=== PATIENT | female | born 1950 | race Caucasian/White ===

== ENCOUNTER 2018-07-07 11:36 | Emergency (ER) | payer MEDICARE ==
[~2018-07-07] VITALS: Ht 170.2 cm; Wt 58.5 kg
--- OUTSIDE RECORDS SUMMARY | ~2018-07-07 | XMS | Clinical Summary ---
Demographics + + + | Address | [address] | | | [place] [address] | + + + | Home Phone | | + + + | Preferred Language | Unknown | + + + | Marital Status | Single | + + + | Taoism Affiliation | Unknown | + + + | Race | Unknown | + + + | Ethnic Group | Other Race | + + + Author + + + | Organization | Unknown | + + + | Address | Unknown | + + + | Phone | Unavailable | + + + Care Team Providers + +------+ + | Care Control Systems Drafting Officer Name | Role | Phone | + +------+ + PP | Unavailable | + +------+ + Source Comments JOSE is fully live on both [facility] and [facility] Allergies Not on File Current Medications Not on file Active Problems + + + | Problem | Noted Date | + + + | Malignant neoplasm of upper-outer quadrant of female breast | | + + + + + | Overview: | | Primary | | diagnosis | + + Social History + +-------+ +--------+------+ [...] on file | | + + + Plan of Treatment + + + + + | Health Maintenance | Due Date | Last Done | Comments | + + + + + | Pneumococcal (Adult) | | | | | (1 of 2 - PCV13) | 7 | | | + + + + + | Influenza (Flu) | | | | | vaccination (#1) | 8 | | | + + + + + Results Not on filefrom Last 3 Months"
--- OUTSIDE RECORDS SUMMARY | ~2018-07-07 | XMS | Clinical Summary ---
Demographics + + + | Address | [address] | | | [place] [address] | + + + | Home Phone | | + + + | Preferred Language | Unknown | + + + | Marital Status | Single | + + + | Moravian Affiliation | Unknown | + + + | Race | Unknown | + + + | Ethnic Group | Other Race | + + + Author + + + | Organization | Unknown | + + + | Address | Unknown | + + + | Phone | Unavailable | + + + Care Team Providers + +------+ + | Care Plant Supervisor Name | Role | Phone | + +------+ + PP | Unavailable | + +------+ + Source Comments JOSE is fully live on both [facility] Ambulatory and [facility] InPatient.[facility] Allergies Not on File Current Medications Not [...]
--- NOTE | 2018-07-07 14:01 | EKG ---
[facility] [address] [place], [place] [address] Signed Atrial fibrillation with rapid ventricular response Abnormal ECG No previous ECGs available Confirmed by VALERIE SANFORD MD ([id number]) on 07/07/2018 2:01:24 PM Electronically Signed By: VALERIE SANFORD MD 07/07/18 1401 PATIENT NAME: LISA FRY Electrocardiogram DATE OF : 52 PHYSICIAN: VALERIE SANFORD MD REPORT #: [id number] REPORT IS CONFIDENTIAL AND NOT TO BE RELEASED WITHOUT AUTHORIZATION
== END 2018-07-07 16:40 | disposition short-term general hospital (02) ==
LOC: ED 11:36
DX: I48.91 Unspecified atrial fibrillation (principal); E05.90 Thyrotoxicosis, unspecified without thyrotoxic crisis or storm; Z85.3 Personal history of malignant neoplasm of breast; Z87.891 Personal history of nicotine dependence
CPT/HCPCS: 71046; 80053; 84439; 84443; 84484; 85025; 93005; 93010; 96374; 96376; 99285-25

== ENCOUNTER 2019-03-21 19:57 | Emergency (ER) | payer MEDICARE ==
[~2019-03-21] VITALS: Ht 170.2 cm; Wt 58.5 kg
--- OUTSIDE RECORDS SUMMARY | ~2019-03-21 | XMS | Encounter Summary ---
Demographics + + + | Address | [address] | | | [place] [address] | + + + | Home Phone | | + + + | Preferred Language | Unknown | + + + | Marital Status | Single | + + + | Sikhism Affiliation | Unknown | + + + [...] Team Providers + +------+ + | Care Reflow Operator Name | Role | Phone | + +------+ + PCP | Unavailable | + +------+ + Encounter Details +--------+ + + + + | Date | Type | Department | Care Team | Description | +--------+ + + + + | 02/14/ | Documentati | [facility] | Ned Valdes, | | | 1993 | on | [facility] | [address] | | | | | [address] | | | | | [address] [place], [place] | [place], [place] | | | | | [address] | [address] | | | | | [phone] | [phone] | | | | | | | [...] documented as of this encounter Progress Notes Ned Valdes MD - 11/26/2004 9:44 AM [facility] - sent Lucio Dee M.D. [address] [place] [address] RE: TAMAR FRY Dear Pat: I had the pleasure of seeing your patient, Tamar Fry, regarding a diagnosis of breast cancer recently. The patient is a 44-year-old premenopausal female who was found to have an abnormality on screening mammography. 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 The tumor was present at the margin of resection. The tumor measured 6 mm according to the pathology report. A re-excision was performed with axillary lymph node dissection on January 14, 1995, and this revealed a tumor measuring 8 mm with the re-excision margin negative for cancer. Zero of 13 lymph nodes contained metastasis. Dr. Dee estimates the size of the tumor as 1.5 cm. It measures 1.4 cm on the mammogram. Hormone receptors have not been done yet but have requested to be done on the paraffin blocks. Other prognostic findings include Her-2/thang low expression and the tumor is diploid without a high S-phase. The patient has also seen Dr. Rendon regarding adjuvant radiation therapy. The patient has had an uneventful postoperative course. She has no symptoms that would suggest metastasis of her breast cancer. Her family history is positive in that her mother and grandmother have had breast cancer. She is single. She smokes one pack of cigarettes per day. She drinks alcohol occasionally. She had a tonsillectomy in her childhood. On review of systems, the patient denies any significant complaints. She has had no headaches. She has had no cough or shortness of breath recently. She has had no angina-like chest pain. She has had no bowel difficulties. The patient has had no hematuria or dysuria. She has had no unusual aches or pains. Her menses are regular. Lucio Dee M.D. February 14, 1995 Page 2 RE: TAMAR FYR On exam, the patient is alert and oriented. She [id number]. She is afebrile. HEENT exam reveals no scleral icterus. Her neck is supple. No lymphadenopathy is detected. Breast exam reveals a healing incision. No persistent or contralateral lumps are appreciated. Her chest is clear. Heart is regular without S3. Abdomen is soft without organomegaly or masses. Neurologic exam is grossly intact. Examination of the extremities reveals no edema or petechiae. This patient has a stage I [id number] breast cancer. She is premenopausal. I recommended four cycles of Adriamycin and Cytoxan chemotherapy. We are still requesting the estrogen receptor to be performed on paraffin blocks. Thank you for this referral. With kind regards, Ned Valdes M.D. [email or web address] cc:Shimon Rendon M.D. RADHA Mcallister Tdocumented in this encounter Plan of Treatment +--------+ + + + + | Date | Type | Specialty | Care Team | Description | +--------+ + + + + | 04/29/ | Procedure | Ophthalmology | | | | 2019 | | | | | +--------+ + + + + | 04/29/ | Office | Ophthalmology | Gerson Mendieta MD | | | 2019 | Visit | | [address] | | | | | | [place], [place] | | | | | | [address] | | | | | | [phone] | | | | | | | | +--------+ + + + + documented as of this encounter Visit Diagnoses Not on filedocumented in this encounter"
--- OUTSIDE RECORDS SUMMARY | ~2019-03-21 | XMS | Encounter Summary ---
Demographics + + + | Address | [address] | | | [place] [address] | + + + | Home Phone | | + + + | Preferred Language | Unknown | + + + | Marital Status | Single | + + + | Faith Affiliation | Unknown | + + + | Race | White | + + + | Ethnic Group | Not or | + + + Author + + + | Author | [facility] | + + + | Organization | [facility] | + + + | Address | Unknown | + + + | Phone | Unavailable | + + + Support + + +---------+ + | Name | Relationship | Address | Phone | + + +---------+ + | Pernell Atkinson | ECON | Unknown | | + + +---------+ + Care Team Providers + +------+ + | Care Data Integrity Consultant Name | Role | Phone | + +------+ + | Alea Devine | PCP | | + +------+ + Encounter Details +--------+---------+ + + + | Date | Type | Department | Care Team | Description | +--------+---------+ + + + | 03/03/ | Office | [facility] | Gerson Mendieta MD | Thyroid eye disease | | 2019 | Visit | [place] | [address] | (Primary Dx) | | | | Oculoplastics at | [address] [place], [place] | | | | | Marc Atkinson [facility] | [address] | | | | | Michael Benoit | [phone] | | | | | Mailcode: JOON | | | | | | [place] [address] | | | | | | [phone] | | | +--------+---------+ + + + [...] documented as of this encounter Progress Notes Randa Hdz - 03/03/2019 10:30 AM PST Gerson Valdez MD - 06/2018 10:30 AM PST Tamar Pillai is a 68 y.o. female here for CHANDAN evaluation In June 2018 pt hospitalized for Atrial fib and dx with Hyperthyroidism noted swelling around OU with vision changes, diplopia and tearing from September on, getting pr ogressively worse. MRI done in January due to eyelid swelling. Closing OS for diplopia occas pain behind OD Put on Prednisone 02/24/19 (10mg tapered dose) due to increased inflammation- feels swellin g much improved since this. Here for evaluation to assess status, options Referred by: Alea Devine POHx: None Thyroid: Shipping Helper/PCP - Dr. Welsh from [place]/Dr. Devine Onset- 03/2018 Status- stable with meds Thyroid surgery - none Meds - Methimazole Prednisone- tapered dose 10mg started 02/24/[address]/HVF - MRI done, no CT,+VF by Dr. Merrill Labs - stable 01/06/19 TSH 1.43 FT3 2.99 Orbitopathy/Symptoms: Onset of ocular symptoms: 12/2018 Prior orbital, strabismus, eyelid surgery - none Overall appearance and progression- swelling, diplopia and tearing Vision - blurred Diplopia - yes, closes OS to see Tearing - yes OS Eye drop use: AT prn Diabetes - no Tobacco use - quit 07/2018 Prior anesthesia: Well tolerated.. ++PONV Pain Medication: No problems with any Pain: No pain (0 of 0-10) JESSICA: OD/OS 1) Spotaneous orbital pain- 0/0 2) Gaze evoked orbital pain- 0/0 3) Eyelid swelling that is considered to be due to active (inflammatory phase) GO- y/y 4) Eyelid erythema- y/y 5) Conjunctival redness that is considered to be due to active (inflammatory phase) GO (ign ore"equivocal" redness)- y/y 6) Chemosis - y/y 7) Inflammation of caruncle or plica- y/y Total = OD 5/7 OS 5/7 Visual Acuity: Vasc Vacc VAph RE LE 20/40+ 20/50 20/25-2 20/30 Pupil Exam: ERL & No APD Color plates: 03/11 OU Motility: RE LE -3 0 -1 0 0 -1 0 0 Lid Measurements: RE (mm) LE (mm) Sup SS Crease HT 10 10 VPF 12 11.5 LF 17 18 mMRDI 7 7 sMRDI 10 10 Inf SS 0 0 Lag 0 0 + brow ptosis Dermatochalasis: 3+ BUL and 2+ BLL BUL retraction RUL>L With temporal flare HOF: 2+ -nontender + proptosis Metz: good OU No adenopathy Slit Lamp Exam: RE LE Lid Margins: + MGD Conjunctiva: 1+ chemosis & congestion Cornea: Clear AC: Deep and quiet Iris: Normal Lens: 3+NS Lid Margins: +MGD Conjunctiva: 1+ chemosis & congestions Cornea: Clear AC: Deep and quiet Iris: Normal Lens: 3+ NS Fundus exam: undilated RE LE Vitreous: Clear Disc: Switzer and sharp C/D: 0.3 ? Macula: Flat Vasculature: Normal Vitreous: Clear Disc: Switzer and sharp C/D: 0.3 ? Macula: Flat Vasculature: Normal Intraocular Pressure: RE 23 mm hg LE 22 mm hg Method Tonopen Exophthalmometry: 21 // 20 @ base 92 Retropulsion: very poor OU Basal tear secretion: 9 OD, 12 OS External photos taken OU today. 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 Plan: High dose steroids - on 60mg x1 week, 40x 2 weeks, 30x 2 weeks, 20x 2 weeks (already on omeprazole) Consider XRT if no improvement with steroids Follow up VF, MRI from outside Supportive measures reviewed Bring old photos RTC end March - dilate as view poor HVF orders in place to be done prior to next appt documented in this encou nter Plan of Treatment +--------+ + + + [...] | | | | | | [place], [place] | | | | | | [address] | | | | | | [phone] | | | | | | | | +--------+ + + + + documented as of this encounter Procedures + +--------+ + + + | Procedure Name | Priori | Date/Time | Associated Diagnosis | Comments | | | ty | | | | + +--------+ + + + | FL EXTERNAL PHOTOS | Routin | 03/16/2019 | Thyroid eye | | | | e | 12:22 PM | disease | | | | | PST | | | + +--------+ + + + documented in this encounter Visit Diagnoses + + | Diagnosis | + + | 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
--- OUTSIDE RECORDS SUMMARY | ~2019-03-21 | XMS | Clinical Summary ---
Demographics + + + | Address | [address] | | | [place] [address] | + + + | Home Phone | | + + + | Preferred Language | Unknown | + + + | Marital Status | | + + + | Latter-Day Affiliation | Unknown | + + + | Race | Unknown | + + + | Ethnic Group | Unknown | + + + Author + + + | Author | [facility] | | | and [place] | + + + | Organization | [facility] | | | and [place] | + + + | Address | Unknown | + + + | Phone | Unavailable | + + + Support + + +---------+ + | Name | Relationship | Address | Phone | + + +---------+ + | Teresitachapo Pillai | ECON | Unknown | | + + +---------+ + Care Team Providers + +------+ + | Care Assistant Professor Of Criminal Justice Name | Role | Phone | + +------+ + | Alea Devine PA-C | PCP | | + +------+ + Allergies No Known Allergies Medications + + + +---------+------+------+-------+ | Medication | Sig | Dispensed | Refills | Star | End | Statu | | | | | | t | Date | s | | | | | | Date | | | + + + +---------+------+------+-------+ | Multiple Vitamin | Take 1 tablet by | | 0 | | | Activ | | TABS | mouth Daily. | | | | | e | + + + +---------+------+------+-------+ | FOLIC ACID PO | Take 2 tablets by | | 0 | | | Activ | | | mouth Daily. | | | | | e | + + + +---------+------+------+-------+ | CYANOCOBALAMIN PO | Take 3 capsules by | | 0 | | | Activ | | | mouth Daily. | | | | | e | + + + +---------+------+------+-------+ | Presidio-3 Fatty | Take 2 capsules by | | 0 | | | Activ | | Acids (FISH OIL PO) | mouth Daily. | | | | | e | + + + +---------+------+------+-------+ | dilTIAZem | Take 1 capsule by | 30 | 0 | 04/1 | | Activ | | (CARDIZEM CD) 240 MG | mouth Daily. | capsule | | 3/20 | | e | | 24 hr capsule | | | | 19 | | | + + + +---------+------+------+-------+ | methIMAzole | Take 1 tablet by | 60 | 0 | 04/1 | | Activ | | (TAPAZOLE) 10 MG | mouth 2 times daily. | tablet | | 2/20 | | e | | tablet | | | | 19 | | | + + + +---------+------+------+-------+ | rivaroxaban | Take 1 tablet by | 30 | 0 | 04/1 | | Activ | | (XARELTO) 20 mg | mouth Daily (with | tablet | | 2/20 | | e | | tablet | dinner). | | | 19 | | | + + + +---------+------+------+-------+ | selenium sulfide | Apply topically | | 0 | | | Activ | | (SELSUN) 2.5% lotion | Daily as needed for | | | | | e | | | Itching. | | | | | | + + + +---------+------+------+-------+ | fluorometholone | 1 drop 4 times | | 0 | | | Activ | | (FML) 0.1% | daily. | | | | | e | | ophthalmic | | | | | | | | suspension | | | | | | | + + + +---------+------+------+-------+ Active Problems + + + | Problem | Noted Date | + + + | Atrial fibrillation with RVR | 07/07/2018 | + + + | Hyperthyroidism | 07/07/2018 | + + + Encounters +--------+---------+ + + + | Date | Type | Specialty | Care Team | Description | +--------+---------+ + + + | 01/26/ | Office | Cardiology | Antonio Stephen, | Paroxysmal atrial | | 2019 | Visit | | MD | fibrillation (HCC) | | | | | | (Primary Dx); | | | | | | Hyperthyroidism | +--------+---------+ + + + from Last 3 Months Immunizations + + + + | Name | Administration Dates | Next Due | + + + + | INFLUENZA, [id number], | 03/29/2009 | | | INACTIVATED | | | + + + + | INFLUENZA, | 03/29/2009 | | | UNSPECIFIED | | | | FORMULATION | | | + + + + | TDAP, (ADOL/ADULT) | 10/06/2009 | | + + + + Family History + + +------+ + | Medical History | Relation | Name | Comments | + + +------+ + | Dementia | Father | | | + + +------+ + | Parkinsonism | Father | | | + + +------+ + | Breast cancer | Maternal | | | | | Grandmoth | | | | | er | | | + + +------+ + | Breast cancer | Mother | | | + + +------+ + | Osteoporosis | Mother | | | + + +------+ + | Other (see comment) | Mother | | Hypothyroidism | + + +------+ + | Thyroid [...] + + + + Plan of Treatment +--------+---------+ + + + | Date | Type | Specialty | Care Team | Description | +--------+---------+ + + + | 07/26/ | Office | Cardiology | Antonio Stephen, | | | 2019 | Visit | | MD [address] | | | | | | [place], | | | | | | [place] [address] | | | | | | [phone] | | | | | | | | +--------+---------+ + + + + + + + + | Health Maintenance | Due Date | Last Done | Comments | + + + + + | Hepatitis C | | | | | Screening | 2 | | | + + + + + | Colorectal Cancer | | | | | Screening | 2 | | | | (Colonoscopy) | | | | + + + + + | Vaccine: Zoster (1 | | | | | of 2) | 2 | | | + + + + + | Breast Cancer | | | | | Screening | 7 | | | + + + + + | Vaccine: | | | | | Pneumococcal 65+ (1 | 7 | | | | of 2 - PCV13) | | | | + + + + + | Adult Annual | | | | | Wellness Visit | 9 | | | + + + + + | Vaccine: Influenza | | 03/29/2009, 03/29/2009 | | | (#1) | 9 | | | + + + + + | Vaccine: | | 10/06/2009 | | | Dtap/Tdap/Td (2 - | 0 | | | | Td) | | | | + + + + + Procedures + +--------+ + + + | Procedure Name | Priori | Date/Time | Associated Diagnosis | Comments | | | ty | | | | + +--------+ + + + | LABS - EXTERNAL SCAN | | 01/06/2019 | | Results for this | | | | 12:00 AM | | procedure are in the | | | | PDT | | results section. | + +--------+ + + + from Last 3 Months Results LABS - EXTERNAL SCAN (01/06/2019 12:00 AM PDT) + + + | Narrative | Performed At | + + + | Ordered by an | | | unspecified provider. | | + + + from Last 3 Months Insurance + +--------+ +--------+ +---------+--------+ | Payer | Benefi | Subscriber | Effect | Phone | Address | Type | | | t Plan | ID | jean | | | | | | / | | Dates | | | | | | Group | | | | | | + +--------+ +--------+ +---------+--------+ | MEDICARE | MEDICA | [id number] | 10/30/19 | [phone] | | Medica | | | RE | | 17-Pre | 5 | | re | | | PART A | | sent | | | | | | AND B | | | | | | + +--------+ +--------+ +---------+--------+ | MEDICARE | MEDICA | [id number] | 10/30/19 | [phone] | | Medica | | | RE | | 17-Pre | 5 | | re | | | PART A | | sent | | | | | | AND B | | | | | | + +--------+ +--------+ +---------+--------+ | AARP | AARP | [id number] | 03/31/19 | [phone] | | Indemn | | | MDCR | | 19-Pre | 0 | | ity | | | SUPPL | | sent | | | | + +--------+ +--------+ +---------+--------+ | AARP | AARP | [id number] | 03/31/19 | [phone] | | Indemn | | | MDCR | | 19-Pre | 0 | | ity | | | SUPPL | | sent | | | | + +--------+ +--------+ +---------+--------+ + +--------+ +--------+ + + | Guarantor Name | Accoun | Relation to | Date | Phone | Billing Address | | | t Type | Patient | of | | | | | | | | | | + +--------+ +--------+ + + | Tamar Pillai | Person | Self [birth year] | [address] | | [place] | al/Fam | | 2 | [phone] | [address] [place] | | | vitaliy | | | 0 (Home) | [address] | + +--------+ +--------+ + + | Tamar Pillai | Person | Self [birth year] | [address] | | [place] | al/Fam | | 1951 | [phone] | [address] [place], [place] | | | vitaliy | | | 0 (Home) | [phone] | + +--------+ +--------+ + + Advance Directives + + + + + | Type | Date Recorded | Patient | Explanation | | | | Passenger Representative | | + + + + + | Power of | | | | | Domestic Freight Forwarder | | | | + + + + + | Power of | | | | | Domestic Freight Forwarder | | | | + + + + + | Advance | 07/07/2018 8:24 | | | | Directive | PM | | | + + + + + | Advance | | | | | Directive | | | | + + + + + + + + + + | Code Status | Date | Date | Comments | | | Activated | Inactivated | | + + + + + | Full Code | 07/07/2018 | 07/10/2018 | | | | 7:48 PM | 3:40 PM | | + + + + +
--- OUTSIDE RECORDS SUMMARY | ~2019-03-21 | XMS | Encounter Summary ---
Demographics + + + | Address | [address] | | | [place] [address] | + + + | Home Phone | | + + + | Preferred Language | Unknown | + + + | Marital Status | Single | + + + | Restoration Affiliation | Unknown | + + + | Race | White | + + + | Ethnic Group | Not or | + + + Author + + + | Author | [facility] | + + + | Organization | [facility] | + + + | Address | Unknown | + + + | Phone | Unavailable | + + + Support + + +---------+ + | Name | Relationship | Address | Phone | + + +---------+ + | Pernell Atkinson | ECON | Unknown | | + + +---------+ + Care Team Providers + +------+ + | Care Machinery Rigger Name | Role | Phone | + +------+ + PCP | Unavailable | + +------+ + Encounter Details +--------+ + + + + | Date | Type | Department | Care Team | Description | +--------+ + + + + | 02/14/ | Documentati | [facility] | Ned Valdes, | | | 1993 | on | [facility] | [address] | | | | | [address] | | | | | [address] [place], [place] | [place], [place] | | | | | [address] | [address] | | | | | [phone] | [phone] | | | | | | | [...] Ned Valdes MD - 11/26/2004 9:44 AM [facility]1994 - sent Lucio Dee M.D. [address] [place] [address] RE: TAMAR FRY Dear Pat: I had the pleasure of seeing your patient, Tamar Fry, regarding a diagnosis of breast cancer recently. The patient is a 44-year-old premenopausal female who was found to have an abnormality on screening mammography. A left breast biopsy was performed by you on January 10, 1995, at [facility], and this revealed infiltrative moderately well differentiated [...] the patient is alert and oriented. She [id number]. She is afebrile. HEENT exam reveals no [...] petechiae. This patient has a stage I [id number] breast cancer. She is premenopausal. I recommended [...] | | | | | | [place], [place] | | | | | | [address] | | | | | | [phone] | | | | | | | | +--------+ + + + + documented as of this encounter Visit Diagnoses Not on filedocumented in this encounter"
--- OUTSIDE RECORDS SUMMARY | ~2019-03-21 | XMS | Encounter Summary ---
Demographics + + + | Address | [address] | | | [place] [address] | + + + | Home Phone | | + + + | Preferred Language | Unknown | + + + | Marital Status | | + + + | Taoism Affiliation | Unknown | + + + | Race | Unknown | + + + | Ethnic Group | Unknown | + + + Author + + + | Author | [facility] | | | and [place] | + + + | Organization | [facility] | | | [...] Team Providers + +------+ + | Care Painting Manager Name | Role | Phone | [...] | MED [facility] EXTERNAL | MD [address] | | | | | IMAGING | [address] | | | | | [phone] | [place] [address] | | +--------+ + + + + [...] | | 2019 | Visit | | [address] | | | | | | [place], | | | | | | [place] [address] | | | | | | [phone] | | | | | | | [...]
--- OUTSIDE RECORDS SUMMARY | ~2019-03-21 | XMS | Encounter Summary ---
Demographics + + + | Address | [address] | | | [place] [address] | + + + | Home Phone | | + + + | Preferred Language | Unknown | + + + | Marital Status | Single | + + + | Roman Catholic Affiliation | Unknown | + + + [...] Team Providers + +------+ + | Care Automotive Brake Specialist Name | Role | Phone | [...] as of this encounter Plan of Treatment +--------+ + [...] | | | | | | [place], [place] | | | | | | [address] | | | | | | [phone] | | | | | | | | +--------+ + + + + documented as of this encounter Visit Diagnoses Not on filedocumented in this encounter"
--- OUTSIDE RECORDS SUMMARY | ~2019-03-21 | XMS | Encounter Summary ---
Demographics + + + | Address | [address] | | | [place] [address] | + + + | Home Phone | | + + + | Preferred Language | Unknown | + + + | Marital Status | Single | + + + | Bahai Affiliation | Unknown | + + + [...] Team Providers + +------+ + | Care Pediatric Psychologist Name | Role | Phone | + [...] (med refill) | | 2019 | | [place] | [address] | | | | | Oculoplastics at | [place], [place] | | | | | [place] [address] | [address] | | | | | [place] | [phone] | | | | | Mailcode: JOON | | | | | | [place] [address] | | | | | | [phone] | | | +--------+ + + + [...] | | | | | | [place], [place] | | | | | | [address] | | | | | | [phone] | | | | | | | | +--------+ + + + + documented as of this encounter Visit Diagnoses Not on filedocumented in this encounter"
--- OUTSIDE RECORDS SUMMARY | ~2019-03-21 | XMS | Encounter Summary ---
Demographics + + + | Address | [address] | | | [place] [address] | + + + | Home Phone | | + + + | Preferred Language | Unknown | + + + | Marital Status | Single | + + + | Anabaptist Affiliation | Unknown | + + + [...] Team Providers + +------+ + | Care Magento Developer Name | Role | Phone | [...] | | | | | | [place], [place] | | | | | | [address] | | | | | | [phone] | | | | | | | | +--------+ + + + + documented as of this encounter Visit Diagnoses Not on filedocumented in this encounter"
--- OUTSIDE RECORDS SUMMARY | ~2019-03-21 | XMS | Encounter Summary ---
Demographics + + + | Address | [address] | | | [place] [address] | + + + | Home Phone | | + + + | Preferred Language | Unknown | + + + | Marital Status | | + + + | Sikh Affiliation | Unknown | + + + | Race | Unknown | + + + | Ethnic Group | Unknown | + + + Author + + + | Author | [facility] | | | and [place] | + + + | Organization | [facility] | | | [...] Team Providers + +------+ + | Care Bottle Hop Name | Role | Phone | + +------+ + | Alea Devine PA-C | PCP | | + +------+ + Reason for Referral Evaluate & Treat (Urgent) + + + + + + + | Status | Reason | Specialty | Diagnoses / | Referred By | Referred To | | | | | Procedures | Contact | Contact | + + + + + + + | Authorized | Specialty | Endocrinology | Diagnoses | [place], | Blaise, | | | Services | | Atrial | MD Ana Lilia | Hank Horan, | | | Required | | fibrillation | [address] | PhD [address] | | | | | with RVR | [address] [place] | [address] | | | | | (HCC) | [place], [place] | [place], | | | | | Hyperthyroid | [address] | [place] [address] | | | | | ism | Phone: | Phone: | | | | | | [phone] | [phone] | | | | | | Fax: | Fax: | | | | | | [phone] | [phone] | + + + + + + + Reason for [...] + + | 07/07/ | Hospital | [facility] | [place] | Atrial fibrillation | | 2019 - | Encounter | MED CTR ICU [address] | DO Jeet [address] | with RVR ([facility]); | | | | [place], | [address] [place] | Hyperthyroidism | | 07/10/ | | [place] [address] | [place] [address] | | | 2019 | | [phone] | | | | | | | | | | | | Ana Lilia Abbasi MD | | | | | | [address] | | | | | | [place], [place] | | | | | | [phone] | | | | | | | [...] Abbasi MD - 07/10/2018 9:15 AM PDT [facility] [place] HOSPITALIST DISCHARGE SUMMARY Pt. Name/Age/: Tamar Pillai [...] from mild shortness of breath without hypoxia. [id number] score 2 (age, sex). We discussed anticoagulation [...] should resolve with treatment of her hyperthyroidis jay Will need close outpatient follow up as she may be able to stop both diltiazem and OAC ul timately. #Hyperthyroidism New diagnosis for patient. TSH low at [facility] (cannot see record in our EMR) and [...] a visit in 1 week. Specialty: Physician Marksmanship Instructor Why: Hospital follow up Contact information: [place] [address] Condition: stable Diet: gen Less than 30 minutes were spent on discharge and coordination of post-hospital care. Electronically signed by: Ana Lilia Abbasi MD, 07/10/2018 12:00 [facility] documented in this enco unter Discharge Instructions [...] . Tell your doctor about any prescription, fabw-ewt-jfvugnu, or herbal medicines you take. These may [...] trying to find them. Date Last Reviewed: 07/24/201519992142-0340 [employer]. [address] [place] [address], [place] [address]. All righ ts reserved. This information is [...] get worse New symptoms Date Last Reviewed: 07/30/201519999017-0058 [employer]. [address] [place] [address], [place] [address]. All righ ts reserved. This information is [...] more than normal Fast or irregular heartbeat Timber Incisor Operator or irregular periods (women only) More frequent [...] check with your pharmacist before using ove w-hoh-emgfwvh medicines with your prescribed medicines. Use a [...] trouble breathing Date Last Reviewed: 06/29/2017 [employer]. [address] [place], [place] [address]. All righ ts reserved. This information is not intended as a substitute for professional medical care. Always follow your healthcare professional's instructions. Your Heart s Electrical System The heartbeat is the rhythmic contraction of the heart muscle's 4 chambers. The heart [facility] has a special system that creates [...] ventricles squeeze. Date Last Reviewed: 07/26/2015 [employer]. [address] [place] [address]. All righ ts reserved. This information is not intended as a substitute for professional medical care. Always follow your healthcare professional's instructions. Tamar, You were hospitalized with atrial fibrillation likely due to hyperthyroidism. For your hyperthyroidism, continue taking methimazole twice daily. You will need to have fo llow up with an sighter; I placed an urgent referral to have [...] Daily. | capsule | | 19 | | | 24 hr capsule | | [...] + + + +---------+ + + | Hathorne-3 Fatty | Take 2 capsules by | | 0 | | | | Acids (FISH OIL PO) | mouth Daily. | | | | | + + + +---------+ + + | rivaroxaban | Take 1 tablet by | 30 | 0 | 07/11/19 | | | (XARELTO) 20 mg | mouth Daily (with | tablet | | 19 | | | tablet | dinner). | | | | | + + + +---------+ + + documented as of this encounter Progress Notes Ana Lilia Abbasi MD - 07/09/2018 9:56 AM PDT [place], [place] HOSPITALIST PROGRESS NOTE Patient: Tamar Pillai : 1950: Age: 67 y.o. MedRec: [id number] Admission date: 07/07/2018 Hospital day # : [...] mild left atrial dilatation, otherwise unremarkable study. [id number] score 2 (age, sex). Patient is hesitant about anticoagulation and will continue to think about this. Continue aspirin for now. Monitor electrolytes with K >4, MG >2 #Hyperthyroidism New diagnosis for patient. TSH low at [facility] (cannot see record in our EMR) and [...] Procedure Component Value Units Date/Time Culture, MRSA [[id number]] Collected: 07/07/18 1839 Order Status: Completed Lab Status: Final result Updated: 07/09/18 0711 Specimen: Tissue from Nares Culture Negative for [...] L/min Ana Lilia Abbasi MD 07/09/2018 9:56 [facility] Shital Lunsford, PharmD - 07/08/2018 2:30 [...] vitamin tabs 1 tab by mouth daily Hathorne-3 fatty acids 2 caps by mouth daily [...] Other: Patient PCP: Alea Devine PA-C at [facility] Best possible SEO TEAM LEAD medication list after pharmacy review: PT REPORTED TAKING NOT TAKING Medication Sig Last Dose Dispense Doc. Provider CYANOCOBALAMIN PO Take 3 capsules by mouth Daily. Taking Historical Provider, FOLIC ACID PO Take 2 tablets by mouth Daily. Taking Historical Provider, Multiple Vitamin TABS Take 1 tablet by mouth Daily. Taking Historical Provider, Hathorne-3 Fatty Acids (FISH OIL PO) Take 2 capsules by mouth Daily. Taking Historical Lex vora MD Medication review performed and electronically signed by Keren Malik, Stained Glass Window Designer 2018 13:54 Reviewed by Shital Britt, PharmNora 07/08/2018 14:28 Ana Lilia Rosado MD - 07/08/2018 9:24 AM PDT [facility] [place] HOSPITALIST PROGRESS NOTE Patient: Tamar Pillai : 1950: Age: 67 y.o. MedRec: [id number] Admission date: 07/07/2018 Hospital day # : [...] ut no chest pain. Echo is pending. [id number] score 2 (age, sex). Patient is hesitant about anticoagulation and will continue to think about this. Continue aspirin for now. Monitor electrolytes with K >4, MG >2 #Hyperthyroidism New diagnosis for patient. TSH low at [facility] (cannot see record in our EMR) and [...] mL infusion 5-15 mg/hr Intrav enous Titrated Ranchodarion Pereira, DO 5 mL/hr at 07/07/182149 5 mg/hr at 07/07/182149 heparin 5,000 units/mL injection 5,000 Units 5,000 Units Subcutaneous 2 times per day Ranchodarion Pereira, DO 5,000 Units at 07/08/18 0846 [...] Procedure Component Value Units Date/Time Culture, MRSA [[id number]] Collected: 07/07/181838 Order Status: Sent Lab Status: [...] L/min Ana Lilia Abbasi MD 07/08/2018 9:24 [facility] Sonali Oliver RN - 07/07/2018 7:11 PM PDTPatient arrived to ICU at 1800. Diltiazem drip currently at 10 mg/hr to maintain heart rate <120, other vital signs stable. Report given to Beverly CH.Yuea ines signed by Sonali Cabrera RN at 07/07/2018 [...] | | | | | | [place] [address] | | | | | | [phone] | | | | | | | [...] | | | | | | RVR (HCC) | | | | | | Hyperthyroidism | | + + +--------+ + + documented as of this encounter Procedures + +--------+ + + + | Procedure Name | Priori | Date/Time | Associated Diagnosis | Comments | | | ty | | | | + +--------+ + + + | EXTRA LAVENDER TOP | Routin | 07/10/2018 | | [...] Done | | [facility] | | | [place] | | | [facility] | | [...] [address] | [place] | [phone] | | [facility] | | [address] | | | - LABORATORY | | [...] + | [facility] | [address] | [place] | [phone] | | [facility] | | [address] | | | - LABORATORY | | [...] [facility] | | | | | | [facility] | | | | | | MEDICAL | | | | | | CENTER - | | | | | | LABORATORY | | + +-------+ + + + | Creatinine | 0.65 | 0.55 - 1.02 | [facility] | | | | | mg/dL | [facility] | | | | | | MEDICAL | | | | | | CENTER - | | | | | | LABORATORY | | + +-------+ + + + | eGFR if not | >60 | >=60 | [facility] | | | | | mL/min/1.73m2 | [facility] | | | [place] | | | MEDICAL | | | | | | CENTER - | | | | | | LABORATORY | | + +-------+ + + + | Calcium | 10.2 | 8.7 - 10.4 | [facility] | | | | | mg/dL | [facility] | | | | | | [...] [address] | [place] | [phone] | | [facility] | | [address] | | | - LABORATORY | | | | + + + + + Extra Lavender Top Tube (07/09/2018 7:50 AM PDT) + +-------+ + + + | Component | Value | Ref Range | Performed | Pathologist | | | | | At | Signature | + +-------+ + + + | Extra | Done | | [facility] | | | Lavender | | | [facility] | | | Top Tube | [...] + | [facility] | [address] | [place] | [phone] | | [facility] | | [address] | | | - LABORATORY | | | | + + + + + Magnesium (07/09/2018 7:45 AM PDT) + +-------+ + + + | Component | Value | Ref Range | Performed | Pathologist | | | | | At | Signature | + +-------+ + + + | Magnesium | 1.6 | 1.6 - 2.6 mg/dL | [facility] | | | | | | [facility] | | | | | | [...] [address] | [place] | [phone] | | [facility] | | [address] | | | - LABORATORY | | [...] | | | | | mmol/L | [facility] | | | | | | MEDICAL [...] mL/min/1.73m2 | [facility] | | | [place] | | | MEDICAL | | | [...] | ine Ratio | | | [facility] | | [...] ST. | [address] | [place] | [phone] | | [facility] | | [address] | | | - LABORATORY | | [...] + + | Performed at: 01 - [facility] [address], | REFERENCE LAB | | [place], [place] [id number] Boring Machine Operator Production: Alonso Vaughan MD, Phone: | JAQUELIN - ALEXA | | [phone] | | + + + + + + + + | Performing | Address | City/State/Zipcode | Phone Number | | Organization | | | | + + + + + | REFERENCE LAB | [address] | [place] [address] | [phone] | | [facility] | [address] | | | + + + + [...] | | | | JOHN PENN MD ([id number]) | | | | | | on [...] [address] | [place] | [phone] | | [facility] | | [address] | | | - LABORATORY | | [...] + | [facility] | [address] | [place] | [phone] | | [facility] | | [address] | | | - LABORATORY | | [...] | | | | | mmol/L | [facility] | | | | [...] 14 | 9 - 23 mg/dL | [facility] | | | | | | ST. [...] mL/min/1.73m2 | [facility] | | | [place] | | | MEDICAL | | | [...] + | [facility] | [address] | [place] | [phone] | | [facility] | | [address] | | | - LABORATORY | | [...] | | Top Tube | | | [facility] | | [...] + | [facility] | [address] | [place] | [phone] | | [facility] | | [address] | | | - LABORATORY | | [...] | | Lavender | | | [facility] | | | Top Tube | | [...] | + + + + + | [facility] | [address] | [place] | [phone] | | [facility] | | [address] | | | - LABORATORY | | | | + + + + + B Type Natriuretic Peptide (07/07/2018 8:03 PM PDT) + +---------+ + + + | Component | Value | Ref Range | Performed | Pathologist | | | | | At | Signature | + +---------+ + + + | BNP | 273 (H) | <100 pg/mL | [facility] | | | | | | ST. [...] + + | [facility] | [address] | [place] | [phone] | | [facility] | | [address] | | | - LABORATORY | | [...] + | [facility] | [address] | [place] | [phone] | | [facility] | | [address] | | | - LABORATORY | | [...] [address] | [place] | [phone] | | [facility] | | [address] | | | - LABORATORY | | [...] JOCE | | | | | | [facility] | | | | | | [...] [address] | [place] | [phone] | | [facility] | | [address] | | | - LABORATORY | | [...] | | chromogenic agar method | | [facility] | | | [...] ST. | [address] | [place], [place] | [phone] | | [facility] | | [address] | | | - LABORATORY | | [...] + + | Atrial fibrillation with RVR ([facility]) - Primary Atrial fibrillation | + + [...] AM PDT | | | | | [facility] 07/09/18 at 0745 | | | | [...] | | | | | dose on [facility] 07/07/18 at 2100 | | | | | [...] PDT | | | | | ONCE, [facility] 07/08/18 at 0330, For 1 | | [...] PDT | | | | | ONCE, [facility] 07/10/18 at 0800, For 1 | | | [...] | | TIMES DAILY, First dose on Wed | | AM PDT | | | [...] | potassium chloride (Klor-Con | Given | 07/11/19 | 40 mEq [...]
--- OUTSIDE RECORDS SUMMARY | ~2019-03-21 | XMS | Encounter Summary ---
Demographics + + + | Address | [address] | | | [place] [address] | + + + | Home Phone | | + + + | Preferred Language | Unknown | + + + | Marital Status | Single | + + + | Yarsanism Affiliation | Unknown | + + + [...] Team Providers + +------+ + | Care Spray Drier Operator Name | Role | Phone | [...] Procedure | Ophthalmology | | | | 2020 | | | | | +--------+ + + + + | 04/29/ | Office | Ophthalmology | Gerson Mendieta MD | | | 2020 | Visit | | [address] | | | | | | [place], [place] | | | | | | [address] | | | | | | [phone] | | | | | | | | +--------+ + + + + documented as of this encounter Visit Diagnoses Not on filedocumented in this encounter"
--- OUTSIDE RECORDS SUMMARY | ~2019-03-21 | XMS | Clinical Summary ---
Demographics + + + | Address | [address] | | | [place] [address] | + + + | Home Phone [...] + + | Author | [facility] | + + + | Organization | [facility] | + + + | Address | Unknown | + + + | Phone | Unavailable | + + + Support + + +---------+ + | Name | Relationship | Address | Phone | + + +---------+ + | Pernell Atkinson | ECON | Unknown | | + + +---------+ + Care Team Providers + +------+ + | Care Seat Joiner Name | Role | Phone | + +------+ + | Alea Devine | PCP | | + +------+ + Source Comments JOSE is fully live on both [facility] Ambulatory and [facility] InPatient.[facility] Allergies Not on File Medications + + + +---------+------+------+-------+ | Medication [...] | oral tablet | | | | /20 | | e | | | | | | 19 | | | + + + +---------+------+------+-------+ | XARELTO 20 mg oral | TK 1 T PO QD WITH | | 0 | 11/2 | | Activ | | tablet | DINNER | | | 08/17 | | e | | | | | | 19 | | | + + + +---------+------+------+-------+ | fluorometholone | INSTILL 1 DROP INTO | | 0 | 11/0 | | Activ | | 0.1 % ophthalmic | BOTH EYES BID | | | 08/17 | | e | | (eye) | [...] +---------+------+------+-------+ | predniSONE 10 mg | Take 10 mg by mouth | | 0 | | | Activ | | oral tablet | once daily. | | | | | e | + + + +---------+------+------+-------+ | omeprazole 20 mg | Take 20 mg by mouth | | 0 | | | Activ | | oral capsule,delayed | once daily. | | | | | e | | release(DR/EC) | Administer 30 to 60 | | | | | | | | minutes before meals | | | | | | + + + +---------+------+------+-------+ | omeprazole 20 mg | Take 1 capsule by | 30 | 1 | 12/1 | | Activ | | oral capsule,delayed | mouth once daily. | capsule | | 10/17 | | e | | | Administer 30 to 60 | | | 19 | | | | release(DR/EC)Indica | minutes before meals | | | | | | | tions: heartburn | Indications: | | | | | | | | heartburn | | | | | | + + + +---------+------+------+-------+ | predniSONE 10 mg | Take 3 tablets po | 40 | 0 | 12/ | | Activ | | oral | once daily and | tablet | | 10/17 | | e | | tabletIndications: | follow taper as | | | 19 | | | | thyroid eye disease | outlined by | | | | | | | | physician. 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) | +--------+ + + + + | 03/03/ | Travel | | | | | 2018 | | | | | +--------+ + [...] | + + Last Filed Vital Signs Not on file Plan of Treatment +--------+ + + + [...] | | 2020 | Visit | | [address] | | | | | | [place], [place] | | | | | | [address] | | | | | | [phone] | | | | | | | | +--------+ + + + + + + + + + | Health Maintenance | Due Date | Last Done | Comments | + + + + + | Pneumococcal | | | | | vaccination (1 of 2 | 7 | | | | - [...] | + +--------+ + + + | [place] EXTERNAL PHOTOS | Routin | 03/16/2019 | Thyroid eye | | | | e | 12:22 PM | disease | | | | | PST | | | + +--------+ + + + from Last 3 Months Results Not on filefrom Last 3 Months [...] | | | | | | | [address] | | + +--------+ +--------+ + +--------+ | [employer] | AARP | [phone] | 03/31/19 | [phone] | [address] | Indemn | | RETIRED PEOPLE | | | 19-Pre | 9 | [id number] | ity | | | | | sent | | [place] | | | | | | | | [address] | | + +--------+ +--------+ + +--------+ + +--------+ +--------+ + + | Guarantor Name | Accoun | Relation to | Date | Phone | Billing Address | | | t Type | Patient | of | | | | | | | | | | + +--------+ +--------+ + + | Tamar Pillai | Person | Self [birth year] | [address] | | [place] | al/Fam | | 1951 | [phone] | [place] [address] | | | vitaliy | | | 0 (Home) | | + +--------+ +--------+ + +"
--- OUTSIDE RECORDS SUMMARY | ~2019-03-21 | XMS | Encounter Summary ---
Demographics + + + | Address | [address] | | | [place] [address] | + + + | Home Phone | | + + + | Preferred Language | Unknown | + + + | Marital Status | | + + + | Congregational Affiliation | Unknown | + + + | Race | Unknown | + + + | Ethnic Group | Unknown | + + + Author + + + | Author | [facility] | | | and [place] | + + + | Organization | [facility] | | [...] Team Providers + +------+ + | Care Sports Trainer Name | Role | Phone | + [...] + + | 01/26/ | Office | [facility] | [place], | Paroxysmal atrial | | 2019 | Visit | CARDIOLOGY JESSICA | [address] | fibrillation (HCC) | | | | [address] | [place], | (Primary Dx); | | | | [address] | [place] [address] | Hyperthyroidism | | | | [place] | [phone] | | | | | [address] | | | | | | [phone] | | | +--------+---------+ + + + [...] in June, when she was admitted to [facility], although she did not feel well for [...] seeing Dr. Hank Welsh (endocrino logist in [place]), but has developed ocular problems from her [...] a RVR 07/17, attributed to her hyperthyroidism, [id number] VASc 2, on Xarelto. No recent palpitations. No history of a heart murmur, rheumatic fever. No history of hypertension, has mild hyperlipidemia. No edema, no claudication sympt oms. No h/o an AAA. -- Echo (07/08/18 - [facility]): EF 70%, mild bi-AE, otherwise normal GASTROINTESTINAL: No recent abdominal pain, nausea, vomiting or diarrhea. Denies PUD, melen a, hematochezia, hepatitis. RENAL/: No history of kidney disease. No dysuria, hematuria, urinary urgency, hesitancy. G2. P0, A2. No active Pipe Inspector disorders. HEMATOLOGY/ONCOLOGY: No h/o bleeding disorders, DVT, [...] (HCC) 07/08/2018 with RVR, secondary to Hyperthyroidism, [id number] VASc 2 Breast cancer (HCC) 1995 left [...] TABS Take 1 tablet by mouth Daily. George-3 Fatty Acids (FISH OIL PO) Take 2 [...] | | | | | | [place] [address] | | | | | | [phone] | | | | | | | [...]
--- OUTSIDE RECORDS SUMMARY | ~2019-03-21 | XMS | Encounter Summary ---
Demographics + + + | Address | [address] | | | [place] [address] | + + + | Home Phone | | + + + | Preferred Language | Unknown | + + + | Marital Status | | + + + | Orthodoxy Affiliation | Unknown | + + + | Race | Unknown | + + + | Ethnic Group | Unknown | + + + Author + + + | Author | [facility] | | | and [place] | + + + | Organization | [facility] | | | [...] Team Providers + +------+ + | Care Clerk To Justice Name | Role | Phone | [...] | | (HCC) | [place], [place] | [place], | | | | | Hyperthyroid | [address] | [place] [address] | | | | | ism | Phone: | Phone: | | | | | | [phone] | [phone] | | | | | | Fax: | Fax: | | | | | | [phone] | [phone] | + + + + + + [...] + + | 07/07/ | Hospital | [facility] | [place] | Atrial fibrillation | | 2019 - | Encounter | MED CTR ICU [address] | DO Je[address] | with RVR ([facility]); | | | | [address], | [address] [place] | Hyperthyroidism | | 07/10/ | | [place] [address] | [place] [address] | | | 2019 | | [phone] | | | | | | | | | | | | Ana Liila Abbasi MD | | | | | | [address] | | | | | | [place], [place] | | | | | | [phone] | | | | | | | [...] Abbasi MD - 07/10/2018 9:15 AM PDT [facility] DISCHARGE SUMMARY Pt. Name/Age/: Tamar Pillai [...] from mild shortness of breath without hypoxia. [id number] score 2 (age, sex). We discussed anticoagulation [...] New diagnosis for patient. TSH low at [facility] (cannot see record in our EMR) [...] a visit in 1 week. Specialty: Physician Career Center Advisor Why: Hospital follow up Contact information: [place] [address] Condition: stable Diet: gen Less than 30 minutes were spent on discharge and coordination of post-hospital care. Electronically signed by: Ana Lilia Abbasi MD, 07/10/2018 12:00 [facility] documented in this enco unter Discharge [...] . Tell your doctor about any prescription, chkg-fqg-pwympth, or herbal medicines you take. These may [...] trying to find them. Date Last Reviewed: 07/24/201519999388-9814 [employer]. [address] [place] [address], [place] [address]. All righ ts reserved. This information is [...] get worse New symptoms Date Last Reviewed: 07/30/201519995663-6524 [employer]. [address] [place] [address], [place] [address]. All righ ts reserved. This information is [...] more than normal Fast or irregular heartbeat [employer] Athlete or irregular periods (women only) More frequent [...] check with your pharmacist before using ove h-hhc-rrzybyl medicines with your prescribed medicines. Use a [...] trouble breathing Date Last Reviewed: 06/29/2017 [employer]. [address] [place], [place] [address]. All righ ts reserved. This information is not intended as a substitute for professional medical care. Always follow your healthcare professional's instructions. Your Heart s Electrical System The heartbeat is the rhythmic contraction of the heart muscle's 4 chambers. The heart [facility] has a special system [...] ventricles squeeze. Date Last Reviewed: 07/26/2015 [employer]. [address] [place] [address]. All righ ts reserved. This information is not intended as a substitute for professional medical care. Always follow your healthcare professional's instructions. Tamar, You were hospitalized with atrial fibrillation likely due to hyperthyroidism. For your hyperthyroidism, continue taking methimazole twice daily. You will need to have fo llow up with an immigration consultant; I placed an urgent referral to have [...] + + + +---------+ + + | Marcellus-3 Fatty | Take 2 capsules by | [...] Abbasi MD - 07/09/2018 9:56 AM PDT [place] HOSPITALIST PROGRESS NOTE Patient: Tamar Pillai : 1950: Age: 67 y.o. MedRec: [id number] Admission date: 07/07/2018 Hospital day # : [...] mild left atrial dilatation, otherwise unremarkable study. ERPSM2APIN score 2 (age, sex). Patient is hesitant [...] Procedure Component Value Units Date/Time Culture, MRSA [[id number]] Collected: 07/07/18 1839 Order Status: Completed Lab [...] L/min Ana Lilia Abbasi MD 07/09/2018 9:56 [facility] Shital Lunsford, PharmD - 07/08/2018 2:30 [...] vitamin tabs 1 tab by mouth daily Marcellus-3 fatty acids 2 caps by mouth daily [...] Other: Patient PCP: Alea Devine PA-C at [facility] Best possible SCALDER medication list after pharmacy review: PT REPORTED TAKING NOT TAKING Medication Sig Last Dose Dispense Doc. Provider CYANOCOBALAMIN PO Take 3 capsules by mouth Daily. Taking Historical Provider, FOLIC ACID PO Take 2 tablets by mouth Daily. Taking Historical Provider, Multiple Vitamin TABS Take 1 tablet by mouth Daily. Taking Historical Provider, Marcellus-3 Fatty Acids (FISH OIL PO) Take 2 capsules by mouth Daily. Taking Historical Lex vora MD Medication review performed and electronically signed by Keren Malik, Hydroelectric Plant Operator 2018 13:54 Reviewed by Shital Britt, PharmNora 07/08/2018 14:28 Ana Lilia Rosado MD - 07/08/2018 9:24 AM PDT [facility] [place] HOSPITALIST PROGRESS NOTE Patient: Tamar Pillai : 1950: Age: 67 y.o. MedRec: [id number] Admission date: 07/07/2018 Hospital day # : [...] ut no chest pain. Echo is pending. FPRUV4HUXB score 2 (age, sex). Patient is hesitant about anticoagulation and will continue to think about this. Continue aspirin for now. Monitor electrolytes with K >4, MG >2 #Hyperthyroidism New diagnosis for patient. TSH low at [facility] (cannot see record in our EMR) [...] Procedure Component Value Units Date/Time Culture, MRSA [[id number]] Collected: 07/07/181838 Order Status: Sent Lab Status: [...] L/min Ana Lilia Abbasi MD 07/08/2018 9:24 [facility] Sonali Oliver RN - 07/07/2018 7:11 [...] [place], | | | | | | [place] [address] | | | | | | [phone] | | | | | | | [...] [address] | [place] | [phone] | | [facility] | | [address] | | | - LABORATORY | | [...] + | [facility] | [address] | [place] | [phone] | | [facility] | | [address] | | | - LABORATORY | | [...] | mL/min/1.73m2 | [facility] | | | [place] | | | MEDICAL | | | [...] | + + + + + | [facility] | [address] | [place] | [phone] | | [facility] | | [address] | | | - LABORATORY | | [...] | | Lavender | | | [facility] | | | Top Tube | | [...] + | [facility] | [address] | [place] | [phone] | | [facility] | | [address] | | | - LABORATORY | | [...] [address] | [place] | [phone] | | [facility] | | [address] | | | - LABORATORY | | [...] | | | | mmol/L | [facility] | | | | | | MEDICAL [...] mL/min/1.73m2 | [facility] | | | [place] | | | MEDICAL | | | [...] [address] | [place] | [phone] | | [facility] | | [address] | | | - LABORATORY | | [...] + + | Performed at: 01 - [facility] [place] [address], | REFERENCE LAB | | [place], [place] [id number] Field Sales Engineer: Alonso Vaughan MD, Phone: | JAQUELIN - ALEXA | | [phone] | | + + + + + + + + | Performing | Address | City/State/Zipcode | Phone Number | | Organization | | | | + + + + + | REFERENCE LAB | [address] | [place] [address] | [phone] | | [facility] | Drive [...] | | | | JOHN PENN MD ([id number]) | | | | | | on [...] [address] | [place] | [phone] | | [facility] | | [address] | | | - LABORATORY | | [...] + | [facility] | [address] | [place] | [phone] | | [facility] | | [address] | | | - LABORATORY | | [...] mL/min/1.73m2 | [facility] | | | [place] | | | MEDICAL | | | [...] + | [facility] | [address] | [place] | [phone] | | [facility] | | [address] | | | - LABORATORY | | [...] + | [facility] | [address] | [place] | [phone] | | [facility] | | [address] | | | - LABORATORY | | [...] + | [facility] | [address] | [place] | [phone] | | [facility] | | [address] | | | - LABORATORY | | [...] [address] | [place] | [phone] | | [facility] | | [address] | | | - LABORATORY | | [...] + | [facility] | [address] | [place] | [phone] | | [facility] | | [address] | | | - LABORATORY | | [...] [address] | [place] | [phone] | | [facility] | | [address] | | | - LABORATORY | | [...] [address] | [place] | [phone] | | [facility] | | [address] | | | - LABORATORY | | [...] ST. | [address] | [place], [place] | [phone] | | [facility] | | [address] | | | - LABORATORY | | [...] + + | Atrial fibrillation with RVR ([facility]) - Primary Atrial fibrillation | + + [...] AM PDT | | | | | [facility] 07/09/18 at 0745 | | | [...] | | | | | dose on [facility] 07/07/18 at 2100 | | | | [...] PDT | | | | | ONCE, [facility] 07/08/18 at 0330, For 1 | [...] PDT | | | | | ONCE, [facility] 07/10/18 at 0800, For 1 | | [...]
--- OUTSIDE RECORDS SUMMARY | ~2019-03-21 | XMS | Encounter Summary ---
Demographics + + + | Address | [address] | | | [place] [address] | + + + | Home Phone | | + + + | Preferred Language | Unknown | + + + | Marital Status | | + + + | Anabaptism Affiliation | Unknown | + + + | Race | Unknown | + + + | Ethnic Group | Unknown | + + + Author + + + | Author | [facility] | | | and [place] | + + + | Organization | [facility] | | [...] Team Providers + +------+ + | Care Carver And Checkerer Specials Name | Role | Phone | + [...] | MED CTR EXTERNAL | MD [address] | | | | | IMAGING | [address] | | | | | [phone] | [place] [address] | | +--------+ + + + + [...] | | | | | | [place] [address] | | | | | | [phone] | | | | | | | [...]
--- OUTSIDE RECORDS SUMMARY | ~2019-03-21 | XMS | Encounter Summary ---
Demographics + + + | Address | [address] | | | [place] [address] | + + + | Home Phone | | + + + | Preferred Language | Unknown | + + + | Marital Status | Single | + + + | Jew Affiliation | Unknown | + + + [...] Team Providers + +------+ + | Care Planner Chief Name | Role | Phone | + +------+ + | Alea Devine | PCP | | + +------+ + Encounter Details +--------+---------+ + + + | Date | Type | Department | Care Team | Description | +--------+---------+ + + + | 03/03/ | Office | [facility] | Gerson Mendieta MD | Thyroid eye disease | | 2019 | Visit | [place] | [address] | (Primary Dx) | | | | Oculoplastics at | [address] [place], [place] | | | | | Marc Atkinson [facility] | [address] | | | | | Michael Benoit | [phone] | | | | | Mailcode: JOON | | | | | | [place] [address] | | | | | | [phone] | | | +--------+---------+ + + + [...] Referred by: Alea Devine POHx: None Thyroid: Junior Assistant Manager/PCP - Dr. Welsh from [facility]/Dr. Devine Onset- 03/2018 Status- stable with meds [...] temporal flare HOF: 2+ -nontender + proptosis [place]: good OU No adenopathy Slit Lamp Exam: RE LE Lid Margins: + MGD Conjunctiva: 1+ chemosis & congestion Cornea: Clear AC: Deep and quiet Iris: Normal Lens: 3+NS Lid Margins: +MGD Conjunctiva: 1+ chemosis & congestions Cornea: Clear AC: Deep and quiet Iris: Normal Lens: 3+ NS Fundus exam: undilated RE LE Vitreous: Clear Disc: Piru and sharp C/D: 0.3 ? Macula: Flat Vasculature: Normal Vitreous: Clear Disc: Piru and sharp C/D: 0.3 ? Macula: Flat [...] | | | | | | [place], [place] | | | | | | [address] | | | | | | [phone] | | | | | | | | +--------+ + + + + documented as of this encounter Procedures + +--------+ + + + | Procedure Name | Priori | Date/Time | Associated Diagnosis | Comments | | | ty | | | | + +--------+ + + + | NV EXTERNAL PHOTOS | Routin | 03/16/2019 | [...]
--- OUTSIDE RECORDS SUMMARY | ~2019-03-21 | XMS | Clinical Summary ---
Demographics + + + | Address | [address] | | | [place] [address] | + + + | Home Phone | | + + + | Preferred Language | Unknown | + + + | Marital Status | Single | + + + | Restorationist Affiliation | Unknown | + + + | Race | White | + + + | Ethnic Group | Not or | + + + Author + + + | Author | [facility] | + + + | Organization | [facility] | + + + | Address | Unknown | + + + | Phone | Unavailable | + + + Support + + +---------+ + | Name | Relationship | Address | Phone | + + +---------+ + | Pernell Atkinson | ECON | Unknown | | + + +---------+ + Care Team Providers + +------+ + | Care Fire Assistant Name | Role | Phone | + +------+ + | Alea Devine | PCP | | + +------+ + Source Comments JOSE is fully live on both [facility] Ambulatory and [facility] InPatient.[facility] Allergies Not on File Medications + + [...] | | 2020 | Visit | | [address] | | | | | | [place], [place] | | | | | | [address] | | | | | | [phone] | | | | | | | [...] | + +--------+ + + + | ME EXTERNAL PHOTOS | Routin | 03/16/2019 | [...] | | | | | | | [address] | | + +--------+ +--------+ + +--------+ | [employer] | AARP | [phone] | 03/31/19 | [phone] | [address] | Indemn | | RETIRED PEOPLE | | | 19-Pre | 9 | [id number] | ity | | | | | sent | | [place] | | | | | | | | [address] | | + +--------+ +--------+ + +--------+ + +--------+ +--------+ + + | Guarantor Name | Accoun | Relation to | Date | Phone | Billing Address | | | t Type | Patient | of | | | | | | | | | | + +--------+ +--------+ + + | Tamar Pillai | Person | Self | [birth year] | [address] | | [place] | al/Fam | | 1951 | [phone] | [place] [address] | | | vitaliy | | | 0 (Home) | | + +--------+ +--------+ + +"
--- OUTSIDE RECORDS SUMMARY | ~2019-03-21 | XMS | Encounter Summary ---
Demographics + + + | Address | [address] | | | [place] [address] | + + + | Home Phone [...] Team Providers + +------+ + | Care Screen Machine Operator Name | Role | Phone [...] (med refill) | | 2019 | | [place] | [address] | | | | | Oculoplastics at | [place], [place] | | | | | [address] | [address] | | | | | [place] | [phone] | | | | | Mailcode: [place] | | | | | | [place] [address] | | | | | | [phone] | | | +--------+ + + + [...] | | | | | | [place], [place] | | | | | | [address] | | | | | | [phone] | | | | | | | | +--------+ + + + + documented as of this encounter Visit Diagnoses Not on filedocumented in this encounter"
--- OUTSIDE RECORDS SUMMARY | ~2019-03-21 | XMS | Clinical Summary ---
Demographics + + + | Address | [address] | | | [place] [address] | + + + | Home Phone | | + + + | Preferred Language | Unknown | + + + | Marital Status | | + + + | Adventist Affiliation | Unknown | + + + | Race | Unknown | + + + | Ethnic Group | Unknown | + + + Author + + + | Author | [facility] | | | and [place] | + + + | Organization | [facility] | | [...] Team Providers + +------+ + | Care Financial Compliance Officer Name | Role | Phone | [...] e | + + + +---------+------+------+-------+ | [employer] [place] [employer]-3 Fatty | Take 2 capsules by | [...] | + + + + | INFLUENZA, [id number], | 03/29/2009 | | | INACTIVATED | [...] | | | | | | [place] [address] | | | | | | [phone] | | | | | | | [...] +--------+ +---------+--------+ | MEDICARE | MEDICA | [id number] | 10/30/19 | [phone] | | Medica | | | RE | | 17-Pre | 5 | | re | | | PART A | | sent | | | | | | AND B | | | | | | + +--------+ +--------+ +---------+--------+ | MEDICARE | MEDICA | [id number] | 10/30/19 | [phone] | | Medica | | | RE | | 17-Pre | 5 | | re | | | PART A | | sent | | | | | | AND B | | | | | | + +--------+ +--------+ +---------+--------+ | AARP | AARP | [id number] | 03/31/19 | [phone] | | Indemn | | | MDCR | | 19-Pre | 0 | | ity | | | SUPPL | | sent | | | | + +--------+ +--------+ +---------+--------+ | AARP | AARP | [id number] | 03/31/19 | [phone] | | Indemn [...] vitaliy | | | 0 (Home) | [address] | + +--------+ +--------+ + + | Tamar Pillai | Person | Self | [birth year] | [address] | | [place] | al/Fam | | 1951 | [phone] | [address] [place], [place] | | | vitaliy | | | 0 (Home) | [address] | + +--------+ +--------+ + + Advance Directives + + + + + | Type | Date Recorded | Patient | Explanation | | | | Stepdown Nurse | | + + + + + | Power of | | | | | Clinical Rehabilitation Liaison | | | | + + + + + | Power of | | | | | Clinical Rehabilitation Liaison | | | | + + + [...]
--- OUTSIDE RECORDS SUMMARY | ~2019-03-21 | XMS | Encounter Summary ---
Demographics + + + | Address | [address] | | | [place] [address] | + + + | Home Phone | | + + + | Preferred Language | Unknown | + + + | Marital Status | Single | + + + | Methodist Affiliation | Unknown | + + + [...] Team Providers + +------+ + | Care Tanning Consultant Name | Role | Phone | + +------+ + PCP | Unavailable | + +------+ + Encounter Details +--------+ + + + + | Date | Type | Department | Care Team | Description | +--------+ + + + + | 10/04/ | Documentati | [facility] | [place], | | | 2004 | on | [facility] | [address] | | | | | [address] | [address] | | | | | [address] [place], [place] | [place], [place] | | | | | [address] | [address] | | | | | [phone] | [phone] | | | | | | | [...] | | | | | | [place], [place] | | | | | | [address] | | | | | | [phone] | | | | | | | | +--------+ + + + + documented as of this encounter Visit Diagnoses Not on filedocumented in this encounter"
--- OUTSIDE RECORDS SUMMARY | ~2019-03-21 | XMS | Encounter Summary ---
Demographics + + + | Address | [address] | | | [place] [address] | + + + | Home Phone | | + + + | Preferred Language | Unknown | + + + | Marital Status | Single | + + + | Episcopal Affiliation | Unknown | + + + [...] Team Providers + +------+ + | Care Sintering Plant Supervisor Name | Role | Phone | [...] | | | | | | [place], [place] | | | | | | [address] | | | | | | [phone] | | | | | | | | +--------+ + + + + documented as of this encounter Visit Diagnoses Not on filedocumented in this encounter"
--- OUTSIDE RECORDS SUMMARY | ~2019-03-21 | XMS | Encounter Summary ---
Demographics + + + | Address | [address] | | | [place] [address] | + + + | Home Phone | | + + + | Preferred Language | Unknown | + + + | Marital Status | | + + + | Hinduism Affiliation | Unknown | + + + | Race | Unknown | + + + | Ethnic Group | Unknown | + + + Author + + + | Author | [facility] | | | and [place] | + + + | Organization | [facility] | | | and [...] Team Providers + +------+ + | Care Switch Crew Supervisor Name | Role | Phone | [...] + + | 01/26/ | Office | [facility] | Antnoio [place], | Paroxysmal atrial | | 2019 | Visit | [facility]ARDIOLOGY [place] | [address] | fibrillation (HCC) | | | | [address] | [place], | (Primary Dx); | | | | [address] | [place] [address] | Hyperthyroidism | | | | [place] | [phone] | | | | | [address] | | | | | | [phone] | | | +--------+---------+ + + + [...] in June, when she was admitted to [facility], although she did not feel well for [...] seeing Dr. Hank Welsh (endocrino logist in [place]), but has developed ocular problems from her [...] a RVR 07/17, attributed to her hyperthyroidism, [id number] VASc 2, on Xarelto. No recent palpitations. No history of a heart murmur, rheumatic fever. No history of hypertension, has mild hyperlipidemia. No edema, no claudication sympt oms. No h/o an AAA. -- Echo (07/08/[address] [facility]): EF 70%, mild bi-AE, otherwise normal GASTROINTESTINAL: No recent abdominal pain, nausea, vomiting or diarrhea. Denies PUD, melen a, hematochezia, hepatitis. RENAL/: No history of kidney disease. No dysuria, hematuria, urinary urgency, hesitancy. G2. P0, A2. No active P 3 Armament/Ordnance Ima Technician disorders. HEMATOLOGY/ONCOLOGY: No h/o bleeding disorders, DVT, [...] (HCC) 07/08/2018 with RVR, secondary to Hyperthyroidism, [id number] VASc 2 Breast cancer (HCC) 1995 left [...] TABS Take 1 tablet by mouth Daily. [place]-3 Fatty Acids (FISH OIL PO) Take 2 [...] | | | | | | [place] [address] | | | | | | [phone] | | | | | | | [...]
--- OUTSIDE RECORDS SUMMARY | ~2019-03-21 | XMS | Clinical Summary ---
Demographics + + + | Address | [address] | | | [place] [address] | + + + | Home Phone | | + + + | Preferred Language | Unknown | + + + | Marital Status | | + + + | Presybeterian Affiliation | Unknown | + + + | Race | Unknown | + + + | Ethnic Group | Unknown | + + + Author + + + | Author | [facility] [employer] (Historical as of | | | 11-14-18) | + + + | Organization | [facility] [employer] (Historical as of | | | 11-14-18) [...] Team Providers + +------+ + | Care Post Office Manager Name | Role | Phone | [...] | Overview: with RVR, secondary to Hyperthyroidism, [id number] | | VASc 2 | + + [...] Vaccine: Influenza | | | | | (#1) | 9 | [...] +------+-------+ + | MEDICARE | MEDICA | [id number] | | | [address] | | | RE | | | | [place] [address] | | | IP-OP | | | | | + +--------+ +------+-------+ + | UNITED HEALTHCARE | UNITED | [id number] | | | | | | | [...] Self | [birth year] | Home: | [address] | | | al/Fam | | 1951 | [phone] [address] [place] | | | vitaliy | | | [phone] | [address] | + +--------+ +--------+ + +
--- OUTSIDE RECORDS SUMMARY | ~2019-03-21 | XMS | Encounter Summary ---
Demographics + + + | Address | [address] | | | [place] [address] | + + + | Home Phone | | + + + | Preferred Language | Unknown | + + + | Marital Status | Single | + + + | Anglican Affiliation | Unknown | + + + [...] Team Providers + +------+ + | Care Hris Manager Name | Role | Phone | + +------+ + PCP | Unavailable | + +------+ + Encounter Details +--------+ + + + + | Date | Type | Department | Care Team | Description | +--------+ + + + + | 10/04/ | Documentati | [facility] | [place], | | | 2004 | on | [facility] | [address] | | | | | [address] | | | | | [address] [place], [place] | [place], [place] | | | | | [address] | [address] | | | | | [phone] | [phone] | | | | | | | [...] | | | | | | [place], [place] | | | | | | [address] | | | | | | [phone] | | | | | | | | +--------+ + + + + documented as of this encounter Visit Diagnoses Not on filedocumented in this encounter"
--- OUTSIDE RECORDS SUMMARY | ~2019-03-21 | XMS | Clinical Summary ---
Demographics + + + | Address | [address] | | | [place] [address] | + + + | Home Phone | | + + + | Preferred Language | Unknown | + + + | Marital Status | | + + + | Episcopal Affiliation | Unknown | + + + | Race | Unknown | + + + | Ethnic Group | Unknown | + + + Author + + + | Author | [facility] (Historical as of | | | 11-14-18) | + + + | Organization | [facility] (Historical as of | | | 11-14-18) [...] Team Providers + +------+ + | Care Archives Specialist Name | Role | Phone | [...] | Overview: with RVR, secondary to Hyperthyroidism, [id number] | | VASc 2 | + + [...] +------+-------+ + | MEDICARE | MEDICA | [id number] | | | [address] | | | RE | | | | [place] [address] | | | IP-OP | | | | | + +--------+ +------+-------+ + | UNITED HEALTHCARE | UNITED | [id number] | | | | | | | [...] Self | [birth year] Home: | [address] | | | al/Fam | | 1951 | [phone] | [address] [place] | | | vitaliy | | | [phone] | [phone] | + +--------+ +--------+ + +
[2019-03-21] MEDS ORDERED: OMEPRAZOLE20 MG PO (20:06)
[2019-03-21] MEDS ORDERED: DILTIAZEM 24HR240 M1 PO (20:08)
[2019-03-21] MEDS ORDERED: XARELTO20 MG PO (20:08)
[2019-03-21] MEDS ORDERED: METHIMAZOLE10 MG PO (20:08)
[2019-03-21] MEDS ORDERED: PREDNISONE10 MG PO (20:09)
[2019-03-21] MEDS ORDERED: NORCO 5-325 TA1 EACH PO (23:54)
[2019-03-21] MEDS ORDERED: CYCLOBENZAPRINE10 MG PO (23:54)
== END 2019-03-22 00:13 | disposition home or self-care (01) ==
LOC: ED 19:57
DX: M62.838 Other muscle spasm (principal); Z85.3 Personal history of malignant neoplasm of breast; Z87.891 Personal history of nicotine dependence; Z79.899 Other long term (current) drug therapy; Z79.52 Long term (current) use of systemic steroids
CPT/HCPCS: 73502; 80053; 85025; 96374; 96375; 99284-25; J1885; J2405

== ENCOUNTER 2019-07-24 16:51 | Observation (INO) | payer MEDICARE ==
[~2019-07-24] VITALS: Ht 170.2 cm; Wt 72.1 kg
--- OUTSIDE RECORDS SUMMARY | ~2019-07-24 | XMS | Clinical Summary ---
Demographics + + + | Address | [address] [facility] [address] [address] | | | [place] [address] | + + + | Home Phone | | + + + | Preferred Language | Unknown | + + + | Marital Status | | + + + | Hinduism Affiliation | Unknown | + + + | Race | Unknown | + + + | Ethnic Group | Unknown | + + + Author + + + | Author | [facility] (Historical as of | | | 11-14-18) | + + + | Organization | [facility] (Historical as of | | | 11-14-18) | + + + | Address | Unknown | + + + | Phone | Unavailable | + + + Support + + +---------+ + | Name | Relationship | Address | Phone | + + +---------+ + | Teresita Fry | ECON | Unknown | | + + +---------+ + Care Team Providers + +------+ + | Care Electrician Refinery Name | Role | Phone | + +------+ + | Alea Devine PA-C | PP | | + +------+ + Allergies No Known Allergies Current Medications + + +---------+---------+------+------+-------+ | Prescription | Sig. | Disp. | Refills | Star | End | Statu | | | | | | t | Date | s | | | | | | Date | | | + + +---------+---------+------+------+-------+ | methimazole | Take 10 mg by mouth | | | | | Activ | | (TAPAZOLE) 10 MG | 2 (two) times daily. | | | | | e | | tablet | | | | | | | + + +---------+---------+------+------+-------+ | folic acid | Take 1 mg by mouth | | | | | Activ | | (FOLVITE) 1 MG | daily. | | | | | e | | tablet | | | | | | | + + +---------+---------+------+------+-------+ | Cholecalciferol | Take by mouth. | | | | | Activ | | (VITAMIN D3) 3000 | | | | | | e | | units TABS | | | | | | | + + +---------+---------+------+------+-------+ | Cyanocobalamin | Take by mouth. | | | | | Activ | | (VITAMIN B 12 PO) | | | | | | e | + + +---------+---------+------+------+-------+ | Multiple | Take 1 tablet by | | | | | Activ | | Vitamins-Minerals | mouth daily. | | | | | e | | (MULTIVITAMIN WITH | | | | | | | | MINERALS) tablet | | | | | | | + + +---------+---------+------+------+-------+ | CALCIUM CITRATE PO | Take by mouth. | | | | | Activ | | | | | | | | e | + + +---------+---------+------+------+-------+ | fish oil omega-3 | Take 1 g by mouth | | | | | Activ | | fatty acids 1000 MG | daily. | | | | | e | | capsule | | | | | | | + + +---------+---------+------+------+-------+ | diltiazem | Take 1 capsule by | 90 | 3 | 07/0 | | Activ | | (CARDIZEM CD) 240 MG | mouth daily. | capsule | | 9/20 | | e | | 24 hr capsule | | | | 19 | | | + + +---------+---------+------+------+-------+ | rivaroxaban | Take 1 tablet by | 90 | 3 | 07/0 | | Activ | | (XARELTO) 20 mg | mouth daily with | tablet | | 12/18 | | e | | tablet | dinner. | | | 19 | | | + + +---------+---------+------+------+-------+ Active Problems + + + | Problem | Noted Date | + + + | Atrial fibrillation (HCC) | 07/08/2018 | + + + + + | Overview: with RVR, secondary to Hyperthyroidism, [id number] | | VASc 2 | + + + +---+ | Hyperthyroidism | | + +---+ Family History + + +------+ + | Medical History | Relation | Name | Comments | + + +------+ + | Dementia | Father | | | + + +------+ + | Parkinson's disease | Father | | | + + +------+ + | Breast cancer | Maternal | | | | | Grandmoth | | | | | er | | | + + +------+ + | Breast cancer | Mother | | | + + +------+ + | Hypothyroidism | Mother | | | + + +------+ + | Osteoporosis | Mother | | | + + +------+ + | Heart disease | Paternal | | | | | Grandmoth | | | | | er | | | + + +------+ + + +------+ + + | Relation | Name | Status | Comments | + +------+ + + | Brother | | Alive | | + +------+ + + | Father | | | | | | | (Age | | | | | 87) | | + +------+ + + | Maternal Grandfather | | | | + +------+ + + | Maternal Grandmother | | | | + +------+ + + | Mother | | Alive | | + +------+ + + | Paternal Grandfather | | | | + +------+ + + | Paternal Grandmother | | | | + +------+ + + Social History + +-------+ +--------+ + | Tobacco Use | Types | Packs/Day | Years | Date | | | | | Used | | + +-------+ +--------+ + | Former Smoker | | 0.5 | 45 | Quit: 02/06/2018 | + +-------+ +--------+ + + +---+---+---+ | Smokeless Tobacco: | | | | | Never Used | | | | + +---+---+---+ + + +---------+ + | Alcohol Use | Drinks/We | oz/Week | Comments | | | ek | | | + + +---------+ + | Yes | | | "extremely little" | + + +---------+ + + + + | Sex Assigned at | Date Recorded | | | | + + + | Not on file | | + + + Last Filed Vital Signs + + + + | Vital Sign | Reading | Time Taken | + + + + | Blood Pressure | 106/70 | 10/06/2018 2:53 PM PDT | + + + + | Pulse | 61 | 10/06/2018 2:51 PM PDT | + + + + | Temperature | - | - | + + + + | Respiratory Rate | - | - | + + + + | Oxygen Saturation | 94% | 10/06/2018 2:51 PM PDT | + + + + | Inhaled Oxygen | - | - | | Concentration | | | + + + + | Weight | 62.6 kg (137 lb 14.4 | 10/06/2018 2:51 PM PDT | | | oz) | | + + + + | Height | 170.2 cm (5' 7") | 10/06/2018 2:51 PM PDT | + + + + | Body Mass Index | 21.6 | 10/06/2018 2:51 PM PDT | + + + + Plan of Treatment + + + + + | Health Maintenance | Due Date | Last Done | Comments | + + + + + | Vaccine: | | | | | Dtap/Tdap/Td (1 - | 1 | | | | Tdap) | | | | + + + + + | Breast Cancer | | | | | Screening | 2 | | | | (Mammogram) | | | | + + + + + | Colon Cancer | | | | | Screening | 2 | | | | (Colonoscopy) | | | | + + + + + | Vaccine: Zoster (1 | | | | | of 2) | 2 | | | + + + + + | DEXA SCAN SCREENING | | | | | | 7 | | | + + + + + | Vaccine: | | | | | Pneumococcal 65+ | 7 | | | | Low/Medium Risk (1 | | | | | of 2 - PCV13) | | | | + + + + + | Vaccine: Influenza | | | | | (Season Ended) | 0 | | | + + + + + Results Not on filefrom Last 3 Months Insurance + +--------+ +------+-------+ + | Payer | Benefi | Subscriber | Type | Phone | Address | | | t Plan | ID | | | | | | / | | | | | | | Group | | | | | + +--------+ +------+-------+ + | MEDICARE | MEDICA | [id number] | | | [address] | | | RE | | | | [place] [address] | | | IP-OP | | | | | + +--------+ +------+-------+ + | UNITED HEALTHCARE | UNITED | [id number] | | | | | | | | | | | | | HEALTH | | | | | | | CARE - | | | | | | | AARP | | | | | + +--------+ +------+-------+ + + +--------+ +--------+ + + | Guarantor Name | Accoun | Relation to | Date | Phone | Billing Address | | | t Type | Patient | of | | | | | | | | | | + +--------+ +--------+ + + | TAMAR FRY | Person | Self | [birth year] | Home: | [address] | | | al/Fam | | 1951 | [phone] | [address] [place] | | | vitaliy | | | [phone] | [phone] | + +--------+ +--------+ + +
--- OUTSIDE RECORDS SUMMARY | ~2019-07-24 | XMS | Encounter Summary ---
Demographics + + + | Address | [address] | | | [place] [address] | + + + | Home Phone | | + + + | Preferred Language | Unknown | + + + | Marital Status | Single | + + + | Zoroastrianism Affiliation | NON | + + + | Race | White | + + + | Ethnic Group | Not or | + + + Author + + + | Organization | Unknown | + + + | Address | Unknown | + + + | Phone | Unavailable | + + + Support + + +---------+ + | Name | Relationship | Address | Phone | + + +---------+ + | Pernell Atkinson | HILDA | Unknown | | + + +---------+ + Care Team Providers + +------+ + | Care Cigar Wrapper Tender Automatic Name | Role | Phone | + +------+ + | Alea Devine | PCP | | + +------+ + Encounter Details +--------+--------+ + + + | Date | Type | Department | Care Team | Description | +--------+--------+ + + + | 03/03/ | Travel | | | | | 2019 | | | | | +--------+--------+ + + + Social History + +-------+ +--------+------+ | Tobacco Use | Types | Packs/Day | Years | Date | | | | | Used | | + +-------+ +--------+------+ | Former Smoker | | | | | + +-------+ +--------+------+ + +---+---+---+ | Smokeless Tobacco: | | | | | Never Used | | | | + +---+---+---+ + + +---------+ + | Alcohol Use | Drinks/Week | oz/Week | Comments | + + +---------+ + | Not Currently | | | | + + +---------+ + + + + | Sex Assigned at | Date Recorded | | | | + + + | Not on file | | + + + + + + + | Job Start Date | Occupation | Industry | + + + + | Not on file | Not on file | Not on file | + + + + + + + + | Travel History | Travel Start | Travel End | + + + + + + | No recent travel history available. | + + documented as of this encounter Plan of Treatment Not on filedocumented as of this encounter Visit Diagnoses Not on filedocumented in this encounter"
--- OUTSIDE RECORDS SUMMARY | ~2019-07-24 | XMS | Encounter Summary ---
Demographics + + + | Address | [address] | | | [place] [address] | + + + | Home Phone | | + + + | Preferred Language | Unknown | + + + | Marital Status | Single | + + + | Voodoo Affiliation | NON | + + + [...] Team Providers + +------+ + | Care Multi Mission Helicopter Aircrewman Name | Role | Phone | + +------+ + | Alea Devine | PCP | | + +------+ + Encounter Details +--------+--------+ + + + | Date | Type | Department | Care Team | Description | +--------+--------+ + + + | 04/29/ | Travel | | | | | 2020 | | | | | +--------+--------+ + [...]
--- OUTSIDE RECORDS SUMMARY | ~2019-07-24 | XMS | Encounter Summary ---
Demographics + + + | Address | [address] | | | [place] [address] | + + + | Home Phone | | + + + | Preferred Language | Unknown | + + + | Marital Status | Single | + + + | Sabianist Affiliation | NON | + + + [...] Team Providers + +------+ + | Care Veterans Adviser Name | Role | Phone | + [...]
--- OUTSIDE RECORDS SUMMARY | ~2019-07-24 | XMS | Encounter Summary ---
Demographics + + + | Address | [address] | | | [place] [address] | + + + | Home Phone | | + + + | Preferred Language | Unknown | + + + | Marital Status | Single | + + + | Lutheran Affiliation | NON | + + + [...] Team Providers + +------+ + | Care Pharmacy District Manager Name | Role | Phone | + [...]
--- OUTSIDE RECORDS SUMMARY | ~2019-07-24 | XMS | Encounter Summary ---
Demographics + + + | Address | [address] | | | [place] [address] | + + + | Home Phone | | + + + | Preferred Language | Unknown | + + + | Marital Status | Single | + + + | Advent Affiliation | NON | + + + | Race | White | + + + | Ethnic Group | Not or | + + + Author + + + | Author | [facility] | + + + | Organization | [facility] | + + + | Address | Unknown | + + + | Phone | Unavailable | + + + Support + + +---------+ + | Name | Relationship | Address | Phone | + + +---------+ + | Pernell Atkinson | ECON | Unknown | | + + +---------+ + Care Team Providers + +------+ + | Care Echocardiography Technologist Name | Role | Phone | + +------+ + | Alea Devine | PCP | | + +------+ + Encounter Details +--------+ + + + + | Date | Type | Department | Care Team | Description | +--------+ + + + + | 05/13/ | Pharmacy | [facility] | | | | 2020 | Visit | [address] [place] [address] | | | | | | [place] [address] | | | | | | [phone] | | | +--------+ + + + + Social History + +-------+ [...]
--- OUTSIDE RECORDS SUMMARY | ~2019-07-24 | XMS | Clinical Summary ---
Demographics + + + | Address | [address] | | | [place] [address] | + + + | Home Phone | | + + + | Preferred Language | Unknown | + + + | Marital Status | Single | + + + | Yazidism Affiliation | NON | + + + | Race | White | + + + | Ethnic Group | Not or | + + + Author + + + | Author | [facility] | + + + | Organization | [facility] | + + + | Address | Unknown | + + + | Phone | Unavailable | + + + Support + + +---------+ + | Name | Relationship | Address | Phone | + + +---------+ + | Pernell Atkinson | ECON | Unknown | | + + +---------+ + Care Team Providers + +------+ + | Care Golf Cart Assembler Name | Role | Phone | + +------+ + | Alea Devine | PCP | | + +------+ + Source Comments [facility] is fully live on both [facility] and [facility] Allergies No Known Allergies Medications + + + +---------+------+------+-------+ | Medication | Sig | Dispensed | Refills | Star | End | Statu | | | | | | t | Date | s | | | | | | Date | | | + + + +---------+------+------+-------+ | dilTIAZem CD 24 | Take 240 mg by | | 0 | 04/1 | | Activ | | hour release 240 mg | mouth. | | | 3/20 | | e | | oral | | | | 19 | | | | capsule,extended | | | | | | | | release 24hr | | | | | | | + + + +---------+------+------+-------+ | methIMAzole 10 mg | Take 5 mg by mouth. | | 0 | 04/1 | | Activ | | oral tablet | | | | 2/20 | | e | | | | | | 19 | | | + + + +---------+------+------+-------+ | fluorometholone | INSTILL 1 DROP INTO | | 0 | 11/0 | | Activ | | 0.1 % ophthalmic | BOTH EYES BID | | | 5/20 | | e | | (eye) | | | | 19 | | | | drops,suspension | | | | | | | + + + +---------+------+------+-------+ | multivitamin | Take by mouth. | | 0 | | | Activ | | (MULTIPLE VITAMIN | | | | | | e | | ORAL) | | | | | | | + + + +---------+------+------+-------+ | sulfur-sod sul-sod | Take by mouth. | | 0 | | | Activ | | thiosulf-FA (SOD | | | | | | e | | POLYSULTHIONATE-FOLI | | | | | | | | C ACID) 400-1 mg | | | | | | | | oral capsule | | | | | | | + + + +---------+------+------+-------+ | Calcium Citrate | Mix in liquid and | | 0 | | | Activ | | (Bulk) 100 % | drink. | | | | | e | | miscellaneous (misc) | | | | | | | | powder | | | | | | | + + + +---------+------+------+-------+ | omega-3 fatty | Take 2 capsules by | | 0 | | | Activ | | acids-fish oil | mouth. | | | | | e | | 300-400 mg oral | | | | | | | | capsule | | | | | | | + + + +---------+------+------+-------+ | vit B complex | Take by mouth. | | 0 | | | Activ | | no.12/niacin(B3) | | | | | | e | | (VITAMIN B COMPLEX | | | | | | | | NO.12-NIACIN ORAL) | | | | | | | + + + +---------+------+------+-------+ | selenium sulfide | Apply to affected | | 0 | | | Activ | | 2.5 % topical lotion | area once daily. 200 | | | | | e | | | mcg once a day | | | | | | + + + +---------+------+------+-------+ | omeprazole 20 mg | Take 1 capsule by | 30 | 1 | 12/1 | | Activ | | oral capsule,delayed | mouth once daily. | capsule | | 7/20 | | e | | | Administer 30 to 60 | | | 19 | | | | release(DR/EC)Indica | minutes before meals | | | | | | | tions: heartburn | Indications: | | | | | | | | heartburn | | | | | | + + + +---------+------+------+-------+ | white | Place 0.5 inch strip | 3.5 g | 1 | 02/0 | | Activ | | petrolatum-mineral | over the left | | | 3/20 | | e | | oil-lanolin 83-15 % | eyelid incision | | | 20 | | | | ophthalmic (eye) | sites and in the | | | | | | | ointmentIndications: | left eye twice a day | | | | | | | postop | Indications: postop | | | | | | + + + +---------+------+------+-------+ | methylPREDNISolone | Take 1 kit by mouth | 1 | 0 | 02/0 | | Activ | | (MEDROL (CHEN)) 4 mg | Use as directed. | Package | | 3/20 | | e | | oral tablets,dose | Take full day's dose | | | 20 | | | | packIndications: | in AM with food:day | | | | | | | post-op | 1=6 tabs,day 2=5 | | | | | | | | tabs,day 3=4 | | | | | | | | tabs,day 4=3 | | | | | | | | tabs,day 5=2 | | | | | | | | tabs,day 6=1 tab. | | | | | | | | Indications: post-op | | | | | | + + + +---------+------+------+-------+ | ondansetron ODT 4 | Dissolve 1 tablet on | 20 | 0 | 02/0 | | Activ | | mg oral | tongue and swallow | tablet | | 3/20 | | e | | tablet,disintegratin | every eight hours as | | | 20 | | | | gIndications: | needed for | | | | | | | prevention of | nausea/vomiting. | | | | | | | post-operative | Indications: prevent | | | | | | | nausea and vomiting | nausea and vomiting | | | | | | | | after surgery | | | | | | + + + +---------+------+------+-------+ | | Take 1 tablet by | 30 | 0 | 02/0 | | Activ | | oxyCODONE-acetaminop | mouth every six | tablet | | 3/20 | | e | | hen (PERCOCET) 5-325 | hours as needed for | | | 20 | | | | mg oral | moderate pain or | | | | | | | tabletIndications: | severe pain. Not to | | | | | | | postop pain | exceed 10 tablets | | | | | | | | per any 24 hour | | | | | | | | period. Indications: | | | | | | | | postop pain | | | | | | + + + +---------+------+------+-------+ | predniSONE 10 mg | Take 3 tablets by | 60 | 1 | 03/0 | | Activ | | oral | mouth once daily. | tablet | | 5/20 | | e | | tabletIndications: | Take 30mg x 1 week, | | | 20 | | | | thyroid eye disease- | Tale 20mg x 1 week, | | | | | | | active | Take 10mg x 2 weeks | | | | | | | | Indications: thyroid | | | | | | | | eye disease- active | | | | | | + + + +---------+------+------+-------+ | | Instill 1 drop into | 5 mL | 0 | 02/1 | 04/0 | Expir | | yottrttj-cfoudexcc-u | both eyes two times | | | 06/17 | 20 | ed | | examethasone | daily for 10 days. | | | 20 | 20 | | | 3.5mg/mL-10,000 | Indications: eye | | | | | | | unit/mL-0.1 % | infection | | | | | | | ophthalmic (eye) | | | | | | | | drops,suspensionIndi | | | | | | | | cations: | | | | | | | | conjunctivitis | | | | | | | + + + +---------+------+------+-------+ Active Problems + + + | Problem | Noted Date | + + + | Malignant neoplasm of upper-outer quadrant of female breast | | + + + + + | Overview: | | Primary | | diagnosis | + + Encounters +--------+ + + + + | Date | Type | Specialty | Care Team | Description | +--------+ + + + + | 06/02/ | Telephone | Ophthalmology | Carlos Britt MD | Post Op | | 2019 | | | | | +--------+ + + + + | 05/21/ | Office | Ophthalmology | Carlos Britt MD | 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); | | | | | | Proptosis | +--------+ + + + + | 05/21/ | Travel | | | | | 2020 | | | | | +--------+ + + + + | 05/13/ | Office | Ophthalmology | Gerson Mendieta MD | 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); | | | | | | Proptosis | +--------+ + + + + | 05/13/ | Pharmacy | | | | | 2019 | Visit | | | | +--------+ + + + + | 05/13/ | Travel | | | | | 2020 | | | | | +--------+ + + + + | 05/11/ | Telephone | Ophthalmology | Carlos Britt MD | Post Op | | 2020 | | | | | +--------+ + + + + | 05/06/ | Documentati | Ophthalmology | Gerson Mendieta MD | Other (po visit) | | 2019 | on | | | | +--------+ + + + + | 05/05/ | Anesthesia | Ophthalmology | Felipe Saldana MD | | | 2019 | Event | | | | +--------+ + + + + | 05/05/ | Surgery | Ophthalmology | Gerson Mendieta MD | RIGHT THREE WALL | | 2019 | | | | ORBITAL | | | | | | DECOMPRESSION RIGHT | | | | | | TEMPORARY SUTURE | | | | | | TARSORRHAPHY | +--------+ + + + + | 05/05/ | Hospital | | Gerson Mendieta MD | | | 2019 - | Encounter | | | | | | | | | | | 05/06/ | | | | | | 2019 | | | | | +--------+ + + + + | 05/05/ | Travel | | | | | 2019 | | | | | +--------+ + + + + | 05/05/ | Procedure | Ophthalmology | | | | 2019 | Pass | | | | +--------+ + + + + | 05/04/ | Documentati | Ophthalmology | Gerson Mendieta MD | Other (po call) | | 2019 | on | | | | +--------+ + + + + | 05/04/ | PreAdmit | Ophthalmology | Gerson Mendieta MD | Pre-Admission | | 2019 | Orders | | | | +--------+ + + + + | 05/04/ | Pharmacy | Pharmacy Services | | | | 2019 | Visit | | | | +--------+ + + + + | 05/03/ | Anesthesia | Ophthalmology | Donato Phillips MD | | | 2019 | Event | | | | +--------+ + + + + | 05/03/ | Surgery | Ophthalmology | Gerson Mendieta MD | LEFT THREE WALL | | 2019 | | | | ORBITAL | | | | | | DECOMPRESSION LEFT | | | | | | TEMPORARY SUTURE | | | | | | TARSORRHAPHY | +--------+ + + + + | 05/03/ | Hospital | | Gerson Mendieta MD | | | 2020 - | Encounter | | | | | | | | | | | 05/04/ | | | | | | 2020 | | | | | +--------+ + + + + | 05/03/ | Pharmacy | | | | | 2019 | Visit | | | | +--------+ + + + + | 05/03/ | Travel | | | | | 2019 | | | | | +--------+ + + + + | 05/03/ | Procedure | Ophthalmology | | | | 2019 | Pass | | | | +--------+ + + + + | 04/29/ | Hospital | Radiology | Gerson Mendieta MD | | | 2020 | Encounter | | | | +--------+ + + + + | 04/29/ | Office | Ophthalmology | Gerson Mendieta MD | 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); | | | | | | Proptosis | +--------+ + + + + | 04/29/ | Procedure | Ophthalmology | | | | 2019 | | | | | +--------+ + + + + | 04/29/ | PreAdmit | Ophthalmology | Gerson Mendieta MD | Pre-Admission | | 2019 | Orders | | | | +--------+ + + + + | 04/29/ | Travel | | | | | 2019 | | | | | +--------+ + + + + from Last 3 Months Family History + + +------+ + | Medical History | Relation | Name | Comments | + + +------+ + | Breast Cancer | Maternal | | | | | Grandmoth | | | | | er | | | + + +------+ + | Breast Cancer | Mother | | | + + +------+ + | Thyroid disease | Mother | | | + + +------+ + + +------+--------+ + | Relation | Name | Status | Comments | + +------+--------+ + | Maternal Grandmother | | | | + +------+--------+ + | Mother | | | | + +------+--------+ + Social History + +-------+ +--------+------+ | [...] recent travel history available. | + + Last Filed Vital Signs + + + + + | Vital Sign | Reading | Time Taken | Comments | + + + + + | Blood Pressure | 137/74 | 05/06/2019 7:24 AM | | | | | PST | | + + + + + | Pulse | 50 | 05/06/2019 7:24 AM | | | | | PST | | + + + + + | Temperature | 36.3 C (97.3 F) | 05/06/2019 7:24 AM | | | | | PST | | + + + + + | Respiratory Rate | 15 | 05/06/2019 7:24 AM | | | | | PST | | + + + + + | Oxygen Saturation | 94% | 05/06/2019 7:24 AM | | | | | PST | | + + + + + | Inhaled Oxygen | - | - | | | Concentration | | | | + + + + + | Weight | 68 kg (150 lb) | 05/05/2019 8:44 AM | | | | | PST | | + + + + + | Height | 170.2 cm (5' 7") | 05/05/2019 8:44 AM | | | | | PST | | + + + + + | Body Mass Index | 23.49 | 05/05/2019 8:44 AM | | | | | PST | | + + + + + Plan of Treatment + + + + + | Health Maintenance | Due Date | Last Done | Comments | + + + + + | Pneumococcal | | | | | vaccination ( | 7 | | | | - PCV13) | | | | + + + + + | Influenza (Flu) | Completed | 02/03/2019, 03/29/2009, | | | vaccination | | 03/29/2009, Additional history | | | | | exists | | + + + + + Procedures + +--------+ + + + | Procedure Name | Priori | Date/Time | Associated Diagnosis | Comments | | | ty | | | | + +--------+ + + + | ANE LMA | Routin | 05/05/2019 | | Results for this | | | e | 9:50 AM | | procedure are in the | | | | PST | | results section. | + +--------+ + + + | THREE WALL ORBITAL | Electi | 05/05/2019 | Thyroid eye | | | DECOMPRESSION | ve | 9:23 AM | disease | | | | Surgic | PST | | | | | al | | | | + +--------+ + + + +---+--------+ | | | | | Specia | | | l | | | Needs | | | 23 | | | HOUR | | | SHORT | | | STAYOB | | | SERVAT | | | ION | | | FOR | | | COMPRE | | | SSIVE | | | OPTIC | | | NEROPA | | | THY | +---+--------+ + +--------+ + + + | OUTSIDE CARDIOLOGY | | 05/05/2019 | | Results for this | | | | 8:10 AM | | procedure are in the | | | | PST | | results section. | + +--------+ + + + | CARDIOLOGY | | 05/05/2019 | | Results for this | | | | 12:00 AM | | procedure are in the | | | | PST | | results section. | + +--------+ + + + | 12 LEAD ECG | Routin | 05/03/2019 | | Results for this | | | e | 5:28 PM | | procedure are in the | | | | PST | | results section. | + +--------+ + + + | ANE LMA | Routin | 05/03/2019 | | Results for this | | | e | 10:35 AM | | procedure are in the | | | | PST | | results section. | + +--------+ + + + | THREE WALL ORBITAL | Electi | 05/03/2019 | Thyroid eye | | | DECOMPRESSION | ve | 10:28 AM | disease | | | | Surgic | PST | | | | | al | | | | + +--------+ + + + +---+--------+ | | | | | Specia | | | l | | | Needs | | | 23 | | | HOUR | | | SHORT | | | STAYOB | | | SERVAT | | | ION | | | FOR | | | COMPRE | | | SSIVE | | | OPTIC | | | NEROPA | | | THY | +---+--------+ + +--------+ + + + | CARDIOLOGY | | 05/03/2019 | | Results for this | | | | 12:00 AM | | procedure are in the | | | | PST | | results section. | + +--------+ + + + | CT ORBITS WO | Urgent | 04/29/2019 | Thyroid eye | Results for this | | CONTRAST | | 12:01 PM | disease Proptosis | procedure are in the | | | | PST | | results section. | + +--------+ + + + from Last 3 Months Results SGA (05/05/2019 9:50 AM PST) + + + | Narrative | Performed At | + + + | Sravanthi Byrd CRNA 05/05/2019 9:53 AM AIRWAY MANAGEMENT | | | - [facility] Time of Placement: 05/05/2019 9:29 AM Positioning: Supine | | | Location Performed:OR OXYGENATION Patient was preoxygenated | | | Grade: Grade 0 - Ventilation by mask not attempted LMA DETAILS | | | LMA Type: Air-Q LMA Size: 3.5 - 3.5 CONFIRMATION airway not | | | difficult Number of Attempts: 2 Atraumatic placement Positive for | | | EtCO2:Waveform capnography NARRATIVE Attending was physically | | | present for the critical portions of the procedure as described in | | | the procedure note Attending/Authorizing Provider: Felipe Saldana MD | | | Performing Provider: Sravanthi Byrd CRNA Procedure Comments: | | | Attempted to place 4.5 airQ as charted for prior anesthetic, however | | | difficult placement due to size. Switched to 3.5 airQ placed | | | without difficulty, 10ml air added, no leak at [id number]. Atraumatic | | | to soft tissues/dentition | | + + + OUTSIDE CARDIOLOGY (05/05/2019 8:10 AM PST) + + + | Narrative | Performed At | + + + | | | + + + CARDIOLOGY (05/05/2019 12:00 AM PST)Only the most recent of 2 results within the time perio d is included. + + + | Narrative | Performed At | + + + | | | + + + 12 LEAD ECG (05/03/2019 5:28 PM PST) + + + + + + | Component | Value | Ref Range | Performed | Pathologist | | | | | At | Signature | + + + + + + | VENTRICULAR | 57 | bpm | [facility] | | | RATE | | | OF | | | | | | CARDIOLOGY | | + + + + + + | ATRIAL RATE | 57 | ms | [facility] | | | | | | OF | | | | | | CARDIOLOGY | | + + + + + + | P-R | 132 | ms | [facility] | | | INTERVAL | | | OF | | | | | | CARDIOLOGY | | + + + + + + | P AXIS | 74 | deg | [facility] | | | | | | OF | | | | | | CARDIOLOGY | | + + + + + + | QRS | 89 | ms | [facility] | | | DURATION | | | OF | | | | | | CARDIOLOGY | | + + + + + + | QT | 464 | ms | [facility] | | | | | | OF | | | | | | CARDIOLOGY | | + + + + + + | QTC-BAZETT | 452 | ms | [facility] | | | | | | OF | | | | | | CARDIOLOGY | | + + + + + + | R AXIS | -19 | deg | [facility] | | | | | | OF | | | | | | CARDIOLOGY | | + + + + + + | T AXIS | 58 | deg | [facility] | | | | | | OF | | | | | | CARDIOLOGY | | + + + + + + | ECG | Sinus bradycardia | | [facility] | | | IMPRESSION | | | OF | | | | | | CARDIOLOGY | | + + + + + + | ECG | Nonspecific repol | | [facility] | | | IMPRESSION | abnormality, diffuse | | OF | | | | leads- ABNORMAL ECG - | | CARDIOLOGY | | + + + + + + | ECG | Electronically signed | | [facility] | | | IMPRESSION | by: TISH ARTEAGA | | OF | | | | 05-04-2019 16:11:19 | | CARDIOLOGY | | + + + + + + + + | Specimen | + + | | + + + + + | Narrative | Performed At | + + + | | | + + + + + + + + | Performing | Address | City/State/Zipcode | Phone Number | | Organization | | | | + + + + + | [facility] | [address] | [place], [place] | | | CARDIOLOGY | [address] | [address] | | + + + + + SGA (05/03/2019 10:35 AM PST) + + + | Narrative | Performed At | + + + | Donato Sampson CRNA 05/03/2019 10:50 AM AIRWAY MANAGEMENT - | | | SGA Time of Placement: 05/03/2019 10:35 AM Positioning: Supine | | | Location Performed:OR OXYGENATION Patient was preoxygenated | | | Grade: Grade 1 - Ventilated by mask LMA DETAILS LMA Type: Air-Q | | | LMA Size: 4.5 - 4.5 CONFIRMATION airway not difficult Number of | | | Attempts: 1 Atraumatic placement Positive for EtCO2:Waveform | | | capnography Breath Sounds: Bilateral and equal NARRATIVE | | | Attending was physically present for the critical portions of the | | | procedure as described in the procedure note Attending/Authorizing | | | Provider: Donato Phillips MD Performing Provider: Donato Sampson CRNA | | | | | + + + CT ORBITS WO CONTRAST (04/29/2019 12:01 PM PST) + + | Specimen | + + | | + + + + + | Narrative | Performed At | + + + | EXAM: CT ORBITS WITHOUT CONTRAST HISTORY: thyroid eye disease, | [facility] | | 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 TECHNIQUE: CT orbits without contrast. Sagittal | RECOGNITION 2 | | and coronal reformations were generated. FINDINGS: There is | | | enlargement of the inferior rectus muscles bilaterally as well as the | | | medial rectus muscle, somewhat greater on the right than the left. The | | | superior and lateral rectus muscles appear relatively spared | | | consistent with the patient's history of thyroid ophthalmopathy. There | | | is sparing of the myotendinous junctions. There is somewhat prominent | | | fat at the level of the orbital apex bilaterally with some protrusion | | | through the optic canal. There appears to be mild bilateral | | | proptosis, somewhat greater on the right than the left again. The | | | visualized intracranial compartment is unremarkable. The paranasal | | | sinuses and mastoid air cells are clear. There are degenerative | | | changes within the right temporomandibular joint. IMPRESSION: | | | Findings consistent with thyroid ophthalmopathy including enlargement | | | of the medial and inferior rectus muscles as well as prominent orbital | | | fat at the apex bilaterally protruding through the optic canal. I | | | have personally reviewed the images and, if necessary, edited the | | | report. I agree with the report as now presented. 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 TECHNIQUE: CT orbits without contrast. Sagittal and | | coronal reformations were generated. FINDINGS:There is enlargement of the inferior | | rectus muscles bilaterally as well as the medial rectus muscle, somewhat greater on the | | right than the left. The superior and lateral rectus muscles appear relatively spared | | consistent with the patient's history of thyroid ophthalmopathy. There is sparing of the | | myotendinous junctions. There is somewhat prominent fat at the level of the orbital | | apex bilaterally with some protrusion through the optic canal. There appears to be mild | | bilateral proptosis, somewhat greater on the right than the left again. The visualized | | intracranial compartment is unremarkable. The paranasal sinuses and mastoid air cells | | are clear. There are degenerative changes within the right temporomandibular joint. | | IMPRESSION: Findings consistent with thyroid ophthalmopathy including enlargement of the | | medial and inferior rectus muscles as well as prominent orbital fat at the apex | | bilaterally protruding through the optic canal. I have personally reviewed the images | | and, if necessary, edited the report. I agree with the report as now presented. Final | | signature: Larry Astudillo MD 04/29/2019 2:22 PM Preliminary: Larry Astudillo MD | | Dictation initiated: Larry Astudillo MD 04/29/2019 2:19 PM | | | |Final signature: Larry Astudillo MD 04/29/2019 2:22 PM | |Preliminary: Larry Astudillo MD | |Dictation initiated: Larry Astudillo MD 04/29/2019 2:19 PM | + + + +---------+ + + | Performing | Address | City/State/Zipcode | Phone Number | | Organization | | | | + +---------+ + + | [facility] | | | | | VOICE RECOGNITION 2 | | | | + +---------+ + + from Last 3 Months Insurance + +--------+ +--------+ + +--------+ | Payer | Benefi | Subscriber | Effect | Phone | Address | Type | | | t Plan | ID | jean | | | | | | / | | Dates | | | | | | Group | | | | | | + +--------+ +--------+ + +--------+ | MEDICARE | MEDICA | xxxxxxxxxxx | | [phone] | [address] | [address] | | | RE A & | | [phone] | | | [address] | | esent | | [place] | | | | | | | | [phone] | | + +--------+ +--------+ + +--------+ | [employer] | AARP | xxxxxxxxxxx | 03/31/19 | [phone] | [address] | Indemn | | RETIRED PEOPLE | | | 19-Pre | [phone] [id number] | ity | | | | | sent | | [place] | | | | | | | | [phone] | | + +--------+ +--------+ + +--------+ + +--------+ +--------+ + + | Guarantor Name | Accoun | Relation to | Date | Phone | Billing Address | | | t Type | Patient | of | | | | | | | | | | + +--------+ +--------+ + + | Tamar Pillai | Person | Self [birth year] | [address] | | [place] | al/Fam | | 1951 | [phone] | [place] [address] | | | vitaliy | | | 0 (Home) | | + +--------+ +--------+ + + Advance Directives + + + + + | Code Status | Date | Date | Comments | | | Activated | Inactivated | | + + + + + | Full Code | 05/05/2019 | 05/06/2019 | | | | 12:43 PM | 4:08 PM | | + + + + + + + + +---+ | | | | | + + + +---+ | Full Code | 05/03/2019 | 05/04/2019 | | | | 4:18 PM | 5:22 PM | | + + + +---+
--- OUTSIDE RECORDS SUMMARY | ~2019-07-24 | XMS | Encounter Summary ---
Demographics + + + | Address | [address] | | | [place] [address] | + + + | Home Phone | | + + + | Preferred Language | Unknown | + + + | Marital Status | | + + + | Hoahaoism Affiliation | Unknown | + + + | Race | Unknown | + + + | Ethnic Group | Unknown | + + + Author + + + | Author | [facility] | | | and [place] | + + + | Organization | [facility] | | | and [place] | + + + | Address | Unknown | + + + | Phone | Unavailable | + + + Support + + +---------+ + | Name | Relationship | Address | Phone | + + +---------+ + | Teresita Pillai | ECON | Unknown | | + + +---------+ + Care Team Providers + +------+ + | Care Security Door Installer Name | Role | Phone | + +------+ + | Alea Devine PA-C | PCP | | + +------+ + Reason for Visit + + + | Reason | Comments | + + + | Medication Refill | | + + + Encounter Details +--------+--------+ + + + | Date | Type | Department | Care Team | Description | +--------+--------+ + + + | 04/12/ | Refill | [facility] | Antonio Stephen, | Medication Refill | | 2020 | | CARDIOLOGY [facility] | [address] | | | | | [address] | [place], | | | | | [place], [place] | [place] [address] | | | | | [address] | [phone] | | | | | [phone] | | | +--------+--------+ + + + Social History + +-------+ +--------+ + | Tobacco Use | Types | Packs/Day | Years | Date | | | | | Used | | + +-------+ +--------+ + | Former Smoker | | 0.5 | | Quit: 07/07/1998 | + +-------+ +--------+ + + + +---------+ + | Alcohol Use | Drinks/Week | oz/Week | Comments | + + +---------+ + | Yes | | | 1 drink a month | + + +---------+ + + + + + | Alcohol Habits | Answer | Date Recorded | + + + + | How often do you have a drink containing | Monthly or less | 07/07/2018 | | alcohol? | | | + + + + | How many drinks containing alcohol do you | Not asked | 07/07/2018 | | have on a typical day when you are | | | | drinking? | | | + + + + | How often do you have six or more drinks on | Not asked | 07/07/2018 | | one occasion? | | | + + + + + + + | Sex Assigned [...] as of this encounter Plan of Treatment +--------+---------+ + + + | Date | Type | Specialty | Care Team | Description | +--------+---------+ + + + | 07/26/ | Office | Cardiology | Antonio Stephen, | | | 2019 | Visit | | MD [address] | | | | | | [place], | | | | | | [place] [address] | | | | | | [phone] | | | | | | | | +--------+---------+ + + + documented as of this encounter Visit Diagnoses Not on filedocumented in this encounter"
--- OUTSIDE RECORDS SUMMARY | ~2019-07-24 | XMS | Encounter Summary ---
Demographics + + + | Address | [address] | | | [place] [address] | + + + | Home Phone | | + + + | Preferred Language | Unknown | + + + | Marital Status | | + + + | Advent Affiliation | Unknown | + + + | Race | Unknown | + + + | Ethnic Group | Unknown | + + + Author + + + | Author | [facility] | | | and [place] | + + + | Organization | [facility] | | | and [...] Team Providers + +------+ + | Care Printer Slotter Helper Name | Role | Phone | + +------+ + | Alea Devine PA-C | PCP | | + +------+ + Reason for Visit + + + | Reason | Comments | + + + | Follow-up | 4 months | + + + Encounter Details +--------+---------+ + + + | Date | Type | Department | Care Team | Description | +--------+---------+ + + + | 01/26/ | Office | [facility] | Antonio Stephen, | Paroxysmal atrial | | 2019 | Visit | CARDIOLOGY [facility] | [address] | fibrillation (HCC) | | | | [address] | [place], | (Primary Dx); | | | | [address] | [place] [address] | Hyperthyroidism | | | | [place] | [phone] | | | | | [address] | | | | | | [phone] | | | +--------+---------+ + + + Social History + +-------+ [...] + + documented as of this encounter Last Filed Vital Signs + + + + + | Vital Sign | Reading | Time Taken | Comments | + + + + + | Blood Pressure | 110/64 | 01/26/2019 11:11 AM | | | | | PDT | | + + + + + | Pulse | 62 | 01/26/2019 11:11 AM | | | | | PDT | | + + + + + | Temperature | - | - | | + + + + + | Respiratory Rate | - | - | | + + + + + | Oxygen Saturation | 94% | 01/26/2019 11:11 AM | | | | | PDT | | + + + + + | Inhaled Oxygen | - | - | | | Concentration | | | | + + + + + | Weight | 62.2 kg (137 lb 1.6 | 01/26/2019 11:11 AM | | | | oz) | PDT | | + + + + + | Height | 170.2 cm (5' 7") | 01/26/2019 11:11 AM | | | | | PDT | | + + + + + | Body Mass Index | 21.47 | 01/26/2019 11:11 AM | | | | | PDT | | + + + + + documented in this encounter Progress Notes Antonio Stephen MD - 01/26/2019 11:15 AM PDTFormatting of this note might be different fro m the original. Subjective: Patient ID: Tamar Pillai is a 68 y.o. female. Patient's medications, allergies, past medical, surgical, social and family histories were obtained and reviewed as appropriate. HPI Mrs. Pillai returned to the office for a follow up visit for her h/o atrial fibrillation with a RVR, noted in June, when she was admitted to [facility], although she did not feel well for approximately 1 month before she was actually admitted, recalls she had se darin fatigue and DUARTE mowing her lawn. She was found to have hyperthyroidism, which was felt to be the underlying cause of the AFib. She was there 4 days, treated with Methimazole, and at some point converted back to sinus rhythm. She is now seeing Dr. Hank Welsh (endocrino logist in [place]), but has developed ocular problems from her hyperthyroidism, and for that reason, she has not yet started radioactive iodine treatments, and still on methimazole . Eventually, afterwards, she will likely be on thyroid supplements. Until her thyroid cond ition is fully treated, there is still a relatively high chance that her atrial fibrillation could recur. She will remain on diltiazem and Xarelto, but after her thyroid status is stab le, we will try taking her off medications and see how she does. Therefore, no changes were made in her medications today, and I will see her back in approximately 6 months. ROS CONSTITUTIONAL: Fairly sudden 15 lb weight increase over the last several months prior to h er diagnosis, has lost 7 lbs, denies recent fever, chills, night sweats, c/o significant Fat igue NEUROLOGIC: No history of CVA, TIA, had migraines in her younger years, not for a long time , denies seizures. She had a Syncopal event 05/19, did not seek medical attention, after a h ot bath, with no recurrence, also during many years ago and in 1995 during chemoth erapy. No dizziness, lightheadedness. No numbness, tingling, paresthesias. EYES: No amaurosis, diplopia, recent visual changes, cataracts or glaucoma ENT: No hearing loss, tinnitus, epistaxis, dysphagia ENDOCRINE: No history of diabetes. She has Hyperthyroidism, diagnosed 07/17, treated with M ethimazole, no other endocrine problems. No excessive hunger, thirst. PULMONARY/SLEEP: She has Dyspnea with exertion, denies orthopnea, paroxysmal nocturnal dysp yesi. No history of asthma, emphysema. No history of pneumonia. She is aware of snoring, awak ens herself with it at times, has mild daytime somnolence, takes naps. Sleep is not always r efreshing. CARDIOVASCULAR: Denies chest pain, pressure or discomfort. No history of CAD. No history of heart failure. She had Paroxysmal AFib with a RVR 07/17, attributed to her hyperthyroidism, [id number] VASc 2, on Xarelto. No recent palpitations. No history of a heart murmur, rheumatic fever. No history of hypertension, has mild hyperlipidemia. No edema, no claudication sympt oms. No h/o an AAA. -- Echo (07/08/18 - [facility]): EF 70%, mild bi-AE, otherwise normal GASTROINTESTINAL: No recent abdominal pain, nausea, vomiting or diarrhea. Denies PUD, melen a, hematochezia, hepatitis. RENAL/: No history of kidney disease. No dysuria, hematuria, urinary urgency, hesitancy. G2. P0, A2. 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 HEMATOLOGY/ONCOLOGY: No h/o bleeding disorders, DVT, PE. Denies easy bruisability or bleedi ng. No history of anemia, transfusions. She has a history of left Breast Cancer, treated wit h a lumpectomy and chemotherapy 1995. MUSCULOSKELETAL: No myalgias, arthralgias. She has Osteopenia. No history of rheumatologic or autoimmune diseases. CUTANEOUS: No rashes, had severe pruritus several months ago, resolved, no visible skin les ions, now resolved. PSYCHIATRIC: No history of depression, admits to mild anxiety, denies any other psychiatric problems. Past Medical History: Diagnosis Date Atrial fibrillation (HCC) 07/08/2018 with RVR, secondary to Hyperthyroidism, [id number] VASc 2 Breast cancer (HCC) 1995 left breast, Lumpectomy + chemo History of breast cancer 1995 L breast with lumpectomy and chemo/rad Hyperthyroidism Osteopenia Past Surgical History: Procedure Laterality Date BREAST SURGERY 1995 lumpectomy, recurrent benign breast lesion removed c. 2008 TONSILLECTOMY AND ADENOIDECTOMY Family History Problem Relation Age of Onset Osteoporosis Mother Breast cancer Mother Other (see comment) Mother Hypothyroidism Dementia Father Parkinsonism Father Breast cancer Maternal Grandmother Heart disease Paternal Grandmother Thyroid disease Mother Social History Socioeconomic History Marital status: Spouse name: Not on file Number of children: Not on file Years of education: Not on file Highest education level: Not on file Social Needs Financial resource strain: Not on file Food insecurity - worry: Not on file Food insecurity - inability: Not on file Transportation needs - medical: Not on file Transportation needs - non-medical: Not on file Occupational History Not on file Tobacco Use Smoking status: Former Smoker Packs/day: 0.50 Last attempt to quit: 07/07/1998 Years since quittin.5 Substance and Sexual Activity Alcohol use: Yes Frequency: Monthly or less Comment: 1 drink a month Drug use: Never Comment: Drug use: No Sexual activity: Not on file Other Topics Concern Not on file Social History Narrative Merged History Encounter Allergies No active allergies Intolerance No active intolerances/contraindications Current Outpatient Medications Medication Sig Dispense Refill CYANOCOBALAMIN PO Take 3 capsules by mouth Daily. dilTIAZem (CARDIZEM CD) 240 MG 24 hr capsule Take 1 capsule by mouth Daily. 30 capsule 0 fluorometholone (FML) 0.1% ophthalmic suspension 1 drop 4 times daily. FOLIC ACID PO Take 2 tablets by mouth Daily. methIMAzole (TAPAZOLE) 10 MG tablet Take 1 tablet by mouth 2 times daily. 60 tablet 0 Multiple Vitamin TABS Take 1 tablet by mouth Daily. [place]-3 Fatty Acids (FISH OIL PO) Take 2 capsules by mouth Daily. rivaroxaban (XARELTO) 20 mg tablet Take 1 tablet by mouth Daily (with dinner). 30 table t 0 selenium sulfide (SELSUN) 2.5% lotion Apply topically Daily as needed for Itching. No current facility-administered medications for this visit. Objective: BP 110/64 | Pulse 62 | Ht 1.702 m (5' 7") | Wt 62.2 kg (137 lb 1.6 oz) | SpO2 94% | BM I 21.47 kg/m PHYSICAL EXAM GENERAL: Well developed, well nourished, in no distress. Appears approximately stated age. HEENT: Normocephalic, atraumatic. EYES: PERRL, sclerae anicteric, no xanthelsasmas MOUTH: Oral mucosae moist, dentition adequate, no lesions noted NECK: No JVD, lymphadenopathy, thyromegaly, bruits. Carotid pulses are 2+ bilaterally LUNGS: Clear bilaterally, with no rales, rhonchi or wheezing noted, respirations unlabored HEART: Nondisplaced PMI, regular rate and rhythm, S1, S2 normal. No murmurs, rubs or gallop s noted. ABDOMEN: Soft, nontender, no organomegaly, masses or bruits. Bowel sounds are normal in all 4 quadrants. The abdominal aortic pulsation is not palpable. EXTREMITIES: No edema. Radial pulses 2+ bilaterally. Femoral pulses are 2+ bilaterally with out bruits. DP and PT pulses are 2+ bilaterally. SKIN: Warm and dry, capillary refill is normal, no lesions. NEUROLOGIC: Awake, alert and oriented x 3. No focal motor deficits. PSYCHIATRIC: Appropriate, affect appears normal Assessment: Tamar was seen today for follow-up. Diagnoses and all orders for this visit: Paroxysmal atrial fibrillation (HCC) Hyperthyroidism Plan: No changes in her medications. Follow-up in 6 months. documented in this en counter Plan of Treatment +--------+---------+ + + + | Date | Type | Specialty | Care Team | Description | +--------+---------+ + + + | 07/26/ | Office | Cardiology | Antonio Stephen, | | | 2019 | Visit | | MD [address] | | | | | | [place], | | | | | | [place] [address] | | | | | | [phone] | | | | | | | | +--------+---------+ + + + documented as of this encounter Visit Diagnoses + + | Diagnosis | + + | Paroxysmal atrial fibrillation (HCC) - Primary Atrial fibrillation | + + | Hyperthyroidism Thyrotoxicosis without mention of goiter or other cause, without | | mention of thyrotoxic crisis or storm | + + documented in this encounter
--- OUTSIDE RECORDS SUMMARY | ~2019-07-24 | XMS | Encounter Summary ---
Demographics + + + | Address | [address] | | | [place] [address] | + + + | Home Phone | | + + + | Preferred Language | Unknown | + + + | Marital Status | Single | + + + | Congregational Affiliation | NON | + + + | Race | White | + + + | Ethnic Group | Not or | + + + Author + + + | Author | [facility] | + + + | Organization | [facility] | + + + | Address | Unknown | + + + | Phone | Unavailable | + + + Support + + +---------+ + | Name | Relationship | Address | Phone | + + +---------+ + | Pernell Atkinson | ECON | Unknown | | + + +---------+ + Care Team Providers + +------+ + | Care Grocery Store Courtesy Clerk Name | Role | Phone | + +------+ + | Alea Devien | PCP | | + +------+ + Reason for Visit AUTH/CERT +--------+--------+ + + + + | Status | Reason | Specialty | Diagnoses / | Referred By | Referred To | | | | | Procedures | Contact | Contact | +--------+--------+ + + + + | | | | | | | +--------+--------+ + + + + Encounter Details +--------+ + + + + | Date | Type | Department | Care Team | Description | +--------+ + + + + | 05/05/ | Hospital | Outpatient Care | Gerson Mendieta MD | | | 2019 - | Encounter | Unit at [facility] [address] | [address] | | | | | [address] | [place], [place] | | | 05/06/ | | Mailcode: [place] | [address] | | | 2019 | | [facility] and | [phone] | | | | | [place] [address] | | | | | | [place], [place] | | | | | | [address] | | | | | | [phone] | | | +--------+ + + + [...] + + + documented in this encounter Discharge Instructions Shaun Miranda Chi, RN - 05/05/2019Home Care after Orbital Surgery Do not drive, drink alcoholic beverages, sign legal documents or make major decisions marc martínez the next 24 hours. Call your doctor if you notice any unusual symptoms. Remember: You are under the influence of medications. You may resume your normal diet and medications. Icing ? Use ice packs intermittently (10 min. on and 10 min. off) as much as possible for the nex t 72 hours when awake Dressing ? Eye Dressing is to be changed only by your doctor. Do not remove it. ? You may remove your eye dressing in day(s) Eye medication ? Insert eye ointment in __right___ eye as ordered by your doctor twice a day ? Apply ointment to suture line ____ twice a day as ordered by your Doctor To help prevent infection ? Always wash your hands before caring for your eyes or using eye medicine. ? Do not touch any part of your eye skin with the tip of the eye medicine bottle or tube. Avoid the following ? Rubbing your eye(s) ? Do not blow your nose. ? Lifting or straining. Do not lift anything over 20 pounds ? Swimming ? Eye makeup or lotions ? Sports or heavy exercise (until your Doctor says you are ready) ? Dust, dirt and sand into the operated area ? Bending below the waist (keep your head above your heart level) Other things to remember ? If patched, keep your dressing dry ? Sleep on 2-3 pillows for the next week to minimize swelling. Do not sleep flat. ? Do not use any aspirin, aspirin-containing medications or non-steroidal anti-inflammatory products (Ibuprofen, Aleve, Naprosyn, etc). Please check with your Eye Doctor before resumi ng any blood thinners Call your doctor if Temperature above 101 degrees (fever) Purulent drainage (which is drainage that is whitish-tabor or greenish in color) from the surgical site If there is increased redness at the edges of the surgical site Increased pain, even with pain medication Unusual redness of the eye and /or swelling of the lids How to reach your doctor ? Friday through Friday, 8am-5pm, call ? All other hours including after hours, weekends and holidays, call and ask the shell mold bonding machine operator to page the Eye Doctor diamond sizer and sorter. ? Return appointment date: ? Time: documented in this encounter Medications at Time of Discharge + + + +---------+ + + | Medication | Sig | Dispensed | Refills | Start | End Date | | | | | | Date | | + + + +---------+ + + | Calcium Citrate | Mix in liquid and | | 0 | | | | (Bulk) 100 % | drink. | | | | | | miscellaneous (misc) | | | | | | | powder | | | | | | + + + +---------+ + + | dilTIAZem CD 24 | Take 240 mg by | | 0 | 07/12/19 | | | hour release 240 mg | mouth. | | | 19 | | | oral | | | | | | | capsule,extended | | | | | | | release 24hr | | | | | | + + + +---------+ + + | fluorometholone | INSTILL 1 DROP INTO | | 0 | 02/03/20 | | | 0.1 % ophthalmic | BOTH EYES BID | | | 19 | | | (eye) | | | | | | | drops,suspension | | | | | | + + + +---------+ + + | methIMAzole 10 mg | Take 5 mg by mouth. | | 0 | 07/11/19 | | | oral tablet | | | | 19 | | + + + +---------+ + + | methylPREDNISolone | Take 1 kit by mouth | 1 | 0 | 05/03/19 | | | (MEDROL (CHEN)) 4 mg | Use as directed. | Package | | 20 | | | oral tablets,dose | Take full day's dose | | | | | | packIndications: | in AM with food:day | | | | | | post-op | 1=6 tabs,day 2=5 | | | | | | | tabs,day 3=4 | | | | | | | tabs,day 4=3 | | | | | | | tabs,day 5=2 | | | | | | | tabs,day 6=1 tab. | | | | | | | Indications: post-op | | | | | + + + +---------+ + + | multivitamin | Take by mouth. | | 0 | | | | (MULTIPLE VITAMIN | | | | | | | ORAL) | | | | | | + + + +---------+ + + | omega-3 fatty | Take 2 capsules by | | 0 | | | | acids-fish oil | mouth. | | | | | | 300-400 mg oral | | | | | | | capsule | | | | | | + + + +---------+ + + | omeprazole 20 mg | Take 1 capsule by | 30 | 1 | 03/16/20 | | | oral capsule,delayed | mouth once daily. | capsule | | 19 | | | | Administer 30 to 60 | | | | | | release(DR/EC)Indica | minutes before meals | | | | | | tions: heartburn | Indications: | | | | | | | heartburn | | | | | + + + +---------+ + + | ondansetron ODT 4 | Dissolve 1 tablet on | 20 | 0 | 05/03/19 | | | mg oral | tongue and swallow | tablet | | 20 | | | tablet,disintegratin | every eight hours as | | | | | | gIndications: | needed for | | | | | | prevention of | nausea/vomiting. | | | | | | post-operative | Indications: prevent | | | | | | nausea and vomiting | nausea and vomiting | | | | | | | after surgery | | | | | + + + +---------+ + + | | Take 1 tablet by | 30 | 0 | // | | | oxyCODONE-acetaminop | mouth every six | tablet | | 20 | | | hen (PERCOCET) 5-325 | hours as needed for | | | | | | mg oral | moderate pain or | | | | | | tabletIndications: | severe pain. Not to | | | | | | postop pain | exceed 10 tablets | | | | | | | per any 24 hour | | | | | | | period. Indications: | | | | | | | postop pain | | | | | + + + +---------+ + + | selenium sulfide | Apply to affected | | 0 | | | | 2.5 % topical lotion | area once daily. 200 | | | | | | | mcg once a day | | | | | + + + +---------+ + + | sulfur-sod sul-sod | Take by mouth. | | 0 | | | | thiosulf-FA (SOD | | | | | | | POLYSULTHIONATE-FOLI | | | | | | | C ACID) 400-1 mg | | | | | | | oral capsule | | | | | | + + + +---------+ + + | vit B complex | Take by mouth. | | 0 | | | | no.12/niacin(B3) | | | | | | | (VITAMIN B COMPLEX | | | | | | | NO.12-NIACIN ORAL) | | | | | | + + + +---------+ + + | white | Place 0.5 inch strip | 3.5 g | 1 | 05/03/19 | | | petrolatum-mineral | over the left | | | 20 | | | oil-lanolin 83-15 % | eyelid incision | | | | | | ophthalmic (eye) | sites and in the | | | | | | ointmentIndications: | left eye twice a day | | | | | | postop | Indications: postop | | | | | + + + +---------+ + + documented as of this encounter Progress Notes Carlos Britt MD - 05/06/2019 7:49 AM PSTFormatting of this note might be different from t he original. POD1 s/p R 3 wall decompression with suture tarsorrhaphy Pain is 0/10 and did not required any meds. No drainage from right nostril. No nausea. Able to tolerate diet. Excited to go home now. Last Vitals: BP 125/74 (BP Location: Right upper arm, Patient Position: Lying on back) | P ulse 55 | Temp 36.6 C (97.9 F) (Oral) | Resp 16 | Ht 1.702 m (5' 7") | Wt 68 kg (150 lb) | SpO2 96% | BMI 23.49 kg/m | BSA 1.79 m 24 Hour Vital Min/Max: Systolic (24hrs), Av , Min:119 , Max:165 Diastolic (24hrs), Av, Min:64, Max:91 Pulse Min: 49 Max: 67 Temp Min: 36.4 C (97.5 F) Max: 36.7 C (98.1 F) Resp Min: 15 Max: 16 SpO2 Min: 93 % Max: 99 % Intake/Output Summary (Last 24 hours) at 05/06/2019 0750 Last data filed at 05/05/2019 2233 Gross per 24 hour Intake 1315 ml Output 800 ml Net 515 ml Exam: Right eye patched removed No drainage from nose or soaked patched Va intact No RAPD EOM good Expected postop edema/echomosis OU Suture tarsorrhaphy in tact OU Mild chemosis R>L A/P POD1 s/p R 3 wall decompression with suture tarsorrhaphy -doing well, safe to discharge -postop instructions reviewed -continue medrol dose chen -follow up in clinic in 1 week (we will call to schedule) -Ice 20mins on/off for 72 hours -lubrication nova R + L eye and outside corner of eyelids Carlos Britt M.D. Instructor/ Fellow Oculofacial Plastic and Reconstructive Surgery Pager: Carlos Thomas MD - 05/05 6:49 PM PST POD0 s/p R 3 wall decompression with suture tarsorrhaphy Slight nasal bleeding OD but has long stopped. No pain. No nausea able to tolerate diet. Last Vitals: BP 123/64 | Pulse 59 | Temp 36.5 C (97.7 F) | Resp 16 | Ht 1.702 m (5' 7") | Wt 68 kg (150 lb) | SpO2 94% | BMI 23.49 kg/m | BSA 1.79 m 24 Hour Vital Min/Max: Systolic (24hrs), Av , Min:123 , Max:165 Diastolic (24hrs), Av, Min:64, Max:91 Pulse Min: 49 Max: 67 Temp Min: 36.4 C (97.5 F) Max: 36.7 C (98.1 F) Resp Min: 15 Max: 16 SpO2 Min: 93 % Max: 99 % Intake/Output Summary (Last 24 hours) at 05/05/2019 1850 Last data filed at 05/05/2019 1828 Gross per 24 hour Intake 805 ml Output 800 ml Net 5 ml Exam: Right eye patched No drainage from nose or soaked patched L eye tarsorrhaphy in place with chemosis and expected postop edema/ecchomosis A/P POD0 s/p R 3 wall decompression with suture tarsorrhaphy -doing well -pain control -keep patch on R eye until tomorrow AM when MD will remove -Ice 20mins on/20 mins off (or as patient will tolerate) Carlos Britt M.D. Instructor/ Fellow Oculofacial Plastic and Reconstructive Surgery Pager: documented in this encou nter Plan of Treatment Not on filedocumented as of this encounter Procedures + +--------+ + + + | [...] | | | THY | +---+--------+ + +---+ +---+ + | CARDIOLOGY | | 05/05/2019 | | Results for this | | | | 12:00 AM | | procedure are in the | | | | PST | | results section. 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 Administered Medications + +--------+ + +------+------+ | Medication Order | MAR | Action | Dose | Rate | Site | | | Action | Date | | | | + +--------+ + +------+------+ | acetaminophen (TYLENOL) tablet | Given | 05/05/19 | 1,000 mg | | | | 1,000 mg 1,000 mg, oral, ONCE, 1 | | 20 11:26 | | | | | dose, 05/05/19 at 1200 | | AM PST | | | | + +--------+ + +------+------+ + +---+ | | | + +---+ | bisacodyL (DULCOLAX) | | | suppository 10 mg 10 mg, rectal, | | | DAILY NEEDED, Starting Wed | | | 05/05/19 at 2232, Until [facility] 05/06/19 | | | at 1603, 2nd line for no BM in | | | past 2 days or if no response to | | | MIRALAX or if patient unable to | | | tolerate oral | | + +---+ | | | + +---+ + +-------+ +--------+---+---+ | dilTIAZem CD 24 hour release | Given | 05/05/19 | 240 mg | | | | (CARDIZEM CD) capsule 240 mg 240 | | 20 3:47 | | | | | mg, oral, DAILY, First dose on | | PM PST | | | | | 05/05/19 at 1430, Until | | | | | | | Discontinued | | | | | | + +-------+ +--------+---+---+ +---+---+ | | | +---+---+ + + + +---+---+---+ | lactated ringers (LR) infusion | given by | 05/05/19 | | | | | 10 mL/hr, intravenous, | | 20 10:13 | | | | | CONTINUOUS, Starting 05/05/19 | anesthes | AM PST | | | | | at 0900, Until [facility] 05/06/19 at 1603 | iology | | | | | + + + +---+---+---+ +---------+ + + +---+ | New Bag | 05/05/19 | 10 mL/hr | 10 mL/hr | | | | 20 8:47 | | | | | | AM PST | | | | +---------+ + + +---+ +---+---+ | | | +---+---+ + +-------+ +------+---+---+ | methIMAzole (TAPAZOLE) tablet | Given | 05/05/19 | 5 mg | | | | 10 mg 10 mg, oral, DAILY, First | | 20 3:47 | | | | | dose on Fri05/05/19 at 1430, Until | | PM PST | | | | | Discontinued | | | | | | + +-------+ +------+---+---+ + +---+ | | | + +---+ | methIMAzole (TAPAZOLE) tablet 5 | | | mg 5 mg, oral, DAILY, First | | | dose (after last reorder) on [facility] | | | 05/06/19 at 0900, Until | | | Discontinued | | + +---+ | | | + +---+ | oxyCODONE (immediate release) | | | (ROXICODONE) tablet 5-10 mg 5-10 | | | mg, oral, NEEDED, 1 dose, | | | Starting 05/05/19 at 1054, | | | Until [facility] 05/06/19 at 1603, post-op | | | severe pain | | + +---+ | | | + +---+ + +-------+ +---------+---+---+ | oxymetazoline (AFRIN) 0.05 % | Given | 05/05/19 | 1 spray | | | | nasal spray 1 spray 1 spray, | | 20 8:47 | | | | | nasal, EVERY 15 MINUTES | | AM PST | | | | | NEEDED, 2 doses, Starting Wed | | | | | | | 05/05/19 at 0817, Until 05/05/19 | | | | | | | at 0847, pre-op vasoconstriction | | | | | | + +-------+ +---------+---+---+ +-------+ +---------+---+---+ | Given | 05/05/19 | 1 spray | | | | | 20 8:30 | | | | | | AM PST | | | | +-------+ +---------+---+---+ + +---+ | | | + +---+ | polyethylene glycol (MIRALAX) | | | packet 34 g 34 g, oral, THREE | | | TIMES DAILY NEEDED, Starting | | | 05/05/19 at 2232, Until [facility] | | | 05/06/19 at 1603, 1st line - for no | | | BM for 2 days | | + +---+ | | | + +---+ + + + +---------+---+ + | scopolamine (TRANSDERM-SCOP) 1 | Applied | 05/05/19 | 1 patch | | Right | | mg over 3 days 1 patch 1 patch, | Patch | 20 8:49 | | | Post | | transdermal, ONCE, 1 dose, Wed | | AM PST | | | Auricula | | 05/05/19 at 0915 | | | | | r | + + + +---------+---+ + + +---+ | | | + +---+ | senna-docusate (SENOKOT S) | | | 8.6-50 mg 1 tablet 1 tablet, | | | oral, TWICE DAILY, First dose on | | | Aga 05/06/19 at 0900, Until | | | Discontinued | | + +---+ | | | + +---+ documented in this encounter
--- OUTSIDE RECORDS SUMMARY | ~2019-07-24 | XMS | Encounter Summary ---
Demographics + + + | Address | [address] | | | [place] [address] | + + + | Home Phone | | + + + | Preferred Language | Unknown | + + + | Marital Status | Single | + + + | Sikhism Affiliation | NON | + + + | Race | White | + + + | Ethnic Group | Not or | + + + Author + + + | Author | [facility] | + + + | Organization | [facility] | + + + | Address | Unknown | + + + | Phone | Unavailable | + + + Support + + +---------+ + | Name | Relationship | Address | Phone | + + +---------+ + | Pernell Atkinson | ECON | Unknown | | + + +---------+ + Care Team Providers + +------+ + | Care Gear Tester Name | Role | Phone | + +------+ + | Alea Devine | PCP | | + +------+ + Encounter Details +--------+ + + + + | Date | Type | Department | Care Team | Description | +--------+ + + + + | 05/13/ | Pharmacy | [facility] | | | | 2020 | Visit | [address] [place] [address] | | | | | | [place] [address] | | | | | | [phone] | | | +--------+ + + + [...]
--- OUTSIDE RECORDS SUMMARY | ~2019-07-24 | XMS | Encounter Summary ---
Demographics + + + | Address | [address] | | | [place] [address] | + + + | Home Phone | | + + + | Preferred Language | Unknown | + + + | Marital Status | | + + + | Evangelical Affiliation | Unknown | + + + | Race | Unknown | + + + | Ethnic Group | Unknown | + + + Author + + + | Author | [facility] | | | and [place] | + + + | Organization | [facility] | | | and [...] Team Providers + +------+ + | Care Student Development Coordinator Name | Role | Phone | + [...] + + | 04/12/ | Refill | [facility] | Antonio Stephen, | Medication Refill | | 2020 | | [facility] | [address] | | | | | [address] | [place], | | | | | [place], [place] | [place] [address] | | | | | [address] | [phone] | | | | | [phone] | | | +--------+--------+ + + + [...] | 2019 | Visit | | MD [address] | | | | | | [place], | | | | | | [place] [address] | | | | | | [phone] | | | | | | | | +--------+---------+ + + + documented as of this encounter Visit Diagnoses Not on filedocumented in this encounter"
--- OUTSIDE RECORDS SUMMARY | ~2019-07-24 | XMS | Encounter Summary ---
Demographics + + + | Address | [address] | | | [place] [address] | + + + | Home Phone | | + + + | Preferred Language | Unknown | + + + | Marital Status | Single | + + + | Amish Affiliation | NON | + + + | Race | White | + + + | Ethnic Group | Not or | + + + Author + + + | Author | [facility] | + + + | Organization | [facility] | + + + | Address | Unknown | + + + | Phone | Unavailable | + + + Support + + +---------+ + | Name | Relationship | Address | Phone | + + +---------+ + | Pernell Atkinson | ECON | Unknown | | + + +---------+ + Care Team Providers + +------+ + | Care Oracle Hrms Developer Name | Role | Phone | + +------+ + | Alea Devine | PCP | | + +------+ + Encounter Details +--------+ + + + + | Date | Type | Department | Care Team | Description | +--------+ + + + + | 05/13/ | Pharmacy | [facility] | | | | 2020 | Visit | [address] [place] [address] | | | | | | [place] [address] | | | | | | [phone] | | | +--------+ + + + [...]
--- OUTSIDE RECORDS SUMMARY | ~2019-07-24 | XMS | Encounter Summary ---
Demographics + + + | Address | [address] | | | [place] [address] | + + + | Home Phone | | + + + | Preferred Language | Unknown | + + + | Marital Status | | + + + | Amish Affiliation | Unknown | + + + | Race | Unknown | + + + | Ethnic Group | Unknown | + + + Author + + + | Author | [facility] | | | and [place] | + + + | Organization | [facility] | | [...] Team Providers + +------+ + | Care [place] Manager Name | Role | Phone | + +------+ + | Alea Devine PA-C | PCP | | + +------+ + Encounter Details +--------+ + + + + | Date | Type | Department | Care Team | Description | +--------+ + + + + | 07/15/ | Imaging | [facility] | Provider, | | | 2019 | Exam | [facility] | MD [address] | | | | | IMAGING [address] [place] | | | | | [address] | [place] [address] | | | | | [place] [address] | | | | | | [phone] | | | +--------+ + + + + Social History + +-------+ +--------+------+ | Tobacco Use | Types | Packs/Day | Years | Date | | | | | Used | | + +-------+ +--------+------+ | Never Assessed | | | | | + +-------+ +--------+------+ + + + | Sex Assigned at [...] [place], | | | | | | [place] [address] | | | | | | [phone] | | | | | | | | +--------+---------+ + + + documented as of this encounter Procedures + +--------+ + + + | Procedure Name | Priori | Date/Time | Associated Diagnosis | Comments | | | ty | | | | + +--------+ + + + | XR CHEST 2 VIEWS | Routin | 07/07/2018 | | Results for this | | | e | 12:30 PM | | procedure are in the | | | | PDT | | results section. | + +--------+ + + + documented in this encounter Results XR Chest 2 Vws (07/07/2018 12:30 PM PDT) + + | Specimen | + + | | + + + + + | Narrative | Performed At | + + + | External films for comparison only | [facility] | | | | | No results will be in the chart. | | + + + + +---------+ + + | Performing | Address | City/State/Zipcode | Phone Number | | Organization | | | | + +---------+ + + | [facility] | | | | + +---------+ + + documented in this encounter Visit Diagnoses Not on filedocumented in this encounter"
--- OUTSIDE RECORDS SUMMARY | ~2019-07-24 | XMS | Encounter Summary ---
Demographics + + + | Address | [address] | | | [place] [address] | + + + | Home Phone | | + + + | Preferred Language | Unknown | + + + | Marital Status | Single | + + + | Oriental Orthodox Affiliation | NON | + + + | Race | White | + + + | Ethnic Group | Not or | + + + Author + + + | Author | [facility] | + + + | Organization | [facility] | + + + | Address | Unknown | + + + | Phone | Unavailable | + + + Support + + +---------+ + | Name | Relationship | Address | Phone | + + +---------+ + | Pernell Atkinson | ECON | Unknown | | + + +---------+ + Care Team Providers + +------+ + | Care Java Xml Developer Name | Role | Phone | + +------+ + | Alea Devine | PCP | | + +------+ + Encounter Details +--------+---------+ + + + | Date | Type | Department | Care Team | Description | +--------+---------+ + + + | 05/13/ | Office | [facility] | Gerson Mendieta MD | Thyroid eye disease | | 2020 | Visit | [place] | [address] | (Primary Dx); | | | | Oculoplastics at | [address] [place], [place] | Proptosis | | | | [facility] [address] | [address] | | | | | [address] | [phone] | | | | | [facility] [place] | | | | | | [facility], [address] [place] [address] | | | | | | [place] [address] | | | | | | [phone] | | | +--------+---------+ + + + [...] documented as of this encounter Progress Notes Gerson Mendieta MD - 05/13/2019 11:00 AM PST Tamar Pillai is a 68 y.o. female S/p 05-03-2019 L 3 wall orbital decompression w/tars 05-05-2019 R 3 wall orbital decompression w/tars Today: Swelling and bruising going down, still numbness but not as much. OS has red bump in corner of eye. Pain: No Pain (0/10) Physical Exam: Bilat incisions healing well 2+ lid edema Visual Acuity: Vasc Vacc VAph RE LE 20/50 20/80 -1 20/30- Lid Measurements: RE (mm) LE (mm) Sup SS LF VPF MRDI Inf SS Lag 0 0 HPF ICD Sutures removed today External photos taken OU today. 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
--- OUTSIDE RECORDS SUMMARY | ~2019-07-24 | XMS | Encounter Summary ---
Demographics + + + | Address | [address] | | | [place] [address] | + + + | Home Phone | | + + + | Preferred Language | Unknown | + + + | Marital Status | Single | + + + | Buddhism Affiliation | NON | + + + | Race | White | + + + | Ethnic Group | Not or | + + + Author + + + | Author | [facility] | + + + | Organization | [facility] | + + + | Address | Unknown | + + + | Phone | Unavailable | + + + Support + + +---------+ + | Name | Relationship | Address | Phone | + + +---------+ + | Pernell Atkinson | ECON | Unknown | | + + +---------+ + Care Team Providers + +------+ + | Care Retail Sales Merchandiser Name | Role | Phone | + +------+ + PCP | Unavailable | + +------+ + Encounter Details +--------+ + + + + | Date | Type | Department | Care Team | Description | +--------+ + + + + | 10/04/ | Documentati | [facility] | [place], | | | 2004 | on | [facility] | [address] | | | | | [address], | , [address] | | | | | [place], [place] | [place], [place] | | | | | [address] | [address] | | | | | [phone] | [phone] | | | | | | | | +--------+ + [...]
--- OUTSIDE RECORDS SUMMARY | ~2019-07-24 | XMS | Encounter Summary ---
Demographics + + + | Address | [address] [facility] [address] | | | [place] [address] | + + + | Home Phone | | + + + | Preferred Language | Unknown | + + + | Marital Status | | + + + | Zoroastrian Affiliation | Unknown | + + + | Race | Unknown | + + + | Ethnic Group | Unknown | + + + Author + + + | Author | [facility] | | | and [place] | + + + | Organization | [facility] | | | and [...] Team Providers + +------+ + | Care Criminal Justice Lawyer Name | Role | Phone | + +------+ + | Alea Devine PA-C | PCP | | + +------+ + Reason for Referral Evaluate & Treat (Urgent) +--------+ + + + + + | Status | Reason | Specialty | Diagnoses / | Referred By | Referred To | | | | | Procedures | Contact | Contact | +--------+ + + + + + | Closed | Specialty | Endocrinology | Diagnoses | [place], | [place], | | | Services | | Atrial | MD Ana Lilia | Hank Horan, | | | Required | | fibrillation | [address] | PhD [address] | | | | | with RVR | [address] [place] | [address] | | | | | (HCC) | [place], [place] | [place], | | | | | Hyperthyroid | [address] | [place] [address] | | | | | ism | Phone: | Phone: | | | | | | [phone] | [phone] | | | | | | Fax: | Fax: | | | | | | [phone] | [phone] | +--------+ + + + + + Reason for Visit Auth/Cert +--------+--------+ + + + + | Status | Reason | Specialty | Diagnoses / | Referred By | Referred To | | | | | Procedures | Contact | Contact | +--------+--------+ + + + + | | | | Diagnoses | | | | | | | Afib RVR | | | +--------+--------+ + + + + Encounter Details +--------+ + + + + | Date | Type | Department | Care Team | Description | +--------+ + + + + | 07/07/ | Hospital | [facility] | Rancho Pereira | Atrial fibrillation | | 2019 - | Encounter | MED [facility] ICU [address] | DO Jeet [address] | with RVR ([facility]); | | | | [place], | [address] [place] | Hyperthyroidism | | 07/10/ | | [place] [address] | [place] [address] | | | 2019 | | [phone] | [phone] | | | | | | | | | | | | Ana Lilia Abbasi MD | | | | | | [address] | | | | | | [place], [place] | | | | | | [address] | | | | | | | | +--------+ + + + + Social History + +-------+ +--------+ + | Tobacco Use | Types | Packs/Day | Years | Date | | | | | Used | | + +-------+ +--------+ + | Former Smoker | | | | Quit: 07/07/1998 | + +-------+ +--------+ + + +---+---+---+ [...] alcohol do you | Not asked | | | have on a typical day when you are | | | | drinking? | | | + + + + | How often do you have six or more drinks on | Not asked | | | one occasion? | | | [...] + + + | Blood Pressure | 107/72 | 07/10/2018 12:00 PM | | | | | PDT | | + + + + + | Pulse | 101 | 07/10/2018 12:15 PM | | | | | PDT | | + + + + + | Temperature | 37.6 C (99.7 F) | 07/10/2018 11:15 AM | | | | | PDT | | + + + + + | Respiratory Rate | 27 | 07/10/2018 11:15 AM | | | | | PDT | | + + + + + | Oxygen Saturation | 93% | 07/10/2018 11:15 AM | | | | | PDT | | + + + + + | Inhaled Oxygen | - | - | | | Concentration | | | | + + + + + | Weight | 63 kg (138 lb 14.2 | 07/10/2018 4:00 AM | | | | oz) | PDT | | + + + + + | Height | 170.2 cm (5' 7") | 07/07/2018 6:02 PM | | | | | PDT | | + + + + + | Body Mass Index | 21.75 | 07/07/2018 6:02 PM | | | | | PDT | | + + + + + documented in this encounter Discharge Summaries Ana Lilia Abbasi MD - 07/10/2018 9:15 AM PDT [place], [place] HOSPITALIST DISCHARGE SUMMARY Pt. Name/Age/: Tamar Pillai 67 y.o. 1950 Date of Admission: 07/07/2018 Date of Discharge: 07/10/2018 Admitting Physician: Rancho Pereira DO Primary Care Provider: Alea Devine PA-C Discharging Physician: Ana Lilia Abbasi MD DISCHARGE DIAGNOSES: Active Hospital Problems Diagnosis Atrial fibrillation with RVR Hyperthyroidism Resolved Hospital Problems No resolved problems to display. HOSPITAL COURSE: Please refer to the H&P for full details and the most recent rounding rounding (progress) n ote. 67 yo F with limited PMH who presented with atrial fibrillation in the s/o hyperthyroidism. #A fib with RVR New diagnosis for patient. Suspect this is related to patient's hyperthyroidism. She was st arted on a diltiazem drip initially with improvement in her rates. Attempted beta wilfredo bu t this did not improve her heart rate and we ultimately had to resume the drip. Started on o ral diltiazem which allowed us to wean her off the dilt drip. Echo showed mild atrial dilata tion, normal EF. Patient is largely asymptomatic aside from mild shortness of breath without hypoxia. [id number] score 2 (age, sex). We discussed anticoagulation at length; she was initially he sitant and was started on daily baby aspirin here. She ultimately elected to start anticoagu lation. We discussed pros/cons of warfarin vs NOAC at length; she does consume a lot of vege tables of varying quantities and felt it would be difficult to significantly alter her diet. Xarelto was prescribed on discharge. I suspect patient's atrial fibrillation should resolve with treatment of her hyperthyroidis m. Will need close outpatient follow up as she may be able to stop both diltiazem and OAC ul timately. #Hyperthyroidism New diagnosis for patient. TSH low at [facility] (cannot see record in our EMR) and FT4 h igh here. She does not endorse specific symptoms of hyperthyroidism but does state she is ov erall "feeling better" since we started treatment here with methimazole. TRAb negative. Will need further evaluation by Endocrinology as outpatient, referral sent. DISCHARGE MEDICATIONS: Discharge Medications New Medications Details dilTIAZem 240 MG 24 hr capsule Take 1 capsule by mouth Daily. aka: CARDIZEM CD Start: 07/11/2018 methIMAzole 10 MG tablet Take 1 tablet by mouth 2 times daily. aka: TAPAZOLE rivaroxaban 20 mg tablet Take 1 tablet by mouth Daily (with dinner). aka: XARELTO Unchanged Medications Details CYANOCOBALAMIN PO Take 3 capsules by mouth Daily. FISH OIL PO Take 2 capsules by mouth Daily. FOLIC ACID PO Take 2 tablets by mouth Daily. Multiple Vitamin Tabs Take 1 tablet by mouth Daily. Most recent weight: Input and output for last 24hrs: Wt Readings from Last 1 Encounters: 07/10/18 63 kg (138 lb 14.2 oz) I/O last 24 Hours: In: 529.2 [P.O.:450; I.V.:79.2] Out: 250 [Urine:250] Vitals Ranges: Temp: [37.3 C (99.1 F)-37.9 C (100.2 F)] 37.6 C (99.7 F) Pulse: [78-130] 78 Resp: [12-34] 27 BP: (91-125)/(43-88) 109/54 Vitals: Temp: 37.6 C (99.7 F) BP: 109/54 Pulse: 78 Resp: 27 SpO2: 93 % SpO2 93 % on room air PHYSICAL EXAM: Patient seen and examined by me on 07/10/18 Gen: WDWN, well appearing, nad HEENT: no exophthalmos, no thyromegaly CV: IIRR, no m/r/g Pulm: LCAB PROCEDURES AND CONSULTS: Procedures: None Consults: None PENDING RESULTS: None DISPOSITION AND DISCHARGE INSTRUCTIONS: Follow-up Information Alea Devine PA-C. Schedule an appointment as soon as possible for a visit in 1 week. Specialty: Physician [employer] Why: Hospital follow up Contact information: [place] [id number] Condition: stable Diet: gen Less than 30 minutes were spent on discharge and coordination of post-hospital care. Electronically signed by: Ana Lilia Abbasi MD, 07/10/2018 12:00 [facility] documented in this enco unter Discharge Instructions Instructions Alaina Leonard RN - 07/10/2018 About Arrhythmias Electrical impulses cause the normal heart to beat 60 to 100 times a minute while at rest. These impulses come from a natural pacemaker deep inside the heart muscle. Each impulse caus es the heart muscle to contract. This causes the blood to flow through the heart and out to the tissues and organs of your body. An arrhythmia is a change from the normal speed or pattern of these electrical impulses. Th is can cause the heart to beat too fast (tachycardia); or too slow (bradycardia); or in an u nsteady pattern (irregular rhythm). Symptoms of arrhythmias Different people experience arrhythmias differently. Sometimes they may not have symptoms, but just notice a change in their pulse. Symptoms can include: Fluttering feeling in the chest Shortness of breath Chest pain or pressure Neck fullness Lightheadedness or dizziness Fainting or almost fainting Palpitations (the sense that your heart is fluttering or beating fast or hard or irregul milad) Tiredness, fatigue, or weakness Cardiac arrest Causes of arrhythmias Arrhythmias are most often due to heart disease such as: Coronary artery disease Heart valve disease Enlarged heart High blood pressure Heart failure Other causes ofarrhythmia include: Certain medicines (such as asthma inhalers and decongestants) Some herbal supplements Cardiac stimulant drugs (such as cocaine, amphetamine, diet pills, certain decongestant cold medicines, caffeine, and nicotine) Excessive alcohol use Anxiety and panic disorder Thyroid disease Anemia Diabetes Sleep apnea Obesity Congenital heart disease Cardiac genetic diseases Arrhythmias can often be prevented. The cause and type of arrhythmia determines the best tr eatment. Sometimes your doctor may want to monitor your heart rate over a 24-hour period or longer. This can help identify the cause of your arrhythmia and find the best treatment. Thi s can be done with a Holter monitor,a portable EKG recording device attached by wires to y our chest. Or you may get an event monitor, which you can place over the skin in front of yo ur heart to record heart rhythms. You can carry this with you as you go about your routine a ctivities during the monitoring period. Implantable loop recorders may also be used to monit or the heart rhythm for up to 2 years. This miniature device is placed underneath the skin o verlying the heart. Home care The following guidelines will help you care for yourself at home: Avoid cardiac stimulants (such as cocaine, amphetamine, diet pills, certain decongestant cold medicines, caffeine, and nicotine). If you smoke, stop smoking. Contact your doctor or a local stop-smoking program for help . Tell your doctor about any prescription, yqgb-[id number]-[id number], or herbal medicines you take. These may be affecting your heart rhythm. Follow-up care Follow up with your healthcare provider, or as advised. If a Holter monitor has been recomm ended, contact the cardiologistyou have been referred toas soon as you canpick up the device. Other outpatient tests may also be arranged for you at that time. Call 911 This is the fastest and safest way to get to the emergency department. The paramedics can a lso start treatment on the way to the hospital, if needed. Don'twait until your symptoms are severe to call 911. Other reasons to call 911 besides c hest pain include: Chest, shoulder, arm, neck, or back pain Shortness of breath Feeling lightheaded, faint, or dizzy Unexplained fainting Rapid heart beat Slower than usual heart rate compared to your normal Very irregular heartbeat Chest pain (angina) with weakness, dizziness, heavy sweating, nausea, or vomiting Extreme drowsiness, or confusion Weakness of an arm or leg or one side of the face Difficulty with speech or vision When to seek medical advice Remember, things are not always like they are on TV. Sometimes it is not so obvious. You ma y only feel weak or just "not right." If it is not clear or if you have any doubt, call for advice. Seek help for chest pain, or it feels different from usual, even if your symptoms are mi ld. Don't drive yourself. Have someone else drive. If no one can drive you, call 911. If your doctor has given you medicines to take when you have symptoms, take them, but do n't delay getting help while trying to find them. Date Last Reviewed: 07/24/201519994044-1053 [employer]. [address] [place] [address], [place] [address]. All righ ts reserved. This information is not intended as a substitute for professional medical care. Always follow your healthcare professional's instructions. Understanding Atrial Fibrillation An arrhythmia is any problem with the speed or pattern of the heartbeat. Atrial fibrillatio n (AFib) is a common type of arrhythmia. It causes fast, chaotic electrical signals in the a tria. This leads to poor functioning of the heart. It also affects how much blood your heart can pump out to the body. Afib may occur once in a while and go away on its own. Or it may continue for longer period s and need treatment. AFib can lead to serious problems, such as stroke. Your healthcare provider will need to mo nitor and manage it. What happens during atrial fibrillation? The heart has an electrical system that sends signals to control the heartbeat. As signals move through the heart, they tell the heart s upper chambers (atria) and lower chambers (v entricles) when to squeeze (contract) and relax. This lets blood move through the heart and out to the body and lungs. With AFib, the atria receive abnormal signals. This causes them to contract in a fast and i rregular way, and out of sync with the ventricles. When this happens, the atria also have a harder time moving blood into the ventricles. Blood may then pool in the atria, which increa ses the risk for blood clots and stroke. The ventricles also may contract too quickly and ir regularly. As a result, they may not pump blood to the body and lungs as well as they should . This can weaken the heart muscle over time and cause heart failure. What causes atrial fibrillation? AFib is more common in older adults. It has many possible causes including: Coronary artery disease Heart valve disease Heart attack Heart surgery High blood pressure Thyroid disease Diabetes Lung disease Sleep apnea Heavy alcohol use In some cases of AFib, doctors do not know the cause. What are the symptoms of atrial fibrillation? AFib may or may not cause symptoms. If symptoms do occur, they may include: A fast, pounding, irregular heartbeat Shortness of breath Tiredness Dizziness or fainting Chest pain How is atrial fibrillation treated? Treatments for AFib can include any of the options below. Medicines. You may be prescribed: ? Heart rate medicines to help slow down the heartbeat ? Heart rhythm medicines to help the heart beat more regularly ? Anti-clotting medicines to help reduce the risk for blood clots and stroke Electrical cardioversion. Your healthcare provider uses special pads or paddles to send one or more brief electrical shocks to the heart. This can help reset the heartbeat to rosales l. Ablation. Long, thin tubes called catheters are threaded through a blood vessel to the h eart. There, the catheters send out hot or cold energy to the areas causing the abnormal sig nals. This energy destroys the problem tissue or cells. This improves the chances that your heart will stay in normal rhythm without using medicines. If your heart rate and rhythm can t be controlled, you may need ablation and a pacemaker. These will help control the heart rate and regularity of the heartbeat. Surgery. During surgery, your healthcare provider may use different methods to create sc ar tissue in the areas of the heart causing the abnormal signals. The scar tissue disrupts t he abnormal signals and may stop AFib from occurring. What are the complications of atrial fibrillation? These can include: Blood clots Stroke Heart failure. This problem occurs when the heart muscle weakens so much that it can no longer pump blood well. When should I call my healthcare provider? Call your healthcare provider right away if you have any of these: Symptoms that don t get better with treatment, or get worse New symptoms Date Last Reviewed: 07/30/201519998404-9474 [employer]. [address] [place] [address], [place] [address]. All righ ts reserved. This information is not intended as a substitute for professional medical care. Always follow your healthcare professional's instructions. Hyperthyroidism You have hyperthyroidism. This means you have a thyroid gland that makes too much thyroid h ormone. This hormone is vital to body growth and metabolism. If you make too much thyroid ho rmone, many body processes speed up and may not work right. This can cause symptoms througho ut the body. There are a number of causes of hyperthyroidism. The most common cause is Grave s disease . This occurs when the body s immune system causes the thyroid to grow and make more thyro id hormone than needed. Another form of hypothyroidism, called thyroiditis, occur s shortly after childbirth. Symptoms of hyperthyroidism include: Nervousness, anxiety, irritability Shaking (tremors) that affects the hands and fingers Weight loss despite having a normal or increased appetite Low tolerance to heat Sweating more than normal Fast or irregular heartbeat Corrective Therapy Aide Teacher or irregular periods (women only) More frequent bowel movements Enlarged thyroid gland (goiter) Bulging eyes Problems sleeping Muscle weakness Fatigue Swelling of the hands, ankles, or feet (older adults only) Your healthcare provider will need to do some tests to see exactly which form of hypothyroi dism you have. This is because the treatments are different. Treatment for hyperthyroidism m ay include taking medicines. For instance, antithyroid medicines may be prescribed. These he lp lower the amount of thyroid hormone made by the thyroid gland. Beta-blockers may be presc ribed as well. Tips for taking medicines are given below. Radioiodine ablation or surgery may also be advised. Your healthcare provider will tell you more about these options if needed. Home care Tips for taking medicines Take any medicines you re prescribed as directed. Take your medicine at the same times each day. To decrease the chance of drug interactions, check with your pharmacist before using ove t-fzm-qiblopk medicines with your prescribed medicines. Use a pillbox labeled with the days of the week. This will help you remember to take you r medicine each day. Tell your provider if you have any side effects from your medicines that bother you. Never stop taking medicines on your own. If you do, your symptoms will return. General care Always talk with your provider before trying other medicines or treatments for your thyr oid problem. If you see other healthcare providers, be sure to let them know about your thyroid probl em. Follow-up care See your healthcare provider for checkups as advised. You may need regular tests to check t he level of thyroid hormone in your blood. When to seek medical advice Call your healthcare provider right away if any of these occur: New symptoms occur Symptoms return, continue, or worsen even after treatment Extreme fatigue Puffy hands, face, or feet Confusion Call 911 Call 911if any of these occur: Fainting Chest pain Shortness of breath or trouble breathing Date Last Reviewed: 06/29/2017 [employer]. [address] [place] [address]. All righ ts reserved. This information is not intended as a substitute for professional medical care. Always follow your healthcare professional's instructions. Your Heart s Electrical System The heartbeat is the rhythmic contraction of the heart muscle's 4 chambers. The heart muscl e has a special system that creates and sends electrical signals to activate these 4 chamber s. First, a signal generated in the right upper chamber of the heart tells the 2 upper chamb ers (atria) to squeeze. This moves blood to the 2 lower chambers (ventricles). Next, electri nazia signals tell the ventricles to squeeze. This moves blood to the lungs, brain, heart, and body. Electrical signals Groups of special cells in the right atrium, called nodes, send out the heart s electrica l signals. The signals travel along pathways. In the ventricles, these pathways are called b undle branches. The SA (sinoatrial) node This sets the pace of the heartbeat. It starts each beat by releasing a signal telling the atria to squeeze. The AV (atrioventricular) node This receives the signal from the atria. It is the gateway between the atria and the ventricles. The AV node channels the signal into the ventricles. The Bundle branches These carry the signal through the ventricle moreno. As the signal moves through the ventric les, the ventricles squeeze. Date Last Reviewed: 07/26/2015 [employer]. [address] [place] [address]. All righ ts reserved. This information is not intended as a substitute for professional medical care. Always follow your healthcare professional's instructions. Tamar, You were hospitalized with atrial fibrillation likely due to hyperthyroidism. For your hyperthyroidism, continue taking methimazole twice daily. You will need to have fo llow up with an sales representative facility services; I placed an urgent referral to have you seen soon. For your atrial fibrillation - I think this is due to the hyperthyroidism and likely will n ot be a permanent problem. For now, continue taking diltiazem once daily. We discussed blood thinners at length - I recommend taking Xarelto once daily for stroke prevention. Please follow up with your primary care doctor within a week for a hospital follow up. Ana Lilia Abbasi MD documented in this encounter Medications at Time of Discharge + + + +---------+ + + | Medication | Sig | Dispensed | Refills | Start | End Date | | | | | | Date | | + + + +---------+ + + | CYANOCOBALAMIN PO | Take 3 capsules by | | 0 | | | | | mouth Daily. | | | | | + + + +---------+ + + | FOLIC ACID PO | Take 2 tablets by | | 0 | | | | | mouth Daily. | | | | | + + + +---------+ + + | methIMAzole | Take 1 tablet by | 60 | 0 | 07/11/19 | | | (TAPAZOLE) 10 MG | mouth 2 times daily. | tablet | | 19 | | | tablet | | | | | | + + + +---------+ + + | Multiple Vitamin | Take 1 tablet by | | 0 | | | | TABS | mouth Daily. | | | | | + + + +---------+ + + | Benge-3 Fatty | Take 2 capsules by | | 0 | | | | Acids (FISH OIL PO) | mouth Daily. | | | | | + + + +---------+ + + | dilTIAZem | Take 1 capsule by | 30 | 0 | 07/12/19 | | | (CARDIZEM CD) 240 MG | mouth Daily. | capsule | | 19 | 0 | | 24 hr capsule | | | | | | + + + +---------+ + + | rivaroxaban | Take 1 tablet by | 30 | 0 | 07/11/19 | | | (XARELTO) 20 mg | mouth Daily (with | tablet | | 19 | 0 | | tablet | dinner). | | | | | + + + +---------+ + + documented as of this encounter Progress Notes Ana Lilia Abbasi MD - 07/09/2018 9:56 AM PDT [facility] PROGRESS NOTE Patient: Tamar Pillai : 1950: Age: 67 y.o. MedRec: [id number] Admission date: 07/07/2018 Hospital day # : 2 Physician author: Ana Lilia Abbasi MD Today: 07/09/2018 Assessment and Hospital Course Active Hospital Problems Diagnosis Atrial fibrillation with RVR Hyperthyroidism Resolved Hospital Problems No resolved problems to display. 67 yo F with limited PMH who presented with shortness of breath found to have a fib with RV R. Plan #A fib with RVR New diagnosis for patient. Suspect this is related to patient's hyperthyroidism. On dilt dr ip initially. Started metop 12.5 mg then 25 mg yesterday with no improvement and drip had to be restarted. Will try oral diltiazem today. If no improvement may need to consider amiodar one. Cardioversion also a possibility. Patient overall feels better. Echo showed mild left atrial dilatation, otherwise unremarkable study. [id number] score 2 (age, sex). Patient is hesitant about anticoagulation and will continue to think about this. Continue aspirin for now. Monitor electrolytes with K >4, MG >2 #Hyperthyroidism New diagnosis for patient. TSH low at [facility] (cannot see record in our EMR) and FT4 h igh here. She does not endorse specific symptoms of hyperthyroidism. - continue methimazole - TRAb pending - consider radioactive iodine uptake scan (I need to see if this study is available here) FEN: gen Ppx: lovenox Disposition: anticipate DC in 1-2d once better control of heart rate achieved Subjective CC: no complaints Patient has no complaints today, feels well. Denies shortness of breath. Denies chest pain. ROS was performed and was negative except as noted above. Exam Exam unchanged from yesterday Gen: WDWN, pleasant HEENT: MMM, neck supple, no thyromegaly CV: IIRR, no m/r/g Pulm: LCAB Abdominal: soft, nontender, nondistended, normal bowel tones Extremities: well perfused, no edema Skin: warm, dry, no rashes Neuro: alert, CN intact, no focal deficits Psych: normal mood and affect Allergies: No Known Allergies Current Medications: Current Facility-Administered Medications Medication Dose Route Frequency Provider Last Rate Last Dose aspirin chewable tablet 81 mg 81 mg Oral Daily Rancho Pereira DO 81 mg at 0839 dilTIAZem (CARDIZEM) 1 mg/mL in sodium chloride 0.9% 125 mL infusion 5-15 mg/hr Intrav enous Titrated Rancho Pereira DO 5 mL/hr at 07/08/185 5 mg/hr at 07/08/182314 dilTIAZem (CARDIZEM) tablet 60 mg 60 mg Oral 4 times per day Ana Lilia Abbasi MD enoxaparin (LOVENOX) 40 mg/0.4 mL injection 40 mg 40 mg Subcutaneous Daily Ana Lilia serna MD 40 mg at 07/09/18 0839 methIMAzole (TAPAZOLE) tablet 10 mg 10 mg Oral BID Ana Lilia Abbasi MD 10 mg at 9 0839 metoprolol tartrate (LOPRESSOR) injection 5 mg 5 mg Intravenous Q6H PRN Ana Lilia Abbasi MD Current Infusions: dilTIAZem 5 mg/hr (07/08/182314) Objective Data Point of care glucose No results for input(s): POCGLU in the last 168 hours. Labs last 24 hours Recent Results (from the past 24 hour(s)) Basic Metabolic Panel Collection Time: 07/09/18 7:45 Result Value Ref Range Na 138 136 - 145 mmol/L K 3.7 3.4 - 5.1 mmol/L Cl 106 98 - 107 mmol/L CO2 27 20 - 31 mmol/L Anion Gap 5 3 - 16 mmol/L Glucose 103 60 - 106 mg/dL BUN 13 9 - 23 mg/dL Creatinine 0.60 0.55 - 1.02 mg/dL eGFR if not >60 >=60 mL/min/1.73m2 Ca 9.9 8.7 - 10.4 mg/dL BUN/Creatinine Ratio 21.7 Magnesium Collection Time: 07/09/18 7:45 Result Value Ref Range Magnesium 1.6 1.6 - 2.6 mg/dL Extra Lavender Top Tube Collection Time: 07/09/18 7:50 Result Value Ref Range Extra Lavender Top Tube Done Micro results (more choices using dot micro) Microbiology Results (72 hrs) Procedure Component Value Units Date/Time Culture, MRSA [[id number]] Collected: 07/07/181838 Order Status: Completed Lab Status: Final result Updated: 07/09/18710 Specimen: Tissue from Nares Culture Negative for MRSA by chromogenic agar method 1+ Coagulase positive Staphylococcus Radiology results (more choices using dot risresults) No results found. Vitals Ranges: Temp: [35.7 C (96.3 F)-37.6 C (99.7 F)] 37 C (98.6 F) Pulse: [77-138] 127 Resp: [13-30] 25 BP: (82-127)/(35-90) 109/52 Vitals: Temp: 37 C (98.6 F) BP: 109/52 Pulse: 127 Resp: 25 SpO2: 93 % SpO2 93 % on room air at flow rate L/min Ana Lilia Abbasi MD 07/09/2018 9:56 [facility] Shital Lunsford, PharmD - 07/08/2018 2:30 PM PDT PHARMACY SERVICES: ADMISSION MEDICATION REVIEW Tamar Pillai is a 67 y.o. female admitted on 07/07/2018. Patient is somewhat a reliable historian. Location of Patient when reviewed: ED X Medical Floor Patient s prior to admit medication and over the counter (OTC) medications/herbal supplem ents list obtained from: X Verbal interview X Patient ABLE to recall name and directions (patient does not know any strengths) X Pharmacy list names: [facility] insurance reported information X Outside Information Vaccines up to date? Yes No Unsure Influenza X Pneumococcal X Tdap X Shingles X Noted medications discrepancies or medication-related issues: Medication added: Medication: Prior to Admission Sig: Cyanocobalamin po caps 3 caps by mouth once daily Folic acid po 2 tabs by mouth once daily Multiple vitamin tabs 1 tab by mouth daily Benge-3 fatty acids 2 caps by mouth daily Recreational Substances, Tobacco & Alcohol use : Drug: Route Frequency: Last Used: Alcohol 3 drinks/ month "few months ago" Marijuana Smoking 1 time/week Patient wouldn't say - Patient states she stopped using this "because it was time to" she was unclear on what sh e meant by this and would not clarify Other: Patient PCP: Alea Devine PA-C at [facility] Best possible [facility] medication list after pharmacy review: PT REPORTED TAKING NOT TAKING Medication Sig Last Dose Dispense Doc. Provider CYANOCOBALAMIN PO Take 3 capsules by mouth Daily. Taking Historical Provider, FOLIC ACID PO Take 2 tablets by mouth Daily. Taking Historical ProviderMD Multiple Vitamin TABS Take 1 tablet by mouth Daily. Taking Historical Provider, Benge-3 Fatty Acids (FISH OIL PO) Take 2 capsules by mouth Daily. Taking Historical Lex vora MD Medication review performed and electronically signed by Keren Malik, Civil Estimator 2018 13:54 Reviewed by Shital Britt PharmD 07/08/2018 14:28 Ana Lilia Rosado MD - 07/08/2018 9:24 AM PDT [facility] [place] H[facility]PITALIST PROGRESS NOTE Patient: Tamar Pillai : 1950: Age: 67 y.o. MedRec: [id number] Admission date: 07/07/2018 Hospital day # : 1 Physician author: Ana Lilia Abbasi MD Today: 07/08/2018 Assessment and Hospital Course Active Hospital Problems Diagnosis Atrial fibrillation with RVR Hyperthyroidism Resolved Hospital Problems No resolved problems to display. 67 yo F with limited PMH who presented with shortness of breath found to have a fib with RV R. Plan #A fib with RVR New diagnosis for patient. Suspect this is related to patient's hyperthyroidism. On dilt dr ip overnight. Will start low dose beta wilfredo in hopes we can titrate her off the dilt toda y. beta wilfredo also optimal given hyperthyroid state. Patient has had shortness of breath b ut no chest pain. Echo is pending. [id number] score 2 (age, sex). Patient is hesitant about anticoagulation and will continue to think about this. Continue aspirin for now. Monitor electrolytes with K >4, MG >2 #Hyperthyroidism New diagnosis for patient. TSH low at [facility] (cannot see record in our EMR) and FT4 h igh here. She does not endorse specific symptoms of hyperthyroidism. - TRAb pending - consider radioactive iodine uptake scan (I need to see if this study is available here) FEN: gen Ppx: lovenox Disposition: anticipate DC home in 1-2d Patient should be admitted to inpatient status given a fib with RVR with need for stepdown level care with diltiazem drip; initially placed as observation. Subjective CC: shortness of breath Patient endorses shortness of breath that has been present for a few weeks. Denies anxiety. Denies chest pain. ROS was performed and was negative except as noted above. Exam Gen: WDWN, pleasant HEENT: MMM, neck supple, no thyromegaly CV: IIRR, no m/r/g Pulm: LCAB Abdominal: soft, nontender, nondistended, normal bowel tones Extremities: well perfused, no edema Skin: warm, dry, no rashes Neuro: alert, CN intact, no focal deficits Psych: normal mood and affect Allergies: No Known Allergies Current Medications: Current Facility-Administered Medications Medication Dose Route Frequency Provider Last Rate Last Dose aspirin chewable tablet 81 mg 81 mg Oral Daily Rancho Pereira, DO 81 mg at 0846 dilTIAZem (CARDIZEM) 1 mg/mL in sodium chloride 0.9% 125 mL infusion 5-15 mg/hr Intrav enous Titrated Rancho Pereira, DO 5 mL/hr at 07/07/182149 5 mg/hr at 07/07/182149 heparin 5,000 units/mL injection 5,000 Units 5,000 Units Subcutaneous 2 times per day Rancho Pereira, DO 5,000 Units at 07/08/18 0846 methIMAzole (TAPAZOLE) tablet 10 mg 10 mg Oral BID Ana Lilia Abbasi MD metoprolol tartrate (LOPRESSOR) tablet 12.5 mg 12.5 mg Oral BID Ana Lilia Abbasi MD Current Infusions: dilTIAZem 5 mg/hr (07/07/182149) Objective Data Point of care glucose No results for input(s): POCGLU in the last 168 hours. Labs last 24 hours Recent Results (from the past 24 hour(s)) Magnesium Collection Time: 07/07/18 20:03 Result Value Ref Range Magnesium 1.6 1.6 - 2.6 mg/dL Phosphorus Collection Time: 07/07/18 20:03 Result Value Ref Range Phosphorus 3.6 2.4 - 5.1 mg/dL T4, Free Collection Time: 07/07/18 20:03 Result Value Ref Range FT4 5.8 (H) 0.9 - 1.8 ng/dL B Type Natriuretic Peptide Collection Time: 07/07/18 20:03 Result Value Ref Range BNP 273 (H) <100 pg/mL Extra Lavender Top Tube Collection Time: 07/07/18 20:03 Result Value Ref Range Extra Lavender Top Tube Done Extra Blue Top Tube Collection Time: 07/07/18 20:03 Result Value Ref Range Extra Blue Top Tube Done Basic Metabolic Panel Collection Time: 07/08/18 4:52 Result Value Ref Range Na 138 136 - 145 mmol/L K 4.2 3.4 - 5.1 mmol/L Cl 107 98 - 107 mmol/L CO2 23 20 - 31 mmol/L Anion Gap 8 3 - 16 mmol/L Glucose 121 (H) 60 - 106 mg/dL BUN 14 9 - 23 mg/dL Creatinine 0.60 0.55 - 1.02 mg/dL eGFR if not >60 >=60 mL/min/1.73m2 Ca 10.1 8.7 - 10.4 mg/dL BUN/Creatinine Ratio 23.3 Extra Lavender Top Tube Collection Time: 07/08/18 4:52 Result Value Ref Range Extra Lavender Top Tube Done Magnesium Collection Time: 07/08/18 4:52 Result Value Ref Range Magnesium 2.5 1.6 - 2.6 mg/dL ECHO Complete Collection Time: 07/08/18 8:17 Result Value Ref Range BASELINE BLOOD PRESSURE 113/71 mmHg Patient Weight (lbs) 137 Patient Height 5'7" LVIDd 4.01 cm FS 45 % LA volume 68.42 mL Ascending aorta 2.62 cm Aortic arch 3.15 cm AV mean gradient 5.13 mmHg IVRT 93.43 msec LVOT peak gail 104 cm/s LVOT peak VTI 17.82 cm AV peak gail 148.17 cm/s AV VTI 23.91 cm AV peak gradient 8.78 mmHg LA Volume Index 40 mL/m2 AV LVOT Peak Gradient 4.33 mmHg AV LVOT Mean Gradient 2.28 mmHg TR Peak Gradient 29 mmHg TR Velocity 268.14 cm LV Diastolic Length 4C 6.37 cm LV Maloney's Biplane EF 75 % LV ED Volume (Maloney's) 44.61 ml LV ED Volume Index 26 ml/m2 LV ES Volume 10.77 ml LVOT Mean Velocity 71.52 cm/s MV E' Septal Velocity 13 cm/s MV Deceleration Time 171.31 msec MV Peak E-Wave 106.74 cm/s AV Mean Velocity 107.99 cm/s LA/Aorta Ratio 1.22 MV E/E SEPTAL 8.21 LA Major 0.2391 cm LV ES Volume Index 6 ml/m2 Aortic Root Diameter 3.12 cm IVS Diastolic Thickness MM 0.84 cm LVPW Diastolic Thickness MM 0.73 cm IVS Systolic Thickness MM 1.2 cm LV Systolic Diameter MM 2.19 cm LVPW Systolic Thickness MM 1.3 cm AV Cusp Seperation MM 1.85 cm LA Systolic Diameter MM 3.81 cm TAPSE 2.2 cm ECG 12 lead Collection Time: 07/08/18 8:54 Result Value Ref Range INTERPRETATION TEXT Not Confirmed Micro results (more choices using dot micro) Microbiology Results (72 hrs) Procedure Component Value Units Date/Time Culture, MRSA [[id number]] Collected: 07/07/181838 Order Status: Sent Lab Status: In process Updated: 07/07/181843 Specimen: Tissue from Nares Radiology results (more choices using dot risresults) No results found. Vitals Ranges: Temp: [35.7 C (96.3 F)-36.8 C (98.3 F)] 35.7 C (96.3 F) Pulse: [75-122] 101 Resp: [15-29] 16 BP: (88-133)/(48-91) 116/70 Vitals: Temp: 35.7 C (96.3 F) BP: 116/70 Pulse: 101 Resp: 16 SpO2: 98 % SpO2 98 % on room air at flow rate L/min Ana Lilia Abbasi MD 07/08/2018 9:24 [facility] SHAMartineSonali aaron RN - 07/07/2018 7:11 PM PDTPatient arrived to ICU at 1800. Diltiazem drip currently at 10 mg/hr to maintain heart rate <120, other vital signs stable. Report given to Beverly CH.Yuea lly signed by Sonali Cabrera RN at 07/07/2018 7:12 PM PDTdocumented in this encounter Plan of Treatment +--------+---------+ + + + | Date | Type | Specialty | Care Team | Description | +--------+---------+ + + + | 07/26/ | Office | Cardiology | Antonio Stephen, | | | 2019 | Visit | | MD [address] | | | | | | [place], | | | | | | [place] [address] | | | | | | [phone] | | | | | | | | +--------+---------+ + + + + + +--------+ + + | Name | Type | Priori | Associated Diagnoses | Order Schedule | | | | ty | | | + + +--------+ + + | Ambulatory referral | Outpatient | Routin | Atrial | Ordered: 07/10/2018 | | to Endocrinology | Referral | e | fibrillation with | | | | | | RVR ([facility]) | | | | | | Hyperthyroidism | | + + +--------+ + + documented as of this encounter Procedures + +--------+ + + + | Procedure Name | Priori | Date/Time | Associated Diagnosis | Comments | | | ty | | | | + +--------+ + + + | EXTRA TORIE TOP | Routin | 07/10/2018 | | Results for this | | TUBE | e | 6:14 AM | | procedure are in the | | | | PDT | | results section. | + +--------+ + + + | MAGNESIUM | Routin | 07/10/2018 | | Results for this | | | e | 4:16 AM | | procedure are in the | | | | PDT | | results section. | + +--------+ + + + | BASIC METABOLIC | Routin | 07/10/2018 | | Results for this | | PANEL | e | 4:16 AM | | procedure are in the | | | | PDT | | results section. | + +--------+ + + + | EXTRA LAVENDER TOP | Routin | 07/09/2018 | | Results for this | | TUBE | e | 7:50 AM | | procedure are in the | | | | PDT | | results section. | + +--------+ + + + | MAGNESIUM | Routin | 07/09/2018 | | Results for this | | | e | 7:45 AM | | procedure are in the | | | | PDT | | results section. | + +--------+ + + + | BASIC METABOLIC | Routin | 07/09/2018 | | Results for this | | PANEL | e | 7:45 AM | | procedure are in the | | | | PDT | | results section. | + +--------+ + + + | THYROTROPIN RECEPTOR | Routin | 07/08/2018 | | Results for this | | AB | e | 10:00 AM | | procedure are in the | | | | PDT | | results section. | + +--------+ + + + | ECG 12 LEAD | Routin | 07/08/2018 | | Results for this | | | e | 8:53 AM | | procedure are in the | | | | PDT | | results section. | + +--------+ + + + | ECHO COMPLETE | Routin | 07/08/2018 | | Results for this | | | e | 8:17 AM | | procedure are in the | | | | PDT | | results section. | + +--------+ + + + | EXTRA LAVENDER TOP | Routin | 07/08/2018 | | Results for this | | TUBE | e | 4:52 AM | | procedure are in the | | | | PDT | | results section. | + +--------+ + + + | MAGNESIUM | Add-On | 07/08/2018 | | Results for this | | | | 4:52 AM | | procedure are in the | | | | PDT | | results section. | + +--------+ + + + | BASIC METABOLIC | Routin | 07/08/2018 | | Results for this | | PANEL | e | 4:52 AM | | procedure are in the | | | | PDT | | results section. | + +--------+ + + + | EXTRA LAVENDER TOP | Routin | 07/07/2018 | | Results for this | | TUBE | e | 8:03 PM | | procedure are in the | | | | PDT | | results section. | + +--------+ + + + | EXTRA BLUE TOP TUBE | Routin | 07/07/2018 | | Results for this | | | e | 8:03 PM | | procedure are in the | | | | PDT | | results section. | + +--------+ + + + | T4, FREE | Routin | 07/07/2018 | | Results for this | | | e | 8:03 PM | | procedure are in the | | | | PDT | | results section. | + +--------+ + + + | PHOSPHORUS | Routin | 07/07/2018 | | Results for this | | | e | 8:03 PM | | procedure are in the | | | | PDT | | results section. | + +--------+ + + + | B TYPE NATRIURETIC | Routin | 07/07/2018 | | Results for this | | PEPTIDE | e | 8:03 PM | | procedure are in the | | | | PDT | | results section. | + +--------+ + + + | MAGNESIUM | Routin | 07/07/2018 | | Results for this | | | e | 8:03 PM | | procedure are in the | | | | PDT | | results section. | + +--------+ + + + | CULTURE, MRSA | Routin | 07/07/2018 | | Results for this | | | e | 6:39 PM | | procedure are in the | | | | PDT | | results section. | + +--------+ + + + | ECG - EXTERNAL SCAN | | 07/07/2018 | | Results for this | | | | 12:00 AM | | procedure are in the | | | | PDT | | results section. | + +--------+ + + + documented in this encounter Results Extra Lavender Top Tube (07/10/2018 6:14 AM PDT) + +-------+ + + + | Component | Value | Ref Range | Performed | Pathologist | | | | | At | Signature | + +-------+ + + + | Extra | Done | | [facility] | | | Lavender | | | [facility] | | | Top Tube | | | MEDICAL | | | | | | CENTER - | | | | | | LABORATORY | | + +-------+ + + + + + | Specimen | + + | Blood | + + + + + + + | Performing | Address | City/State/Zipcode | Phone Number | | Organization | | | | + + + + + | [facility] | [address] | [place] | [phone] | | [facility] | | [address] | | | - LABORATORY | | | | + + + + + Magnesium (07/10/2018 4:16 AM PDT) + +-------+ + + + | Component | Value | Ref Range | Performed | Pathologist | | | | | At | Signature | + +-------+ + + + | Magnesium | 1.7 | 1.6 - 2.6 mg/dL | [facility] | | | | | | [facility] | | | | | | [facility]ICAL | | | | | | CENTER - | | | | | | LABORATORY | | + +-------+ + + + + + | Specimen | + + | Blood | + + + + + + + | Performing | Address | City/State/Zipcode | Phone Number | | Organization | | | | + + + + + | [facility] | [address] | [place] | [phone] | | [facility] | | [address] | | | - LABORATORY | | | | + + + + + Basic Metabolic Panel (07/10/2018 4:16 AM PDT) + +-------+ + + + | Component | Value | Ref Range | Performed | Pathologist | | | | | At | Signature | + +-------+ + + + | Na | 138 | 136 - 145 | [facility] | | | | | mmol/L | [facility] | | | | | | MEDICAL | | | | | | CENTER - | | | | | | LABORATORY | | + +-------+ + + + | K | 3.6 | 3.4 - 5.1 | [facility] | | | | | mmol/L | [facility] | | | | | | MEDICAL | | | | | | CENTER - | | | | | | LABORATORY | | + +-------+ + + + | Cl | 105 | 98 - 107 mmol/L | [facility] | | | | | | [facility] | | | | | | MEDICAL | | | | | | CENTER - | | | | | | LABORATORY | | + +-------+ + + + | CO2 | 24 | 20 - 31 mmol/L | [facility] | | | | | | [facility] | | | | | | MEDICAL | | | | | | CENTER - | | | | | | LABORATORY | | + +-------+ + + + | Anion Gap | 9 | 3 - 16 mmol/L | [facility] | | | | | | [facility] | | | | | | MEDICAL | | | | | | CENTER - | | | | | | LABORATORY | | + +-------+ + + + | Glucose | 97 | 60 - 106 mg/dL | [facility] | | | | | | [facility] | | | | | | MEDICAL | | | | | | CENTER - | | | | | | LABORATORY | | + +-------+ + + + | BUN | 14 | 9 - 23 mg/dL | [facility] | | | | | | [facility] | | | | | | MEDICAL | | | | | | CENTER - | | | | | | LABORATORY | | + +-------+ + + + | Creatinine | 0.65 | 0.55 - 1.02 | [facility] | | | | | mg/dL | [facility] | | | | | | MEDICAL | | | | | | CENTER - | | | | | | LABORATORY | | + +-------+ + + + | eGFR if not | >60 | >=60 | [facility] | | | | | mL/min/1.73m2 | [facility] | | | [facility] | | | MEDICAL | | | | | | CENTER - | | | | | | LABORATORY | | + +-------+ + + + | Calcium | 10.2 | 8.7 - 10.4 | [facility] | | | | | mg/dL | [facility] | | | | | | MEDICAL | | | | | | CENTER - | | | | | | LABORATORY | | + +-------+ + + + | BUN/Creatin | 21.5 | | [facility] | | | ine Ratio | | | [facility] | | | | | | MEDICAL | | | | | | CENTER - | | | | | | LABORATORY | | + +-------+ + + + + + | Specimen | + + | Blood | + + + + + + + | Performing | Address | City/State/Zipcode | Phone Number | | Organization | | | | + + + + + | [facility] | [address] | [place] | [phone] | | [facility] | | [address] | | | - LABORATORY | | | | + + + + + Extra Torie Top Tube (07/09/2018 7:50 AM PDT) + +-------+ + + + | Component | Value | Ref Range | Performed | Pathologist | | | | | At | Signature | + +-------+ + + + | Extra | Done | | [facility] | | | Lavender | | | [facility] | | | Top Tube | | | MEDICAL | | | | | | CENTER - | | | | | | LABORATORY | | + +-------+ + + + + + | Specimen | + + | Blood | + + + + + + + | Performing | Address | City/State/Zipcode | Phone Number | | Organization | | | | + + + + + | [facility] | [address] | [place] | [phone] | | [facility] | | [address] | | | - LABORATORY | | | | + + + + + Magnesium (07/09/2018 7:45 AM PDT) + +-------+ + + + | Component | Value | Ref Range | Performed | Pathologist | | | | | At | Signature | + +-------+ + + + | Magnesium | 1.6 | 1.6 - 2.6 mg/dL | [facility] | | | | | | [facility] | | | | | | MEDICAL | | | | | | CENTER - | | | | | | LABORATORY | | + +-------+ + + + + + | Specimen | + + | Blood | + + + + + + + | Performing | Address | City/State/Zipcode | Phone Number | | Organization | | | | + + + + + | [facility] | [address] | [place] | [phone] | | [facility] | | [address] | | | - LABORATORY | | | | + + + + + Basic Metabolic Panel (07/09/2018 7:45 AM PDT) + +-------+ + + + | Component | Value | Ref Range | Performed | Pathologist | | | | | At | Signature | + +-------+ + + + | Na | 138 | 136 - 145 | [facility] | | | | | mmol/L | [facility] | | | | | | MEDICAL | | | | | | CENTER - | | | | | | LABORATORY | | + +-------+ + + + | K | 3.7 | 3.4 - 5.1 | [facility] | | | | | mmol/L | [facility] | | | | | | MEDICAL | | | | | | CENTER - | | | | | | LABORATORY | | + +-------+ + + + | Cl | 106 | 98 - 107 mmol/L | [facility] | | | | | | [facility] | | | | | | MEDICAL | | | | | | CENTER - | | | | | | LABORATORY | | + +-------+ + + + | CO2 | 27 | 20 - 31 mmol/L | [facility] | | | | | | [facility] | | | | | | MEDICAL | | | | | | CENTER - | | | | | | LABORATORY | | + +-------+ + + + | Anion Gap | 5 | 3 - 16 mmol/L | [facility] | | | | | | [facility] | | | | | | MEDICAL | | | | | | CENTER - | | | | | | LABORATORY | | + +-------+ + + + | Glucose | 103 | 60 - 106 mg/dL | [facility] | | | | | | [facility] | | | | | | MEDICAL | | | | | | CENTER - | | | | | | LABORATORY | | + +-------+ + + + | BUN | 13 | 9 - 23 mg/dL | [facility] | | | | | | [facility] | | | | | | MEDICAL | | | | | | CENTER - | | | | | | LABORATORY | | + +-------+ + + + | Creatinine | 0.60 | 0.55 - 1.02 | [facility] | | | | | mg/dL | [facility] | | | | | | MEDICAL | | | | | | CENTER - | | | | | | LABORATORY | | + +-------+ + + + | eGFR if not | >60 | >=60 | [facility] | | | | | mL/min/1.73m2 | [facility] | | | [facility] | | | MEDICAL | | | | | | CENTER - | | | | | | LABORATORY | | + +-------+ + + + | Calcium | 9.9 | 8.7 - 10.4 | [facility] | | | | | mg/dL | [facility] | | | | | | MEDICAL | | | | | | CENTER - | | | | | | LABORATORY | | + +-------+ + + + | BUN/Creatin | 21.7 | | [facility] | | | ine Ratio | | | [facility] | | | | | | MEDICAL | | | | | | CENTER - | | | | | | LABORATORY | | + +-------+ + + + + + | Specimen | + + | Blood | + + + + + + + | Performing | Address | City/State/Zipcode | Phone Number | | Organization | | | | + + + + + | [facility] | [address] | [place] | [phone] | | [facility] | | [address] | | | - LABORATORY | | | | + + + + + Thyrotropin Receptor Ab (07/08/2018 10:00 AM PDT) + +-------+ + + + | Component | Value | Ref Range | Performed | Pathologist | | | | | At | Signature | + +-------+ + + + | Thyrotropin | 1.69 | 0.00 - 1.75 | [facility] | | | Receptor | | IU/L | LAB [facility] | | | Ab | | | - BKR | | + +-------+ + + + + + | Specimen | + + | Blood | + + + + + | Narrative | Performed At | + + + | Performed at: [facility] [address] [facility] [address], | REFERENCE LAB | | [place] [id number] [employer] Operator: Alonso Vaughan MD, Phone: | [facility] | | [phone] | | + + + + + + + + | Performing | Address | City/State/Zipcode | Phone Number | | Organization | | | | + + + + + | [facility] | [id number] [place] [address] | [place] | [phone] | | [facility] | [place] | [id number] | | + + + + + ECG 12 lead (07/08/2018 8:53 AM PDT) + + + + + + | Component | Value | Ref Range | Performed | Pathologist | | | | | At | Signature | + + + + + + | VENTRICULAR | 109 | BPM | [facility] | | | RATE EKG | | | | | + + + + + + | QRS | 78 | ms | [facility] | | | DURATION | | | | | + + + + + + | Q-T | 328 | ms | [facility] | | | INTERVAL | | | | | + + + + + + | Q-T | 441 | ms | [facility] | | | INTERVAL | | | | | | (CORRECTED) | | | | | + + + + + + | QRS AXIS | 66 | degrees | [facility] | | + + + + + + | T AXIS | 18 | degrees | [facility] | | + + + + + + | INTERPRETAT | Atrial fibrillation with | | [facility] | | | ION TEXT | rapid ventricular | | | | | | responseAbnormal ECGNo | | | | | | previous ECGs | | | | | | availableConfirmed by | | | | | | JOHN PENN MD ([id number]) | | | | | | on 07/09/2018 6:44:36 AM | | | | + + + + + + + + | Specimen | + + | | + + + + + | Narrative | Performed At | + + + | | | + + + + +---------+ + + | Performing | Address | City/State/Zipcode | Phone Number | | Organization | | | | + +---------+ + + | [facility] | | | | + +---------+ + + ECHO Complete (07/08/2018 8:17 AM PDT) + +--------+ + + + | Component | Value | Ref Range | Performed | Pathologist | | | | | At | Signature | + +--------+ + + + | BASELINE | 113/71 | mmHg | [facility] | | | BLOOD | | | | | | PRESSURE | | | | | + +--------+ + + + | Patient | 137 | | [facility] | | | Weight | | | | | | (lbs) | | | | | + +--------+ + + + | Patient | 5'7" | | [facility] | | | Height | | | | | + +--------+ + + + | LVIDd | 4.01 | cm | [facility] | | + +--------+ + + + | FS | 45 | % | [facility] | | + +--------+ + + + | LA volume | 68.42 | mL | [facility] | | + +--------+ + + + | Ascending | 2.62 | cm | [facility] | | | aorta | | | | | + +--------+ + + + | Aortic arch | 3.15 | cm | [facility] | | + +--------+ + + + | AV mean | 5.13 | mmHg | [facility] | | | gradient | | | | | + +--------+ + + + | IVRT | 93.43 | msec | [facility] | | + +--------+ + + + | LVOT peak | 104 | cm/s | [facility] | | | gail | | | | | + +--------+ + + + | LVOT peak | 17.82 | cm | [facility] | | | VTI | | | | | + +--------+ + + + | AV peak gail | 148.17 | cm/s | [facility] | | + +--------+ + + + | AV VTI | 23.91 | cm | [facility] | | + +--------+ + + + | AV peak | 8.78 | mmHg | [facility] | | | gradient | | | | | + +--------+ + + + | LA Volume | 40 | mL/m2 | [facility] | | | Index | | | | | + +--------+ + + + | AV LVOT | 4.33 | mmHg | [facility] | | | Peak | | | | | | Gradient | | | | | + +--------+ + + + | AV LVOT | 2.28 | mmHg | [facility] | | | Mean | | | | | | Gradient | | | | | + +--------+ + + + | TR Peak | 29 | mmHg | [facility] | | | Gradient | | | | | + +--------+ + + + | TR Velocity | 268.14 | cm | [facility] | | + +--------+ + + + | LV | 6.37 | cm | [facility] | | | Diastolic | | | | | | Length 4C | | | | | + +--------+ + + + | LV | 75 | % | [facility] | | | Maloney's | | | | | | Biplane EF | | | | | + +--------+ + + + | LV ED | 44.61 | ml | [facility] | | | Volume | | | | | | (Maloney's) | | | | | + +--------+ + + + | LV ED | 26 | ml/m2 | [facility] | | | Volume | | | | | | Index | | | | | + +--------+ + + + | LV ES | 10.77 | ml | [facility] | | | Volume | | | | | + +--------+ + + + | LVOT Mean | 71.52 | cm/s | [facility] | | | Velocity | | | | | + +--------+ + + + | MV E' | 13 | cm/s | [facility] | | | Septal | | | | | | Velocity | | | | | + +--------+ + + + | MV | 171.31 | msec | [facility] | | | Deceleratio | | | | | | n Time | | | | | + +--------+ + + + | MV Peak | 106.74 | cm/s | [facility] | | | E-Wave | | | | | + +--------+ + + + | AV Mean | 107.99 | cm/s | [facility] | | | Velocity | | | | | + +--------+ + + + | LA/Aorta | 1.22 | | [facility] | | | Ratio | | | | | + +--------+ + + + | MV E/E | 8.21 | | [facility] | | | SEPTAL | | | | | + +--------+ + + + | LA Major | 0.2391 | cm | [facility] | | + +--------+ + + + | LV ES | 6 | ml/m2 | [facility] | | | Volume | | | | | | Index | | | | | + +--------+ + + + | Aortic Root | 3.12 | cm | [facility] | | | Diameter | | | | | + +--------+ + + + | IVS | 0.84 | cm | [facility] | | | Diastolic | | | | | | Thickness | | | | | | MM | | | | | + +--------+ + + + | LVPW | 0.73 | cm | [facility] | | | Diastolic | | | | | | Thickness | | | | | | MM | | | | | + +--------+ + + + | IVS | 1.2 | cm | [facility] | | | Systolic | | | | | | Thickness | | | | | | MM | | | | | + +--------+ + + + | LV Systolic | 2.19 | cm | [facility] | | | Diameter | | | | | | MM | | | | | + +--------+ + + + | LVPW | 1.3 | cm | [facility] | | | Systolic | | | | | | Thickness | | | | | | MM | | | | | + +--------+ + + + | AV Cusp | 1.85 | cm | [facility] | | | Seperation | | | | | | MM | | | | | + +--------+ + + + | LA Systolic | 3.81 | cm | [facility] | | | Diameter | | | | | | MM | | | | | + +--------+ + + + | TAPSE | 2.2 | cm | [facility] | | + +--------+ + + + | LVEF-TTE | 70 | % | [facility] | | | TRANSTHORAC | | | | | | IC ECHO | | | | | + +--------+ + + + | RA PRESSURE | 3 | mmHg | [facility] | | + +--------+ + + + | RVSP | 32 | mmHg | [facility] | | | Estimated | | | | | + +--------+ + + + + + | Specimen | + + | | + + + + + | Narrative | Performed At | + + + | 1. Mild left | [facility] | | atrial dilatation.2. Normal left ventricular size, wall thickness | | | and motion. Preserved left ventricular systolic function. LVEF is | | | 70%.3. Normal valvular structure with the physiology mild tricuspid | | | valve regurgitation.4. Normal right-sided pressure.5. Normal IVC | | | with normal respiratory collapse. | | |5. Normal IVC with normal respiratory collapse. | | + + + + +---------+ + + | Performing | Address | City/State/Zipcode | Phone Number | | Organization | | | | + +---------+ + + | [facility] | | | | + +---------+ + + Magnesium (07/08/2018 4:52 AM PDT) + +-------+ + + + | Component | Value | Ref Range | Performed | Pathologist | | | | | At | Signature | + +-------+ + + + | Magnesium | 2.5 | 1.6 - 2.6 mg/dL | [facility] | | | | | [facility] | | | | | | [facility] | | | | | [facility] - | | | | | | LABORATORY | | + +-------+ + + + + + | Specimen | + + | Blood | + + + + + + + | Performing | Address | City/State/Zipcode | Phone Number | | Organization | | | | + + + + + | [facility] | [address] | [place] | [phone] | | [facility] | | [address] | | | - LABORATORY | | | | + + + + + Extra Lavender Top Tube (07/08/2018 4:52 AM PDT) + +-------+ + + + | Component | Value | Ref Range | Performed | Pathologist | | | | | At | Signature | + +-------+ + + + | Extra | Done | | [facility] | | | Lavender | | | [facility] | | | Top Tube | | | MEDICAL | | | | | | CENTER - | | | | | | LABORATORY | | + +-------+ + + + + + | Specimen | + + | Blood | + + + + + + + | Performing | Address | City/State/Zipcode | Phone Number | | Organization | | | | + + + + + | [facility] | [address] | [place] | [phone] | | [facility] | | [address] | | | - LABORATORY | | | | + + + + + Basic Metabolic Panel (07/08/2018 4:52 AM PDT) + +---------+ + + + | Component | Value | Ref Range | Performed | Pathologist | | | | | At | Signature | + +---------+ + + + | Na | 138 | 136 - 145 | [facility] | | | | | mmol/L | [facility] | | | | | | [facility] | | | | | | CENTER - | | | | | | LABORATORY | | + +---------+ + + + | K | 4.2 | 3.4 - 5.1 | [facility] | | | | | mmol/L | [facility] | | | | | | [facility] | | | | | | C[facility] - | | | | | | LABORATORY | | + +---------+ + + + | Cl | 107 | 98 - 107 mmol/L | [facility] | | | [facility] | [facility] | | | | | | [facility] | | | | | | CENTER - | | | | | | LABORATORY | | + +---------+ + + + | CO2 | 23 | 20 - 31 mmol/L | [facility] | | | | | [facility] | | | | | | [facility] | | | | | | CENTER - | | | | | | LABORATORY | | + +---------+ + + + | Anion Gap | 8 | 3 - 16 mmol/L | [facility] | | | | | [facility] | | | | | | [facility] | | | | | | C[facility] - | | | | | | LABORATORY | | + +---------+ + + + | Glucose | 121 (H) | 60 - 106 mg/dL | [facility] | | [facility] | | [facility] - | | | | | | LABORATORY | | + +---------+ + + + | BUN | 14 | 9 - 23 mg/dL | [facility] | [facility] | [facility] | | | | | | [facility] - | | | | | | LABORATORY | | + +---------+ + + + | Creatinine | 0.60 | 0.55 - 1.02 | [facility] | | | | | mg/dL | [facility] | | | | | | MED[facility] | | | | | | CENTER - | | | | | | LABORATORY | | + +---------+ + + + | eGFR if not | >60 | >=60 | [facility] | | | | | mL/min/1.73m2 | [facility] | | | [facility] | | | [facility] | | | | | | CENTER - | | | | | | LABORATORY | | + +---------+ + + + | Calcium | 10.1 | 8.7 - 10.4 | [facility] | | | | | mg/dL | [facility] | | | | | | [facility] | | | | | | CENTER - | | | | | | LABORATORY | | + +---------+ + + + | BUN/Creatin | 23.3 | | [facility] | | | ine Ratio | | | [facility] | | | | | | [facility] | | | | | | CENTER - | | | | | | LABORATORY | | + +---------+ + + + + + | Specimen | + + | Blood | + + + + + + + | Performing | Address | City/State/Zipcode | Phone Number | | Organization | | | | + + + + + | [facility] | [address] | [place] | [phone] | | [facility] | | [address] | | | - LABORATORY | | | | + + + + + Extra Blue Top Tube (07/07/2018 8:03 PM PDT) + +-------+ + + + | Component | Value | Ref Range | Performed | Pathologist | | | | | At | Signature | + +-------+ + + + | Extra Blue | Done | | [facility] | | | Top Tube | | | [facility] | | | | | | [facility] | | | | | | CENTER - | | | | | | LABORATORY | | + +-------+ + + + + + | Specimen | + + | Blood | + + + + + + + | Performing | Address | City/State/Zipcode | Phone Number | | Organization | | | | + + + + + | [facility] | [address] | [place], [place] | [phone] | | [facility] | | [address] | | | - LABORATORY | | | | + + + + + Extra Lavender Top Tube (07/07/2018 8:03 PM PDT) + +-------+ + + + | Component | Value | Ref Range | Performed | Pathologist | | | | | At | Signature | + +-------+ + + + | Extra | Done | | [facility] | | | Lavender | | | [facility] | | | Top Tube | | | MEDICAL | | | | | | CENTER - | | | | | | LABORATORY | | + +-------+ + + + + + | Specimen | + + | Blood | + + + + + + + | Performing | Address | City/State/Zipcode | Phone Number | | Organization | | | | + + + + + | [facility] | [address] | [place] | [phone] | | [facility] | | [address] | | | - LABORATORY | | | | + + + + + B Type Natriuretic Peptide (07/07/2018 8:03 PM PDT) + +---------+ + + + | Component | Value | Ref Range | Performed | Pathologist | | | | | At | Signature | + +---------+ + + + | BNP | 273 (H) | <100 pg/mL | [facility] | | | | | | [facility] | | | | | | [facility]ICAL | | | | | | CENTER - | | | | | | LABORATORY | | + +---------+ + + + + + | Specimen | + + | Blood | + + + + + + + | Performing | Address | City/State/Zipcode | Phone Number | | Organization | | | | + + + + + | [facility] | [address] | [place] | [phone] | | [facility] | | [address] | | | - LABORATORY | | | | + + + + + T4, Free (07/07/2018 8:03 PM PDT) + +---------+ + + + | Component | Value | Ref Range | Performed | Pathologist | | | | | At | Signature | + +---------+ + + + | FT4 | 5.8 (H) | 0.9 - 1.8 ng/dL | [facility] | | | | | [facility] | | | | | | MEDICAL | | | | | | CENTER - | | | | | | LABORATORY | | + +---------+ + + + + + | Specimen | + + | Blood | + + + + + + + | Performing | Address | City/State/Zipcode | Phone Number | | Organization | | | | + + + + + | [facility] | [address] | [place] | [phone] | | [facility] | | [address] | | | - LABORATORY | | | | + + + + + Phosphorus (07/07/2018 8:03 PM PDT) + +-------+ + + + | Component | Value | Ref Range | Performed | Pathologist | | | | | At | Signature | + +-------+ + + + | Phosphorus | 3.6 | 2.4 - 5.1 mg/dL | [facility] | | | | | | [facility] | | | | | | MED[facility] | | | | | | CENTER - | | | | | | LABORATORY | | + +-------+ + + + + + | Specimen | + + | Blood | + + + + + + + | Performing | Address | City/State/Zipcode | Phone Number | | Organization | | | | + + + + + | [facility] | [address] | [place] | [phone] | | [facility] | | [address] | | | - LABORATORY | | | | + + + + + Magnesium (07/07/2018 8:03 PM PDT) + +-------+ + + + | Component | Value | Ref Range | Performed | Pathologist | | | | | At | Signature | + +-------+ + + + | Magnesium | 1.6 | 1.6 - 2.6 mg/dL | [facility] | | | | | | [facility] | | | | | | [facility]ICAL | | | | | | CENTER - | | | | | | LABORATORY | | + +-------+ + + + + + | Specimen | + + | Blood | + + + + + + + | Performing | Address | City/State/Zipcode | Phone Number | | Organization | | | | + + + + + | [facility] | [address] | [place] | [phone] | | [facility] | | [address] | | | - LABORATORY | | | | + + + + + Culture, MRSA (07/07/2018 6:39 PM PDT) + + + + + + | Component | Value | Ref Range | Performed | Pathologist | | | | | At | Signature | + + + + + + | Culture | Negative for MRSA by | | [facility] | | | | chromogenic agar method | | [facility] | | | | | | MEDICAL | | | | | | CENTER - | | | | | | LABORATORY | | + + + + + + | Culture | 1+ Coagulase positive | | [facility] | | | | Staphylococcus | | [facility] | | | | | | MEDICAL | | | | | | CENTER - | | | | | | LABORATORY | | + + + + + + + + | Specimen | + + | Tissue - Both | | anterior nares (body | | structure) | + + + + + + + | Performing | Address | City/State/Zipcode | Phone Number | | Organization | | | | + + + + + | [facility] | [address] | [place], [place] | [phone] | | [facility] | | [address] | | | - LABORATORY | | | | + + + + + ECG - EXTERNAL SCAN (07/07/2018 12:00 AM PDT) + + + | Narrative | Performed At | + + + | Ordered by an | | | unspecified provider. | | + + + documented in this encounter Visit Diagnoses + + | Diagnosis | + + | Atrial fibrillation with RVR ([facility]) - Primary Atrial fibrillation | + + | Hyperthyroidism Thyrotoxicosis without mention of goiter or other cause, without | | mention of thyrotoxic crisis or storm | + + documented in this encounter Administered Medications + +--------+ +-------+------+------+ | Medication Order | MAR | Action | Dose | Rate | Site | | | Action | Date | | | | + +--------+ +-------+------+------+ | aspirin chewable tablet 81 mg | Given | 07/11/19 | 81 mg | | | | 81 mg, Oral, DAILY, First dose on | | 19 8:01 | | | | | 07/08/18 at 0900 | | AM PDT | | | | + +--------+ +-------+------+------+ +-------+ +-------+---+---+ | Given | 07/10/19 | 81 mg | | | | | 19 8:39 | | | | | | AM PDT | | | | +-------+ +-------+---+---+ | Given | 07/09/19 | 81 mg | | | | | 19 8:46 | | | | | | AM PDT | | | | +-------+ +-------+---+---+ +---+---+ | | | +---+---+ + +-------+ +--------+---+---+ | dilTIAZem (CARDIZEM CD) 24 hr | Given | 07/11/19 | 240 mg | | | | capsule 240 mg 240 mg, Oral, | | 19 8:01 | | | | | DAILY, First dose on Fri07/10/18 | | AM PDT | | | | | at 0900 | | | | | | + +-------+ +--------+---+---+ +---+---+ | | | +---+---+ + +---------+ +---------+---------+---+ | dilTIAZem (CARDIZEM) 1 mg/mL in | New Bag | 07/09/19 | 5 mg/hr | 5 mL/hr | | | sodium chloride 0.9% 125 mL | | 19 11:15 | | | | | infusion 5-15 mg/hr (5-15 | | PM PDT | | | | | mL/hr), at 5-15 mL/hr, | | | | | | | Intravenous, TITRATED, Starting | | | | | | | 07/07/18 at 1815, Titration | | | | | | | Instruction: See below, Goal: HR | | | | | | | less than 120, Initial dose: 5 | | | | | | | mg/hr, Increase rate by: 5 mg/hr | | | | | | | every 15 minutes., Decrease rate | | | | | | | by: 5 mg/hr every 15 minutes., *: | | | | | | | Titrate drug per order as | | | | | | | tolerated. Titration may vary | | | | | | | based on the patient | | | | | | | | | | | | | | s critical condition. | | | | | | + +---------+ +---------+---------+---+ + + +---------+---------+---+ | New Bag | 07/09/19 | 5 mg/hr | 5 mL/hr | | | | 19 4:11 | | | | | | PM PDT | | | | + + +---------+---------+---+ | Rate/Dose Change | 07/08/19 | 5 mg/hr | 5 mL/hr | | | | 19 9:50 | | | | | | PM PDT | | | | + + +---------+---------+---+ +---+---+ | | | +---+---+ + +-------+ +-------+---+---+ | dilTIAZem (CARDIZEM) tablet 30 | Given | 07/10/19 | 30 mg | | | | mg 30 mg, Oral, EVERY 6 HOURS ( | 8:39 | | | | | times per day), First dose on | | AM PDT | | | | | Aga 07/09/18 at 0745 | | | | | | + +-------+ +-------+---+---+ +---+---+ | | | +---+---+ + +-------+ +-------+---+---+ | dilTIAZem (CARDIZEM) tablet 60 | Given | 07/11/19 | 60 mg | | | | mg 60 mg, Oral, EVERY 6 HOURS ( | 6:55 | | | | | times per day), First dose | | AM PDT | | | | | (after last modification) on Aga | | | | | | | 07/09/18 at 1200, Hold for SBP | | | | | | | <90, | | | | | | + +-------+ +-------+---+---+ +-------+ +-------+---+---+ | Given | 07/11/19 | 60 mg | | | | | 19 12:29 | | | | | | AM PDT | | | | +-------+ +-------+---+---+ | Given | 07/10/19 | 60 mg | | | | | 19 5:11 | | | | | | PM PDT | | | | +-------+ +-------+---+---+ +---+---+ | | | +---+---+ + +-------+ +-------+---+ + | enoxaparin (LOVENOX) 40 mg/0.4 | Given | 07/11/19 | 40 mg | | Abdomen- | | mL injection 40 mg 40 mg, | | 19 8:01 | | | LUQ | | Subcutaneous, EVERY 24 HOURS | | AM PDT | | | | | (Daily), First dose on Aga | | | | | | | 07/09/18 at 0900 | | | | | | + +-------+ +-------+---+ + +-------+ +-------+---+ + | Given | 07/10/19 | 40 mg | | Abdomen- | | | 19 8:39 | | | RLQ | | | AM PDT | | | | +-------+ +-------+---+ + +---+---+ | | | +---+---+ + +-------+ +--------+---+ + | heparin 5,000 units/mL | Given | 07/09/19 | 5,000 | | Abdomen- | | injection 5,000 Units 5,000 | | 19 8:46 | Units | | LLQ | | Units, Subcutaneous, EVERY 12 | | AM PDT | | | | | HOURS (2 times per day), First | | | | | | | dose on Fri07/07/18 at 2100 | | | | | | + +-------+ +--------+---+ + +-------+ +--------+---+ + | Given | 07/08/19 | 5,000 | | Abdomen- | | | 19 8:10 | Units | | RLQ | | | PM PDT | | | | +-------+ +--------+---+ + +---+---+ | | | +---+---+ + +---------+ +-----+ +---+ | magnesium sulfate 2 g/50 mL | New Bag | 07/09/19 | 2 g | 25 mL/hr | | | IVPB 2 g 2 g, Intravenous, | | 19 3:28 | | | | | Administer over 120 Minutes, | | AM PDT | | | | | ONCE, [facility] 07/08/18 at 0330, For 1 | | | | | | | dose, Maximum recommended | | | | | | | infusion rate = 1 gram/hour., | | | | | | + +---------+ +-----+ +---+ +---+---+ | | | +---+---+ + +---------+ +-----+ +---+ | magnesium sulfate 2 g/50 mL | New Bag | 07/11/19 | 2 g | 25 mL/hr | | | IVPB 2 g 2 g, Intravenous, | | 19 8:01 | | | | | Administer over 120 Minutes, | | AM PDT | | | | | ONCE, Fri07/10/18 at 0800, For 1 | | | | | | | dose, Maximum recommended | | | | | | | infusion rate = 1 gram/hour., | | | | | | + +---------+ +-----+ +---+ +---+---+ | | | +---+---+ + +-------+ +-------+---+---+ | methIMAzole (TAPAZOLE) tablet | Given | 07/09/19 | 10 mg | | | | 10 mg 10 mg, Oral, DAILY, First | | 19 8:46 | | | | | dose on Fri07/08/18 at 0900, | | AM PDT | | | | | Hazardous: Use appropriate | | | | | | | handling precautions., | | | | | | + +-------+ +-------+---+---+ +---+---+ | | | +---+---+ + +-------+ +-------+---+---+ | methIMAzole (TAPAZOLE) tablet | Given | 07/11/19 | 10 mg | | | | 10 mg 10 mg, Oral, 2 TIMES | | 19 8:01 | | | | | DAILY, First dose (after last | | AM PDT | | | | | modification) on Fri07/08/18 at | | | | | | | 2100, Hazardous: Use appropriate | | | | | | | handling precautions., | | | | | | + +-------+ +-------+---+---+ +-------+ +-------+---+---+ | Given | 07/10/19 | 10 mg | | | | | 19 8:01 | | | | | | PM PDT | | | | +-------+ +-------+---+---+ | Given | 07/10/19 | 10 mg | | | | | 19 8:39 | | | | | | AM PDT | | | | +-------+ +-------+---+---+ + +---+ | | | + +---+ | metoprolol tartrate (LOPRESSOR) | | | injection 5 mg 5 mg, | | | Intravenous, EVERY 6 HOURS PRN, | | | HR >100, Starting 07/08/18 at | | | 1647 | | + +---+ | | | + +---+ + +-------+ +---------+---+---+ | metoprolol tartrate (LOPRESSOR) | Given | 07/09/19 | 12.5 mg | | | | tablet 12.5 mg 12.5 mg, Oral, 2 | | 19 9:35 | | | | | TIMES DAILY, First dose on Fri | | AM PDT | | | | | 07/08/18 at 0945 | | | | | | + +-------+ +---------+---+---+ +---+---+ | | | +---+---+ + +-------+ +-------+---+---+ | metoprolol tartrate (LOPRESSOR) | Given | 07/09/19 | 25 mg | | | | tablet 25 mg 25 mg, Oral, ONCE, | | 19 6:13 | | | | | 07/08/18 at 1830, For 1 dose | | PM PDT | | | | + +-------+ +-------+---+---+ +---+---+ | | | +---+---+ + +-------+ +--------+---+---+ | potassium chloride (Klor-Con | Given | 07/08/19 | 40 mEq | | | | M20) ER tablet 40 mEq 40 mEq, | | 19 8:09 | | | | | Oral, ONCE, 07/07/18 at 2014, | | PM PDT | | | | | For 1 dose | | | | | | + +-------+ +--------+---+---+ +---+---+ | | | +---+---+ + +-------+ +--------+---+---+ | potassium chloride (Macor-Con | Given | 07/11/19 | 40 mEq | | | | M20) ER tablet 40 mEq 40 mEq, | | 19 8:01 | | | | | Oral, ONCE, [place] 07/10/18 at 0800, | | AM PDT | | | | | For 1 dose | | | | | | + +-------+ +--------+---+---+ +---+---+ | | | +---+---+ documented in this encounter
--- OUTSIDE RECORDS SUMMARY | ~2019-07-24 | XMS | Encounter Summary ---
Demographics + + + | Address | [address] | | | [place] [address] | + + + | Home Phone | | + + + | Preferred Language | Unknown | + + + | Marital Status | Single | + + + | Hinduism Affiliation | NON | + + + [...] Team Providers + +------+ + | Care Auger Machine Offbearer Name | Role | Phone | + [...] + + | 05/03/ | Hospital | Outpatient Care | Gerson Mendieta MD | | | 2019 - | Encounter | Unit at [facility] [address] | [address] | | | | | [address] | [address] [place], [place] | | | 05/04/ | | Mailcode: [place] | [id number] | | | 2019 | | [facility] and | [phone] | | | | | [address] [address] | | | | | | [place], [place] | | | | | | [address] | | | | | | [phone] | | | +--------+ + + + [...] + + + | Blood Pressure | 116/76 | 05/04/2019 8:55 AM | | | | | PST | | + + + + + | Pulse | 63 | 05/04/2019 8:55 AM | | | | | PST | | + + + + + | Temperature | 36.7 C (98 F) | 05/04/2019 8:04 AM | | | | | PST | | + + + + + | Respiratory Rate | 14 | 05/04/2019 8:04 AM | | | | | PST | | + + + + + | Oxygen Saturation | 92% | 05/04/2019 8:04 AM | | | | | PST | | + + + + + | Inhaled Oxygen | - | - | | | Concentration | | | | + + + + + | Weight | 69.4 kg (153 lb) | 05/03/2019 8:51 AM | | | | | PST | | + + + + + | Height | 170.2 cm (5' 7") | 05/03/2019 8:51 AM | | | | | PST | | + + + + + | Body Mass Index | 23.96 | 05/03/2019 8:51 AM | | | | | PST | | + + + + + documented in this encounter Discharge Instructions Instructions Camila Villegas RN - [facility] Do not drive, drink alcoholic beverages, sign legal documents or make major decisions marc the next 24 hours. Call your doctor [...] by your doctor. Do not remove it. Eye medication ? Insert eye ointment in left eye as ordered by your doctor twice a day after patch is chiquita shivam. To help prevent infection ? Always wash [...] weekends and holidays, call and ask the side seam envelope machine operator to page the Eye Doctor maintenance person. Return appointment date: May 05 documented in this encounter Medications at Time [...] tablet by | 30 | 0 | 05/03/ | | | oxyCODONE-acetaminop | mouth every [...] encounter Progress Notes Carlos Britt MD - 05/04/2019 7:55 AM PSTPOD1 s/p Left 3 wall decompression Left suture tarsorrhaphy No overnight events CC: L jaw pain and heart racing resolved today No nausea. No eye pain. No drainage. Exam Vision OS intact Pressure normal on palpitation Patched removed- min drainage on eye pad Incisions c/d/i Sture tarsorhaphy in tact Expected postop edema and ecchymosis A/P Doing well -can discharge today -start AT nova BID today (already put on some this AM) -start medrol dose chen w/ food (can take full days worth at one sitting) -patient needs to apple picking supervisor percocet from [facility] pharmacy (order is in) Carlos Britt M.D. Instructor/ Fellow Oculofacial Plastic and Reconstructive Surgery Pager: er Carlos turpin MD - 05/03/2019 6:29 PM PSTPOD0 s/p Left 3 wall decompression Left suture tarsorrhaphy Per Rn: Heart rate jumping around EKG: no a-fib CC: L jaw pain. Slight discomfort when chewing but able to eat without nausea. No eye pain. No drainage. Exam Left eye patched- gauze not soaked Mild tenderness of TMJ A/P Doing well -start home meds diltiazem and methimozle -nausea/pain control -keep patch on till tomorrow -will likely be discharged tomorrow after AM visit (0800AM) -start nova tomorrow after patch off as well as medrol dose chen Britt M.D. Instructor/ Fellow Oculofacial Plastic and [...] +---+ +---+ + | CARDIOLOGY | | 05/03/2019 | | Results for this | | | | 12:00 AM | | procedure are in the | | | | PST | | results section. 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 | | storm | + + documented in this encounter Administered Medications + +--------+ +--------+------+------+ | Medication Order | MAR | Action | Dose | Rate | Site | | | Action | Date | | | | + +--------+ +--------+------+------+ | dilTIAZem CD 24 hour release | Given | 05/04/19 | 240 mg | | | | (CARDIZEM CD) capsule 240 mg 240 | | 20 8:55 | | | | | mg, oral, DAILY, First dose on | | AM PST | | | | | 05/03/19 at 1730, Until | | | | | | | Discontinued | | | | | | + +--------+ +--------+------+------+ +-------+ +--------+---+---+ | Given | 05/03/19 | 240 mg | | | | | 20 6:44 | | | | | | PM PST | | | | +-------+ +--------+---+---+ + +---+ | | | + +---+ | HYDROcodone-acetaminophen | | | (NORCO) 5-325 mg tablet 1-2 | | | tablet 1-2 tablet, oral, | | | NEEDED, 1 dose, Starting Mon | | | 05/03/19 at 1153, Until Fri05/04/19 | | | at 1717, post-op moderate pain | | + +---+ | | | + +---+ + +---------+ +-------+-------+---+ | lactated ringers (LR) infusion | New Bag | 05/03/19 | 500 | 500 | | | 10 mL/hr, intravenous, | | 20 12:08 | mL/hr | mL/hr | | | CONTINUOUS, Starting 05/03/19 | | PM PST | | | | | at 0915, Until 05/04/19 at 1717 | | | | | | + +---------+ +-------+-------+---+ +---------+ + + +---+ | New Bag | 05/03/19 | 10 mL/hr | 10 mL/hr | | | | 20 9:02 | | | | | | AM PST | | | | +---------+ + + +---+ +---+---+ | | | +---+---+ + +-------+ +------+---+---+ | methIMAzole (TAPAZOLE) tablet 5 | Given | 05/04/19 | 5 mg | | | | mg 5 mg, oral, DAILY, First | | 20 8:55 | | | | | dose on Fri05/03/19 at 2015, Until | | AM PST | | | | | Discontinued | | | | | | + +-------+ +------+---+---+ +-------+ +------+---+---+ | Given | 05/03/19 | 5 mg | | | | | 20 6:45 | | | | | | PM PST | | | | +-------+ +------+---+---+ + +---+ | | | + +---+ | ondansetron (ZOFRAN) injection | | | 4 mg 4 mg, intravenous, EVERY 12 | | | HOURS NEEDED, 2 doses, | | | Starting 05/03/19 at 1022, | | | Until Fri05/04/19 at 1717, | | | nausea/vomiting, first line | | + +---+ | | | + +---+ | oxyCODONE (immediate release) | | | (ROXICODONE) tablet 5-10 mg 5-10 | | | mg, oral, EVERY 4 HOURS | | | NEEDED, Starting 05/03/19 at | | | 1022, Until 05/04/19 at 1717, | | | severe pain | | + +---+ | | | + +---+ | oxyCODONE (immediate release) | | | (ROXICODONE) tablet 5-10 mg 5-10 | | | mg, oral, NEEDED, 1 dose, | | | Starting 05/03/19 at 1153, | | | Until 05/04/19 at 1717, post-op | | | severe pain | | + +---+ | | | + +---+ + +-------+ +---------+---+---+ | oxymetazoline (AFRIN) 0.05 % | Given | 05/03/19 | 1 spray | | | | nasal spray 1 spray 1 spray, | | 20 9:41 | | | | | nasal, EVERY 15 MINUTES | | AM PST | | | | | NEEDED, 2 doses, Starting Mon | | | | | | | 05/03/19 at 0830, Until 05/03/19 | | | | | | | at 0941, pre-op vasoconstriction | | | | | | + +-------+ +---------+---+---+ +-------+ +---------+---+---+ | Given | 05/03/19 | 1 spray | | | | | 20 9:21 | | | | | | AM PST | | | | +-------+ +---------+---+---+ +---+---+ | | | +---+---+ + + + +---------+---+ + | scopolamine (TRANSDERM-SCOP) 1 | Applied | 05/03/19 | 1 patch | | Right | | mg over 3 days 1 patch 1 patch, | Patch | 20 9:21 | | | Post | | transdermal, ONCE, 1 dose, Mon | | AM PST | | | Auricula | | 05/03/19 at 1000 | | | | | r | + + + +---------+---+ + +---+---+ | | | +---+---+ documented in this encounter
--- OUTSIDE RECORDS SUMMARY | ~2019-07-24 | XMS | Encounter Summary ---
Demographics + + + | Address | [address] | | | [place] [address] | + + + | Home Phone | | + + + | Preferred Language | Unknown | + + + | Marital Status | Single | + + + | Roman Catholic Affiliation | NON | + + + | Race | White | + + + | Ethnic Group | Not or | + + + Author + + + | Author | [facility] | + + + | Organization | [facility] | + + + | Address | Unknown | + + + | Phone | Unavailable | + + + Support + + +---------+ + | Name | Relationship | Address | Phone | + + +---------+ + | Pernell Atkinson | ECON | Unknown | | + + +---------+ + Care Team Providers + +------+ + | Care Asbestos Handler Name | Role | Phone | + [...] +--------+--------+ + + + + Encounter Details +--------+---------+ + + + | Date | Type | Department | Care Team | Description | +--------+---------+ + + + | 05/05/ | Surgery | [facility] | Gerson Mendieta MD | RIGHT THREE WALL | | 2020 | | [address] | [address] | ORBITAL | | | | [facility] | Blvd [place], [place] | DECOMPRESSION RIGHT | | | | [place] [address] | [address] | TEMPORARY SUTURE | | | | | [phone] | TARSORRHAPHY | | | | | | | [...] weekends and holidays, call and ask the laminating machine operator helper to page the Eye Doctor educational institution president. ? Return appointment date: ? Time: documented [...] tablet by | 30 | 0 | 02//20 | | | oxyCODONE-acetaminop | mouth every [...] of this note might be different from laura thomas original. POD1 s/p R 3 wall decompression [...] Fellow Oculofacial Plastic and Reconstructive Surgery Pager: Cralos Thomas MD - 05/05 6:49 PM PST [...] 11:26 | | | | | dose, Fri05/05/19 at 1200 | | AM PST | | | | + +--------+ + +------+------+ + +---+ | | | + +---+ | bisacodyL (DULCOLAX) | | | suppository 10 mg 10 mg, rectal, | | | DAILY NEEDED, Starting Wed | | | 05/05/19 at 2232, Until [facility] 05/06/19 | | | at 1603, 2nd line for no BM in | | | past 2 days or if no response to | | | MIRALAX or if patient unable to | | | tolerate oral | | + +---+ | | | + +---+ + +-------+ +------+---+------+ | cocaine 4 % solution | Given | 05/05/19 | 4 mL | | Nose | | INTRAPROCEDURE PRN, Starting Wed | | 20 9:51 | | | | | 05/05/19 at 0951, Until 05/05/19 | | AM PST | | | | | at 1044 | | | | | | + +-------+ +------+---+------+ +---+---+ | | | +---+---+ + +-------+ +--------+---+---+ | dilTIAZem CD 24 [...] +---+---+ | | | +---+---+ + +-------+ +---------+---+-------+ | hypromellose (GENTEAL SEVERE) | Given | 05/05/19 | 1 strip | | Both | | 0.3 % ophthalmic gel | | 20 9:51 | | | Eyes | | INTRAPROCEDURE PRN, Starting Wed | | AM PST | | | | | 05/05/19 at 0951, Until 05/05/19 | | | | | | | at 1044 | | | | | | + +-------+ +---------+---+-------+ +---+---+ | | | +---+---+ + + [...] | +---+---+ + +-------+ +--------+---+ + | lactated Ringers irrigation | Given | 05/05/19 | 100 mL | | Surgical | | INTRAPROCEDURE PRN, Starting Fri | | 20 9:52 | | | Site | | 05/05/19 at 0952, Until Fri05/05/19 | | AM PST | | | | | at 1044 | | | | | | + +-------+ +--------+---+ + +---+---+ | | | [...] | | dose (after last reorder) on Fri | | | 05/06/19 at 0900, Until | | | Discontinued | | + +---+ | | | + +---+ + +-------+ +------+---+ + | Oculoplastics Local with | Given | 05/05/19 | 3 mL | | Surgical | | hyaluronidase: lidocaine w/ EPI | | 20 10:31 | | | Site | | 1%-1:109722 - bupivacaine 0.5% | | AM PST | | | | | (1:1) - hyaluronidase 150 | | | | | | | units/mL 1 mL INTRAPROCEDURE | | | | | | | PRN, Starting 05/05/19 at 0952, | | | | | | | Until 05/05/19 at 1044 | | | | | | + +-------+ +------+---+ + +-------+ +------+---+ + | Given | 05/05/19 | 9 mL | | Surgical | | | 20 9:52 | | | Site | | | AM PST | | | | +-------+ +------+---+ + + +---+ | | | + +---+ | oxyCODONE (immediate release) | | | (ROXICODONE) tablet 5-10 mg 5-10 | | | mg, oral, NEEDED, 1 dose, | | | Starting 05/05/19 at 1054, | | | Until Aga 05/06/19 at 1603, post-op | | | [...] | | | 05/05/19 at 2232, Until Aag | | | 05/06/19 at 1603, 1st line - for no | | | BM for 2 days | | + +---+ | | | + +---+ + +-------+ +---------+---+-------+ | proparacaine (OPHTHAINE) 0.5 % | Given | 05/05/19 | 2 drops | | Both | | ophthalmic drops INTRAPROCEDURE | | 20 9:52 | | | Eyes | | PRN, Starting 05/05/19 at 0952, | | AM PST | | | | | Until Fri05/05/19 at 1044 | | | | | | + +-------+ +---------+---+-------+ +---+---+ | | | +---+---+ + + [...] | | | + +---+ + +-------+ +---------+---+--------+ | white petrolatum-mineral | Given | 05/05/19 | 1 strip | | Right | | oil-lanolin (LACRILUBE) 83-15 % | | 20 9:52 | | | Eye | | ophthalmic ointment | | AM PST | | | | | INTRAPROCEDURE PRN, Starting Wed | | | | | | | 05/05/19 at 0952, Until 05/05/19 | | | | | | | at 1044 | | | | | | + +-------+ +---------+---+--------+ +---+---+ | | | +---+---+ documented in this encounter
--- OUTSIDE RECORDS SUMMARY | ~2019-07-24 | XMS | Encounter Summary ---
Demographics + + + | Address | [address] | | | [place] [address] | + + + | Home Phone | | + + + | Preferred Language | Unknown | + + + | Marital Status | Single | + + + | Faith Affiliation | NON | + + + | Race | White | + + + | Ethnic Group | Not or | + + + Author + + + | Author | [facility] | + + + | Organization | [facility] | + + + | Address | Unknown | + + + | Phone | Unavailable | + + + Support + + +---------+ + | Name | Relationship | Address | Phone | + + +---------+ + | Pernell Atkinson | ECON | Unknown | | + + +---------+ + Care Team Providers + +------+ + | Care Global Professional Name | Role | Phone | + +------+ + | Alea Devine | PCP | | + +------+ + Reason for Visit +--------+ + | Reason | Comments | +--------+ + | Other | med refill | +--------+ + Encounter Details +--------+ + + + + | Date | Type | Department | Care Team | Description | +--------+ + + + + | 03/16/ | Telephone | [facility] | Gerson Mendieta MD | Other (med refill) | | 2019 | | [place] | [address] | | | | | Oculoplastics at | [place], [place] | | | | | [place] [address] | [address] | | | | | [address] | [phone] | | | | | [facility] [place] | | | | | | [facility], [address] [place] [address] | | | | | | [place] [address] | | | | | | [phone] | | | +--------+ + + + [...]
--- OUTSIDE RECORDS SUMMARY | ~2019-07-24 | XMS | Encounter Summary ---
Demographics + + + | Address | [address] | | | [place] [address] | + + + | Home Phone | | + + + | Preferred Language | Unknown | + + + | Marital Status | Single | + + + | Shinto Affiliation | NON | + + + | Race | White | + + + | Ethnic Group | Not or | + + + Author + + + | Author | [facility] | + + + | Organization | [facility] | + + + | Address | Unknown | + + + | Phone | Unavailable | + + + Support + + +---------+ + | Name | Relationship | Address | Phone | + + +---------+ + | Pernell Atkinson | ECON | Unknown | | + + +---------+ + Care Team Providers + +------+ + | Care Front Office Supervisor Name | Role | Phone | + +------+ + | Alea Devine | PCP | | + +------+ + Reason for Visit +---------+ + | Reason | Comments | +---------+ + | Post Op | | +---------+ + Encounter Details +--------+ + + + + | Date | Type | Department | Care Team | Description | +--------+ + + + + | 06/02/ | Telephone | [facility] | Carlos Britt MD | Post Op | | 2019 | | [place] | [address] | | | | | Oculoplastics at | Blvd [place], [place] | | | | | [address] | [address] | | | | | [address] | [phone] | | | | | [facility] [place] | | | | | | [facility], [address] [place] [address] | | | | | | [place] [address] | | | | | | [phone] | | | +--------+ + + + [...]
--- OUTSIDE RECORDS SUMMARY | ~2019-07-24 | XMS | Encounter Summary ---
Demographics + + + | Address | [address] | | | [place] [address] | + + + | Home Phone | | + + + | Preferred Language | Unknown | + + + | Marital Status | Single | + + + | Jainism Affiliation | NON | + + + | Race | White | + + + | Ethnic Group | Not or | + + + Author + + + | Author | [facility] | + + + | Organization | [facility] | + + + | Address | Unknown | + + + | Phone | Unavailable | + + + Support + + +---------+ + | Name | Relationship | Address | Phone | + + +---------+ + | Pernell Atkinson | ECON | Unknown | | + + +---------+ + Care Team Providers + +------+ + | Care Cook Cold Meat Name | Role | Phone | + +------+ + | Alea Devine | PCP | | + +------+ + Reason for Visit + + + | Reason | Comments | + + + | Pre-Admission | | + + + Encounter Details +--------+ + + + + | Date | Type | Department | Care Team | Description | +--------+ + + + + | 04/29/ | PreAdmit | [facility] | Gerson Mendieta MD | Pre-Admission | | 2020 | Orders | [place] | [address] | | | | | O[place]oplastics at | [place], [place] | | | | | [address] | [address] | | | | | [address] | [phone] | | | | | [facility] [place] | | | | | | [address] | | | | | | [place] [address] | | | | | | [phone] | | | +--------+ + + + [...] storm | + + documented in this encounter"
--- OUTSIDE RECORDS SUMMARY | ~2019-07-24 | XMS | Encounter Summary ---
Demographics + + + | Address | [address] | | | [place] [address] | + + + | Home Phone | | + + + | Preferred Language | Unknown | + + + | Marital Status | Single | + + + | Judaism Affiliation | NON | + + + | Race | White | + + + | Ethnic Group | Not or | + + + Author + + + | Author | [facility] | + + + | Organization | [facility] | + + + | Address | Unknown | + + + | Phone | Unavailable | + + + Support + + +---------+ + | Name | Relationship | Address | Phone | + + +---------+ + | Pernell Atkinson | ECON | Unknown | | + + +---------+ + Care Team Providers + +------+ + | Care Cost Engineer Name | Role | Phone | + +------+ + | Alea Devine | PCP | | + +------+ + Encounter Details +--------+ + + + + | Date | Type | Department | Care Team | Description | +--------+ + + + + | 04/29/ | Procedure | [facility] | | | | 2019 | | [place] [facility] | | | | | | [facility] at [facility] [address] | | | | | | [facility] | | | | | | for Health and | | | | | | Healing Building [address], | | | | | | [address]th Floor | | | | | | [place], [place] | | | | | | [address] | | | | | | [phone] | | | +--------+ + + + [...] as of this encounter Plan of Treatment + + +--------+ + + | Name | Type | Priori | Associated Diagnoses | Date/Time | | | | ty | | | + + +--------+ + + | AUTOMATED VISUAL | Ophthalmolo | Routin | Thyroid eye | 04/29/2019 8:43 AM | | FIELD, [place] | gy | e | disease | PST | + + +--------+ + + documented as of this encounter Visit Diagnoses + + | Diagnosis | + + | 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
--- OUTSIDE RECORDS SUMMARY | ~2019-07-24 | XMS | Encounter Summary ---
Demographics + + + | Address | [address] | | | [place] [address] | + + + | Home Phone | | + + + | Preferred Language | Unknown | + + + | Marital Status | Single | + + + | Samaritan Affiliation | NON | + + + | Race | White | + + + | Ethnic Group | Not or | + + + Author + + + | Author | [facility] | + + + | Organization | [facility] | + + + | Address | Unknown | + + + | Phone | Unavailable | + + + Support + + +---------+ + | Name | Relationship | Address | Phone | + + +---------+ + | Pernell Atkinson | ECON | Unknown | | + + +---------+ + Care Team Providers + +------+ + | Care Microfilm Duplicating Unit Supervisor Name | Role | Phone | + +------+ + | Alea Devine | PCP | | + +------+ + Encounter Details +--------+ + + + + | Date | Type | Department | Care Team | Description | +--------+ + + + + | 05/04/ | Pharmacy | Pharmacy @ [facility] | | | | 2019 | Visit | [address] | | | | | | [address] Mail[address]: | | | | | | [facility] | | | | | | and [place], | | | | | | [address] | | | | | | [place], [place] | | | | | | [address] | | | +--------+ + + + [...]
--- OUTSIDE RECORDS SUMMARY | ~2019-07-24 | XMS | Encounter Summary ---
Demographics + + + | Address | [address] | | | [place] [address] | + + + | Home Phone | | + + + | Preferred Language | Unknown | + + + | Marital Status | Single | + + + | Congregation Affiliation | NON | + + + | Race | White | + + + | Ethnic Group | Not or | + + + Author + + + | Author | [facility] | + + + | Organization | [facility] | + + + | Address | Unknown | + + + | Phone | Unavailable | + + + Support + + +---------+ + | Name | Relationship | Address | Phone | + + +---------+ + | Pernell Atkinson | ECON | Unknown | | + + +---------+ + Care Team Providers + +------+ + | Care Nurse Practitioner Name | Role | Phone | + +------+ + | Alea Devine | PCP | | + +------+ + Encounter Details +--------+ + + + + | Date | Type | Department | Care Team | Description | +--------+ + + + + | 05/13/ | Pharmacy | [facility] | | | | 2020 | Visit | [address] [place] [address] | | | | | | [place] [address] | | | | | | [phone] | | | +--------+ + + + [...]
--- OUTSIDE RECORDS SUMMARY | ~2019-07-24 | XMS | Encounter Summary ---
Demographics + + + | Address | [address] | | | [place] [address] | + + + | Home Phone | | + + + | Preferred Language | Unknown | + + + | Marital Status | Single | + + + | Alevism Affiliation | NON | + + + [...] Team Providers + +------+ + | Care Morning Show Host Name | Role | Phone | + +------+ + | Alea Devine | PCP | | + +------+ + Encounter Details +--------+--------+ + + + | Date | Type | Department | Care Team | Description | +--------+--------+ + + + | 02/03/ | Travel | | | | | [...]
--- OUTSIDE RECORDS SUMMARY | ~2019-07-24 | XMS | Encounter Summary ---
Demographics + + + | Address | [address] | | | [place] [address] | + + + | Home Phone | | + + + | Preferred Language | Unknown | + + + | Marital Status | | + + + | Religion Affiliation | Unknown | + + + | Race | Unknown | + + + | Ethnic Group | Unknown | + + + Author + + + | Author | [facility] | | | and [place] | + + + | Organization | [facility] | | | [...] Team Providers + +------+ + | Care Marketing Reporting Analyst Name | Role | Phone | + [...] | | | [address] | [place] [address] | | | | | [place] [address] | | | | | | [phone] | | | +--------+ + + + [...] [place], | | | | | | [place] [address] | | | | | | [phone] | | | | | | | [...]
--- OUTSIDE RECORDS SUMMARY | ~2019-07-24 | XMS | Encounter Summary ---
Demographics + + + | Address | [address] | | | [place] [address] | + + + | Home Phone | | + + + | Preferred Language | Unknown | + + + | Marital Status | Single | + + + | Restorationist Affiliation | NON | + + + | Race | White | + + + | Ethnic Group | Not or | + + + Author + + + | Author | [facility] | + + + | Organization | [facility] | + + + | Address | Unknown | + + + | Phone | Unavailable | + + + Support + + +---------+ + | Name | Relationship | Address | Phone | + + +---------+ + | Pernell Atkinson | ECON | Unknown | | + + +---------+ + Care Team Providers + +------+ + | Care Rf Microwave Engineer Name | Role | Phone | [...] Description | +--------+---------+ + + + | 05/03/ | Surgery | [facility] | Gerson Mendieta MD | LEFT THREE WALL | | 2019 | | [address] | [address] | ORBITAL | | | | [facility] | Blvd [place], [place] | DECOMPRESSION LEFT | | | | [place] [address] | [address] | TEMPORARY SUTURE | | | | | [phone] | TARSORRHAPHY | | | | | [...] Discharge Instructions Instructions Camila Villegas RN [facility] Do not drive, [...] weekends and holidays, call and ask the gasoline tractor operator to page the Eye Doctor section laborer. Return appointment date: May 05 documented in [...] worth at one sitting) -patient needs to last picker percocet from [facility] pharmacy (order is in) Carlos Britt M.D. [...] off as well as medrol dose chen Carlos Britt M.D. Instructor/ Fellow Oculofacial Plastic [...] + + + + + + | [facility] | [address] | [address] | [facility] [...] | + + + + + | [facility] | [address] | [place], [place] | | | CARDIOLOGY | [address] | [address] | | + + + + + [...] in this encounter Administered Medications + +--------+ +------+------+------+ | Medication Order | MAR | Action | Dose | Rate | Site | | | Action | Date | | | | + +--------+ +------+------+------+ | cocaine 4 % solution | Given | 05/03/19 | 4 mL | | | | INTRAPROCEDURE PRN, Starting Mon | | 20 11:04 | | | | | 05/03/19 at 1104, Until 05/03/19 | | AM PST | | | | | at 1211 | | | | | | + +--------+ +------+------+------+ +---+---+ | | | +---+---+ + +-------+ [...] | | | | + +-------+ +--------+---+---+ +-------+ +--------+---+---+ | Given | 05/03/19 | [...] | mL/hr | | | CONTINUOUS, Starting Fri05/03/19 | | PM PST | | | | | at 0915, Until Fri05/04/19 at 1717 | | | | | | + +---------+ +-------+-------+---+ +---------+ + + +---+ | New Bag | 05/03/19 | 10 mL/hr | 10 mL/hr | | | | 20 9:02 | | | | | | AM PST | | | | +---------+ + + +---+ +---+---+ | | | +---+---+ + +-------+ +--------+---+---+ | lactated Ringers irrigation | Given | 05/03/19 | 300 mL | | | | INTRAPROCEDURE PRN, Starting Fri | | 20 11:04 | | | | | 05/03/19 at 1104, Until Fri05/03/19 | | AM PST | | | | | at 1211 | | | | | | + [...] PST | | | | +-------+ +------+---+---+ +---+---+ | | | +---+---+ + +-------+ +------+---+ + | Oculoplastics Local with | Given | 05/03/19 | 3 mL | | Surgical | | hyaluronidase: lidocaine w/ EPI | | 20 11:03 | | | Site | | 1%-[id number] - bupivacaine 0.5% | | AM PST | | | | | (1:1) - hyaluronidase 150 | | | | | | | units/mL 1 mL INTRAPROCEDURE | | | | | | | PRN, Starting Fri05/03/19 at 1041, | | | | | | | Until Fri05/03/19 at 1211 | | | | | | + +-------+ +------+---+ + +-------+ +-------+---+ + | Given | 05/03/19 | 10 mL | | Surgical | | | 20 10:45 | | | Site | | | AM PST | | | | +-------+ +-------+---+ + + +---+ | | | + +---+ | ondansetron (ZOFRAN) injection | | | 4 mg 4 mg, intravenous, EVERY 12 | | | HOURS NEEDED, 2 doses, | | | Starting Fri05/03/19 at 1022, | | | Until Fri05/04/19 at 171, | | | nausea/vomiting, first line | | + +---+ | | | + +---+ | oxyCODONE (immediate release) | | | (ROXICODONE) tablet 5-10 mg 5-10 | | | mg, oral, EVERY 4 HOURS | | | NEEDED, Starting Fri05/03/19 at | | | 1022, Until Fri05/04/19 at 1717, | | | severe pain | | + +---+ | | | + +---+ | oxyCODONE (immediate release) | | | (ROXICODONE) tablet 5-10 mg 5-10 | | | mg, oral, NEEDED, 1 dose, | | | Starting Fri05/03/19 at 1153, | | | Until 05/04/19 [...] +---+---+ | | | +---+---+ + +-------+ +--------+---+-------+ | proparacaine (OPHTHAINE) 0.5 % | Given | 05/03/19 | 1 drop | | Both | | ophthalmic drops INTRAPROCEDURE | | 20 11:03 | | | Eyes | | PRN, Starting 05/03/19 at 1103, | | AM PST | | | | | Until 05/03/19 at 1211 | | | | | | + +-------+ +--------+---+-------+ +---+---+ | | | +---+---+ + + [...] +---------+---+ + +---+---+ | | | +---+---+ + +-------+ +---------+---+-------+ | white petrolatum-mineral | Given | 05/03/19 | 1 strip | | Both | | oil-lanolin (LACRILUBE) 83-15 % | | 20 11:03 | | | Eyes | | ophthalmic ointment | | AM PST | | | | | INTRAPROCEDURE PRN, Starting Mon | | | | | | | 05/03/19 at 1103, Until 05/03/19 | | | | | | | at 1211 | | | | | | + +-------+ +---------+---+-------+ +---+---+ | | | +---+---+ documented in this encounter
--- OUTSIDE RECORDS SUMMARY | ~2019-07-24 | XMS | Encounter Summary ---
Demographics + + + | Address | [address] | | | [place] [address] | + + + | Home Phone [...] Author + + + | Author | [facility] | + + + | Organization | [facility] | + + + | Address | Unknown | + + + | Phone | Unavailable | + + + Support + + +---------+ + | Name | Relationship | Address | Phone | + + +---------+ + | Pernell Atkinson | ECON | Unknown | | + + +---------+ + Care Team Providers + +------+ + | Care Assembler Seat Name | Role | Phone | + [...] + + | 05/04/ | PreAdmit | [facility] | Gerson Mendieta MD | Pre-Admission | | 2020 | Orders | [place] | [address] | | | | | Oculoplastics at | [place], [place] | | | | | [address] | [address] | | | | | [address] | [phone] | | | | | [facility] [place] | | | | | | [address] | | | | | | [place] [address] | | | | | | [phone] | | | +--------+ + + + [...]
--- OUTSIDE RECORDS SUMMARY | ~2019-07-24 | XMS | Encounter Summary ---
Demographics + + + | Address | [address] | | | [place] [address] | + + + | Home Phone | | + + + | Preferred Language | Unknown | + + + | Marital Status | Single | + + + | Mosque Affiliation | NON | + + + [...] Team Providers + +------+ + | Care Medical Planner Name | Role | Phone | + [...] Post Op | | 2019 | | [place] | [address] | | | | | Oculoplastics at | Blvd [place], [place] | | | | | [address] | [address] | | | | | [address] | [phone] | | | | | [facility] [place] | | | | | | [facility], [address] [place] [address] | | | | | | [place] [address] | | | | | | [phone] | | | +--------+ + + + [...]
--- OUTSIDE RECORDS SUMMARY | ~2019-07-24 | XMS | Encounter Summary ---
Demographics + + + | Address | [address] | | | [place] [address] | + + + | Home Phone | | + + + | Preferred Language | Unknown | + + + | Marital Status | Single | + + + | Moravian Affiliation | NON | + + + | Race | White | + + + | Ethnic Group | Not or | + + + Author + + + | Author | [facility] | + + + | Organization | [facility] | + + + | Address | Unknown | + + + | Phone | Unavailable | + + + Support + + +---------+ + | Name | Relationship | Address | Phone | + + +---------+ + | Pernell Atkinson | ECON | Unknown | | + + +---------+ + Care Team Providers + +------+ + | Care Quality Assurance Test Program Manager Name | Role | Phone | [...] Post Op | | 2019 | | [place] | [address] | | | | | Oculoplastics at | Blvd [place], [place] | | | | | [address] | [address] | | | | | [address] | [phone] | | | | | [facility] [place] | | | | | | [facility], [address] [place] [address] | | | | | | [place] [address] | | | | | | [phone] | | | +--------+ + + + [...]
--- OUTSIDE RECORDS SUMMARY | ~2019-07-24 | XMS | Encounter Summary ---
Demographics + + + | Address | [address] | | | [place] [address] | + + + | Home Phone | | + + + | Preferred Language | Unknown | + + + | Marital Status | Single | + + + | Religion Affiliation | NON | + + + | Race | White | + + + | Ethnic Group | Not or | + + + Author + + + | Author | [facility] | + + + | Organization | [facility] | + + + | Address | Unknown | + + + | Phone | Unavailable | + + + Support + + +---------+ + | Name | Relationship | Address | Phone | + + +---------+ + | Pernell Atkinson | ECON | Unknown | | + + +---------+ + Care Team Providers + +------+ + | Care Insurance Legal Assistant Name | Role | Phone | + +------+ + PCP | Unavailable | + +------+ + Encounter Details +--------+ + + + + | Date | Type | Department | Care Team | Description | +--------+ + + + + | 10/04/ | Documentati | [facility] | Ned [place]des, | | | 2004 | on | [facility] | [address] | | | | | [address], | , [address] | | | | | [place], [place] | [place], [place] | | | | | [address] | [address] | | | | | [phone] | [phone] | | | | | | | [...]
--- OUTSIDE RECORDS SUMMARY | ~2019-07-24 | XMS | Encounter Summary ---
Demographics + + + | Address | [address] | | | [place] [address] | + + + | Home Phone | | + + + | Preferred Language | Unknown | + + + | Marital Status | Single | + + + | Adventism Affiliation | NON | + + + | Race | White | + + + | Ethnic Group | Not or | + + + Author + + + | Author | [facility] | + + + | Organization | [facility] | + + + | Address | Unknown | + + + | Phone | Unavailable | + + + Support + + +---------+ + | Name | Relationship | Address | Phone | + + +---------+ + | Pernell Atkinson | ECON | Unknown | | + + +---------+ + Care Team Providers + +------+ + | Care Teacher Associate Name | Role | Phone | + +------+ + | Alea Devine | PCP | | + +------+ + Reason for Visit +--------+ + | Reason | Comments | +--------+ + | Other | po visit | +--------+ + Encounter Details +--------+ + + + + | Date | Type | Department | Care Team | Description | +--------+ + + + + | 05/06/ | Documentati | [facility] | Gerson Mendieta MD | Other (po visit) | | 2020 | on | [place] | [address] | | | | | Oculoplastics at | [facility] [place] | | | | | [facility] [address] | [address] | | | | | [address] | [phone] | | | | | [facility] [place] | | | | | | [facility], [address] [place] [address] | | | | | | [place] [address] | | | | | | [phone] | | | +--------+ + + + [...]
--- OUTSIDE RECORDS SUMMARY | ~2019-07-24 | XMS | Encounter Summary ---
Demographics + + + | Address | [address] | | | [place] [address] | + + + | Home Phone | | + + + | Preferred Language | Unknown | + + + | Marital Status | Single | + + + | Pentecostal Affiliation | NON | + + + [...] Team Providers + +------+ + | Care Dialysis Biomed Technician Name | Role | Phone | + [...] + + | 05/11/ | Telephone | [facility] | Carlos Britt MD | Post Op | | 2020 | | [place] | [address] | | | | | Oculoplastics at | Blvd [place], [place] | | | | | [address] | [address] | | | | | [address] | [phone] | | | | | [facility] [place] | | | | | | [facility], [address] [place] [address] | | | | | | [place] [address] | | | | | | [phone] | | | +--------+ + + + [...]
--- OUTSIDE RECORDS SUMMARY | ~2019-07-24 | XMS | Encounter Summary ---
Demographics + + + | Address | [address] | | | [place] [address] | + + + | Home Phone [...] Team Providers + +------+ + | Care Director Of Occupational Health Name | Role | Phone | + +------+ + | Alea Devine | PCP | | + +------+ + Encounter Details +--------+--------+ + + + | Date | Type | Department | Care Team | Description | +--------+--------+ + + + | 05/21/ | Travel [...]
--- OUTSIDE RECORDS SUMMARY | ~2019-07-24 | XMS | Encounter Summary ---
Demographics + + + | Address | [address] | | | [place] [address] | + + + | Home Phone [...] Author + + + | Author | [facility] | + + + | Organization | [facility] | + + + | Address | Unknown | + + + | Phone | Unavailable | + + + Support + + +---------+ + | Name | Relationship | Address | Phone | + + +---------+ + | Pernell Atkinson | ECON | Unknown | | + + +---------+ + Care Team Providers + +------+ + | Care Fabrication Specialist Name | Role | Phone | + [...] Pre-Admission | | 2020 | Orders | [place] | [address] | | | | | Oculoplastics at | [place] | | | | | [address] | [address] | | | | | [address] | [phone] | | | | | Eye [place] | | | | | | [address] | | | | | | [place] [address] | | | | | | [phone] | | | +--------+ + + + [...]
--- OUTSIDE RECORDS SUMMARY | ~2019-07-24 | XMS | Clinical Summary ---
Demographics + + + | Address | [address] | | | [place] [address] | + + + | Home Phone | | + + + | Preferred Language | Unknown | + + + | Marital Status | | + + + | Sikhism Affiliation | Unknown | + + + | Race | Unknown | + + + | Ethnic Group | Unknown | + + + Author + + + | Author | [facility] (Historical as of | | | 11-14-18) | + + + | Organization | [facility] (Historical as of | | | 11-14-18) [...] Team Providers + +------+ + | Care Notcher Name | Role | Phone | + [...] | Overview: with RVR, secondary to Hyperthyroidism, [id number] | | VASc 2 | + + [...] +------+-------+ + | MEDICARE | MEDICA | [id number] | | | [address] | | | RE | | | | [place] [address] | | | IP-OP | | | | | + +--------+ +------+-------+ + | UNITED HEALTHCARE | UNITED | [id number] | | | | | | | [...] Self | [birth year] Home: | [address] | | | al/Fam | | 1951 | [phone] [address] [place] | | | vitaliy | | | [address] | [address] | + +--------+ +--------+ + +
--- OUTSIDE RECORDS SUMMARY | ~2019-07-24 | XMS | Encounter Summary ---
Demographics + + + | Address | [address] | | | [place] [address] | + + + | Home Phone [...] Author + + + | Author | [facility] | + + + | Organization | [facility] | + + + | Address | Unknown | + + + | Phone | Unavailable | + + + Support + + +---------+ + | Name | Relationship | Address | Phone | + + +---------+ + | Pernell Atkinson | ECON | Unknown | | + + +---------+ + Care Team Providers + +------+ + | Care Tape Maker Name | Role | Phone | + [...] + + | 05/05/ | Anesthesia | [facility] LOC | Felipe Saldana MD | | | 2019 | Event | [address] | [address] [facility] | | | | | [facility] | [facility] | | | | | [place] [address] | [place], [place] | | | | | | [address] | | | | | | [phone] | | | | | | | | +--------+ + + + + Anesthesia Record + + + + + | Procedure Name | Responsible | Anesthesia Start | Anesthesia Stop Time | | | Anesthesiologist | Time | | + + + + + | RIGHT THREE WALL | Felipe Saldana MD | 05/05/19 0921 | 05/05/19 1048 | | ORBITAL | | | | | DECOMPRESSION RIGHT | | | | | TEMPORARY SUTURE | | | | | TARSORRHAPHY (Right | | | | | Eye) | | | | + + + + + +----+---+ + + | Da | T | Event | Comment | | te | i | | | | | m | | | | | e | | | +----+---+ + + | 02 | 0 | | | | /0 | 8 | | | | 5/ | 4 | | | | 20 | 3 | | | | 20 | | | | +----+---+ + + | | 0 | Pt. Check | Prior to anesthesia start, pt. Identified, examined, chart | | | 8 | | reviewed, ALEX held, anesthetic plan made or approved by | | | 4 | | attending anesthesiologist. NPO status confirmed as appropriate | | | 3 | | for procedure Preoperative evaluation: unchanged | +----+---+ + + | | 0 | Eq Check | Anesthesia machine checked Equipment verified | | | 9 | | | | | 1 | | | | | 5 | | | +----+---+ + + | | 0 | An Start | | | | 9 | | | | | 2 | | | | | 1 | | | +----+---+ + + | | 0 | An Start | | | | 9 | Data | | | | 2 | | | | | 4 | | | +----+---+ + + | | 0 | Vitals | Monitors applied Vital signs checked Patient ready for anesthesia | | | 9 | Checked | | | | 2 | | | | | 7 | | | +----+---+ + + | | 0 | SGA | | | | 9 | | | | | 2 | | | | | 9 | | | +----+---+ + + | | 0 | Ready | | | | 9 | | | | | 3 | | | | | 5 | | | +----+---+ + + | | 0 | Timeout | | | | 9 | | | | | 3 | | | | | 5 | | | +----+---+ + + | | 0 | Abx | | | | 9 | Administere | | | | 3 | d | | | | 6 | | | +----+---+ + + | | 0 | Incision | | | | 9 | | | | | 4 | | | | | 3 | | | +----+---+ + + | | 1 | Surgery end | | | | 0 | | | | | 3 | | | | | 8 | | | +----+---+ + + | | 1 | SGA Removed | | | | 0 | | | | | 4 | | | | | 2 | | | +----+---+ + + | | 1 | an stop | | | | 0 | data | | | | 4 | | | | | 4 | | | +----+---+ + + | | 1 | PACU Rpt | | | | 0 | Given | | | | 4 | | | | | 8 | | | +----+---+ + + | | 1 | Anesthesia | | | | 0 | End | | | | 4 | | | | | 8 | | | +----+---+ + + | | 1 | Post-Op | | | | 1 | Page | | | | 0 | | | | | 0 | | | +----+---+ + + +------+ | Meds | +------+ + + + | Name | Total | + + + | fentaNYL | 150 mcg | + + + | lidocaine 2% | 60 mg | + + + | propofol | 190 mg | + + + | ondansetron | 4 mg | + + + | dexamethasone | 10 mg | + + + | ceFAZolin | 2,000 mg | + + + | propofol (DIPRIVAN) 200 mg | 442,000 mcg | + + + | ePHEDrine | 5 mg | + + + | lactated ringers (LR) infusion | 700 mL | + + + + + | Name | + + | Insp Sevo | + + | Et Sevo | + + | O2 Flow Rate (Total Liters) | + + | Air Flow rate (L/min) | + + + + | No blood administrations on file. | + + +--------+ + + + | Type | Details | Placement | Removal | +--------+ + + + | Incisi | 05/03/19; 0942; Right; (eye); | 05/03/19 0942 by | | | on | eye | Sunita Brooks RN | | +--------+ + + + | Periph | 05/05/19; 0847; Right; | 05/05/19 0847 by | 05/06/19 0930 by | | eral | Antecubital; 20 g; None; | Al Rdz RN | Sirisha Pereira RN | | IV | Positive; 05/06/19; 0930; | | | | | Discharge | | | +--------+ + + + documented in this encounter Social History + +-------+ +--------+------+ | Tobacco [...] + + documented in this encounter Results SGA (05/05/2019 9:50 AM PST) + + + | Narrative | Performed At | + + + | Sravanthi Byrd CRNA 05/05/2019 9:53 AM AIRWAY MANAGEMENT | | | - SGA Time of Placement: 05/05/2019 9:29 AM Positioning: [...] difficulty, 10ml air added, no leak at [id number]. Atraumatic | | | to soft tissues/dentition | | + + + documented in this encounter Visit Diagnoses Not on filedocumented in this encounter Administered Medications + +--------+ + +------+------+ | Medication Order | MAR | Action | Dose | Rate | Site | | | Action | Date | | | | + +--------+ + +------+------+ | ceFAZolin (ANCEF) injection | Given | 05/05/19 | 2,000 mg | | | | INTRAPROCEDURE PRN, Starting Fri | | 20 9:36 | | | | | 05/05/19 at 0936, Until 05/05/19 | | AM PST | | | | | at 1048 | | | | | | + +--------+ + +------+------+ +---+---+ | | | +---+---+ + +-------+ +-------+---+---+ | dexamethasone (DECADRON) | Given | 05/05/19 | 10 mg | | | | injection INTRAPROCEDURE PRN, | | 20 9:35 | | | | | Starting 05/05/19 at 0935, | | AM PST | | | | | Until Fri05/05/19 at 1048 | | | | | | + +-------+ +-------+---+---+ +---+---+ | | | +---+---+ + +-------+ +------+---+---+ | ePHEDrine injection | Given | 05/05/19 | 5 mg | | | | INTRAPROCEDURE PRN, Starting Wed | | 20 9:47 | | | | | 05/05/19 at 0947, Until Fri05/05/19 | | AM PST | | | | | at 1048 | | | | | | + +-------+ +------+---+---+ +---+---+ | | | +---+---+ + +-------+ +--------+---+---+ | fentaNYL (SUBLIMAZE) injection | Given | 05/05/19 | 50 mcg | | | | INTRAPROCEDURE PRN, Starting Wed | | 20 9:58 | | | | | 05/05/19 at 0930, Until 05/05/19 | | AM PST | | | | | at 1048 | | | | | | + +-------+ +--------+---+---+ +-------+ +--------+---+---+ | Given | 05/05/19 | 25 mcg | | | | | 20 9:53 | | | | | | AM PST | | | | +-------+ +--------+---+---+ | Given | 05/05/19 | 25 mcg | | | | | 20 9:49 | | | | | | AM PST | | | | +-------+ +--------+---+---+ +---+---+ | | | +---+---+ [...] | | +---+---+ + +-------+ +-------+---+---+ | lidocaine (XYLOCAINE MPF) 2 % | Given | 05/05/19 | 60 mg | | | | (20 mg/mL) injection | | 20 9:27 | | | | | INTRAPROCEDURE PRN, Starting Wed | | AM PST | | | | | 05/05/19 at 0927, Until 05/05/19 | | | | | | | at 1048 | | | | | | + +-------+ +-------+---+---+ +---+---+ | | | +---+---+ + +-------+ +------+---+---+ | ondansetron (ZOFRAN) injection | Given | 05/05/19 | 4 mg | | | | INTRAPROCEDURE PRN, Starting Wed | | 20 9:35 | | | | | 05/05/19 at 0935, Until 05/05/19 | | AM PST | | | | | at 1048 | | | | | | + +-------+ +------+---+---+ +---+---+ | | | +---+---+ + + + + +---+---+ | propofol (DIPRIVAN) 200 mg | Rate/Dos | 05/05/19 | 100 | | | | INTRAPROCEDURE CONTINUOUS PRN, | e Change | 20 10:13 | mcg/kg/m | | | | Starting 05/05/19 at 0936, | | AM PST | in | | | | Until 05/05/19 at 1048 | | | | | | + + + + +---+---+ + + + +---+---+ | Rate/Dose Change | 05/05/19 | 125 | | | | | 20 10:01 | mcg/kg/m | | | | | AM PST | in | | | + + + +---+---+ | New Bag | 05/05/19 | 100 | | | | | 20 9:36 | mcg/kg/m | | | | | AM PST | in | | | + + + +---+---+ +---+---+ | | | +---+---+ + +-------+ +-------+---+---+ | propofol (DIPRIVAN) injection | Given | 05/05/19 | 30 mg | | | | INTRAPROCEDURE PRN, Starting Wed | | 20 9:30 | | | | | 05/05/19 at 0927, Until 05/05/19 | | AM PST | | | | | at 1048 | | | | | | + +-------+ +-------+---+---+ +-------+ +--------+---+---+ | Given | 05/05/19 | 30 mg | | | | | 20 9:28 | | | | | | AM PST | | | | +-------+ +--------+---+---+ | Given | 05/05/19 | 130 mg | | | | | 20 9:27 | | | | | | AM PST | | | | +-------+ +--------+---+---+ +---+---+ | | | +---+---+ documented in this encounter"
--- OUTSIDE RECORDS SUMMARY | ~2019-07-24 | XMS | Encounter Summary ---
Demographics + + + | Address | [address] | | | [place] [address] | + + + | Home Phone [...] Team Providers + +------+ + | Care Test Designer Name | Role | Phone | + +------+ + | Alea Devine | PCP | | + +------+ + Encounter Details +--------+--------+ + + + | Date | Type | Department | Care Team | Description | +--------+--------+ + + + | 02/05/ | Travel | | | | | [...]
--- OUTSIDE RECORDS SUMMARY | ~2019-07-24 | XMS | Encounter Summary ---
Demographics + + + | Address | [address] | | | [place] [address] | + + + | Home Phone | | + + + | Preferred Language | Unknown | + + + | Marital Status | Single | + + + | Orthodox Affiliation | NON | + + + | Race | White | + + + | Ethnic Group | Not or | + + + Author + + + | Author | [facility] | + + + | Organization | [facility] | + + + | Address | Unknown | + + + | Phone | Unavailable | + + + Support + + +---------+ + | Name | Relationship | Address | Phone | + + +---------+ + | Pernell Atkinson | ECON | Unknown | | + + +---------+ + Care Team Providers + +------+ + | Care Cake Icer And Packer Name | Role | Phone | + [...] (med refill) | | 2019 | | [place] | [address] | | | | | Oculoplastics at | [place], [place] | | | | | [address] | [address] | | | | | [address] | [phone] | | | | | [facility] [place] | | | | | | [facility], [address] [place] [address] | | | | | | [place] [address] | | | | | | [phone] | | | +--------+ + + + [...]
--- OUTSIDE RECORDS SUMMARY | ~2019-07-24 | XMS | Encounter Summary ---
Demographics + + + | Address | [address] | | | [place] [address] | + + + | Home Phone [...] + + + | Author | [facility] | + + + | Organization | [facility] | + + + | Address | Unknown | + + + | Phone | Unavailable | + + + Support + + +---------+ + | Name | Relationship | Address | Phone | + + +---------+ + | Pernell Atkinson | ECON | Unknown | | + + +---------+ + Care Team Providers + +------+ + | Care Tree Puller Name | Role | Phone | + +------+ + | Alea Devine | PCP | | + +------+ + Encounter Details +--------+ + + + + | Date | Type | Department | Care Team | Description | +--------+ + + + + | 04/29/ | Procedure | [facility] | | | | 2019 | | [facility] | | | | | | [facility] at [facility] [address] | | | | | | [facility] | | | | | | for Health and | | | | | | Healing Building 1, | | | | | | 11th Floor | | | | | | [place], [place] | | | | | | [address] | | | | | | [phone] | | | +--------+ + + + [...]
--- OUTSIDE RECORDS SUMMARY | ~2019-07-24 | XMS | Encounter Summary ---
Demographics + + + | Address | [address] | | | [place] [address] | + + + | Home Phone [...] Author + + + | Author | [facility] | + + + | Organization | [facility] | + + + | Address | Unknown | + + + | Phone | Unavailable | + + + Support + + +---------+ + | Name | Relationship | Address | Phone | + + +---------+ + | Pernell Atkinson | ECON | Unknown | | + + +---------+ + Care Team Providers + +------+ + | Care Grinder And Honer Operator Automatic Name | Role | Phone | + +------+ + PCP | Unavailable | + +------+ + Encounter Details +--------+ + + + + | Date | Type | Department | Care Team | Description | +--------+ + + + + | 02/14/ | Documentati | [facility] | Ned Valdes, | | | 1993 | on | [facility] | [address] | | | | | [address], | , [address] | | | | | [place], [place] | [place], [place] | | | | | [address] | [address] | | | | | [phone] | [phone] | | | | | | | [...] Ned Valdes MD - 11/26/2004 9:44 AM [facility]1994 - sent Lucio Dee M.D. [id number] [place] [address] RE: TAMARZenon FOYS Dear Pat: I had the pleasure of seeing your patient, Tamar Fry, regarding a diagnosis of breast cancer recently. The patient is a 44-year-old premenopausal female who was found to have an abnormality on screening mammography. A left breast biopsy was performed by you on January 10, 1995, at [facility], and this revealed infiltrative moderately well [...] February 14, 1995 Page 2 RE: TAMAR FRY On exam, the patient is alert and oriented. She [id number]. She is afebrile. HEENT exam reveals no [...] petechiae. This patient has a stage I [id number] breast cancer. She is premenopausal. I recommended four cycles of Adriamycin and Cytoxan chemotherapy. We are still requesting the estrogen receptor to be performed on paraffin blocks. Thank you for this referral. With kind regards, Ned Valdes M.D. [email or web address] cc:Shimon Rendon M.D. RADHA Mcallister Tdocumented in this encounter Plan of Treatment Not on filedocumented as of this encounter Visit Diagnoses Not on filedocumented in this encounter"
--- OUTSIDE RECORDS SUMMARY | ~2019-07-24 | XMS | Encounter Summary ---
Demographics + + + | Address | [address] | | | [place] [address] | + + + | Home Phone | | + + + | Preferred Language | Unknown | + + + | Marital Status | Single | + + + | Rastafari Affiliation | NON | + + + | Race | White | + + + | Ethnic Group | Not or | + + + Author + + + | Author | [facility] | + + + | Organization | [facility] | + + + | Address | Unknown | + + + | Phone | Unavailable | + + + Support + + +---------+ + | Name | Relationship | Address | Phone | + + +---------+ + | Pernell Atkinson | ECON | Unknown | | + + +---------+ + Care Team Providers + +------+ + | Care Advanced Analytics Associate Name | Role | Phone | + +------+ + | Alea Devine | PCP | | + +------+ + Encounter Details +--------+---------+ + + + | Date | Type | Department | Care Team | Description | +--------+---------+ + + + | 05/13/ | Office | [facility] | Gerson Mendieta MD | Thyroid eye disease | | 2020 | Visit | [place] | [address] | (Primary Dx); | | | | Oculoplastics at | [address] [place], [place] | Proptosis | | | | [facility] [address] | [address] | | | | | [address] | [phone] | | | | | [facility] [place] | | | | | | [facility], [address] [place] [address] | | | | | | [place] [address] | | | | | | [phone] | | | +--------+---------+ + + + [...]
--- OUTSIDE RECORDS SUMMARY | ~2019-07-24 | XMS | Encounter Summary ---
Demographics + + + | Address | [address] | | | [place] [address] | + + + | Home Phone [...] + + + | Author | [facility] | + + + | Organization | [facility] | + + + | Address | Unknown | + + + | Phone | Unavailable | + + + Support + + +---------+ + | Name | Relationship | Address | Phone | + + +---------+ + | Pernell Atkinson | ECON | Unknown | | + + +---------+ + Care Team Providers + +------+ + | Care Stove Installer Name | Role | Phone | + +------+ + | Alea Devine | PCP | | + +------+ + Reason for Referral Diagnostic Testing (Urgent) + +--------+ + + + + | Status | Reason | Specialty | Diagnoses / | Referred By | Referred To | | | | | Procedures | Contact | Contact | + +--------+ + + + + | New Request | | Radiology | Diagnoses | Anam | [facility] | | | | | Thyroid eye | MD Gerson | Health & | | | | | disease | [address] | [employer] | | | | | Proptosis | [address] | [address] | | | | | Procedures | [address] | [facility] | | | | | [address] | [place], [place] | ROAD | | | | | CONTRAST | [address] | [place], [place] | | | | | | Phone: | [phone] | | | | | | [phone] | Phone: | | | | | | Fax: | [phone] | | | | | | [phone] | | + +--------+ + + + + Reason for Visit + + + | Reason | Comments | + + + | Follow-up visit | | + + + Encounter Details +--------+---------+ + + + | Date | Type | Department | Care Team | Description | +--------+---------+ + + + | 04/29/ | Office | [facility] | Gerson Mendieta MD | Thyroid eye disease | | 2020 | Visit | [place] | [address] | (Primary Dx); | | | | Oculoplastics at | [facility], [place] | Proptosis | | | | [address] | [address] | | | | | [address] | [phone] | | | | | Eye [place] | | | | | | [facility], 5th floor | | | | | | [place] [address] | | | | | | [phone] | | | +--------+---------+ + + + [...] encounter Progress Notes Gerson Mendieta MD - 04/29/2019 10:30 AM PST Tamar Pillai is a 68 y.o. female here for CHANDAN kumar. 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 HVF done today HVF 04/29/19- OD- rel, inferior arcuate OS- rel, inferior arcuate MRI (outside) 01-06-19 EOM enlarged OD>OS Increased fat OU Today: Double vision when looking up, stable No eye pain Prednisone finished course yesterday- does not seems like it helped with double vision, but it help with lower eyelid swelling which is now slowly returning. Was on xarelto (a fib) up until 2 wks ago (low back pain ? Bleed - seeing neurosurgeon/back surgeon) Atrial fib is gone TFTS stable POHx: None Thyroid: Business Director/PCP - Dr. Welsh from [place]/Dr. Devine Onset- 03/2018 Status- stable with meds Thyroid surgery - none Meds - Methimazole Prednisone- tapered dose 10mg started 02/24/[address]/HVF - MRI done, previous VF by Dr. Merrill [facility] - stable 01/06/19 [...] any Pain: No pain (0 of 0-10) Visual Acuity: Vasc Vacc VAph RE LE 20/40+2 20/60 20/30+2 20/30 Color 11/12 OU Pupil Exam: ERL & No APD LHT XT (chin up position) Motility: RE LE -3 0 -1 0 0 -1/2 0 0 Lid Measurements: RE (mm) LE (mm) Sup SS Crease HT VPF 13 14.5 LF mMRDI 6 6.5 sMRDI Inf SS 1 2 Lag 0 0 + brow ptosis Dermatochalasis: 3+ BUL and 2+ BLL BUL/BLL retraction with temporal flare HOF: 2+ -nontender + proptosis No adenopathy Fundus exam: undilated RE LE Vitreous: Clear Disc: [place] and sharp -full C/D: 0.1 Macula: Flat Vasculature: Normal Vitreous: Clear Disc: [place] and sharp C/D: 0.2 Macula: Flat Vasculature: Normal Intraocular Pressure: RE 16 mm hg LE 14 mm hg Method Tonopen Exophthalmometry: @ base 92 12--19 Exophthalmometry: @ base 92 1-30-20 Very tight to retropulsion OU JESSICA: OD/OS 1) Spotaneous orbital pain- 0/0 2) Gaze evoked orbital pain- 0/0 3) Eyelid swelling that is considered to be due to active (inflammatory phase) GO- 03/31 4) Eyelid erythema- 03/31 5) Conjunctival redness that is considered to be due to active (inflammatory phase) GO (ign ore"equivocal" redness)- 03/31 6) Chemosis - 03/31 7) Inflammation of caruncle or plica- 03/31 Total = OD 7 OS 08/04 External photos taken OU today. 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 perioperatively. Check with PCP regarding prescription anticoagulant use prior to surgery. Afib- off xarelto 04/22/19 Prior anesthesia: ++PONV (consider scopolamine patch) Pain Medication: No problems with any Urgent surgery necessary. Surgery scheduled as follows: 05-03-2019 [facility] L 3 WALL ORBITAL DECOMPRESSION GLMA L SUTURE TARS 05-05-2019 [facility] R 3 WALL ORBITAL DECOMPRESSION GLMA R SUTURE TARS Needs consent LTP given on exam H&P Update on admit- will contact Alea Devine Friday CT done 04-29-2019 24 observation due to CON for both procedures Off Xarelto 1 wk ago doc umented in this encounter Plan of Treatment Not on filedocumented as of this encounter Results CT ORBITS WO CONTRAST (04/29/2019 12:01 PM [...] Note | + + | Service Account, Radiant Res In Interface - 04/29/2019 2:23 PM [...] unspecified | + + documented in this encounter
--- OUTSIDE RECORDS SUMMARY | ~2019-07-24 | XMS | Encounter Summary ---
Demographics + + + | Address | [address] | | | [place] [address] | + + + | Home Phone | | + + + | Preferred Language | Unknown | + + + | Marital Status | Single | + + + | Hindu Affiliation | NON | + + + | Race | White | + + + | Ethnic Group | Not or | + + + Author + + + | Author | [facility] | + + + | Organization | [facility] | + + + | Address | Unknown | + + + | Phone | Unavailable | + + + Support + + +---------+ + | Name | Relationship | Address | Phone | + + +---------+ + | Pernell Atkinson | ECON | Unknown | | + + +---------+ + Care Team Providers + +------+ + | Care Product Manager Financial Services Name | Role | Phone | + +------+ + | Alae Devine | PCP | | + +------+ + Encounter Details +--------+ + + + + | Date | Type | Department | Care Team | Description | +--------+ + + + + | 05/04/ | Pharmacy | Pharmacy @ [facility] | | | | 2019 | Visit | [address] | | | | | | [address] Mailcode: | | | | | | [facility] | | | | | | and [place], | | | | | | [address] | | | | | | [place], [place] | | | | | | [address] | | | +--------+ + + + [...]
--- OUTSIDE RECORDS SUMMARY | ~2019-07-24 | XMS | Encounter Summary ---
Demographics + + + | Address | [address] | | | [place] [address] | + + + | Home Phone | | + + + | Preferred Language | Unknown | + + + | Marital Status | Single | + + + | Mormon Affiliation | NON | + + + | Race | White | + + + | Ethnic Group | Not or | + + + Author + + + | Author | [facility] | + + + | Organization | [facility] | + + + | Address | Unknown | + + + | Phone | Unavailable | + + + Support + + +---------+ + | Name | Relationship | Address | Phone | + + +---------+ + | Pernell Atkinson | ECON | Unknown | | + + +---------+ + Care Team Providers + +------+ + | Care Jacquard Loom Fixer Name | Role | Phone | + +------+ + | Alea Devine | PCP | | + +------+ + Encounter Details +--------+ + + + + | Date | Type | Department | Care Team | Description | +--------+ + + + + | 04/29/ | Procedure | [facility] | | | | 2019 | | [place] [facility] | | | | | | [facility] at [facility] [address] | | | | | | [facility] | | | | | | for Health and | | | | | | Healing Building 1, | | | | | | 11th Floor | | | | | | [place], [place] | | | | | | [address] | | | | | | [phone] | | | +--------+ + + + [...]
--- OUTSIDE RECORDS SUMMARY | ~2019-07-24 | XMS | Encounter Summary ---
Demographics + + + | Address | [address] | | | [place] [address] | + + + | Home Phone [...] Author + + + | Author | [facility] | + + + | Organization | [facility] | + + + | Address | Unknown | + + + | Phone | Unavailable | + + + Support + + +---------+ + | Name | Relationship | Address | Phone | + + +---------+ + | Pernell Atkinson | ECON | Unknown | | + + +---------+ + Care Team Providers + +------+ + | Care Chiropractic Care Name | Role | Phone | + [...] + + | 05/03/ | Anesthesia | [facility] INTRA OP LOC | Donato Phillips MD | | | 2020 | Event | [address] [facility] | [address] | | | | | [facility] | [facility], | | | | | [place] [address] | [place] [address] | | | | | | [phone] | | | | | | | | +--------+ + + + + Anesthesia Record + + + + + | Procedure Name | Responsible | Anesthesia Start | Anesthesia Stop Time | | | Anesthesiologist | Time | | + + + + + | LEFT THREE WALL | Donato Phillips MD | 05/03/19 1026 | 05/03/19 1215 | | ORBITAL | | | | | DECOMPRESSION LEFT | | | | | TEMPORARY SUTURE | | | | | TARSORRHAPHY (Left | | | | | Eye) | | | | + + + + + +----+---+ + + | Da | T | Event | Comment | | te | i | | | | | m | | | | | e | | | +----+---+ + + | 02 | 0 | | | | /0 | 9 | | | | 3/ | 1 | | | | 20 | 7 | | | | 20 | | | | +----+---+ + + | | 1 | Pt. Check | Prior to anesthesia start, pt. Identified, examined, chart | | | 0 | | reviewed, PARQ held, anesthetic plan made or approved by | | | 1 | | attending anesthesiologist. NPO status confirmed as appropriate | | | 3 | | for procedure Preoperative evaluation: unchanged | +----+---+ + + | | 1 | Eq Check | Anesthesia machine checked Equipment verified | | | 0 | | | | | 1 | | | | | 3 | | | +----+---+ + + | | 1 | An Start | | | | 0 | | | | | 2 | | | | | 6 | | | +----+---+ + + | | 1 | Preprocedur | Pt ID confirmed, informed consent obtained, insertion site | | | 0 | e Checklist | marked, equipment available | | | 2 | | | | | 6 | | | +----+---+ + + | | 1 | An Start | | | | 0 | Data | | | | 2 | | | | | 9 | | | +----+---+ + + | | 1 | Vitals | Monitors applied Vital signs checked Patient ready for anesthesia | | | 0 | Checked | | | | 3 | | | | | 2 | | | +----+---+ + + | | 1 | Abx held | | | | 0 | Not Ordered | | | | 3 | | | | | 6 | | | +----+---+ + + | | 1 | SGA | | | | 0 | | | | | 3 | | | | | 7 | | | +----+---+ + + | | 1 | Ready | | | | 0 | | | | | 3 | | | | | 9 | | | +----+---+ + + | | 1 | Abx | | | | 0 | Administere | | | | 3 | d | | | | 9 | | | +----+---+ + + | | 1 | Local | | | | 0 | Anesthetic | | | | 4 | by Surgeon | | | | 7 | | | +----+---+ + + | | 1 | Incision | | | | 0 | | | | | 4 | | | | | 9 | | | +----+---+ + + | | 1 | Surgery end | | | | 2 | | | | | 0 | | | | | 1 | | | +----+---+ + + | | 1 | SGA Removed | Op suctioned. Awake, following commands, VSS, comfortable | | | 2 | | | | | 0 | | | | | 6 | | | +----+---+ + + | | 1 | PACU Rpt | | | | 2 | Given | | | | 1 | | | | | 5 | | | +----+---+ + + | | 1 | Anesthesia | | | | 2 | End | | | | 1 | | | | | 5 | | | +----+---+ + + | | 1 | Post-Op | | | | 3 | Page | | | | 0 | | | | | 0 | | | +----+---+ + + +------+ | Meds | +------+ + + + | Name | Total | + + + | propofol (DIPRIVAN) 200 mg | 190 mg | + + + | propofol (DIPRIVAN) 200 mg | 763,400 mcg | + + + | midazolam | 2 mg | + + + | HYDROmorphone | 1 mg | + + + | lidocaine 2% | 50 mg | + + + | ceFAZolin | 2,000 mg | + + + | fentaNYL | 25 mcg | + + + | ondansetron | 4 mg | + + + | dexamethasone | 10 mg | + + + | lactated ringers (LR) infusion | 1,000 mL | + + + + + [...] +--------+ + + + | Periph | 05/03/19; 0858; Right; | 05/03/19 0858 by Ayesha | 05/04/19 1035 by | | ana rosa | Antecubital; 20 g; Positive; | DIMA Draper | Jade Holt RN | | IV | 05/04/19; 1035 | | | +--------+ + + + [...] + documented in this encounter Results SGA (05/03/2019 10:35 AM PST) + + [...] | | | | + + + documented in this encounter Visit Diagnoses Not on filedocumented in this encounter Administered Medications + +--------+ + +------+------+ | Medication Order | MAR | Action | Dose | Rate | Site | | | Action | Date | | | | + +--------+ + +------+------+ | ceFAZolin (ANCEF) injection | Given | 05/03/19 | 2,000 mg | | | | intravenous, INTRAPROCEDURE PRN, | | 20 10:36 | | | | | Starting Fri05/03/19 at 1036, | | AM PST | | | | | Until Fri05/03/19 at 1215 | | | | | | + +--------+ + +------+------+ +---+---+ | | | +---+---+ + +-------+ +------+---+---+ | dexamethasone (DECADRON) | Given | 05/03/19 | 4 mg | | | | injection INTRAPROCEDURE PRN, | | 20 11:48 | | | | | Starting Fri05/03/19 at 1148, | | AM PST | | | | | Until Fri05/03/19 at 1215 | | | | | | + +-------+ +------+---+---+ +-------+ +------+---+---+ | Given | 05/03/19 | 6 mg | | | | | 20 10:39 | | | | | | AM PST | | | | +-------+ +------+---+---+ +---+---+ | | | +---+---+ + +-------+ +--------+---+---+ | fentaNYL (SUBLIMAZE) injection | Given | 05/03/19 | 25 mcg | | | | INTRAPROCEDURE PRN, Starting Mon | | 20 11:19 | | | | | 05/03/19 at 1119, Until Fri05/03/19 | | AM PST | | | | | at 1215 | | | | | | + +-------+ +--------+---+---+ +---+---+ | | | +---+---+ + +-------+ +--------+---+---+ | HYDROmorphone (DILAUDID) | Given | 05/03/19 | 0.4 mg | | | | injection INTRAPROCEDURE PRN, | | 20 11:04 | | | | | Starting 05/03/19 at 1029, | | AM PST | | | | | Until Fri05/03/19 at 1215 | | | | | | + +-------+ +--------+---+---+ +-------+ +--------+---+---+ | Given | 05/03/19 | 0.6 mg | | | | | 20 10:29 | | | | | | AM PST | | | | +-------+ +--------+---+---+ +---+---+ | | | +---+---+ + +-------+ +-------+---+---+ | lidocaine (XYLOCAINE MPF) 2 % | Given | 05/03/19 | 50 mg | | | | (20 mg/mL) injection | | 20 10:34 | | | | | INTRAPROCEDURE PRN, Starting Mon | | AM PST | | | | | 05/03/19 at 1034, Until 05/03/19 | | | | | | | at 1215 | | | | | | + +-------+ +-------+---+---+ +---+---+ | | | +---+---+ + +-------+ +------+---+---+ | midazolam (PF) (VERSED) | Given | 05/03/19 | 2 mg | | | | injection INTRAPROCEDURE PRN, | | 20 10:28 | | | | | Starting 05/03/19 at 1028, | | AM PST | | | | | Until 05/03/19 at 1215 | | | | | | + +-------+ +------+---+---+ +---+---+ | | | +---+---+ + +-------+ +------+---+---+ | ondansetron (ZOFRAN) injection | Given | 05/03/19 | 4 mg | | | | INTRAPROCEDURE PRN, Starting Mon | | 20 11:43 | | | | | 05/03/19 at 1143, Until Fri05/03/19 | | AM PST | | | | | at 1215 | | | | | | + +-------+ +------+---+---+ +---+---+ | | | +---+---+ + + + + +---+---+ | propofol (DIPRIVAN) 200 mg | Rate/Dos | 05/03/19 | 100 | | | | INTRAPROCEDURE CONTINUOUS PRN, | e Change | 20 11:32 | mcg/kg/m | | | | Starting Fri05/03/19 at 1033, | | AM PST | in | | | | Until Fri05/03/19 at 1215 | | | | | | + + + + +---+---+ + + + +---+---+ | Rate/Dose Change | 05/03/19 | 200 | | | | | 20 10:57 | mcg/kg/m | | | | | AM PST | in | | | + + + +---+---+ | Rate/Dose Change | 05/03/19 | 150 | | | | | 20 10:53 | mcg/kg/m | | | | | AM PST | in | | | + + + +---+---+ +---+---+ | | | +---+---+ + +-------+ +-------+---+---+ | propofol (DIPRIVAN) 200 mg | Bolus | 05/03/19 | 40 mg | | | | INTRAPROCEDURE CONTINUOUS PRN, | | 20 11:19 | | | | | Starting Fri05/03/19 at 1034, | | AM PST | | | | | Until Fri05/03/19 at 1215 | | | | | | + +-------+ +-------+---+---+ +---------+ +--------+---+---+ | New Bag | 05/03/19 | 150 mg | | | | | 20 10:34 | | | | | | AM PST | | | | +---------+ +--------+---+---+ +---+---+ | | | +---+---+ documented in this encounter"
--- OUTSIDE RECORDS SUMMARY | ~2019-07-24 | XMS | Encounter Summary ---
Demographics + + + | Address | [address] | | | [place] [address] | + + + | Home Phone | | + + + | Preferred Language | Unknown | + + + | Marital Status | Single | + + + | Anglican Affiliation | NON | + + + [...] Team Providers + +------+ + | Care Mechanical Commissioning Engineer Name | Role | Phone | [...]
--- OUTSIDE RECORDS SUMMARY | ~2019-07-24 | XMS | Clinical Summary ---
Demographics + + + | Address | [address] | | | [place] [address] | + + + | Home Phone | | + + + | Preferred Language | Unknown | + + + | Marital Status | | + + + | Baptist Affiliation | Unknown | + + + | Race | Unknown | + + + | Ethnic Group | Unknown | + + + Author + + + | Author | [facility] | | | and [place] | + + + | Organization | [facility] | | [...] Team Providers + +------+ + | Care Debt And Budget Counselor Name | Role | Phone | + [...] e | + + + +---------+------+------+-------+ | [place]-3 Fatty | Take 2 capsules by | | 0 | | | Activ | | Acids (FISH OIL PO) | mouth Daily. | | | | | e | + + + +---------+------+------+-------+ | methIMAzole [...] tablet by | 90 | 3 | / | | Activ | | (XARELTO) 20 mg | mouth Daily (with | tablet | | 3/20 | | e | | tablet | dinner). | | | 20 | | | + + + +---------+------+------+-------+ | dilTIAZem | Take 1 capsule by | 90 | 3 | 01/ | | Activ | | (CARDIZEM CD) 240 MG | mouth Daily. | capsule | | 3/20 | | e | | 24 hr capsule | | | | 20 | | | + + + +---------+------+------+-------+ Active Problems + + + | Problem | Noted Date | + + + | Atrial fibrillation with RVR | 07/07/2018 | + + + | Hyperthyroidism | 07/07/2018 | + + + Immunizations + + + + | Name | Administration Dates | Next Due | + + + + | INFLUENZA, L4A6-57, | 03/29/2009 | | | INACTIVATED | [...] | | | | | | [place] [address] | | | | | | [phone] | | | | | | | [...] | | 03/29/2009, 03/29/2009 | | | (Season Ended) | 0 | | | + + + + + Results Not on filefrom Last 3 Months Insurance + +--------+ +--------+ +---------+--------+ | Payer | Benefi | Subscriber | Effect | Phone | Address | Type | | | t Plan | ID | jean | | | | | | / | | Dates | | | | | | Group | | | | | | + +--------+ +--------+ +---------+--------+ | MEDICARE | MEDICA | [id number] | 10/30/19 | [phone] | | Medica | | | RE | | 17-Pre | 5 | | re | | | PART A | | sent | | | | | | AND B | | | | | | + +--------+ +--------+ +---------+--------+ | MEDICARE | MEDICA | [id number] | 10/30/19 | [phone] | | Medica | | | RE | | 17-Pre | 5 | | re | | | PART A | | sent | | | | | | AND B | | | | | | + +--------+ +--------+ +---------+--------+ | AARP | AARP | [id number] | 03/31/19 | [phone] | | Indemn | | | MDCR | | 19-Pre | 0 | | ity | | | SUPPL | | sent | | | | + +--------+ +--------+ +---------+--------+ | AARP | AARP | [id number] | 03/31/19 | [phone] | | Indemn [...] | Self | [birth year] | [address] | | [place] | nilda/Kaushal | | 1951 | [phone] | [address] [place], [place] | | | vitaliy | | | 0 (Home) | [address] | + +--------+ +--------+ + + | Tamar Pillai | Person | Self | [birth year] | [address] | | [place] | al/Fam | | 1951 | [phone] | [address] [place] | | | viatliy | | | 0 ([place]) | [address] | + +--------+ +--------+ + + Advance Directives + + + + + | Type | Date Recorded | Patient | Explanation | | | | Highway Traffic Control Technician | | + + + + + | Power of | | | | | Rental Sales Agent | | | | + + + + + | Power of | | | | | Rental Sales Agent | | | | + + + [...]
--- OUTSIDE RECORDS SUMMARY | ~2019-07-24 | XMS | Encounter Summary ---
Demographics + + + | Address | [address] | | | [place] [address] | + + + | Home Phone | | + + + | Preferred Language | Unknown | + + + | Marital Status | | + + + | Judaism Affiliation | Unknown | + + + | Race | Unknown | + + + | Ethnic Group | Unknown | + + + Author + + + | Author | [facility] | | | and [place] | + + + | Organization | [facility] | | | [...] Providers + +------+ + | Care Water Commissioner Name | Role | Phone | + [...] | | | [address] | [place] [address] | | | | | [place] [address] | | | | | | [phone] | | | +--------+ + + + [...] [place], | | | | | | [place] [id number] | | | | | | [phone] | | | | | | | [...]
--- OUTSIDE RECORDS SUMMARY | ~2019-07-24 | XMS | Encounter Summary ---
Demographics + + + | Address | [address] | | | [place] [address] | + + + | Home Phone | | + + + | Preferred Language | Unknown | + + + | Marital Status | | + + + | Confucianism Affiliation | Unknown | + + + | Race | Unknown | + + + | Ethnic Group | Unknown | + + + Author + + + | Author | [facility] | | | and [place] | + + + | Organization | [facility] | | | and [...] Team Providers + +------+ + | Care Pulmonologist Name | Role | Phone | + [...] Description | +--------+--------+ + + + | 04/05/ | Refill | [facility] | Lorie Hatch | Medication Refill | | 2020 | | CARDIOLOGY JUSTUS Melendez Trouble Clerk | | | | | [address] | | | | | | [place] | | | | | | [address] | | | | | | [phone] | | | +--------+--------+ + + + [...] | | | | | | [place] [address] | | | | | | [phone] | | | | | | | | +--------+---------+ + + + documented as of this encounter Visit Diagnoses Not on filedocumented in this encounter"
--- OUTSIDE RECORDS SUMMARY | ~2019-07-24 | XMS | Encounter Summary ---
Demographics + + + | Address | [address] | | | [place] [address] | + + + | Home Phone [...] Team Providers + +------+ + | Care Community Dietitian Name | Role | Phone | + [...] | | [address] | [address] | ORBITAL | | | | [facility] | Blvd [place], [place] | DECOMPRESSION LEFT | | | | [place] [address] | [address] | TEMPORARY SUTURE | | | | | [phone] | TARSORRHAPHY | | | | | [...] Discharge Instructions Instructions Camila Villegas RN - [facility]/2019[facility] Care after Orbital Surgery Do not drive, [...] weekends and holidays, call and ask the polyethylene bag machine operator to page the Eye Doctor lining ironer. Return appointment date: May 05 documented in [...] worth at one sitting) -patient needs to fish bait picker percocet from [facility] pharmacy (order is in) Carlos Britt [...] | | | IMPRESSION | by: TISH ARTAEGA | | OF | | | | [...] + + + + + | JOSE WOOD OF | [address] | [place], [place] | | | CARDIOLOGY | [address] | [address] | | + + + + + [...] 11:03 | | | Site | | 1%-[id number] - bupivacaine 0.5% | | AM PST [...]
--- OUTSIDE RECORDS SUMMARY | ~2019-07-24 | XMS | Encounter Summary ---
Demographics + + + | Address | [address] | | | [place] [address] | + + + | Home Phone | | + + + | Preferred Language | Unknown | + + + | Marital Status | | + + + | Church Affiliation | Unknown | + + + | Race | Unknown | + + + | Ethnic Group | Unknown | + + + Author + + + | Author | [facility] | | | and [place] | + + + | Organization | [facility] | | | [...] Team Providers + +------+ + | Care Digitizer Operator Name | Role | Phone | [...] + + | 04/05/ | Refill | [facility] | Lorie Hatch | Medication Refill | | 2020 | | CARDIOLOGY JUSTUS Melendez Flipping Machine Operator | | | | | [address] | | | | | | [place] | | | | | | [address] | | | | | | [phone] | | | +--------+--------+ + + + [...] | | | | | | [place] [address] | | | | | | [phone] | | | | | | | | +--------+---------+ + + + documented as of this encounter Visit Diagnoses Not on filedocumented in this encounter"
--- OUTSIDE RECORDS SUMMARY | ~2019-07-24 | XMS | Encounter Summary ---
Demographics + + + | Address | [address] | | | [place] [address] | + + + | Home Phone | | + + + | Preferred Language | Unknown | + + + | Marital Status | Single | + + + | Sabianism Affiliation | NON | + + + [...] Team Providers + +------+ + | Care Tie Up Worker Name | Role | Phone | + +------+ + | Alea Devine | PCP | | + +------+ + Encounter Details +--------+ + + + + | Date | Type | Department | Care Team | Description | +--------+ + + + + | 06/15/ | [facility] | | | | | 2010 | Document-Sc | | | | | | anned | | | | +--------+ + + [...]
--- OUTSIDE RECORDS SUMMARY | ~2019-07-24 | XMS | Encounter Summary ---
Demographics + + + | Address | [address] | | | [place] [address] | + + + | Home Phone | | + + + | Preferred Language | Unknown | + + + | Marital Status | Single | + + + | Presybeterian Affiliation | NON | + + + [...] Team Providers + +------+ + | Care Inside Phone Sales Name | Role | Phone | + +------+ + PCP | Unavailable | + +------+ + Encounter Details +--------+ + + + + | Date | Type | Department | Care Team | Description | +--------+ + + + + | 10/04/ | Documentati | [facility] | Ned Valdes, | | | 2004 | on | [facility] | [address] | | | | | [address], | , [address] | | | | | [place], [place] | [place], [place] | | | | | [address] | [address] | | | | | [phone] | [phone] | | | | | | | [...]
--- OUTSIDE RECORDS SUMMARY | ~2019-07-24 | XMS | Encounter Summary ---
Demographics + + + | Address | [address] | | | [place] [address] | + + + | Home Phone | | + + + | Preferred Language | Unknown | + + + | Marital Status | Single | + + + | Christian Affiliation | NON | + + + | Race | White | + + + | Ethnic Group | Not or | + + + Author + + + | Author | [facility] | + + + | Organization | [facility] | + + + | Address | Unknown | + + + | Phone | Unavailable | + + + Support + + +---------+ + | Name | Relationship | Address | Phone | + + +---------+ + | Pernell Atkinson | ECON | Unknown | | + + +---------+ + Care Team Providers + +------+ + | Care Quick Mixer Operator Name | Role | Phone | [...] 2019 - | Encounter | Unit at [facility] [address] | [address] | | | | | [address] | [place], [place] | | | 05/06/ | | Mailcode: [place] | [address] | | | 2019 | | [facility] and | [phone] | | | | | [place] [address] | | | | | | [place], [place] | | | | | | [address] | | | | | | [phone] | | | +--------+ + + + [...] weekends and holidays, call and ask the scarfer operator to page the Eye Doctor contract agent. ? Return appointment date: ? Time: documented [...] | | | 05/05/19 at 2232, Until [facility] 05/06/19 | | | at 1603, 2nd [...] 05/05/19 at 1054, | | | Until [facility] 05/06/19 at 1603, post-op | | | [...]
--- OUTSIDE RECORDS SUMMARY | ~2019-07-24 | XMS | Encounter Summary ---
Demographics + + + | Address | [address] | | | [place] [address] | + + + | Home Phone | | + + + | Preferred Language | Unknown | + + + | Marital Status | Single | + + + | Yazidi Affiliation | NON | + + + | Race | White | + + + | Ethnic Group | Not or | + + + Author + + + | Author | [facility] | + + + | Organization | [facility] | + + + | Address | Unknown | + + + | Phone | Unavailable | + + + Support + + +---------+ + | Name | Relationship | Address | Phone | + + +---------+ + | Pernell Atkinson | ECON | Unknown | | + + +---------+ + Care Team Providers + +------+ + | Care Dehydrator Tender Name | Role | Phone | + +------+ + PCP | Unavailable | + +------+ + Encounter Details +--------+ + + + + | Date | Type | Department | Care Team | Description | +--------+ + + + + | 02/14/ | Documentati | [facility] | Ned Valdes, | | | 1994 | on | [facility] | [address] | | | | | [address], | , [address] | | | | | [place], [place] | [place], [place] | | | | | [address] | [address] | | | | | [phone] | [phone] | | | | | | | [...] Ned Valdes MD - 11/26/2004 9:44 AM [facility] - sent Lucio Dee M.D. [address] [place] [address] RE: TAMARZenon FOYS Dear Pat: I had the pleasure of seeing your patient, aTmar Fry, regarding a diagnosis of breast cancer recently. The patient is a 44-year-old premenopausal female who was found to have an abnormality on screening mammography. A left breast biopsy was performed by you on January 10, 1995, at [facility], and this revealed infiltrative moderately well [...] the patient is alert and oriented. She [id number]. She is afebrile. HEENT exam reveals no [...] petechiae. This patient has a stage I [id number] breast cancer. She is premenopausal. I recommended [...]
--- OUTSIDE RECORDS SUMMARY | ~2019-07-24 | XMS | Encounter Summary ---
Demographics + + + | Address | [address] | | | [place] [address] | + + + | Home Phone | | + + + | Preferred Language | Unknown | + + + | Marital Status | Single | + + + | Pentecostalism Affiliation | NON | + + + [...] Providers + +------+ + | Care Grinder Mill Operator Name | Role | Phone | [...]
--- OUTSIDE RECORDS SUMMARY | ~2019-07-24 | XMS | Encounter Summary ---
Demographics + + + | Address | [address] | | | [place] [address] | + + + | Home Phone | | + + + | Preferred Language | Unknown | + + + | Marital Status | Single | + + + | Baptist Affiliation | NON | + + + [...] Team Providers + +------+ + | Care Commodity Manager Name | Role | Phone | [...] 2019 - | Encounter | Unit at [facility] [address] | [address] | | | | | [address] | Blvd [place], [place] | | | 05/04/ | | Mailcode: [place] | [address] | | | 2019 | | [facility] and | [phone] | | | | | [place] [address] | | | | | | [place], [place] | | | | | | [address] | | | | | | [phone] | | | +--------+ + + + [...] Discharge Instructions Instructions Camila Villegas RN - [facility] Care after [facility] Surgery Do not drive, [...] weekends and holidays, call and ask the gamma facilities operator to page the Eye Doctor building construction contractor. Return appointment date: May 05 documented in [...] worth at one sitting) -patient needs to cook pickled meat percocet from [facility] pharmacy (order is in) Carlos Britt [...] DEPT OF | [address] | [place], [place] | | | CARDIOLOGY | [address] | [address] | | + + + + + [...]
--- OUTSIDE RECORDS SUMMARY | ~2019-07-24 | XMS | Encounter Summary ---
Demographics + + + | Address | [address] | | | [place] [address] | + + + | Home Phone | | + + + | Preferred Language | Unknown | + + + | Marital Status | Single | + + + | Mandaeism Affiliation | NON | + + + | Race | White | + + + | Ethnic Group | Not or | + + + Author + + + | Author | [facility] | + + + | Organization | [facility] | + + + | Address | Unknown | + + + | Phone | Unavailable | + + + Support + + +---------+ + | Name | Relationship | Address | Phone | + + +---------+ + | Pernell Atkinson | ECON | Unknown | | + + +---------+ + Care Team Providers + +------+ + | Care Counter Intelligence Name | Role | Phone | + [...] visit) | | 2020 | on | [place] | [address] | | | | | Oculoplastics at | [facility] [place] | | | | | [facility] [address] | [address] | | | | | [address] | [phone] | | | | | Eye [place] | | | | | | [facility], [address] [place] [address] | | | | | | [place] [address] | | | | | | [phone] | | | +--------+ + + + [...]
--- OUTSIDE RECORDS SUMMARY | ~2019-07-24 | XMS | Encounter Summary ---
Demographics + + + | Address | [address] | | | [place] [address] | + + + | Home Phone | | + + + | Preferred Language | Unknown | + + + | Marital Status | Single | + + + | Denominational Affiliation | NON | + + + [...] Team Providers + +------+ + | Care Electrical Wiring Lineman Name | Role | Phone | + +------+ + | Alea Devine | PCP | | + +------+ + Reason for Visit +--------+ + | Reason | Comments | +--------+ + | Other | po call | +--------+ + Encounter Details +--------+ + + + + | Date | Type | Department | Care Team | Description | +--------+ + + + + | 05/04/ | Documentati | [facility] | Gerson Mendieta MD | Other (po call) | | 2020 | on | [place] | [address] | | | | | Oculoplastics at | [facility], [place] | | | | | [place] [facility] [address] | [address] | | | | | [address] | [phone] | | | | | Eye [place] | | | | | | [facility], [address] [place] [address] | | | | | | [place] [address] | | | | | | [phone] | | | +--------+ + + + [...]
--- OUTSIDE RECORDS SUMMARY | ~2019-07-24 | XMS | Encounter Summary ---
Demographics + + + | Address | [address] | | | [place] [address] | + + + | Home Phone | | + + + | Preferred Language | Unknown | + + + | Marital Status | Single | + + + | Holiness Affiliation | NON | + + + [...] Team Providers + +------+ + | Care Oncology Registrar Name | Role | Phone | + +------+ + | Alea Devine | PCP | | + +------+ + Encounter Details +--------+ + + + + | Date | Type | Department | Care Team | Description | +--------+ + + + + | 05/05/ | Procedure | [facility] LOC | | | | 2020 | Pass | [address] | | | | | | [facility] | | | | | | [place] [address] | | | +--------+ + + + [...]
--- OUTSIDE RECORDS SUMMARY | ~2019-07-24 | XMS | Encounter Summary ---
Demographics + + + | Address | [address] | | | [place] [address] | + + + | Home Phone | | + + + | Preferred Language | Unknown | + + + | Marital Status | Single | + + + | Restoration Affiliation | NON | + + + | Race | White | + + + | Ethnic Group | Not or | + + + Author + + + | Author | [facility] | + + + | Organization | [facility] | + + + | Address | Unknown | + + + | Phone | Unavailable | + + + Support + + +---------+ + | Name | Relationship | Address | Phone | + + +---------+ + | Pernell Atkinson | ECON | Unknown | | + + +---------+ + Care Team Providers + +------+ + | Care Sql Programmer Analyst Name | Role | Phone | [...] Pre-Admission | | 2020 | Orders | [place] | [address] | | | | | Oculoplastics at | [place], [place] | | | | | [address] | [address] | | | | | [address] | [phone] | | | | | [facility] [place] | | | | | | [address] | | | | | | [place] [address] | | | | | | [phone] | | | +--------+ + + + [...]
--- OUTSIDE RECORDS SUMMARY | ~2019-07-24 | XMS | Encounter Summary ---
Demographics + + + | Address | [address] | | | [place] [address] | + + + | Home Phone [...] Author + + + | Author | [facility] | + + + | Organization | [facility] | + + + | Address | Unknown | + + + | Phone | Unavailable | + + + Support + + +---------+ + | Name | Relationship | Address | Phone | + + +---------+ + | Pernell Atkinson | ECON | Unknown | | + + +---------+ + Care Team Providers + +------+ + | Care Box Attacher Name | Role | Phone | + [...] | | 2020 | | [address] | [address] | ORBITAL | | | | [facility] | Blvd [place], [place] | DECOMPRESSION RIGHT | | | | [place] [address] | [address] | TEMPORARY SUTURE | | | | | [phone] | TARSORRHAPHY | | | | | [...] legal documents or make major decisions marc marítnez the next 24 hours. Call your doctor [...] Purulent drainage (which is drainage that is whitish-taobr or greenish in color) from the surgical site If there is increased redness at the edges of the surgical site Increased pain, even with pain medication Unusual redness of the eye and /or swelling of the lids How to reach your doctor ? Friday through Friday, 8am-5pm, call ? All other hours including after hours, weekends and holidays, call and ask the milk bottling machine operator to page the Eye Doctor home care companion. ? Return appointment date: ? Time: documented [...] | | | 05/05/19 at 2232, Until [facility] 05/06/19 | | | at 1603, [...] 10:31 | | | Site | | 1%-1:[id number] - bupivacaine 0.5% | | AM PST [...]
--- OUTSIDE RECORDS SUMMARY | ~2019-07-24 | XMS | Encounter Summary ---
Demographics + + + | Address | [address] | | | [place] [address] | + + + | Home Phone [...] Team Providers + +------+ + | Care Lead Javascript Engineer Name | Role | Phone | + +------+ + | Alea Devine | PCP | | + +------+ + Encounter Details +--------+ + + + + | Date | Type | Department | Care Team | Description | +--------+ + + + + | 05/03/ | Pharmacy | [facility] | | | | 2020 | Visit | [address] | | | | | | [place] [address] | | | | | | [phone] | | | +--------+ + + + [...]
--- OUTSIDE RECORDS SUMMARY | ~2019-07-24 | XMS | Encounter Summary ---
Demographics + + + | Address | [address] | | | [place] [address] | + + + | Home Phone [...] Team Providers + +------+ + | Care Master Dyer Name | Role | Phone | + [...] | | [address] | [address] | ORBITAL | | | | [facility] | Blvd [place], [place] | DECOMPRESSION LEFT | | | | [place] [address] | [address] | TEMPORARY SUTURE | | | | | [phone] | TARSORRHAPHY | | | | | [...] Discharge Instructions Instructions Camila Villegas RN - [facility]2019[facility] Care after [facility] Surgery Do not [...] weekends and holidays, call and ask the setup operator to page the Eye Doctor pulmonologist/intensivist. Return appointment date: May 05 documented in [...] worth at one sitting) -patient needs to poultry picker percocet from [facility] pharmacy (order is in) Carlos Britt [...] WOOD OF | [address] | [place], [place] | | | CARDIOLOGY | [address] | [address] | | + + + + + [...] 11:03 | | | Site | | 1%-1:[id number] - bupivacaine 0.5% | | AM PST [...]
--- OUTSIDE RECORDS SUMMARY | ~2019-07-24 | XMS | Clinical Summary ---
Demographics + + + | Address | [address] | | | [place] [address] | + + + | Home Phone [...] + + | Author | [facility] | + + + | Organization | [facility] | + + + | Address | Unknown | + + + | Phone | Unavailable | + + + Support + + +---------+ + | Name | Relationship | Address | Phone | + + +---------+ + | Pernell Atkinson | ECON | Unknown | | + + +---------+ + Care Team Providers + +------+ + | Care Certified Wellness Program Coordinator Name | Role | Phone | + +------+ + | Alea Devine | PCP | | + +------+ + Source Comments JOSE is fully live on both [facility] Ambulatory and [facility] InPatient.[facility] Allergies No Known Allergies Medications + [...] 02/0 | | Activ | | (MEDROL (HCEN)) 4 mg | Use as directed. | [...] 02/1 | 04/0 | Expir | | hevbalmi-gnitrapnm-c | both eyes two times | | [...] difficulty, 10ml air added, no leak at [id number]. Atraumatic | | | to soft tissues/dentition [...] OF | [address] | [place], [place] | | | CARDIOLOGY | [address] | [address] | | + + + + + [...] Note | + + | Service Account, RadiBoomrat Res In Interface - 04/29/2019 2:23 PM [...] | | | | | | | [address] | | + +--------+ +--------+ + +--------+ | [place] | AARP | xxxxxxxxxxx | 03/31/19 | [phone] | [address] | Indemn | | RETIRED PEOPLE | | | 19-Pre | 9 | [id number] | ity | | | | | sent | | [place] | | | | | | | | [address] | | + +--------+ +--------+ + +--------+ + +--------+ +--------+ + + | Guarantor Name | Accoun | Relation to | Date | Phone | Billing Address | | | t Type | Patient | of | | | | | | | | | | + +--------+ +--------+ + + | Tamar Pillai | Person | Self | [birth year] | [address] | | [place] | al/Fam | | 1951 | [phone] | [place] [address] | | | vitaliy | | | [...]
--- OUTSIDE RECORDS SUMMARY | ~2019-07-24 | XMS | Encounter Summary ---
Demographics + + + | Address | [address] | | | [place] [address] | + + + | Home Phone [...] Team Providers + +------+ + | Care Photographic Editor Name | Role | Phone | + [...]
--- OUTSIDE RECORDS SUMMARY | ~2019-07-24 | XMS | Encounter Summary ---
Demographics + + + | Address | [address] | | | [place] [address] | + + + | Home Phone | | + + + | Preferred Language | Unknown | + + + | Marital Status | Single | + + + | Anabaptism Affiliation | NON | + + + | Race | White | + + + | Ethnic Group | Not or | + + + Author + + + | Author | [facility] | + + + | Organization | [facility] | + + + | Address | Unknown | + + + | Phone | Unavailable | + + + Support + + +---------+ + | Name | Relationship | Address | Phone | + + +---------+ + | Pernell Atkinson | ECON | Unknown | | + + +---------+ + Care Team Providers + +------+ + | Care Stitcher Around Name | Role | Phone | + +------+ + | Alea Devine | PCP | | + +------+ + Encounter Details +--------+---------+ + + + | Date | Type | Department | Care Team | Description | +--------+---------+ + + + | 05/13/ | Office | [facility] | Gerson Mendieta MD | 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
--- OUTSIDE RECORDS SUMMARY | ~2019-07-24 | XMS | Encounter Summary ---
Demographics + + + | Address | [address] | | | [place] [address] | + + + | Home Phone [...] Author + + + | Author | [facility] | + + + | Organization | [facility] | + + + | Address | Unknown | + + + | Phone | Unavailable | + + + Support + + +---------+ + | Name | Relationship | Address | Phone | + + +---------+ + | Pernell Atkinson | ECON | Unknown | | + + +---------+ + Care Team Providers + +------+ + | Care Cashier Ticket Selling Name | Role | Phone | + [...] Post Op | | 2020 | | [place] | [address] | | | | | Oculoplastics at | Blvd [place], [place] | | | | | [address] | [address] | | | | | [address] | [phone] | | | | | Eye [place] | | | | | | [facility], [address] [place] [address] | | | | | | [place] [address] | | | | | | [phone] | | | +--------+ + + + [...]
--- OUTSIDE RECORDS SUMMARY | ~2019-07-24 | XMS | Encounter Summary ---
Demographics + + + | Address | [address] | | | [place] [address] | + + + | Home Phone [...] Team Providers + +------+ + | Care Otr Owner Operator Name | Role | Phone | [...] Pre-Admission | | 2020 | Orders | [place] | [address] | | | | | Oculoplastics at | [place] | | | | | [address] | [address] | | | | | [address] | [phone] | | | | | Eye [place] | | | | | | [address] | | | | | | [place] [address] | | | | | | [phone] | | | +--------+ + + + [...]
--- OUTSIDE RECORDS SUMMARY | ~2019-07-24 | XMS | Encounter Summary ---
Demographics + + + | Address | [address] | | | [place] [address] | + + + | Home Phone | | + + + | Preferred Language | Unknown | + + + | Marital Status | Single | + + + | Yazdanism Affiliation | NON | + + + [...] Phone | + + +---------+ + | Pernlel Atkinson | HILDA | Unknown | | + + +---------+ + Care Team Providers + +------+ + | Care Damascener Name | Role | Phone | + [...]
--- OUTSIDE RECORDS SUMMARY | ~2019-07-24 | XMS | Encounter Summary ---
Demographics + + + | Address | [address] | | | [place] [address] | + + + | Home Phone | | + + + | Preferred Language | Unknown | + + + | Marital Status | Single | + + + | Spiritism Affiliation | NON | + + + [...] Team Providers + +------+ + | Care Film Waxer Name | Role | Phone | + [...] 2019 - | Encounter | Unit at [facility] [address] | [address] | | | | | [address] | [place], [place] | | | 05/06/ | | Mailcode: [place] | [address] | | | 2019 | | [facility] | [phone] | | | | | [place] [address] | | | | | | [place], [place] | | | | | | [address] | | | | | | [phone] | | | +--------+ + + + [...] weekends and holidays, call and ask the pump press operator to page the Eye Doctor excavation laborer. ? Return appointment date: ? Time: documented [...] | | | 05/05/19 at 2232, Until [facility] 05/06/19 | | | at 1603, 2nd [...] 05/05/19 at 1054, | | | Until [facility] 05/06/19 at 1603, post-op | | | [...]
--- OUTSIDE RECORDS SUMMARY | ~2019-07-24 | XMS | Encounter Summary ---
Demographics + + + | Address | [address] | | | [place] [address] | + + + | Home Phone [...] Team Providers + +------+ + | Care Property Maintenance Supervisor Name | Role | Phone | + +------+ + | Alea Devine | PCP | | + +------+ + Reason for Visit +---------+ + | Reason | Comments | +---------+ + | Post Op | | +---------+ + Encounter Details +--------+---------+ + + + | Date | Type | Department | Care Team | Description | +--------+---------+ + + + | 05/21/ | Office | [facility] | Carlos Britt MD | Thyroid eye disease | | 2020 | Visit | [place] | [address] | (Primary Dx); | | | | Oculoplastics at | [facility] [place] | Proptosis | | | | [facility] [address] | [address] | | | | | [address] | [phone] | | | | | Eye [place] | | | | | | [facility], [address] [place] [address] | | | | | | [place] [address] | | | | | | [phone] | | | +--------+---------+ + + + [...] encounter Progress Notes Carlos Britt MD - 05/21/2019 10:00 AM PSTFormatting of this note might be different from t he original. Tamar Pillai is a 68 y.o. female S/p 05-03-2019 L 3 wall orbital decompression w/tars 05-05-2019 R 3 wall orbital decompression w/tars Today: Noticed more chemosis OS Finished prednisone 4 days ago (05/17). Using nova at least 2-3x/day OU. No more double vision Swelling and bruising going down, area of numbness getting smaller. MATT bump gone. Pain: No Pain (0/10) Physical Exam: Bilat incisions healing well 1+ lid edema 3+ chemosis with prolapse causing lag OS 1+ chemosis OD Visual Acuity: Vasc Vacc VAph RE LE 20/25-1 20/125 20/60 Color 10/10 OU Lid Measurements: RE (mm) LE (mm) Sup SS LF VPF MRDI Inf SS Lag 0 2mm HPF ICD External photos taken OU today. Photos demonstrate po Impression: doing well Plan: Recommend drainage of chemosis OS and temp lateral tars Risks, benefits, alternatives and the need for possible additional treatment were discussed in detail with the patient. The risks include but are not limited to and other anesth esia complication, pain, decreased vision or blindness, over or undercorrection, asymmetry, cosmetic deformity, dry eye syndrome, lagophthamos, eyelid retraction, double vision, numbne ss, possible need for additional surgery (short and fpc), hemorrhage, infection, visio n loss and no improvement. Questions were answered. Patient wishes to proceed with eyelid goode rgery of the left eyelid. Patient understands procedure and elects to proceed with eyelid surgery. I recommend procedure and patient will benefit from this. Po instructions and meds reviewed Erythrmyocin nova QID OS Lubrication Ointment 1+ q HS OD RTC 1 mo after that RTC [address] 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
--- OUTSIDE RECORDS SUMMARY | ~2019-07-24 | XMS | Encounter Summary ---
Demographics + + + | Address | [address] | | | [place] [address] | + + + | Home Phone [...] + + + | Author | [facility] | + + + | Organization | [facility] | + + + | Address | Unknown | + + + | Phone | Unavailable | + + + Support + + +---------+ + | Name | Relationship | Address | Phone | + + +---------+ + | Pernell Atkinson | ECON | Unknown | | + + +---------+ + Care Team Providers + +------+ + | Care Tire Bladder Maker Name | Role | Phone | [...] (med refill) | | 2019 | | [place] | [address] | | | | | Oculoplastics at | [place], [place] | | | | | [place] [address] | [address] | | | | | [address] | [phone] | | | | | Eye [place] | | | | | | [facility], [address] [place] [address] | | | | | | [place] [address] | | | | | | [phone] | | | +--------+ + + + [...]
--- OUTSIDE RECORDS SUMMARY | ~2019-07-24 | XMS | Encounter Summary ---
Demographics + + + | Address | [address] | | | [place] [address] | + + + | Home Phone | | + + + | Preferred Language | Unknown | + + + | Marital Status | Single | + + + | Yarsanism Affiliation | NON | + + + [...] Team Providers + +------+ + | Care Land Surveyor Assistant Name | Role | Phone | [...]
--- OUTSIDE RECORDS SUMMARY | ~2019-07-24 | XMS | Encounter Summary ---
Demographics + + + | Address | [address] | | | [place] [address] | + + + | Home Phone | | + + + | Preferred Language | Unknown | + + + | Marital Status | Single | + + + | Catholic Affiliation | NON | + + [...] Team Providers + +------+ + | Care Microelectronics Assembler Name | Role | Phone | [...]
--- OUTSIDE RECORDS SUMMARY | ~2019-07-24 | XMS | Encounter Summary ---
Demographics + + + | Address | [address] | | | [place] [address] | + + + | Home Phone | | + + + | Preferred Language | Unknown | + + + | Marital Status | Single | + + + | Nondenominational Affiliation | NON | + + + [...] Team Providers + +------+ + | Care Architectural Designer Name | Role | Phone | + +------+ + | Alea Devine | PCP | | + +------+ + Encounter Details +--------+ + + + + | Date | Type | Department | Care Team | Description | +--------+ + + + + | 05/03/ | Pharmacy | [facility] | | | | 2020 | Visit | [address] [facility] | | | | | | [place] [address] | | | | | | [phone] | | | +--------+ + + + [...]
--- OUTSIDE RECORDS SUMMARY | ~2019-07-24 | XMS | Encounter Summary ---
Demographics + + + | Address | [address] | | | [place] [address] | + + + | Home Phone [...] Providers + +------+ + | Care Control Room Agent Name | Role | Phone | + +------+ + | Alea Devine | PCP | | + +------+ + Encounter Details +--------+--------+ + + + | Date | Type | Department | Care Team | Description | +--------+--------+ + + + | 05/13/ | Travel [...]
--- OUTSIDE RECORDS SUMMARY | ~2019-07-24 | XMS | Encounter Summary ---
Demographics + + + | Address | [address] | | | [place] [address] | + + + | Home Phone [...] Team Providers + +------+ + | Care Supervisor Finishing Room Name | Role | Phone | + [...] (med refill) | | 2019 | | [place] | [address] | | | | | Oculoplastics at | [place], [place] | | | | | [place] [address] | [address] | | | | | [address] | [phone] | | | | | Eye [place] | | | | | | [facility], [address] [place] [address] | | | | | | [place] [address] | | | | | | [phone] | | | +--------+ + + + [...]
--- OUTSIDE RECORDS SUMMARY | ~2019-07-24 | XMS | Encounter Summary ---
Demographics + + + | Address | [address] | | | [place] [address] | + + + | Home Phone [...] Team Providers + +------+ + | Care Geochemical Laboratory Technician Name | Role | Phone | [...] Post Op | | 2020 | | [place] | [address] | | | | | Oculoplastics at | Blvd [place], [place] | | | | | [address] | [address] | | | | | [address] | [phone] | | | | | Eye [place] | | | | | | [facility], [address] [place] [address] | | | | | | [place] [address] | | | | | | [phone] | | | +--------+ + + + [...]
--- OUTSIDE RECORDS SUMMARY | ~2019-07-24 | XMS | Encounter Summary ---
Demographics + + + | Address | [address] | | | [place] [address] | + + + | Home Phone [...] Team Providers + +------+ + | Care Sales Support Consultant Name | Role | Phone | [...]
--- OUTSIDE RECORDS SUMMARY | ~2019-07-24 | XMS | Encounter Summary ---
Demographics + + + | Address | [address] | | | [place] [address] | + + + | Home Phone [...] Team Providers + +------+ + | Care Anvil Worker Name | Role | Phone | [...] | 2019 | Event | [address] [place] | [address] | | | | | [facility] | | | | | [place] [address] | [place], [place] | | | | | | [address] | | | | | | [phone] | | | | | | | [...] difficulty, 10ml air added, no leak at [id number]. Atraumatic | | | to soft tissues/dentition [...]
--- OUTSIDE RECORDS SUMMARY | ~2019-07-24 | XMS | Encounter Summary ---
Demographics + + + | Address | [address] | | | [place] [address] | + + + | Home Phone [...] Author + + + | Author | [facility] | + + + | Organization | [facility] | + + + | Address | Unknown | + + + | Phone | Unavailable | + + + Support + + +---------+ + | Name | Relationship | Address | Phone | + + +---------+ + | Pernell Atkinson | ECON | Unknown | | + + +---------+ + Care Team Providers + +------+ + | Care Clip Loading Machine Adjuster Name | Role | Phone | + +------+ + | Alea Devine | PCP | | + +------+ + Encounter Details +--------+ + + + + | Date | Type | Department | Care Team | Description | +--------+ + + + + | 05/05/ | Procedure | [facility] OP LOC | | | | 2020 | Pass | [address] [facility] | | | | | | [facility] | | | | | | [place] [address] | | | +--------+ + + + [...]
--- OUTSIDE RECORDS SUMMARY | ~2019-07-24 | XMS | Encounter Summary ---
Demographics + + + | Address | [address] | | | [place] [address] | + + + | Home Phone | | + + + | Preferred Language | Unknown | + + + | Marital Status | Single | + + + | Jew Affiliation | NON | + + + | Race | White | + + + | Ethnic Group | Not or | + + + Author + + + | Author | [facility] | + + + | Organization | [facility] | + + + | Address | Unknown | + + + | Phone | Unavailable | + + + Support + + +---------+ + | Name | Relationship | Address | Phone | + + +---------+ + | Pernell Atkinson | ECON | Unknown | | + + +---------+ + Care Team Providers + +------+ + | Care Nursing Program Director Name | Role | Phone | + [...] | 2019 | Event | [address] | [address] [facility] | | | | | [facility] | [facility] | | | | | [place] [address] | [place], [place] | | | | | | [address] | | | | | | [phone] | | | | | | | [...] difficulty, 10ml air added, no leak at [id number]. Atraumatic | | | to soft tissues/dentition [...]
--- OUTSIDE RECORDS SUMMARY | ~2019-07-24 | XMS | Encounter Summary ---
Demographics + + + | Address | [address] | | | [place] [address] | + + + | Home Phone [...] + + + | Author | [facility] | + + + | Organization | [facility] | + + + | Address | Unknown | + + + | Phone | Unavailable | + + + Support + + +---------+ + | Name | Relationship | Address | Phone | + + +---------+ + | Pernell Atkinson | ECON | Unknown | | + + +---------+ + Care Team Providers + +------+ + | Care Electronics Engineering Technician Name | Role | Phone | [...] | | 2020 | Event | [address] [facility] | [address] [facility] | | | | | [facility] | [facility], | | | | | [place] [address] | [place] [address] | | | | | | [phone] | | | | | | | [...]
--- OUTSIDE RECORDS SUMMARY | ~2019-07-24 | XMS | Encounter Summary ---
Demographics + + + | Address | [address] | | | [place] [address] | + + + | Home Phone | | + + + | Preferred Language | Unknown | + + + | Marital Status | Single | + + + | Bahai Affiliation | NON | + + + [...] Team Providers + +------+ + | Care Angular Js Developer Name | Role | Phone | [...]
--- OUTSIDE RECORDS SUMMARY | ~2019-07-24 | XMS | Encounter Summary ---
Demographics + + + | Address | [address] | | | [place] [address] | + + + | Home Phone | | + + + | Preferred Language | Unknown | + + + | Marital Status | Single | + + + | Orthodoxy Affiliation | NON | + + + | Race | White | + + + | Ethnic Group | Not or | + + + Author + + + | Author | [facility] | + + + | Organization | [facility] | + + + | Address | Unknown | + + + | Phone | Unavailable | + + + Support + + +---------+ + | Name | Relationship | Address | Phone | + + +---------+ + | Pernell Atkinson | ECON | Unknown | | + + +---------+ + Care Team Providers + +------+ + | Care Parent Partner Name | Role | Phone | + +------+ + | Alea Devine | PCP | | + +------+ + Encounter Details +--------+ + + + + | Date | Type | Department | Care Team | Description | +--------+ + + + + | 05/03/ | Pharmacy | [facility] | | | | 2020 | Visit | [address] [facility] | | | | | | [place] [address] | | | | | | [phone] | | | +--------+ + + + [...]
--- OUTSIDE RECORDS SUMMARY | ~2019-07-24 | XMS | Encounter Summary ---
Demographics + + + | Address | [address] | | | [place] [address] | + + + | Home Phone | | + + + | Preferred Language | Unknown | + + + | Marital Status | Single | + + + | Tenriism Affiliation | NON | + + + [...] Team Providers + +------+ + | Care Brazing Machine Operator Helper Name | Role | Phone | [...]
--- OUTSIDE RECORDS SUMMARY | ~2019-07-24 | XMS | Encounter Summary ---
Demographics + + + | Address | [address] | | | [place] [address] | + + + | Home Phone [...] Team Providers + +------+ + | Care Mobile Architect Name | Role | Phone | + [...]
--- OUTSIDE RECORDS SUMMARY | ~2019-07-24 | XMS | Clinical Summary ---
Demographics + + + | Address | [address] | | | [place] [address] | + + + | Home Phone | | + + + | Preferred Language | Unknown | + + + | Marital Status | | + + + | Sabianism Affiliation | Unknown | + + + | Race | Unknown | + + + | Ethnic Group | Unknown | + + + Author + + + | Author | [facility] | | | and [place] | + + + | Organization | [facility] | | | and [...] Team Providers + +------+ + | Care Fax Machine Repairer Name | Role | Phone | + [...] e | + + + +---------+------+------+-------+ | [place]-3 Fatty | Take 2 capsules by | [...] | + + + + | INFLUENZA, [id number], | 03/29/2009 | | | INACTIVATED | [...] | | | | | | [place] [address] | | | | | | [phone] | | | | | | | [...] +--------+ +---------+--------+ | MEDICARE | MEDICA | [id number] | 10/30/19 | [phone] | | Medica | | | RE | | 17-Pre | 5 | | re | | | PART A | | sent | | | | | | AND B | | | | | | + +--------+ +--------+ +---------+--------+ | MEDICARE | MEDICA | [id number] | 10/30/19 | [phone] | | Medica | | | RE | | 17-Pre | 5 | | re | | | PART A | | sent | | | | | | AND B | | | | | | + +--------+ +--------+ +---------+--------+ | AARP | AARP | [id number] | 03/31/19 | [phone] | | Indemn | | | MDCR | | 19-Pre | 0 | | ity | | | SUPPL | | sent | | | | + +--------+ +--------+ +---------+--------+ | AARP | AARP | [id number] | 03/31/19 | [phone] | | Indemn [...] | Self | [birth year] | [address] | | [place] | [place] | | 1951 | [phone] | [address] [place], [place] | | | vitaliy | | | 0 (Home) | [address] | + +--------+ +--------+ + + | Tamar Pillai | Person | Self | [birth year] | [address] | | [place] | al/Fam | | 1951 | [phone] | [address] [place] | | | vitaliy | | | 0 ([place]) | [address] | + +--------+ +--------+ + + Advance Directives + + + + + | Type | Date Recorded | Patient | Explanation | | | | Solution Lead | | + + + + + | Power of | | | | | Pick Pulling Machine Tender | | | | + + + + + | Power of | | | | | Pick Pulling Machine Tender | | | | + + + [...]
--- OUTSIDE RECORDS SUMMARY | ~2019-07-24 | XMS | Encounter Summary ---
Demographics + + + | Address | [address] | | | [place] [address] | + + + | Home Phone [...] Author + + + | Author | [facility] | + + + | Organization | [facility] | + + + | Address | Unknown | + + + | Phone | Unavailable | + + + Support + + +---------+ + | Name | Relationship | Address | Phone | + + +---------+ + | Pernell Atkinson | ECON | Unknown | | + + +---------+ + Care Team Providers + +------+ + | Care Teacher Industrial Arts Name | Role | Phone | + [...] Pre-Admission | | 2020 | Orders | [place] | [address] | | | | | O[place]opl[place] at | [place], [place] | | | | | [address] | [address] | | | | | [address] | [phone] | | | | | Eye [place] | | | | | | [address] | | | | | | [place] [address] | | | | | | [phone] | | | +--------+ + + + [...]
--- OUTSIDE RECORDS SUMMARY | ~2019-07-24 | XMS | Encounter Summary ---
Demographics + + + | Address | [address] | | | [place] [address] | + + + | Home Phone | | + + + | Preferred Language | Unknown | + + + | Marital Status | Single | + + + | Latter-Day Affiliation | NON | + + + | Race | White | + + + | Ethnic Group | Not or | + + + Author + + + | Author | [facility] | + + + | Organization | [facility] | + + + | Address | Unknown | + + + | Phone | Unavailable | + + + Support + + +---------+ + | Name | Relationship | Address | Phone | + + +---------+ + | Pernell Atkinson | ECON | Unknown | | + + +---------+ + Care Team Providers + +------+ + | Care Associate Professor Of Chemistry Name | Role | Phone | + [...] | | | | | disease | [address] | [employer] | | | | | Proptosis | [address] | [address] | | | | | Procedures | [address]vd | [facility] | | | | | [address] | [place], [place] | ROAD | | | | | CONTRAST | [address] | [place], [place] | | | | | | Phone: | [address] | | | | | | [phone] | Phone: | | | | | | Fax: | [phone] | | | | | | [phone] | | + +--------+ + + + [...] disease | | 2020 | Visit | [place] | [address] | (Primary Dx); | | | | Oculoplastics at | [facility], [place] | Proptosis | | | | [address] | [address] | | | | | [address] | [phone] | | | | | Eye [place] | | | | | | [facility], 5th floor | | | | | | [place] [address] | | | | | | [phone] | | | +--------+---------+ + + + [...] is gone TFTS stable POHx: None Thyroid: Senior Escrow Officer/PCP - Dr. Welsh from [place]/Dr. Devine Onset- 03/2018 Status- stable with meds [...] exam: undilated RE LE Vitreous: Clear Disc: [place] and sharp -full C/D: 0.1 Macula: Flat Vasculature: Normal Vitreous: Clear Disc: [place] and sharp C/D: 0.2 Macula: Flat Vasculature: [...]
--- OUTSIDE RECORDS SUMMARY | ~2019-07-24 | XMS | Encounter Summary ---
Demographics + + + | Address | [address] | | | [place] [address] | + + + | Home Phone | | + + + | Preferred Language | Unknown | + + + | Marital Status | Single | + + + | Yarsani Affiliation | NON | + + + [...] Team Providers + +------+ + | Care Hot Mill Observer Name | Role | Phone | + +------+ + | Alea Devine | PCP | | + +------+ + Encounter Details +--------+ + + + + | Date | Type | Department | Care Team | Description | +--------+ + + + + | 05/03/ | Procedure | [facility] LOC | | | | 2020 | Pass | [address] [facility] | | | | | | [facility] | | | | | | [place] [address] | | | +--------+ + + + [...]
--- OUTSIDE RECORDS SUMMARY | ~2019-07-24 | XMS | Encounter Summary ---
Demographics + + + | Address | [address] | | | [place] [address] | + + + | Home Phone | | + + + | Preferred Language | Unknown | + + + | Marital Status | | + + + | Uatsdin Affiliation | Unknown | + + + | Race | Unknown | + + + | Ethnic Group | Unknown | + + + Author + + + | Author | [facility] | | | and [place] | + + + | Organization | [facility] | | | [...] Team Providers + +------+ + | Care Mill Helper Name | Role | Phone | [...] | | (HCC) | [place], [place] | [place], | | | | | Hyperthyroid | [address] | [place] [address] | | | | | ism | Phone: | Phone: | | | | | | [phone] | [phone] | | | | | | Fax: | Fax: | | | | | | [phone] | [phone] | +--------+ + + + + + [...] + + | 07/07/ | Hospital | [facility] | [place] | Atrial fibrillation | | 2019 - | Encounter | MED CTR ICU [address] | DO Jeet [address] | with RVR ([facility]); | | | | [place], | [address] [place] | Hyperthyroidism | | 07/10/ | | [place] [address] | [place] [address] | | | 2019 | | [phone] | | | | | | | | | | | | Ana Lilia Abbasi MD | | | | | | [address] | | | | | | [place], [place] | | | | | | [address] [...] Abbasi MD - 07/10/2018 9:15 AM PDT [place], [place] HOSPITALIST DISCHARGE SUMMARY Pt. Name/Age/: Tamar [...] from mild shortness of breath without hypoxia. [id number] score 2 (age, sex). We discussed anticoagulation [...] New diagnosis for patient. TSH low at [facility] (cannot see record in our EMR) [...] a visit in 1 week. Specialty: Physician Distribution Designer Why: Hospital follow up Contact information: [place] [address] Condition: stable Diet: gen Less than 30 minutes were spent on discharge and coordination of post-hospital care. Electronically signed by: Ana Lilia Abbasi MD, 07/10/2018 12:00 [facility] documented in this enco unter Discharge Instructions [...] . Tell your doctor about any prescription, epts-psd-ladobur, or herbal medicines you take. These may [...] trying to find them. Date Last Reviewed: 07/24/201519990103-8805 The GitHub. [address] [place] [address], [place] [address]. All righ ts reserved. This information is [...] get worse New symptoms Date Last Reviewed: 07/30/201519998965-6305 The GitHub. [address] [place] [address], [place] [address]. All righ ts reserved. This information is [...] more than normal Fast or irregular heartbeat Roof Promenade Tile Setter or irregular periods (women only) More frequent [...] check with your pharmacist before using ove e-spj-iyjtfrt medicines with your prescribed medicines. Use a [...] trouble breathing Date Last Reviewed: 06/29/2017 The GitHub. [address] [place] [address]. All righ ts reserved. This information is [...] ventricles squeeze. Date Last Reviewed: 07/26/2015 The GitHub. [address] [place] [address]. All righ ts reserved. This information is not intended as a substitute for professional medical care. Always follow your healthcare professional's instructions. Tamar, You were hospitalized with atrial fibrillation likely due to hyperthyroidism. For your hyperthyroidism, continue taking methimazole twice daily. You will need to have fo llow up with an fancy wire drawer; I placed an urgent referral to have [...] + + + +---------+ + + | Olean-3 Fatty | Take 2 capsules by | [...] Abbasi MD - 07/09/2018 9:[address] [facility] [place] HOSPITALIST PROGRESS NOTE Patient: Tamar Pillai : 1950: Age: 67 y.o. MedRec: [id number] Admission date: 07/07/2018 Hospital day # : [...] mild left atrial dilatation, otherwise unremarkable study. [id number] score 2 (age, sex). Patient is hesitant about anticoagulation and will continue to think about this. Continue aspirin for now. Monitor electrolytes with K >4, MG >2 #Hyperthyroidism New diagnosis for patient. TSH low at [facility] (cannot see record in our EMR) [...] Procedure Component Value Units Date/Time Culture, MRSA [[id number]] Collected: 07/07/181838 Order Status: Completed Lab Status: [...] L/min Ana Lilia Abbasi MD 07/09/2018 9:56 [facility] Shital Lunsford, PharmD - 07/08/2018 2:30 [...] vitamin tabs 1 tab by mouth daily Olean-3 fatty acids 2 caps by mouth daily [...] Other: Patient PCP: Alea Devine PA-C at [facility] Best possible CHARGE ACCOUNT AUTHORIZER medication list after pharmacy review: PT REPORTED TAKING NOT TAKING Medication Sig Last Dose Dispense Doc. Provider CYANOCOBALAMIN PO Take 3 capsules by mouth Daily. Taking Historical Provider, FOLIC ACID PO Take 2 tablets by mouth Daily. Taking Historical ProviderMD Multiple Vitamin TABS Take 1 tablet by mouth Daily. Taking Historical Provider, Olean-3 Fatty Acids (FISH OIL PO) Take 2 capsules by mouth Daily. Taking Historical Lex vora MD Medication review performed and electronically signed by Keren Malik, Form Setter/Driver 2018 13:54 Reviewed by Shital Britt PharmD 07/08/2018 14:28 Ana Lilia Rosado MD - 07/08/2018 9:24 AM PDT [facility] [place] HOSPITALIST PROGRESS NOTE Patient: Tamar Pillai : 1950: Age: 67 y.o. MedRec: [id number] Admission date: 07/07/2018 Hospital day # : [...] ut no chest pain. Echo is pending. [id number] score 2 (age, sex). Patient is hesitant about anticoagulation and will continue to think about this. Continue aspirin for now. Monitor electrolytes with K >4, MG >2 #Hyperthyroidism New diagnosis for patient. TSH low at [facility] (cannot see record in our EMR) [...] Procedure Component Value Units Date/Time Culture, MRSA [[id number]] Collected: 07/07/181838 Order Status: Sent Lab Status: [...] L/min Ana Lilia Abbasi MD 07/08/2018 9:24 [facility] SHAMartineSonali aaron RN - 07/07/2018 7:11 [...] | | | | | | [place] [address] | | | | | | [phone] | | | | | | | [...] | | | | | | RVR ([facility]) | | | | | | Hyperthyroidism [...] [address] | [place] | [phone] | | [facility] | | [address] | | | - LABORATORY | | [...] + | [facility] | [address] | [place] | [phone] | | [facility] | | [address] | | | - LABORATORY | | [...] mL/min/1.73m2 | [facility] | | | [place] | | | MEDICAL | | | [...] [address] | [place] | [phone] | | [facility] | | [address] | | | - LABORATORY | | [...] [address] | [place] | [phone] | | [facility] | | [address] | | | - LABORATORY | | [...] [address] | [place] | [phone] | | [facility] | | [address] | | | - LABORATORY | | [...] mL/min/1.73m2 | [facility] | | | [place] | | | MEDICAL | | | [...] [address] | [place] | [phone] | | [facility] | | [address] | | | - LABORATORY | | [...] [place], | REFERENCE LAB | | [place] [id number] Welding Teacher: Alonso Vaughan MD, Phone: | [facility] [facility] [place] | | [phone] | | + + + + + + + + | Performing | Address | City/State/Zipcode | Phone Number | | Organization | | | | + + + + + | REFERENCE LAB | [id number] [place] [address] | [place] | [phone] | | [facility] | [place] | [address] | | + + + + + [...] | | | | JOHN PENN MD ([id number]) | | | | | | on [...] [address] | [place] | [phone] | | [facility] | | [address] | | | - LABORATORY | | [...] + | [facility] | [address] | [place] | [phone] | | [facility] | | [address] | | | - LABORATORY | | [...] mL/min/1.73m2 | . [facility] | | | [place] | | | MEDICAL | | | [...] + | [facility] | [address] | [place] | [phone] | | [facility] | | [address] | | | - LABORATORY | | [...] + | [facility] | [address] | [place], [place] | [phone] | | [facility] | | [address] | | | - LABORATORY | | [...] [address] | [place] | [phone] | | [facility] | | [address] | | | - LABORATORY | | [...] [address] | [place] | [phone] | | [facility] | | [address] | | | - LABORATORY | | [...] + | [facility] | [address] | [place] | [phone] | | [facility] | | [address] | | | - LABORATORY | | [...] [address] | [place] | [phone] | | [facility] | | [address] | | | - LABORATORY | | [...] [address] | [place] | [phone] | | [facility] | | [address] | | | - LABORATORY | | [...] ST. | [address] | [place], [place] | [phone] | | [facility] | | [address] | | | - LABORATORY | | [...] PDT | | | | | ONCE, [facility] 07/08/18 at 0330, For 1 | | [...]
--- OUTSIDE RECORDS SUMMARY | ~2019-07-24 | XMS | Encounter Summary ---
Demographics + + + | Address | [address] [facility] [address] [address] | | | [place] [address] | + + + | Home Phone | | + + + | Preferred Language | Unknown | + + + | Marital Status | | + + + | Congregation Affiliation | Unknown | + + + | Race | Unknown | + + + | Ethnic Group | Unknown | + + + Author + + + | Author | [facility] | | | and [place] | + + + | Organization | [facility] | | [...] Team Providers + +------+ + | Care Sow Farm Technician Name | Role | Phone | [...] + + | 04/05/ | Refill | [facility] | Lorie Hatch | Medication Refill | | 2020 | | CARDIOLOGY JUSTUS [facility] | | | | | [address] | | | | | | [place] | | | | | | [address] | | | | | | [phone] | | | +--------+--------+ + + + [...] | | | | | | [place] [address] | | | | | | [phone] | | | | | | | | +--------+---------+ + + + documented as of this encounter Visit Diagnoses Not on filedocumented in this encounter"
--- OUTSIDE RECORDS SUMMARY | ~2019-07-24 | XMS | Encounter Summary ---
Demographics + + + | Address | [address] | | | [place] [address] | + + + | Home Phone | | + + + | Preferred Language | Unknown | + + + | Marital Status | Single | + + + | Taoism Affiliation | NON | + + + | Race | White | + + + | Ethnic Group | Not or | + + + Author + + + | Author | [facility] | + + + | Organization | [facility] | + + + | Address | Unknown | + + + | Phone | Unavailable | + + + Support + + +---------+ + | Name | Relationship | Address | Phone | + + +---------+ + | Pernell Atkinson | ECON | Unknown | | + + +---------+ + Care Team Providers + +------+ + | Care Fundraising Specialist Name | Role | Phone | + +------+ + | Alea Devine | PCP | | + +------+ + Encounter Details +--------+ + + + + | Date | Type | Department | Care Team | Description | +--------+ + + + + | 05/05/ | Procedure | [facility] LOC | | | | 2020 | Pass | [address] [facility] | | | | | | [facility] | | | | | | [place] [address] | | | +--------+ + + + [...]
--- OUTSIDE RECORDS SUMMARY | ~2019-07-24 | XMS | Encounter Summary ---
Demographics + + + | Address | [address] | | | [place] [address] | + + + | Home Phone [...] Author + + + | Author | [facility] | + + + | Organization | [facility] | + + + | Address | Unknown | + + + | Phone | Unavailable | + + + Support + + +---------+ + | Name | Relationship | Address | Phone | + + +---------+ + | Pernell Atkinson | ECON | Unknown | | + + +---------+ + Care Team Providers + +------+ + | Care Cdl A Driver Name | Role | Phone | + [...] | | 2020 | Event | [address] [facility] | [address] [facility] | | | | | [facility] | [facility], | | | | | [place] [address] | [place] [address] | | | | | | [phone] | | | | | | | [...]
--- OUTSIDE RECORDS SUMMARY | ~2019-07-24 | XMS | Encounter Summary ---
Demographics + + + | Address | [address] | | | [place] [address] | + + + | Home Phone [...] Author + + + | Author | [facility] | + + + | Organization | [facility] | + + + | Address | Unknown | + + + | Phone | Unavailable | + + + Support + + +---------+ + | Name | Relationship | Address | Phone | + + +---------+ + | Pernell Atkinson | ECON | Unknown | | + + +---------+ + Care Team Providers + +------+ + | Care Calender Tender Name | Role | Phone | + +------+ + | Alea Devine | PCP | | + +------+ + Encounter Details +--------+ + + + + | Date | Type | Department | Care Team | Description | +--------+ + + + + | 05/04/ | Pharmacy | Pharmacy @ [facility] | | | | 2019 | Visit | [address] | | | | | | [address] Mailcode: | | | | | | [facility] | | | | | | and [place], | | | | | | [address] | | | | | | [place], [place] | | | | | | [address] | | | +--------+ + + + [...]
--- OUTSIDE RECORDS SUMMARY | ~2019-07-24 | XMS | Encounter Summary ---
Demographics + + + | Address | [address] | | | [place] [address] | + + + | Home Phone | | + + + | Preferred Language | Unknown | + + + | Marital Status | Single | + + + | Quaker Affiliation | NON | + + + | Race | White | + + + | Ethnic Group | Not or | + + + Author + + + | Author | [facility] | + + + | Organization | [facility] | + + + | Address | Unknown | + + + | Phone | Unavailable | + + + Support + + +---------+ + | Name | Relationship | Address | Phone | + + +---------+ + | Pernell Atkinson | ECON | Unknown | | + + +---------+ + Care Team Providers + +------+ + | Care Historiography Teacher Name | Role | Phone | + [...] call) | | 2020 | on | [place] | [address] | | | | | Oculoplastics at | [facility], [place] | | | | | [facility] [address] | [address] | | | | | [address] [place] | [phone] | | | | | [facility] | | | | | | [facility], [address] [place] [address] | | | | | | [place] [address] | | | | | | [phone] | | | +--------+ + + + [...]
--- OUTSIDE RECORDS SUMMARY | ~2019-07-24 | XMS | Encounter Summary ---
Demographics + + + | Address | [address] [facility] [address] | | | [place] [address] | + + + | Home Phone | | + + + | Preferred Language | Unknown | + + + | Marital Status | | + + + | Adventism Affiliation | Unknown | + + + | Race | Unknown | + + + | Ethnic Group | Unknown | + + + Author + + + | Author | [facility] | | | and [place] | + + + | Organization | [facility] | | | [...] Team Providers + +------+ + | Care Physician [facility] Name | Role | Phone | [...] | | (HCC) | [place], [place] | [place], | | | | | Hyperthyroid | [address] | [place] [address] | | | | | ism | Phone: | Phone: | | | | | | [phone] | [phone] | | | | | | Fax: | Fax: | | | | | | [phone] | [phone] | +--------+ + + + + + [...] + + | 07/07/ | Hospital | [facility] | [place] | Atrial fibrillation | | 2019 - | Encounter | MED CTR ICU [address] | DO [address] | with RVR ([facility]); | | | | [place], | [address] [place] | Hyperthyroidism | | 07/10/ | | [place] [address] | [place] [address] | | | 2019 | | [phone] | | | | | | | | | | | | Ana Lilia Abbasi MD | | | | | | [address] | | | | | | [place], [place] | | | | | | [address] [...] Abbasi MD - 07/10/2018 9:15 AM PDT [place], [place] HOSPITALIST DISCHARGE SUMMARY Pt. Name/Age/: Tamar [...] from mild shortness of breath without hypoxia. [id number] score 2 (age, sex). We discussed anticoagulation [...] New diagnosis for patient. TSH low at [facility] (cannot see record in our EMR) and [...] a visit in 1 week. Specialty: Physician Senior Game Designer Why: Hospital follow up Contact information: [place] [address] Condition: stable Diet: gen Less than 30 minutes were spent on discharge and coordination of post-hospital care. Electronically signed by: Ana Lilia Abbasi MD, 07/10/2018 12:00 [facility] documented in this enco unter Discharge [...] . Tell your doctor about any prescription, rgio-lck-sdleluz, or herbal medicines you take. These may [...] trying to find them. Date Last Reviewed: 07/24/201519994045-1113 The [employer]. [address] [place] [address], [place] [address]. All righ ts reserved. This information is [...] get worse New symptoms Date Last Reviewed: 07/30/201519997357-4489 The [employer]. [address] [place] [address], [place] [address]. All righ ts reserved. This information is [...] more than normal Fast or irregular heartbeat Assembling Fabricator or irregular periods (women only) More frequent [...] check with your pharmacist before using ove z-tlg-ywkvvbd medicines with your prescribed medicines. Use a [...] trouble breathing Date Last Reviewed: 06/29/2017 The [employer]. [address] [place] [address]. All righ ts reserved. This information is [...] ventricles squeeze. Date Last Reviewed: 07/26/2015 The [employer]. [address] [place] [address]. All righ ts reserved. This information is not intended as a substitute for professional medical care. Always follow your healthcare professional's instructions. Tamar, You were hospitalized with atrial fibrillation likely due to hyperthyroidism. For your hyperthyroidism, continue taking methimazole twice daily. You will need to have fo llow up with an cda teacher; I placed an urgent referral to have [...] + + + +---------+ + + | Lindon-3 Fatty | Take 2 capsules by | [...] Abbasi MD - 07/09/2018 9:56 AM PDT [facility] [place] HOSPITALIST PROGRESS NOTE Patient: Tamar Pillai : 1950: Age: 67 y.o. MedRec: [id number] Admission date: 07/07/2018 Hospital day # : [...] mild left atrial dilatation, otherwise unremarkable study. [id number] score 2 (age, sex). Patient is hesitant about anticoagulation and will continue to think about this. Continue aspirin for now. Monitor electrolytes with K >4, MG >2 #Hyperthyroidism New diagnosis for patient. TSH low at [facility] (cannot see record in our EMR) and [...] Procedure Component Value Units Date/Time Culture, MRSA [[id number]] Collected: 07/07/181838 Order Status: Completed Lab Status: [...] L/min Ana Lilia Abbasi MD 07/09/2018 9:[address] [facility] Shital Lunsford, PharmD - 07/08/2018 2:30 PM [...] vitamin tabs 1 tab by mouth daily Lindon-3 fatty acids 2 caps by mouth daily [...] Other: Patient PCP: Alea Devine PA-C at [facility] Best possible BRASS POLISHER medication list after pharmacy review: PT REPORTED TAKING NOT TAKING Medication Sig Last Dose Dispense Doc. Provider CYANOCOBALAMIN PO Take 3 capsules by mouth Daily. Taking Historical Provider, FOLIC ACID PO Take 2 tablets by mouth Daily. Taking Historical ProviderMD Multiple Vitamin TABS Take 1 tablet by mouth Daily. Taking Historical Provider, Lindon-3 Fatty Acids (FISH OIL PO) Take 2 capsules by mouth Daily. Taking Historical Lex vora MD Medication review performed and electronically signed by Keren Malik, Manager Of Internal Audit 2018 13:54 Reviewed by Shital Britt PharmD 07/08/2018 14:28 Ana Lilia Rosado MD - 07/08/2018 9:24 AM PDT [facility] [place] HOSPITALIST PROGRESS NOTE Patient: Tamar Pillai : 1950: Age: 67 y.o. MedRec: [id number] Admission date: 07/07/2018 Hospital day # : [...] ut no chest pain. Echo is pending. [id number] score 2 (age, sex). Patient is hesitant about anticoagulation and will continue to think about this. Continue aspirin for now. Monitor electrolytes with K >4, MG >2 #Hyperthyroidism New diagnosis for patient. TSH low at [facility] (cannot see record in our EMR) and [...] Procedure Component Value Units Date/Time Culture, MRSA [[id number]] Collected: 07/07/181838 Order Status: Sent Lab Status: [...] L/min Ana Lilia Abbasi MD 07/08/2018 9:[address] [facility] SHAMartineSonali aaron RN - 07/07/2018 7:11 PM [...] | | | | | | [place] [address] | | | | | | [phone] | | | | | | | [...] | | | | | | RVR ([facility]) | | | | | | Hyperthyroidism [...] [address] | [place] | [phone] | | [facility] | | [address] | | | - LABORATORY | | [...] + | [facility] | [address] | [place] | [phone] | | [facility] | | [address] | | | - LABORATORY | | [...] mL/min/1.73m2 | [facility] | | | [place] | | | MEDICAL | | | [...] [address] | [place] | [phone] | | [facility] | | [address] | | | - LABORATORY | | [...] [address] | [place] | [phone] | | [facility] | | [address] | | | - LABORATORY | | [...] [address] | [place] | [phone] | | [facility] | | [address] | | | - LABORATORY | | [...] | | | | | | [facility] | | | | | | MEDICAL [...] mL/min/1.73m2 | [facility] | | | [place] | | | MEDICAL | | | [...] [address] | [place] | [phone] | | [facility] | | [address] | | | - LABORATORY | | [...] [place], | REFERENCE LAB | | [place] [id number] Dog Breeder: Alonso Vaughan MD, Phone: | [facility]EL[facility] - [facility]XA | | [phone] | | + + + + + + + + | Performing | Address | City/State/Zipcode | Phone Number | | Organization | | | | + + + + + | REFERENCE LAB | [id number] [place] [address] | [place] | [phone] | | [facility] | [place] | [address] | | + + + + + [...] | | | | JOHN PENN MD ([id number]) | | | | | | on [...] [address] | [place] | [phone] | | [facility] | | [address] | | | - LABORATORY | | [...] + | [facility] | [address] | [place] | [phone] | | [facility] | | [address] | | | - LABORATORY | | [...] mL/min/1.73m2 | . [facility] | | | [place] | | | MEDICAL | | | [...] + | [facility] | [address] | [place] | [phone] | | [facility] | | [address] | | | - LABORATORY | | [...] + | [facility] | [address] | [place], [place] | [phone] | | [facility] | | [address] | | | - LABORATORY | | [...] [address] | [place] | [phone] | | [facility] | | [address] | | | - LABORATORY | | [...] [address] | [place] | [phone] | | [facility] | | [address] | | | - LABORATORY | | [...] + | [facility] | [address] | [place] | [phone] | | [facility] | | [address] | | | - LABORATORY | | [...] [address] | [place] | [phone] | | [facility] | | [address] | | | - LABORATORY | | [...] [address] | [place] | [phone] | | [facility] | | [address] | | | - LABORATORY | | [...] ST. | [address] | [place], [place] | [phone] | | [facility] | | [address] | | | - LABORATORY | | [...] + + | Atrial fibrillation with RVR ([facility]) - Primary Atrial fibrillation | + + [...] PDT | | | | | ONCE, [facility] 07/08/18 at 0330, For 1 | | [...]
--- OUTSIDE RECORDS SUMMARY | ~2019-07-24 | XMS | Encounter Summary ---
Demographics + + + | Address | [address] | | | [place] [address] | + + + | Home Phone [...] Author + + + | Author | [facility] | + + + | Organization | [facility] | + + + | Address | Unknown | + + + | Phone | Unavailable | + + + Support + + +---------+ + | Name | Relationship | Address | Phone | + + +---------+ + | Pernell Atkinson | ECON | Unknown | | + + +---------+ + Care Team Providers + +------+ + | Care Retail Sales Consultant Name | Role | Phone | [...] Post Op | | 2019 | | [place] | [address] | | | | | Oculoplastics at | Blvd [place], [place] | | | | | [address] | [address] | | | | | [address] | [phone] | | | | | [facility] [place] | | | | | | [facility], [address] [place] [address] | | | | | | [place] [address] | | | | | | [phone] | | | +--------+ + + + [...]
--- OUTSIDE RECORDS SUMMARY | ~2019-07-24 | XMS | Encounter Summary ---
Demographics + + + | Address | [address] | | | [place] [address] | + + + | Home Phone [...] Team Providers + +------+ + | Care Battery Installer Name | Role | Phone | [...] disease | | 2020 | Visit | [place] | [address] | (Primary Dx); | | | | Oculoplastics at | [facility] [place] | Proptosis | | | | [facility] [address] | [address] | | | | | [address] | [phone] | | | | | Eye [place] | | | | | | [facility], [address] [place] [address] | | | | | | [place] [address] | | | | | | [phone] | | | +--------+---------+ + + + [...] possible need for additional surgery (short and penitentiary), hemorrhage, infection, visio n loss and no [...]
--- OUTSIDE RECORDS SUMMARY | ~2019-07-24 | XMS | Clinical Summary ---
Demographics + + + | Address | [address] | | | [place] [address] | + + + | Home Phone | | + + + | Preferred Language | Unknown | + + + | Marital Status | | + + + | Catholic Affiliation | Unknown | + + + | Race | Unknown | + + + | Ethnic Group | Unknown | + + + Author + + + | Author | [email or web address] [facility] (Historical as of | | | 11-14-18) | + + + | Organization | [facility] (Historical as of | | | 11-14-18) [...] Team Providers + +------+ + | Care Welding Machine Operator Name | Role | Phone | [...] | Overview: with RVR, secondary to Hyperthyroidism, [id number] | | VASc 2 | + + [...] +------+-------+ + | MEDICARE | MEDICA | [id number] | | | [address] | | | RE | | | | [place] [address] | | | IP-OP | | | | | + +--------+ +------+-------+ + | UNITED HEALTHCARE | UNITED | [id number] | | | | | | | [...] Self | [birth year] | Home: | [address] | | | al/Fam | | 1951 | [phone] [address] [place] | | | vitaliy | | | [address] | [phone] | + +--------+ +--------+ + +
--- OUTSIDE RECORDS SUMMARY | ~2019-07-24 | XMS | Encounter Summary ---
Demographics + + + | Address | [address] | | | [place] [address] | + + + | Home Phone [...] Team Providers + +------+ + | Care Forming Yardage Control Operator Name | Role | Phone | [...]
--- OUTSIDE RECORDS SUMMARY | ~2019-07-24 | XMS | Encounter Summary ---
Demographics + + + | Address | [address] | | | [place] [address] | + + + | Home Phone | | + + + | Preferred Language | Unknown | + + + | Marital Status | Single | + + + | Church Affiliation | NON | + + + [...] Team Providers + +------+ + | Care Optical Manager Name | Role | Phone | [...]
--- OUTSIDE RECORDS SUMMARY | ~2019-07-24 | XMS | Encounter Summary ---
Demographics + + + | Address | [address] | | | [place] [address] | + + + | Home Phone [...] Team Providers + +------+ + | Care Bridge Club Manager Name | Role | Phone | + +------+ + | Alea Devine | PCP | | + +------+ + Encounter Details +--------+---------+ + + + | Date | Type | Department | Care Team | Description | +--------+---------+ + + + | 03/03/ | Office | [facility] | Gerson Mendieta MD | Thyroid eye disease | | 2019 | Visit | [place] | [address] | (Primary Dx) | | | | Oculoplastics at | [place] [place], [place] | | | | | [facility] [address] | [address] | | | | | [address] | [phone] | | | | | [facility] [place] | | | | | | [address] | | | | | | [place] [address] | | | | | | [phone] | | | +--------+---------+ + + + [...] documented as of this encounter Progress Notes Wilder Randa Lau - 03/03/2019 10:30 AM PSTMRI on impax reviewed by Dr. Mendieta. No need for CT at this time. ilder Randa Lau - 03/03 10:30 AM PST Gerson Valdez MD - [...] tapered dose) due to increased inflammation- feels kodi g much improved since this. Here for evaluation to assess status, options Referred by: Alea Devine POHx: None Thyroid: Food Science Technician/PCP - Dr. Welsh from [place]/Dr. Devine Onset- 03/2018 Status- stable with meds [...] temporal flare HOF: 2+ -nontender + proptosis [place]: good OU No adenopathy Slit Lamp Exam: RE LE Lid Margins: + MGD Conjunctiva: 1+ chemosis & congestion Cornea: Clear AC: Deep and quiet Iris: Normal Lens: 3+NS Lid Margins: +MGD Conjunctiva: 1+ chemosis & congestions Cornea: Clear AC: Deep and quiet Iris: Normal Lens: 3+ NS Fundus exam: undilated RE LE Vitreous: Clear Disc: [place] and sharp C/D: 0.3 ? Macula: Flat Vasculature: Normal Vitreous: Clear Disc: [place] and sharp C/D: 0.3 ? Macula: Flat [...] in this encou nter Plan of Treatment + + +--------+ + + | Name | Type | Priori | Associated Diagnoses | Date/Time | | | | ty | | | + + +--------+ + + | AUTOMATED VISUAL | Ophthalmolo | Routin | Thyroid eye | 04/29/2019 8:43 AM | | , ARGUELLO | gy | e | disease | PST | + + +--------+ + + documented as of this encounter Procedures + +--------+ + + + | Procedure Name | Priori | Date/Time | Associated Diagnosis | Comments | | | ty | | | | + +--------+ + + + | SD EXTERNAL PHOTOS | Routin | 03/16/2019 | [...]
--- OUTSIDE RECORDS SUMMARY | ~2019-07-24 | XMS | Encounter Summary ---
Demographics + + + | Address | [address] | | | [place] [address] | + + + | Home Phone | | + + + | Preferred Language | Unknown | + + + | Marital Status | Single | + + + | Temple Affiliation | NON | + + + [...] Team Providers + +------+ + | Care Manager Books Name | Role | Phone | + +------+ + | Alea Devine | PCP | | + +------+ + Encounter Details +--------+ + + + + | Date | Type | Department | Care Team | Description | +--------+ + + + + | 05/03/ | Procedure | [facility] INTRA OP LOC | | | | 2020 | Pass | [address] | | | | | | [facility] | | | | | | [place] [address] | | | +--------+ + + + [...]
--- OUTSIDE RECORDS SUMMARY | ~2019-07-24 | XMS | Encounter Summary ---
Demographics + + + | Address | [address] | | | [place] [address] | + + + | Home Phone | | + + + | Preferred Language | Unknown | + + + | Marital Status | Single | + + + | Buddhist Affiliation | NON | + + + [...] Team Providers + +------+ + | Care Dry Color Tester Name | Role | Phone | [...]
--- OUTSIDE RECORDS SUMMARY | ~2019-07-24 | XMS | Encounter Summary ---
Demographics + + + | Address | [address] | | | [place] [address] | + + + | Home Phone | | + + + | Preferred Language | Unknown | + + + | Marital Status | Single | + + + | Muslim Affiliation | NON | + + + [...] Team Providers + +------+ + | Care Operations Vice President Name | Role | Phone | + [...] disease | | 2020 | Visit | [place] | [address] | (Primary Dx); | | | | Oculoplastics at | [facility] [place] | Proptosis | | | | [facility] [address] | [address] | | | | | [address] | [phone] | | | | | Eye [place] | | | | | | [facility], [address] [place] [address] | | | | | | [place] [address] | | | | | | [phone] | | | +--------+---------+ + + + [...] possible need for additional surgery (short and snf), hemorrhage, infection, visio n loss and no [...]
--- OUTSIDE RECORDS SUMMARY | ~2019-07-24 | XMS | Clinical Summary ---
Demographics + + + | Address | [address] | | | [place] [address] | + + + | Home Phone | | + + + | Preferred Language | Unknown | + + + | Marital Status | Single | + + + | Confucianist Affiliation | NON | + + + | Race | White | + + + | Ethnic Group | Not or | + + + Author + + + | Author | [facility] | + + + | Organization | [facility] | + + + | Address | Unknown | + + + | Phone | Unavailable | + + + Support + + +---------+ + | Name | Relationship | Address | Phone | + + +---------+ + | Pernell Atkinson | ECON | Unknown | | + + +---------+ + Care Team Providers + +------+ + | Care Carpenter Assistant Installer Name | Role | Phone | + +------+ + | Alea Devine | PCP | | + +------+ + Source Comments JOSE is fully live on both [facility] Ambulatory and [facility] InPatient.[facility] Allergies No Known Allergies Medications + [...] 02/1 | 04/0 | Expir | | kbcqhwuw-qrvasvidi-h | both eyes two times | | [...] difficulty, 10ml air added, no leak at [id number]. Atraumatic | | | to soft tissues/dentition [...] OF | [address] | [place], [place] | | | CARDIOLOGY | [address] | [address] | | + + + + + [...] Note | + + | Service Account, [employer] Res In Interface - 04/29/2019 2:23 PM [...] | | | | | | | [address] | | + +--------+ +--------+ + +--------+ | [employer] | AARP | [id number] | 03/31/19 | [phone] | [address] | Indemn | | RETIRED PEOPLE | | | 19-Pre | 9 | [id number] | ity | | | | | sent | | [place] | | | | | | | | [address] | | + +--------+ +--------+ + +--------+ + +--------+ +--------+ + + | Guarantor Name | Accoun | Relation to | Date | Phone | Billing Address | | | t Type | Patient | of | | | | | | | | | | + +--------+ +--------+ + + | Tamar Pillai | Person | Self | [birth year] | [address] | | [place] | al/Fam | | 1951 | [phone] | [place] [address] | | | vitaliy | | | [...]
--- OUTSIDE RECORDS SUMMARY | ~2019-07-24 | XMS | Encounter Summary ---
Demographics + + + | Address | [address] | | | [place] [address] | + + + | Home Phone [...] Team Providers + +------+ + | Care Biostatistics Professor Name | Role | Phone | + [...] | | 2020 | | [address] | [address] | ORBITAL | | | | [facility] | Blvd [place], [place] | DECOMPRESSION RIGHT | | | | [place] [address] | [address] | TEMPORARY SUTURE | | | | | [phone] | TARSORRHAPHY | | | | | [...] weekends and holidays, call and ask the threshing operator to page the Eye Doctor lead application architect. ? Return appointment date: ? Time: documented [...] | | | 05/05/19 at 2232, Until [facility] 05/06/19 | | | at 1603, 2nd [...] 10:31 | | | Site | | 1%-[phone] - bupivacaine 0.5% | | AM PST [...]
--- OUTSIDE RECORDS SUMMARY | ~2019-07-24 | XMS | Encounter Summary ---
Demographics + + + | Address | [address] | | | [place] [address] | + + + | Home Phone [...] Team Providers + +------+ + | Care J2Ee Engineer Name | Role | Phone | [...] | | | | | disease | [address] | [address] | | | | | Proptosis | [address] | [address] | | | | | Procedures | Blvd | [facility] | | | | | [address] | [place], [place] | ROAD | | | | | CONTRAST | [address] | [place], [place] | | | | | | Phone: | [address] | | | | | | [phone] | Phone: | | | | | | Fax: | [phone] | | | | | | [phone] | | + +--------+ + + + + Reason for Visit Diagnostic Testing (Urgent) + +--------+ + + + + | Status | Reason | Specialty | Diagnoses / | Referred By | Referred To | | | | | Procedures | Contact | Contact | + +--------+ + + + + | New Request | | Radiology | Diagnoses | Anam, | [place] | | | | | Thyroid eye | MD Gerson | Health & | | | | | disease | [address] | [address] | | | | | Proptosis | [address] | [address] | | | | | Procedures | Blvd | [facility] | | | | | [address] | [place], [place] | ROAD | | | | | CONTRAST | [address] | [place], [place] | | | | | | Phone: | [phone] | | | | | | [phone] | Phone: | | | | | | Fax: | [phone] | | | | | | [phone] | | + +--------+ + + + + Encounter Details +--------+ + + + + | Date | Type | Department | Care Team | Description | +--------+ + + + + | 04/29/ | Hospital | Diagnostic Imaging | Gerson Mendieta MD | | | 2020 | Encounter | Services at [facility] | [address] | | | | | [address] | Blvd [place], [place] | | | | | Roseann Ryan [place] | [address] | | | | | [address] | [phone] | | | | | [place], [place] | | | | | | [address] | | | | | | [phone] | | | +--------+ + + + [...] + + documented as of this encounter Medications at Time of Discharge [...] tablet by | 30 | 0 | 05/03/19 | | | oxyCODONE-acetaminop | mouth every [...] + + documented in this encounter Results CT [address] CONTRAST [...] or | | storm | + + | Proptosis Exophthalmos, unspecified | + + documented in this encounter"
--- OUTSIDE RECORDS SUMMARY | ~2019-07-24 | XMS | Encounter Summary ---
Demographics + + + | Address | [address] | | | [place] [address] | + + + | Home Phone [...] Team Providers + +------+ + | Care Molder Machine Name | Role | Phone | + [...] | | (HCC) | [place], [place] | [place], | | | | | Hyperthyroid | [address] | [place] [address] | | | | | ism | Phone: | Phone: | | | | | | [phone] | [phone] | | | | | | Fax: | Fax: | | | | | | [phone] | [phone] | +--------+ + + + + + [...] + + | 07/07/ | Hospital | [facility] | [place] | Atrial fibrillation | | 2019 - | Encounter | MED CTR ICU [address] | DO Jeet [address] | with RVR ([facility]); | | | | [place], | [address] [place] | Hyperthyroidism | | 07/10/ | | [place] [address] | [place] [address] | | | 2019 | | [phone] | [phone] | | | | | | | | | | | | Ana Lilia Abbasi MD | | | | | | [address] | | | | | | [place], [place] | | | | | | [address] [...] Abbasi MD - 07/10/2018 9:15 AM PDT [place], [place] HOSPITALIST DISCHARGE SUMMARY Pt. Name/Age/: Tamar [...] from mild shortness of breath without hypoxia. [id number] score 2 (age, sex). We discussed anticoagulation [...] New diagnosis for patient. TSH low at [facility] (cannot see record in our EMR) [...] a visit in 1 week. Specialty: Physician Caustic Purification Operator Why: Hospital follow up Contact information: [place] [address] Condition: stable Diet: gen Less than 30 minutes were spent on discharge and coordination of post-hospital care. Electronically signed by: Ana Lilia Abbasi MD, 07/10/2018 12:00 [facility] documented in this enco unter [...] . Tell your doctor about any prescription, xtzz-nhh-nnkzxnf, or herbal medicines you take. These may [...] trying to find them. Date Last Reviewed: 07/24/201519993158-7056 [employer]. [address] [place] [address], [place] [address]. All righ ts reserved. This information is [...] get worse New symptoms Date Last Reviewed: 07/30/201519997796-6559 [employer]. [address] [place] [address], [place] [address]. All righ ts reserved. This information is [...] more than normal Fast or irregular heartbeat Arts Manager or irregular periods (women only) More frequent [...] check with your pharmacist before using ove c-ovr-rnijudi medicines with your prescribed medicines. Use a [...] trouble breathing Date Last Reviewed: 06/29/2017 [employer]. [address] [place] [address]. All righ ts reserved. This information is [...] ventricles squeeze. Date Last Reviewed: 07/26/2015 [employer]. [address] [place] [address]. All righ ts reserved. This information is not intended as a substitute for professional medical care. Always follow your healthcare professional's instructions. Tamar, You were hospitalized with atrial fibrillation likely due to hyperthyroidism. For your hyperthyroidism, continue taking methimazole twice daily. You will need to have fo llow up with an mess cook; I placed an urgent referral to have [...] + + + +---------+ + + | Salem-3 Fatty | Take 2 capsules by | [...] Abbasi MD - 07/09/2018 9:56 AM PDT [facility] HOSPITALIST PROGRESS NOTE Patient: Tamar Pillai : 1950: Age: 67 y.o. MedRec: [id number] Admission date: 07/07/2018 Hospital day # : [...] mild left atrial dilatation, otherwise unremarkable study. [id number] score 2 (age, sex). Patient is hesitant about anticoagulation and will continue to think about this. Continue aspirin for now. Monitor electrolytes with K >4, MG >2 #Hyperthyroidism New diagnosis for patient. TSH low at [facility] (cannot see record in our EMR) [...] Procedure Component Value Units Date/Time Culture, MRSA [[id number]] Collected: 07/07/181838 Order Status: Completed Lab Status: [...] L/min Ana Lilia Abbasi MD 07/09/2018 9:56 [facility] Shital Lunsford, PharmD - 07/08/2018 2:30 PM [...] vitamin tabs 1 tab by mouth daily Salem-3 fatty acids 2 caps by mouth daily [...] Other: Patient PCP: Alea Devine PA-C at [facility] Best possible CITY ASSESSOR medication list after pharmacy review: PT REPORTED TAKING NOT TAKING Medication Sig Last Dose Dispense Doc. Provider CYANOCOBALAMIN PO Take 3 capsules by mouth Daily. Taking Historical Provider, FOLIC ACID PO Take 2 tablets by mouth Daily. Taking Historical ProviderMD Multiple Vitamin TABS Take 1 tablet by mouth Daily. Taking Historical Provider, Salem-3 Fatty Acids (FISH OIL PO) Take 2 capsules by mouth Daily. Taking Historical Lex voar MD Medication review performed and electronically signed by Keren Malik, Strap Cutter 2018 13:54 Reviewed by Shital Britt PharmD 07/08/2018 14:28 Ana Lilia Rosado MD - 07/08/2018 9:24 AM PDT [facility] [place] HOSPITALIST PROGRESS NOTE Patient: Tamar Pillai : 1950: Age: 67 y.o. MedRec: [id number] Admission date: 07/07/2018 Hospital day # : [...] ut no chest pain. Echo is pending. HFPGX7MXAD score 2 (age, sex). Patient is hesitant about anticoagulation and will continue to think about this. Continue aspirin for now. Monitor electrolytes with K >4, MG >2 #Hyperthyroidism New diagnosis for patient. TSH low at [facility] (cannot see record in our EMR) [...] Procedure Component Value Units Date/Time Culture, MRSA [[id number]] Collected: 07/07/181838 Order Status: Sent Lab Status: [...] L/min Ana Lilia Abbasi MD 07/08/2018 9:24 [facility] SHAMartineSonali aaron RN - 07/07/2018 7:11 PM [...] [place], | | | | | | [place] [address] | | | | | | [phone] | | | | | | | [...] | | | | | | RVR ([facility]) | | | | | | Hyperthyroidism [...] [address] | [place] | [phone] | | [facility] | | [address] | | | - LABORATORY | | [...] + | [facility] | [address] | [place] | [phone] | | [facility] | | [address] | | | - LABORATORY | | [...] mL/min/1.73m2 | [facility] | | | POL[place] | | | MEDICAL | | | [...] [address] | [place] | [phone] | | [facility] | | [address] | | | - LABORATORY | | [...] [address] | [place] | [phone] | | [facility] | | [address] | | | - LABORATORY | | [...] [address] | [place] | [phone] | | [facility] | | [address] | | | - LABORATORY | | [...] mL/min/1.73m2 | [facility] | | | [place] | | | MEDICAL | | | [...] [address] | [place] | [phone] | | [facility] | | [address] | | | - LABORATORY | | [...] | REFERENCE LAB | | [place] [id number] Mat Puncher: Alonso Vaughan MD, Phone: | JAQUELIN - ALEXA | | [phone] | | + + + + + + + + | Performing | Address | City/State/Zipcode | Phone Number | | Organization | | | | + + + + + | REFERENCE LAB | [id number] [place] [address] | [place] | [phone] | | [facility] | [place] | [address] | | + + + + + [...] | | | | JOHN PENN MD ([id number]) | | | | | | on [...] [address] | [place] | [phone] | | [facility] | | [address] | | | - LABORATORY | | [...] + | [facility] | [address] | [place] | [phone] | | [facility] | | [address] | | | - LABORATORY | | [...] mL/min/1.73m2 | . [place] | | | [place] | | | MEDICAL | | | [...] + | [facility] | [address] | [place] | [phone] | | [facility] | | [address] | | | - LABORATORY | | [...] + | [facility] | [address] | [place], [place] | [phone] | | [facility] | | [address] | | | - LABORATORY | | [...] [address] | [place] | [phone] | | [facility] | | [address] | | | - LABORATORY | | [...] [address] | [place] | [phone] | | [facility] | | [address] | | | - LABORATORY | | [...] + | [facility] | [address] | [place] | [phone] | | [facility] | | [address] | | | - LABORATORY | | [...] [address] | [place] | [phone] | | [facility] | | [address] | | | - LABORATORY | | [...] [address] | [place] | [phone] | | [facility] | | [address] | | | - LABORATORY | | [...] ST. | [address] | [place], [place] | [phone] | | [facility] | | [address] | | | - LABORATORY | | [...] + + | Atrial fibrillation with RVR ([facility]) - Primary Atrial fibrillation | + + [...] PDT | | | | | ONCE, [facility] 07/08/18 at 0330, For 1 | [...]
--- OUTSIDE RECORDS SUMMARY | ~2019-07-24 | XMS | Encounter Summary ---
Demographics + + + | Address | [address] | | | [place] [address] | + + + | Home Phone | | + + + | Preferred Language | Unknown | + + + | Marital Status | Single | + + + | Latter Day Affiliation | NON | + + + [...] Team Providers + +------+ + | Care Parking Inspector Name | Role | Phone | + [...]
--- OUTSIDE RECORDS SUMMARY | ~2019-07-24 | XMS | Encounter Summary ---
Demographics + + + | Address | [address] | | | [place] [address] | + + + | Home Phone [...] Author + + + | Author | [facility] | + + + | Organization | [facility] | + + + | Address | Unknown | + + + | Phone | Unavailable | + + + Support + + +---------+ + | Name | Relationship | Address | Phone | + + +---------+ + | Pernell Atkinson | ECON | Unknown | | + + +---------+ + Care Team Providers + +------+ + | Care Boilermaker Welder Name | Role | Phone | + [...] Pre-Admission | | 2020 | Orders | [place] | [address] | | | | | Oculoplastics at | [place], [place] | | | | | [address] | [address] | | | | | [address] | [phone] | | | | | [facility] [place] | | | | | | [address] | | | | | | [place] [address] | | | | | | [phone] | | | +--------+ + + + [...]
--- OUTSIDE RECORDS SUMMARY | ~2019-07-24 | XMS | Encounter Summary ---
Demographics + + + | Address | [address] | | | [place] [address] | + + + | Home Phone | | + + + | Preferred Language | Unknown | + + + | Marital Status | Single | + + + | Restorationism Affiliation | NON | + + + | Race | White | + + + | Ethnic Group | Not or | + + + Author + + + | Author | [facility] | + + + | Organization | [facility] | + + + | Address | Unknown | + + + | Phone | Unavailable | + + + Support + + +---------+ + | Name | Relationship | Address | Phone | + + +---------+ + | Pernell Atkinson | ECON | Unknown | | + + +---------+ + Care Team Providers + +------+ + | Care Corporate Banking Officer Name | Role | Phone | [...] 2019 - | Encounter | Unit at [facility] | [address] | | | | | [address] | [place], [place] | | | 05/06/ | | Mailcode: [place] | [address] | | | 2019 | | [facility] and | [phone] | | | | | [address] [place] [address] | | | | | | [place], [place] | | | | | | [address] | | | | | | [phone] | | | +--------+ + + + [...] weekends and holidays, call and ask the feeder worker power unit operator to page the [facility] hospital admissions officer. ? Return appointment date: ? Time: documented [...] | | | 05/05/19 at 2232, Until [facility] 05/06/19 | | | at 1603, [...] 05/05/19 at 1054, | | | Until [facility] 05/06/19 at 1603, post-op | | [...]
--- OUTSIDE RECORDS SUMMARY | ~2019-07-24 | XMS | Clinical Summary ---
Demographics + + + | Address | [address] | | | [place] [address] | + + + | Home Phone | | + + + | Preferred Language | Unknown | + + + | Marital Status | | + + + | Scientology Affiliation | Unknown | + + + | Race | Unknown | + + + | Ethnic Group | Unknown | + + + Author + + + | Author | [facility] | | | and [place] | + + + | Organization | [facility] | | | and [...] Team Providers + +------+ + | Care Enforcement Officer Name | Role | Phone | [...] e | + + + +---------+------+------+-------+ | [place]-3 Fatty | Take 2 capsules by | [...] | + + + + | INFLUENZA, [id number], | 03/29/2009 | | | INACTIVATED | [...] | | | | | | [place] [address] | | | | | | [phone] | | | | | | | [...] +--------+ +---------+--------+ | MEDICARE | MEDICA | [id number] | 10/30/19 | [phone] | | Medica | | | RE | | 17-Pre | 5 | | re | | | PART A | | sent | | | | | | AND B | | | | | | + +--------+ +--------+ +---------+--------+ | MEDICARE | MEDICA | [id number] | 10/30/19 | [phone] | | Medica | | | RE | | 17-Pre | 5 | | re | | | PART A | | sent | | | | | | AND B | | | | | | + +--------+ +--------+ +---------+--------+ | AARP | AARP | [id number] | 03/31/19 | [phone] | | Indemn | | | MDCR | | 19-Pre | 0 | | ity | | | SUPPL | | sent | | | | + +--------+ +--------+ +---------+--------+ | AARP | AARP | [id number] | 03/31/19 | [phone] | | Indemn [...] | Self | [birth year] | [address] | | [place] | [place] | | 1951 | [phone] | [address] [place], [place] | | | vitaliy | | | 0 (Home) | [address] | + +--------+ +--------+ + + | Tamar Pillai | Person | Self | [birth year] | | [address] | | [place] | al/Fam | | 1951 | [phone] | [address] [place] | | | vitaliy | | | 0 ([place]) | [address] | + +--------+ +--------+ + + Advance Directives + + + + + | Type | Date Recorded | Patient | Explanation | | | | Injection Molding Machine Operator | | + + + + + | Power of | | | | | Technical Account Manager | | | | + + + + + | Power of | | | | | Technical Account Manager | | | | + + + [...]
--- OUTSIDE RECORDS SUMMARY | ~2019-07-24 | XMS | Encounter Summary ---
Demographics + + + | Address | [address] | | | [place] [address] | + + + | Home Phone | | + + + | Preferred Language | Unknown | + + + | Marital Status | Single | + + + | Mu-Ism Affiliation | NON | + + + [...] Team Providers + +------+ + | Care Utility Tractor Operator Name | Role | Phone | + +------+ + | Alea Devine | PCP | | + +------+ + Encounter Details +--------+---------+ + + + | Date | Type | Department | Care Team | Description | +--------+---------+ + + + | 03/03/ | Office | [facility] | Gerson Mendieta MD | Thyroid eye disease | | 2019 | Visit | [place] | [address] | (Primary Dx) | | | | Oculoplastics at | Blvd [place], [place] | | | | | [facility] [address] | [address] | | | | | [address] | [phone] | | | | | Eye [place] | | | | | | [address] | | | | | | [place] [address] | | | | | | [phone] | | | +--------+---------+ + + + [...] Referred by: Alea Devine POHx: None Thyroid: Yeast Maker/PCP - Dr. Welsh from [place]/Dr. Devine Onset- 03/2018 Status- stable with meds [...] temporal flare HOF: 2+ -nontender + proptosis [place]: good OU No adenopathy Slit Lamp Exam: RE LE Lid Margins: + MGD Conjunctiva: 1+ chemosis & congestion Cornea: Clear AC: Deep and quiet Iris: Normal Lens: 3+NS Lid Margins: +MGD Conjunctiva: 1+ chemosis & congestions Cornea: Clear AC: Deep and quiet Iris: Normal Lens: 3+ NS Fundus exam: undilated RE LE Vitreous: Clear Disc: [place] and sharp C/D: 0.3 ? Macula: Flat Vasculature: Normal Vitreous: Clear Disc: [place] and sharp C/D: 0.3 ? Macula: Flat [...] + +--------+ + + + | LA EXTERNAL PHOTOS | Routin | 03/16/2019 | [...]
--- OUTSIDE RECORDS SUMMARY | ~2019-07-24 | XMS | Encounter Summary ---
Demographics + + + | Address | [address] | | | [place] [address] | + + + | Home Phone [...] Team Providers + +------+ + | Care Repairer Welding Systems And Equipment Name | Role | Phone | + +------+ + | Alea Devine | PCP | | + +------+ + Encounter Details +--------+---------+ + + + | Date | Type | Department | Care Team | Description | +--------+---------+ + + + | 03/03/ | Office | [facility] | Gerson Mendieta MD | Thyroid eye disease | | 2019 | Visit | [place] | [address] | (Primary Dx) | | | | Oculoplastics at | Blvd [place], [place] | | | | | [facility] [address] | [address] | | | | | [address] | [phone] | | | | | Eye [place] | | | | | | [address] | | | | | | [place] [address] | | | | | | [phone] | | | +--------+---------+ + + + [...] Referred by: Alea Devine POHx: None Thyroid: Interior Design Coordinator/PCP - Dr. Welsh from [place]/Dr. Devine Onset- 03/2018 Status- stable with meds [...] temporal flare HOF: 2+ -nontender + proptosis [place]: good OU No adenopathy Slit Lamp Exam: RE LE Lid Margins: + MGD Conjunctiva: 1+ chemosis & congestion Cornea: Clear AC: Deep and quiet Iris: Normal Lens: 3+NS Lid Margins: +MGD Conjunctiva: 1+ chemosis & congestions Cornea: Clear AC: Deep and quiet Iris: Normal Lens: 3+ NS Fundus exam: undilated RE LE Vitreous: Clear Disc: [place] and sharp C/D: 0.3 ? Macula: Flat Vasculature: Normal Vitreous: Clear Disc: [place] and sharp C/D: 0.3 ? Macula: Flat [...] | + +--------+ + + + | DE EXTERNAL PHOTOS | Routin | 03/16/2019 | [...]
--- OUTSIDE RECORDS SUMMARY | ~2019-07-24 | XMS | Encounter Summary ---
Demographics + + + | Address | [address] | | | [place] [address] | + + + | Home Phone | | + + + | Preferred Language | Unknown | + + + | Marital Status | | + + + | Yazidi Affiliation | Unknown | + + + | Race | Unknown | + + + | Ethnic Group | Unknown | + + + Author + + + | Author | [facility] | | | and [place] | + + + | Organization | [facility] | | | [...] Team Providers + +------+ + | Care Lap Machine Operator Name | Role | Phone [...] + + | 04/12/ | Refill | [facility] | Antonio Stephen, | Medication Refill | | 2020 | | [facility] [place] | [address] | | | | | [address] | [place], | | | | | [place], [place] | [place] [address] | | | | | [address] | [phone] | | | | | [phone] | | | +--------+--------+ + + + [...] | | | | | | [place] [address] | | | | | | [phone] | | | | | | | | +--------+---------+ + + + documented as of this encounter Visit Diagnoses Not on filedocumented in this encounter"
--- OUTSIDE RECORDS SUMMARY | ~2019-07-24 | XMS | Encounter Summary ---
Demographics + + + | Address | [address] | | | [place] [address] | + + + | Home Phone [...] Author | [facility] | + + + | Organization | [facility] | + + + | Address | Unknown | + + + | Phone | Unavailable | + + + Support + + +---------+ + | Name | Relationship | Address | Phone | + + +---------+ + | Pernell Atkinson | ECON | Unknown | | + + +---------+ + Care Team Providers + +------+ + | Care Child Care Coordinator Name | Role | Phone | + +------+ + | Alea Devine | PCP | | + +------+ + Encounter Details +--------+ + + + + | Date | Type | Department | Care Team | Description | +--------+ + + + + | 05/05/ | Procedure | [facility] OP LOC | | | | 2020 | Pass | [address] | | | | | | [facility] | | | | | | [place] [address] | | | +--------+ + + + [...]
--- OUTSIDE RECORDS SUMMARY | ~2019-07-24 | XMS | Encounter Summary ---
Demographics + + + | Address | [address] | | | [place] [address] | + + + | Home Phone [...] Team Providers + +------+ + | Care On Site Construction Superintendent Name | Role | Phone | + [...] visit) | | 2020 | on | [place] | [address] | | | | | Oculoplastics at | [facility] [place] | | | | | [facility] [address] | [address] | | | | | [address] | [phone] | | | | | Eye [place] | | | | | | [facility], [address] [place] [address] | | | | | | [place] [address] | | | | | | [phone] | | | +--------+ + + + [...]
--- OUTSIDE RECORDS SUMMARY | ~2019-07-24 | XMS | Encounter Summary ---
Demographics + + + | Address | [address] | | | [place] [address] | + + + | Home Phone [...] Author + + + | Author | [facility] | + + + | Organization | [facility] | + + + | Address | Unknown | + + + | Phone | Unavailable | + + + Support + + +---------+ + | Name | Relationship | Address | Phone | + + +---------+ + | Pernell Atkinson | ECON | Unknown | | + + +---------+ + Care Team Providers + +------+ + | Care Digital Forensics Examiner Name | Role | Phone | + [...] | | 2020 | | [address] | [address] | ORBITAL | | | | [facility] | Blvd [place], [place] | DECOMPRESSION RIGHT | | | | [place] [address] | [address] | TEMPORARY SUTURE | | | | | [phone] | TARSORRHAPHY | | | | | [...] weekends and holidays, call and ask the elevator operator service to page the [facility] receptionist. ? Return appointment date: ? Time: documented [...] | | | 05/05/19 at 2232, Until [facility] 05/06/19 | | | at 1603, 2nd [...] 10:31 | | | Site | | 1%-[phone] - bupivacaine 0.5% | | AM PST [...]
--- OUTSIDE RECORDS SUMMARY | ~2019-07-24 | XMS | Encounter Summary ---
Demographics + + + | Address | [address] | | | [place] [address] | + + + | Home Phone | | + + + | Preferred Language | Unknown | + + + | Marital Status | | + + + | Faith Affiliation | Unknown | + + + | Race | Unknown | + + + | Ethnic Group | Unknown | + + + Author + + + | Author | [facility] | | | and [place] | + + + | Organization | [facility] | | | [...] Team Providers + +------+ + | Care Motor Vehicle Or Caravan Salesperson Name | Role | Phone | + [...] | 01/26/ | Office | [facility] | Antonio Stephen, | Paroxysmal atrial | | 2019 | Visit | [facility] [place] | [address] | fibrillation (HCC) | | | | [address] | [place], | (Primary Dx); | | | | [address] | [place] [address] | Hyperthyroidism | | | | [place] | [phone] | | | | | [address] | | | | | | [phone] | | | +--------+---------+ + + + [...] in June, when she was admitted to [facility], although she did not feel well for [...] rhythm. She is now seeing Dr. Hank eWlsh (endocrino logist in [place]), but has developed ocular problems from her [...] a RVR 07/17, attributed to her hyperthyroidism, [id number] VASc 2, on Xarelto. No recent palpitations. No history of a heart murmur, rheumatic fever. No history of hypertension, has mild hyperlipidemia. No edema, no claudication sympt oms. No h/o an AAA. -- Echo (07/08/18 - [facility]): EF 70%, mild bi-AE, otherwise normal GASTROINTESTINAL: No recent abdominal pain, nausea, vomiting or diarrhea. Denies PUD, melen a, hematochezia, hepatitis. RENAL/: No history of kidney disease. No dysuria, hematuria, urinary urgency, hesitancy. G2. P0, A2. No active Coil Tester disorders. HEMATOLOGY/ONCOLOGY: No h/o bleeding disorders, DVT, [...] (HCC) 07/08/2018 with RVR, secondary to Hyperthyroidism, [id number] VASc 2 Breast cancer (HCC) 1995 left [...] TABS Take 1 tablet by mouth Daily. [place]-3 Fatty Acids (FISH OIL PO) Take 2 [...] | | | | | | [place] [address] | | | | | | [phone] | | | | | | | [...]
--- OUTSIDE RECORDS SUMMARY | ~2019-07-24 | XMS | Encounter Summary ---
Demographics + + + | Address | [address] | | | [place] [address] | + + + | Home Phone [...] Team Providers + +------+ + | Care Fitness Consultant Name | Role | Phone | [...]
--- OUTSIDE RECORDS SUMMARY | ~2019-07-24 | XMS | Encounter Summary ---
Demographics + + + | Address | [address] | | | [place] [address] | + + + | Home Phone [...] + + + | Author | [facility] | + + + | Organization | [facility] | + + + | Address | Unknown | + + + | Phone | Unavailable | + + + Support + + +---------+ + | Name | Relationship | Address | Phone | + + +---------+ + | Pernell Atkinson | ECON | Unknown | | + + +---------+ + Care Team Providers + +------+ + | Care Training And Quality Manager Name | Role | Phone | [...] call) | | 2020 | on | [place] | [address] | | | | | Oculoplastics at | [facility], [place] | | | | | [facility] [address] | [address] | | | | | [address] | [phone] | | | | | Eye [place] | | | | | | [facility], [address] [place] [address] | | | | | | [place] [address] | | | | | | [phone] | | | +--------+ + + + [...]
--- OUTSIDE RECORDS SUMMARY | ~2019-07-24 | XMS | Clinical Summary ---
Demographics + + + | Address | [address] | | | [place] [address] | + + + | Home Phone | | + + + | Preferred Language | Unknown | + + + | Marital Status | | + + + | Jehovah'S Witness Affiliation | Unknown | + + + | Race | Unknown | + + + | Ethnic Group | Unknown | + + + Author + + + | Author | [facility] (Historical as of | | | 11-14-18) | + + + | Organization | [facility] (Historical as of | | | 11-14-18) [...] Team Providers + +------+ + | Care Regional Planner Name | Role | Phone | [...] | Overview: with RVR, secondary to Hyperthyroidism, [id number] | | VASc 2 | + + [...] +------+-------+ + | MEDICARE | MEDICA | [id number] | | | [address] | | | RE | | | | [place] [address] | | | IP-OP | | | | | + +--------+ +------+-------+ + | UNITED HEALTHCARE | UNITED | [id number] | | | | | | | [...] Self | [birth year] | Home: | [address] | | | al/Fam | | 1951 | [phone] | [address] [place] | | | vitaliy | | | [address] | [address] | + +--------+ +--------+ + +
--- OUTSIDE RECORDS SUMMARY | ~2019-07-24 | XMS | Encounter Summary ---
Demographics + + + | Address | [address] | | | [place] [address] | + + + | Home Phone [...] Team Providers + +------+ + | Care Workers Compensation Analyst Name | Role | Phone | + +------+ + | Alea Devine | PCP | | + +------+ + Encounter Details +--------+ + + + + | Date | Type | Department | Care Team | Description | +--------+ + + + + | 05/04/ | Pharmacy | Pharmacy @ [facility] | | | | 2019 | Visit | [address] | | | | | | [address] Mailcode: | | | | | | [facility] | | | | | | and [place], | | | | | | Building 2 | | | | | | [place], [place] | | | | | | [address] | | | +--------+ + + + [...]
--- OUTSIDE RECORDS SUMMARY | ~2019-07-24 | XMS | Encounter Summary ---
Demographics + + + | Address | [address] | | | [place] [address] | + + + | Home Phone [...] + + + | Author | [facility] | + + + | Organization | [facility] | + + + | Address | Unknown | + + + | Phone | Unavailable | + + + Support + + +---------+ + | Name | Relationship | Address | Phone | + + +---------+ + | Pernell Atkinson | ECON | Unknown | | + + +---------+ + Care Team Providers + +------+ + | Care Camp Head Counselor Name | Role | Phone | [...] | | | | | disease | [address] | [address] | | | | | Proptosis | [address] | [address] | | | | | Procedures | Blvd | [facility] | | | | | [address] | [place], [place] | ROAD | | | | | CONTRAST | [address] | [place], [place] | | | | | | Phone: | [address] | | | | | | [phone] | Phone: | | | | | | Fax: | [phone] | | | | | | [phone] | | + +--------+ + + + + Reason for Visit Diagnostic Testing (Urgent) + +--------+ + + + + | Status | Reason | Specialty | Diagnoses / | Referred By | Referred To | | | | | Procedures | Contact | Contact | + +--------+ + + + + | New Request | | Radiology | Diagnoses | [place], | [place] | | | | | Thyroid eye | MD Gerson | Health & | | | | | disease | [address] | [address] | | | | | Proptosis | [place] | [address] | | | | | Procedures | Blvd | [facility] | | | | | [address] | [place], [place] | ROAD | | | | | CONTRAST | [address] | [place], [place] | | | | | | Phone: | [address] | | | | | | [phone] | Phone: | | | | | | Fax: | [phone] | | | | | | [phone] | | + +--------+ + + + + Encounter Details +--------+ + + + + | Date | Type | Department | Care Team | Description | +--------+ + + + + | 04/29/ | Hospital | Diagnostic Imaging | Gerson Mendieta MD | | | 2020 | Encounter | Services at [facility] | [address] | | | | | [address] | Blvd [place], [place] | | | | | Roseann Ryan [place] | [address] | | | | | [address] | [phone] | | | | | [place], [place] | | | | | | [address] | | | | | | [phone] | | | +--------+ + + + [...]
--- OUTSIDE RECORDS SUMMARY | ~2019-07-24 | XMS | Encounter Summary ---
Demographics + + + | Address | [address] | | | [place] [address] | + + + | Home Phone | | + + + | Preferred Language | Unknown | + + + | Marital Status | Single | + + + | Zoroastrian Affiliation | NON | + + + | Race | White | + + + | Ethnic Group | Not or | + + + Author + + + | Author | [facility] | + + + | Organization | [facility] | + + + | Address | Unknown | + + + | Phone | Unavailable | + + + Support + + +---------+ + | Name | Relationship | Address | Phone | + + +---------+ + | Pernell Atkinson | ECON | Unknown | | + + +---------+ + Care Team Providers + +------+ + | Care Quick Technician Name | Role | Phone | + +------+ + PCP | Unavailable | + +------+ + Encounter Details +--------+ + + + + | Date | Type | Department | Care Team | Description | +--------+ + + + + | 02/14/ | Documentati | [facility] | Ned Valdes, | | | 1994 | on | [facility] | [address] | | | | | [address], | , [address] | | | | | [place], [place] | [place], [place] | | | | | [address] | [address] | | | | | [phone] | [phone] | | | | | | | [...] [facility] - sent Lucio Dee M.D. [id number] [place] [address] RE: TAMARZenon FOYS Dear Pat: I had [...] the patient is alert and oriented. She [id number]. She is afebrile. HEENT exam reveals no [...] petechiae. This patient has a stage I Y1IJ3C4 breast cancer. She is premenopausal. I recommended [...]
--- OUTSIDE RECORDS SUMMARY | ~2019-07-24 | XMS | Clinical Summary ---
Demographics + + + | Address | [address] | | | [place] [address] | + + + | Home Phone | | + + + | Preferred Language | Unknown | + + + | Marital Status | | + + + | Yazidism Affiliation | Unknown | + + + | Race | Unknown | + + + | Ethnic Group | Unknown | + + + Author + + + | Author | [facility] | | | and [place] | + + + | Organization | [facility] | | [...] Team Providers + +------+ + | Care Livestock Producer Name | Role | Phone | + [...] e | + + + +---------+------+------+-------+ | [place]-3 Fatty | Take 2 capsules by | [...] | + + + + | INFLUENZA, [id number], | 03/29/2009 | | | INACTIVATED | [...] | | | | | | [place] [address] | | | | | | [phone] | | | | | | | [...] +--------+ +---------+--------+ | MEDICARE | MEDICA | [id number] | 10/30/19 | [phone] | | Medica | | | RE | | 17-Pre | 5 | | re | | | PART A | | sent | | | | | | AND B | | | | | | + +--------+ +--------+ +---------+--------+ | MEDICARE | MEDICA | [id number] | 10/30/19 | [phone] | | Medica | | | RE | | 17-Pre | 5 | | re | | | PART A | | sent | | | | | | AND B | | | | | | + +--------+ +--------+ +---------+--------+ | AARP | AARP | [id number] | 03/31/19 | [phone] | | Indemn | | | MDCR | | 19-Pre | 0 | | ity | | | SUPPL | | sent | | | | + +--------+ +--------+ +---------+--------+ | AARP | AARP | [id number] | 03/31/19 | [phone] | | Indemn [...] | Self | [birth year] | [address] | | [place] | [place] | | 1951 | [phone] | [address] [place], [place] | | | vitaliy | | | 0 (Home) | [address] | + +--------+ +--------+ + + | Tamar Pillai | Person | Self | [birth year] | | [address] | | [place] | al/Fam | | 1951 | [phone] | [address] [place] | | | vitaliy | | | 0 ([place]) | [address] | + +--------+ +--------+ + + Advance Directives + + + + + | Type | Date Recorded | Patient | Explanation | | | | Visual C Developer | | + + + + + | Power of | | | | | Construction Electrician | | | | + + + + + | Power of | | | | | Construction Electrician | | | | + + + [...]
--- OUTSIDE RECORDS SUMMARY | ~2019-07-24 | XMS | Encounter Summary ---
Demographics + + + | Address | [address] | | | [place] [address] | + + + | Home Phone | | + + + | Preferred Language | Unknown | + + + | Marital Status | | + + + | Mandaeism Affiliation | Unknown | + + + [...] Team Providers + +------+ + | Care Leaf Stripper Name | Role | Phone | + [...] + + | 01/26/ | Office | [facility] | Antonio Stephen, | Paroxysmal atrial | | 2019 | Visit | CARDIOLOGY JESSICA | [address] | fibrillation (HCC) | | | | [address] | [place], | (Primary Dx); | | | | [address] | [place] [address] | Hyperthyroidism | | | | [place] | [phone] | | | | | [address] | | | | | | [phone] | | | +--------+---------+ + + + [...] in June, when she was admitted to [facility], although she did not feel well for [...] seeing Dr. Hank Welsh (endocrino logist in [place]), but has developed ocular problems from her [...] a RVR 07/17, attributed to her hyperthyroidism, WFY3DE1 VASc 2, on Xarelto. No recent palpitations. No history of a heart murmur, rheumatic fever. No history of hypertension, has mild hyperlipidemia. No edema, no claudication sympt oms. No h/o an AAA. -- Echo (07/08/18 - [facility]): EF 70%, mild bi-AE, otherwise normal GASTROINTESTINAL: No recent abdominal pain, nausea, vomiting or diarrhea. Denies PUD, melen a, hematochezia, hepatitis. RENAL/: No history of kidney disease. No dysuria, hematuria, urinary urgency, hesitancy. G2. P0, A2. No active Dental Floss Packer disorders. HEMATOLOGY/ONCOLOGY: No h/o bleeding disorders, DVT, [...] (HCC) 07/08/2018 with RVR, secondary to Hyperthyroidism, [id number] VASc 2 Breast cancer (HCC) 1995 left [...] TABS Take 1 tablet by mouth Daily. [place]-3 Fatty Acids (FISH OIL PO) Take 2 [...] | | | | | | [place] [address] | | | | | | [phone] | | | | | | | [...]
--- OUTSIDE RECORDS SUMMARY | ~2019-07-24 | XMS | Encounter Summary ---
Demographics + + + | Address | [address] | | | [place] [address] | + + + | Home Phone | | + + + | Preferred Language | Unknown | + + + | Marital Status | Single | + + + | Christianity Affiliation | NON | + + + | Race | White | + + + | Ethnic Group | Not or | + + + Author + + + | Author | [facility] | + + + | Organization | [facility] | + + + | Address | Unknown | + + + | Phone | Unavailable | + + + Support + + +---------+ + | Name | Relationship | Address | Phone | + + +---------+ + | Pernell Atkinson | ECON | Unknown | | + + +---------+ + Care Team Providers + +------+ + | Care Music Arranger Name | Role | Phone | + [...] 2019 - | Encounter | Unit at [facility] [address] | [address] | | | | | [address] | Bl[address] [place], [place] | | | 05/04/ | | Mailcode: [place] | [address] | | | 2019 | | [facility] and | [phone] | | | | | [place] [address] | | | | | | [place], [place] | | | | | | [address] | | | | | | [phone] | | | +--------+ + + + [...] Discharge Instructions Instructions Camila Villegas [facility] - [facility] Do not [...] weekends and holidays, call and ask the incubator machine operator to page the Eye Doctor wholesale agronomist. Return appointment date: May 05 documented in [...] worth at one sitting) -patient needs to case picker percocet from [facility] pharmacy (order is in) Carlos [...] DEPT OF | [address] | [place], [place] | | | CARDIOLOGY | [address] | [address] | | + + + + + [...]
--- OUTSIDE RECORDS SUMMARY | ~2019-07-24 | XMS | Encounter Summary ---
Demographics + + + | Address | [address] | | | [place] [address] | + + + | Home Phone [...] Team Providers + +------+ + | Care Marker Hand Name | Role | Phone | + [...] Pre-Admission | | 2020 | Orders | [place] | [address] | | | | | Oculoplastics at | [place], [place] | | | | | [address] | [address] | | | | | [address] | [phone] | | | | | Eye [place] | | | | | | [address] | | | | | | [place] [address] | | | | | | [phone] | | | +--------+ + + + [...]
--- OUTSIDE RECORDS SUMMARY | ~2019-07-24 | XMS | Encounter Summary ---
Demographics + + + | Address | [address] [facility] [address] | | | [place] [address] | + + + | Home Phone | | + + + | Preferred Language | Unknown | + + + | Marital Status | | + + + | Lutheran Affiliation | Unknown | + + + [...] Team Providers + +------+ + | Care First Officer Name | Role | Phone | [...] + + | 04/05/ | Refill | [facility] | Lorie Hatch | Medication Refill | | 2020 | | CARDIOLOGY JUST[place] [address] | | | | | [address] | | | | | | [place] | | | | | | [address] | | | | | | [phone] | | | +--------+--------+ + + + [...] | | | | | | [place] [address] | | | | | | [phone] | | | | | | | | +--------+---------+ + + + documented as of this encounter Visit Diagnoses Not on filedocumented in this encounter"
--- OUTSIDE RECORDS SUMMARY | ~2019-07-24 | XMS | Encounter Summary ---
Demographics + + + | Address | [address] | | | [place] [address] | + + + | Home Phone [...] Providers + +------+ + | Care Director Speech Name | Role | Phone | + +------+ + PCP | Unavailable | + +------+ + Encounter Details +--------+ + + + + | Date | Type | Department | Care Team | Description | +--------+ + + + + | 02/14/ | Documentati | [facility] | Ned Valdes, | | | 1994 | on | [facility] | [address] | | | | | [address], | , [address] | | | | | [place], [place] | [place], [place] | | | | | [address] | [address] | | | | | [phone] | [phone] | | | | | | | [...] - 11/26/2004 9:44 AM [facility]1994 - sent Lucio Dee M.D. [id number] [place] [address] RE: TAMARZenon FOYS Dear Pat: I had the pleasure of seeing your patient, Tamar Fry, regarding a diagnosis of breast cancer recently. The patient is a 44-year-old premenopausal female who was found to have an abnormality on screening mammography. A left breast biopsy was performed by you on January 10, [address], at [facility], and this revealed infiltrative moderately well differentiated [...] the patient is alert and oriented. She [id number]. She is afebrile. HEENT exam reveals no [...] petechiae. This patient has a stage I [id number] breast cancer. She is premenopausal. I recommended [...]
--- OUTSIDE RECORDS SUMMARY | ~2019-07-24 | XMS | Encounter Summary ---
Demographics + + + | Address | [address] | | | [place] [address] | + + + | Home Phone [...] + + + | Author | [facility] | + + + | Organization | [facility] | + + + | Address | Unknown | + + + | Phone | Unavailable | + + + Support + + +---------+ + | Name | Relationship | Address | Phone | + + +---------+ + | Pernell Atkinson | ECON | Unknown | | + + +---------+ + Care Team Providers + +------+ + | Care White Goods Appliance Tech Name | Role | Phone | + +------+ + | Alea Devine | PCP | | + +------+ + Encounter Details +--------+ + + + + | Date | Type | Department | Care Team | Description | +--------+ + + + + | 05/03/ | Pharmacy | [facility] | | | | 2020 | Visit | [address] | | | | | | [place] [address] | | | | | | [phone] | | | +--------+ + + + [...]
--- OUTSIDE RECORDS SUMMARY | ~2019-07-24 | XMS | Encounter Summary ---
Demographics + + + | Address | [address] | | | [place] [address] | + + + | Home Phone [...] Team Providers + +------+ + | Care Loom Tuner Name | Role | Phone | + +------+ + | Alea Devine | PCP | | + +------+ + Encounter Details +--------+---------+ + + + | Date | Type | Department | Care Team | Description | +--------+---------+ + + + | 05/13/ | Office | [facility] | Gerson Mendieta MD | Thyroid eye disease | | 2020 | Visit | [place] | [address] | (Primary Dx); | | | | Oculoplastics at | Blvd [place], [place] | Proptosis | | | | [facility] [address] | [address] | | | | | [address] | [phone] | | | | | Eye [place] | | | | | | [facility], [address] [place] [address] | | | | | | [place] [address] | | | | | | [phone] | | | +--------+---------+ + + + [...]
--- OUTSIDE RECORDS SUMMARY | ~2019-07-24 | XMS | Encounter Summary ---
Demographics + + + | Address | [address] | | | [place] [address] | + + + | Home Phone [...] + + + | Author | [facility] | + + + | Organization | [facility] | + + + | Address | Unknown | + + + | Phone | Unavailable | + + + Support + + +---------+ + | Name | Relationship | Address | Phone | + + +---------+ + | Pernell Atkinson | ECON | Unknown | | + + +---------+ + Care Team Providers + +------+ + | Care Correspondence Dictator Name | Role | Phone | + [...] | | | | | disease | [address] | [address] | | | | | Proptosis | [address] | [address] | | | | | Procedures | Blvd | [facility] | | | | | [address] | [place], [place] | ROAD | | | | | CONTRAST | [address] | [place], [place] | | | | | | Phone: | [address] | | | | | | [phone] | Phone: | | | | | | Fax: | [phone] | | | | | | [phone] | | + +--------+ + + + + Reason for Visit Diagnostic Testing (Urgent) + +--------+ + + + + | Status | Reason | Specialty | Diagnoses / | Referred By | Referred To | | | | | Procedures | Contact | Contact | + +--------+ + + + + | New Request | | Radiology | Diagnoses | An[place], | [place] | | | | | Thyroid eye | MD Gerson | Health & | | | | | disease | [address] | [address] | | | | | Proptosis | [address] | [address] [facility] | | | | | Procedures | Blvd | [facility] | | | | | [address] | [place], [place] | ROAD | | | | | CONTRAST | [address] | [place], [place] | | | | | | Phone: | [address] | | | | | | [phone] | Phone: | | | | | | Fax: | [phone] | | | | | | [phone] | | + +--------+ + + + + Encounter Details +--------+ + + + + | Date | Type | Department | Care Team | Description | +--------+ + + + + | 04/29/ | Hospital | Diagnostic Imaging | Gerson Mendieta MD | | | 2020 | Encounter | Services at [facility] | [address] | | | | | [address] | Blvd [place], [place] | | | | | Roseann Ryan [place] | [address] | | | | | [address] | [phone] | | | | | [place], [place] | | | | | | [address] | | | | | | [phone] | | | +--------+ + + + [...]
--- OUTSIDE RECORDS SUMMARY | ~2019-07-24 | XMS | Encounter Summary ---
Demographics + + + | Address | [address] | | | [place] [address] | + + + | Home Phone | | + + + | Preferred Language | Unknown | + + + | Marital Status | Single | + + + | Episcopal Affiliation | NON | + + + [...] Team Providers + +------+ + | Care Sheet Rock Hanger Name | Role | Phone | + [...] | | | | | disease | [address] | [address] | | | | | Proptosis | [place] | [address] | | | | | Procedures | Blvd | [facility] | | | | | [address] | [place], [place] | ROAD | | | | | CONTRAST | [address] | [place], [place] | | | | | | Phone: | [address] | | | | | | [phone] | Phone: | | | | | | Fax: | [phone] | | | | | | [phone] | | + +--------+ + + + [...] disease | | 2020 | Visit | [place] | [address] | (Primary Dx); | | | | Oculoplastics at | [facility], [place] | Proptosis | | | | [address] | [address] | | | | | [address] | [phone] | | | | | Eye [place] | | | | | | [facility], 5th floor | | | | | | [place] [address] | | | | | | [phone] | | | +--------+---------+ + + + [...] is gone TFTS stable POHx: None Thyroid: Qa Automation Engineer/PCP - Dr. Welsh from [place]/Dr. Devine Onset- 03/2018 Status- stable with meds [...] exam: undilated RE LE Vitreous: Clear Disc: [place] and sharp -full C/D: 0.1 Macula: Flat Vasculature: Normal Vitreous: Clear Disc: [place] and sharp C/D: 0.2 Macula: Flat Vasculature: [...]
--- OUTSIDE RECORDS SUMMARY | ~2019-07-24 | XMS | Encounter Summary ---
Demographics + + + | Address | [address] | | | [place] [address] | + + + | Home Phone | | + + + | Preferred Language | Unknown | + + + | Marital Status | | + + + | Oriental Orthodox Affiliation | Unknown | + + + | Race | Unknown | + + + | Ethnic Group | Unknown | + + + Author + + + | Author | [facility] | | | and [place] | + + + | Organization | [facility] | | [...] Team Providers + +------+ + | Care Biochemistry Technician Name | Role | Phone | [...] + + | 04/12/ | Refill | [facility] | Antonio Stephen, | Medication Refill | | 2020 | | CARDIOLOGY [place] | [address] | | | | | [address] | [place], | | | | | [place], [place] | [place] [address] | | | | | [address] | [phone] | | | | | [phone] | | | +--------+--------+ + + + [...] | | | | | | [place] [address] | | | | | | [phone] | | | | | | | | +--------+---------+ + + + documented as of this encounter Visit Diagnoses Not on filedocumented in this encounter"
--- OUTSIDE RECORDS SUMMARY | ~2019-07-24 | XMS | Encounter Summary ---
Demographics + + + | Address | [address] | | | [place] [address] | + + + | Home Phone [...] Team Providers + +------+ + | Care Crusher Supervisor Name | Role | Phone | [...] Post Op | | 2020 | | [place] | [address] | | | | | Oculoplastics at | Blvd [place], [place] | | | | | [address] | [address] | | | | | [address] | [phone] | | | | | Eye [place] | | | | | | [facility], [address] [place] [address] | | | | | | [place] [address] | | | | | | [phone] | | | +--------+ + + + [...]
--- OUTSIDE RECORDS SUMMARY | ~2019-07-24 | XMS | Encounter Summary ---
Demographics + + + | Address | [address] | | | [place] [address] | + + + | Home Phone | | + + + | Preferred Language | Unknown | + + + | Marital Status | Single | + + + | Sikh Affiliation | NON | + + + [...] Team Providers + +------+ + | Care President & Founder Name | Role | Phone | + [...] visit) | | 2020 | on | [place] | [address] | | | | | Oculoplastics at | [facility] [place] | | | | | [facility] [address] | [address] | | | | | [address] | [phone] | | | | | Eye [place] | | | | | | [facility], [address] [place] [address] | | | | | | [place] [address] | | | | | | [phone] | | | +--------+ + + + [...]
--- OUTSIDE RECORDS SUMMARY | ~2019-07-24 | XMS | Clinical Summary ---
Demographics + + + | Address | [address] | | | [place] [address] | + + + | Home Phone [...] + + | Author | [facility] | + + + | Organization | [facility] | + + + | Address | Unknown | + + + | Phone | Unavailable | + + + Support + + +---------+ + | Name | Relationship | Address | Phone | + + +---------+ + | Pernell Atkinson | ECON | Unknown | | + + +---------+ + Care Team Providers + +------+ + | Care Software Tools Build Engineer Name | Role | Phone | + +------+ + | Alea Devine | PCP | | + +------+ + Source Comments JOSE is fully live on both [facility] Ambulatory and [facility] InPatient.[facility] Allergies No Known Allergies Medications + [...] 02/1 | 04/0 | Expir | | uuubkaal-gynwggyul-p | both eyes two times | | [...] difficulty, 10ml air added, no leak at [id number]. Atraumatic | | | to soft tissues/dentition [...] + | [facility] DEPT OF | [address] | [place], [place] | | | CARDIOLOGY | [address] | [address] | | + + + + + [...] Note | + + | Service Account, RadiPoynt Res In Interface - 04/29/2019 2:23 PM [...] | | | | | | | [address] | | + +--------+ +--------+ + +--------+ | [employer] | AARP | [id number] | 03/31/19 | [phone] | [address] | Indemn | | RETIRED PEOPLE | | | 19-Pre | 9 | [id number] | ity | | | | | sent | | [place] | | | | | | | | [address] | | + +--------+ +--------+ + +--------+ [...] | [birth year]/09/ | | [address] | | [place] | al/Fam | | 1951 | [phone] | [place] [address] | | | vitaliy | | | [...]
--- OUTSIDE RECORDS SUMMARY | ~2019-07-24 | XMS | Encounter Summary ---
Demographics + + + | Address | [address] | | | [place] [address] | + + + | Home Phone [...] Author + + + | Author | [facility] | + + + | Organization | [facility] | + + + | Address | Unknown | + + + | Phone | Unavailable | + + + Support + + +---------+ + | Name | Relationship | Address | Phone | + + +---------+ + | Pernell Atkinson | ECON | Unknown | | + + +---------+ + Care Team Providers + +------+ + | Care Machine Adjuster Leader Case Trim Name | Role | Phone | + [...] | | 2020 | Event | [address] [facility] | [address] [facility] | | | | | [facility] | [facility], | | | | | [place] [address] | [place] [address] | | | | | | [phone] | | | | | | | [...]
--- OUTSIDE RECORDS SUMMARY | ~2019-07-24 | XMS | Encounter Summary ---
Demographics + + + | Address | [address] | | | [place] [address] | + + + | Home Phone | | + + + | Preferred Language | Unknown | + + + | Marital Status | Single | + + + | Caodaism Affiliation | NON | + + + | Race | White | + + + | Ethnic Group | Not or | + + + Author + + + | Author | [facility] | + + + | Organization | [facility] | + + + | Address | Unknown | + + + | Phone | Unavailable | + + + Support + + +---------+ + | Name | Relationship | Address | Phone | + + +---------+ + | Pernell Atkinson | ECON | Unknown | | + + +---------+ + Care Team Providers + +------+ + | Care Retail Personal Banker Name | Role | Phone | + [...] disease | | 2020 | Visit | [place] | [address] | (Primary Dx); | | | | Oculoplastics at | [facility] [place] | Proptosis | | | | [facility] [address] | [address] | | | | | [address] | [phone] | | | | | Eye [place] | | | | | | [facility], [address] [place] [address] | | | | | | [place] [address] | | | | | | [phone] | | | +--------+---------+ + + + [...] possible need for additional surgery (short and long-term), hemorrhage, infection, visio n loss and no [...]
--- OUTSIDE RECORDS SUMMARY | ~2019-07-24 | XMS | Encounter Summary ---
Demographics + + + | Address | [address] | | | [place] [address] | + + + | Home Phone [...] + + + | Author | [facility] | + + + | Organization | [facility] | + + + | Address | Unknown | + + + | Phone | Unavailable | + + + Support + + +---------+ + | Name | Relationship | Address | Phone | + + +---------+ + | Pernell Atkinson | ECON | Unknown | | + + +---------+ + Care Team Providers + +------+ + | Care Linux Admin Name | Role | Phone | + [...] 2019 - | Encounter | Unit at [facility] [address] | [address] | | | | | [address] | Blvd [place], [place] | | | 05/04/ | | Mailcode: [place] | [address] | | | 2019 | | [facility] and | [phone] | | | | | [place] [address] | | | | | | [place], [place] | | | | | | [address] | | | | | | [phone] | | | +--------+ + + + [...] Discharge Instructions Instructions Camila Villegas RN - 05/03/2019[facility] after Orbital Surgery Do not drive, [...] weekends and holidays, call and ask the bending press operator to page the Eye Doctor visual education director. Return appointment date: May 05 documented in [...] worth at one sitting) -patient needs to greens picker percocet from [facility] pharmacy (order is in) Carlos Britt [...] DEPT OF | [address] | [place], [place] | | | CARDIOLOGY | [address] | [address] | | + + + + + [...]
--- OUTSIDE RECORDS SUMMARY | ~2019-07-24 | XMS | Encounter Summary ---
Demographics + + + | Address | [address] [facility] [address] [address] | | | [place] [address] | + + + | Home Phone | | + + + | Preferred Language | Unknown | + + + | Marital Status | | + + + | Mormonism Affiliation | Unknown | + + + [...] Providers + +------+ + | Care Supervisor Patching Name | Role | Phone | + [...] | | | [address] [place] | [place] [address] | | | | | [place] [address] | | | | | | [phone] | | | +--------+ + + + [...] [place], | | | | | | [place] [address] | | | | | | [phone] | | | | | | | [...]
--- OUTSIDE RECORDS SUMMARY | ~2019-07-24 | XMS | Encounter Summary ---
Demographics + + + | Address | [address] | | | [place] [address] | + + + | Home Phone [...] Team Providers + +------+ + | Care Alodize Machine Helper Name | Role | Phone | [...] call) | | 2020 | on | [place] | [address] | | | | | Oculoplastics at | [facility], [place] | | | | | [facility] [address] | [address] | | | | | [address] | [phone] | | | | | Eye [place] | | | | | | [facility], [address] [place] [address] | | | | | | [place] [address] | | | | | | [phone] | | | +--------+ + + + [...]
--- OUTSIDE RECORDS SUMMARY | ~2019-07-24 | XMS | Encounter Summary ---
Demographics + + + | Address | [address] | | | [place] [address] | + + + | Home Phone [...] Team Providers + +------+ + | Care Upholstery Trimmer Name | Role | Phone | + +------+ + PCP | Unavailable | + +------+ + Encounter Details +--------+ + + + + | Date | Type | Department | Care Team | Description | +--------+ + + + + | 10/04/ | Documentati | [facility] | Ned Valdes, | | | 2004 | on | [facility] | [address] | | | | | [address], | , [address] | | | | | [place], [place] | [place], [place] | | | | | [address] | [address] | | | | | [phone] | [phone] | | | | | | | [...]
--- OUTSIDE RECORDS SUMMARY | ~2019-07-24 | XMS | Encounter Summary ---
Demographics + + + | Address | [address] | | | [place] [address] | + + + | Home Phone [...] Team Providers + +------+ + | Care Afloat Cryptologic Manager Name | Role | Phone | [...] | | | | | disease | [address] | [address] | | | | | Proptosis | [place] | [address] | | | | | Procedures | Blvd | [facility] | | | | | [address] | [place], [place] | ROAD | | | | | CONTRAST | [address] | | | | | | | Phone: | [address] | | | | | | [phone] | Phone: | | | | | | Fax: | [phone] | | | | | | [phone] | | + +--------+ + + + [...] disease | | 2020 | Visit | [place] | [address] | (Primary Dx); | | | | Oculoplastics at | [facility], [place] | Proptosis | | | | [address] | [address] | | | | | [address] | [phone] | | | | | Eye [place] | | | | | | [facility], 5th floor | | | | | | [place] [address] | | | | | | [phone] | | | +--------+---------+ + + + [...] is gone TFTS stable POHx: None Thyroid: Janitorial Services Supervisor/PCP - Dr. Welsh from [place]/Dr. Devine Onset- 03/2018 Status- stable with meds [...] exam: undilated RE LE Vitreous: Clear Disc: [place] and sharp -full C/D: 0.1 Macula: Flat Vasculature: Normal Vitreous: Clear Disc: [place] and sharp C/D: 0.2 Macula: Flat Vasculature: [...]
--- OUTSIDE RECORDS SUMMARY | ~2019-07-24 | XMS | Encounter Summary ---
Demographics + + + | Address | [address] | | | [place] [address] | + + + | Home Phone [...] Team Providers + +------+ + | Care Cotton Program Technician Name | Role | Phone | [...] | | | | | disease | [address] | [address] | | | | | Proptosis | [place] | [address] | | | | | Procedures | [address]vd | [facility] | | | | | [address] | [place], [place] | ROAD | | | | | CONTRAST | [address] | [place], [place] | | | | | | Phone: | [address] | | | | | | [phone] | Phone: | | | | | | Fax: | [phone] | | | | | | [phone] | | + +--------+ + + + + Reason for Visit Diagnostic Testing (Urgent) + +--------+ + + + + | Status | Reason | Specialty | Diagnoses / | Referred By | Referred To | | | | | Procedures | Contact | Contact | + +--------+ + + + + | New Request | | Radiology | Diagnoses | Anam, | [place] | | | | | Thyroid eye | MD Gerson | Health & | | | | | disease | [address] | [facility] [address] | | | | | Proptosis | [place] | [address] [facility] | | | | | Procedures | Blvd | [facility] | | | | | [address] | [place], [place] | ROAD | | | | | CONTRAST | [address] | [place], [place] | | | | | | Phone: | [phone] | | | | | | [phone] | Phone: | | | | | | Fax: | [phone] | | | | | | [phone] | | + +--------+ + + + + Encounter Details +--------+ + + + + | Date | Type | Department | Care Team | Description | +--------+ + + + + | 04/29/ | Hospital | Diagnostic Imaging | Gerson Mendieta MD | | | 2020 | Encounter | Services at [facility] | [address] | | | | | [address] | [address] [place], [place] | | | | | Roseann Ryan [place] | [address] | | | | | [address] | [phone] | | | | | [place], [place] | | | | | | [address] | | | | | | [phone] | | | +--------+ + + + [...]
--- OUTSIDE RECORDS SUMMARY | ~2019-07-24 | XMS | Encounter Summary ---
Demographics + + + | Address | [address] | | | [place] [address] | + + + | Home Phone [...] Author + + + | Author | [facility] | + + + | Organization | [facility] | + + + | Address | Unknown | + + + | Phone | Unavailable | + + + Support + + +---------+ + | Name | Relationship | Address | Phone | + + +---------+ + | Pernell Atkinson | ECON | Unknown | | + + +---------+ + Care Team Providers + +------+ + | Care Assessment Expert Name | Role | Phone | + [...] | 2019 | Event | [address] | [address] [facility] | | | | | [facility] | [facility] | | | | | [place] [address] | [place], [place] | | | | | | [address] | | | | | | [phone] | | | | | | | [...] difficulty, 10ml air added, no leak at [id number]. Atraumatic | | | to soft tissues/dentition [...]
--- OUTSIDE RECORDS SUMMARY | ~2019-07-24 | XMS | Encounter Summary ---
Demographics + + + | Address | [address] | | | [place] [address] | + + + | Home Phone [...] Team Providers + +------+ + | Care Division Toll Wire Chief Name | Role | Phone | [...]
--- OUTSIDE RECORDS SUMMARY | ~2019-07-24 | XMS | Encounter Summary ---
Demographics + + + | Address | [address] | | | [place] [address] | + + + | Home Phone [...] Author + + + | Author | [facility] | + + + | Organization | [facility] | + + + | Address | Unknown | + + + | Phone | Unavailable | + + + Support + + +---------+ + | Name | Relationship | Address | Phone | + + +---------+ + | Pernell Atkinson | ECON | Unknown | | + + +---------+ + Care Team Providers + +------+ + | Care Spinner Iron Name | Role | Phone | + +------+ + | Alea Devine | PCP | | + +------+ + Encounter Details +--------+ + + + + | Date | Type | Department | Care Team | Description | +--------+ + + + + | 05/03/ | Procedure | [facility] | | | | 2020 | Pass | [address] [facility] | | | | | | [facility] | | | | | | [place] [address] | | | +--------+ + + + [...]
--- OUTSIDE RECORDS SUMMARY | ~2019-07-24 | XMS | Encounter Summary ---
Demographics + + + | Address | [address] | | | [place] [address] | + + + | Home Phone [...] Team Providers + +------+ + | Care Auto Body Technician Name | Role | Phone | [...]
--- OUTSIDE RECORDS SUMMARY | ~2019-07-24 | XMS | Encounter Summary ---
Demographics + + + | Address | [address] | | | [place] [address] | + + + | Home Phone [...] Team Providers + +------+ + | Care Trolley Car Overhauler Name | Role | Phone | + [...]
--- OUTSIDE RECORDS SUMMARY | ~2019-07-24 | XMS | Encounter Summary ---
Demographics + + + | Address | [address] | | | [place] [address] | + + + | Home Phone | | + + + | Preferred Language | Unknown | + + + | Marital Status | | + + + | Alevism Affiliation | Unknown | + + + | Race | Unknown | + + + | Ethnic Group | Unknown | + + + Author + + + | Author | [facility] | | | and [place] | + + + | Organization | [facility] | | [...] Providers + +------+ + | Care Supervisor Plastic Sheets Name | Role | Phone | + [...] + + | 01/26/ | Office | [facility] | Antonio Stephen, | Paroxysmal atrial | | 2019 | Visit | CARDIOLOGY JESSICA | [address] | fibrillation (HCC) | | | | [address] | [place], | (Primary Dx); | | | | [address] | [place] [address] | Hyperthyroidism | | | | [place] | [phone] | | | | | [address] | | | | | | [phone] | | | +--------+---------+ + + + [...] June, when she was admitted to [facility], although she did not feel [...] seeing Dr. Hank Welsh (endocrino logist in [place]), but has developed ocular problems from her [...] a RVR 07/17, attributed to her hyperthyroidism, [id number] VASc 2, on Xarelto. No recent palpitations. No history of a heart murmur, rheumatic fever. No history of hypertension, has mild hyperlipidemia. No edema, no claudication sympt oms. No h/o an AAA. -- Echo (07/08/18 - [facility]): EF 70%, mild bi-AE, otherwise normal GASTROINTESTINAL: No recent abdominal pain, nausea, vomiting or diarrhea. Denies PUD, melen a, hematochezia, hepatitis. RENAL/: No history of kidney disease. No dysuria, hematuria, urinary urgency, hesitancy. G2. P0, A2. No active Computer Systems Auditor disorders. HEMATOLOGY/ONCOLOGY: No h/o bleeding disorders, DVT, [...] (HCC) 07/08/2018 with RVR, secondary to Hyperthyroidism, [id number] VASc 2 Breast cancer (HCC) 1995 left [...] TABS Take 1 tablet by mouth Daily. [place]-3 Fatty Acids (FISH OIL PO) Take 2 [...] | | | | | | [place] [address] | | | | | | [phone] | | | | | | | [...]
--- OUTSIDE RECORDS SUMMARY | ~2019-07-24 | XMS | Encounter Summary ---
Demographics + + + | Address | [address] | | | [place] [address] | + + + | Home Phone | | + + + | Preferred Language | Unknown | + + + | Marital Status | Single | + + + | Uatsdin Affiliation | NON | + + + [...] Team Providers + +------+ + | Care Api Developer Name | Role | Phone | [...]
--- OUTSIDE RECORDS SUMMARY | ~2019-07-24 | XMS | Encounter Summary ---
Demographics + + + | Address | [address] | | | [place] [address] | + + + | Home Phone [...] Team Providers + +------+ + | Care Shuffle Board Operator Name | Role | Phone | + +------+ + | Alea Devine | PCP | | + +------+ + Encounter Details +--------+---------+ + + + | Date | Type | Department | Care Team | Description | +--------+---------+ + + + | 03/03/ | Office | [facility] | Gerson Mendieta MD | Thyroid eye disease | | 2019 | Visit | [place] | [address] | (Primary Dx) | | | | Oculoplastics at | Blvd [place], [place] | | | | | [facility] [address] | [address] | | | | | [address] | [phone] | | | | | [facility] | | | | | | [address] | | | | | | [place] [address] | | | | | | [phone] | | | +--------+---------+ + + + [...] Referred by: Alea Devine POHx: None Thyroid: Billing Associate/PCP - Dr. Welsh from [place]/Dr. Devine Onset- 03/2018 Status- stable with meds [...] temporal flare HOF: 2+ -nontender + proptosis [place]: good OU No adenopathy Slit Lamp Exam: RE LE Lid Margins: + MGD Conjunctiva: 1+ chemosis & congestion Cornea: Clear AC: Deep and quiet Iris: Normal Lens: 3+NS Lid Margins: +MGD Conjunctiva: 1+ chemosis & congestions Cornea: Clear AC: Deep and quiet Iris: Normal Lens: 3+ NS Fundus exam: undilated RE LE Vitreous: Clear Disc: [place] and sharp C/D: 0.3 ? Macula: Flat Vasculature: Normal Vitreous: Clear Disc: [place] and sharp C/D: 0.3 ? Macula: Flat [...] | + +--------+ + + + | CO EXTERNAL PHOTOS | Routin | 03/16/2019 | [...]
--- OUTSIDE RECORDS SUMMARY | ~2019-07-24 | XMS | Encounter Summary ---
Demographics + + + | Address | [address] | | | [place] [address] | + + + | Home Phone [...] Providers + +------+ + | Care Operations Advisor Name | Role | Phone | + [...] | | [address] | [address] | ORBITAL | | | | [facility] | Blvd [place], [place] | DECOMPRESSION LEFT | | | | [place] [address] | [address] | TEMPORARY SUTURE | | | | | [phone] | TARSORRHAPHY | | | | | [...] Discharge Instructions Instructions Camila Villegas RN - [facility]/03/[facility] Do not [...] weekends and holidays, call and ask the jig operator to page the Eye Doctor trail construction worker. Return appointment date: May 05 documented in [...] worth at one sitting) -patient needs to flower buncher or picker percocet from [facility] pharmacy (order is in) Carlos [...] WOOD OF | [address] | [place], [place] | | | CARDIOLOGY | [address] | [address] | | + + + + + [...] 11:03 | | | Site | | [id number] - bupivacaine 0.5% | | AM PST [...]
--- OUTSIDE RECORDS SUMMARY | ~2019-07-24 | XMS | Encounter Summary ---
Demographics + + + | Address | [address] | | | [place] [address] | + + + | Home Phone [...] Team Providers + +------+ + | Care Rodding Anode Worker Name | Role | Phone | + +------+ + | Alea Devine | PCP | | + +------+ + Encounter Details +--------+ + + + + | Date | Type | Department | Care Team | Description | +--------+ + + + + | 04/29/ | Procedure | [facility] | | | | 2019 | | [place] [facility] | | | | | | [facility] at [facility] [address] | | | | | | [facility] | | | | | | for Health and | | | | | | [address]aling [address], | | | | | | [address]th Floor | | | | | | [place], [place] | | | | | | [address] | | | | | | [phone] | | | +--------+ + + + [...]
--- OUTSIDE RECORDS SUMMARY | ~2019-07-24 | XMS | Encounter Summary ---
Demographics + + + | Address | [address] | | | [place] [address] | + + + | Home Phone [...] Team Providers + +------+ + | Care Cold Header Operator Name | Role | Phone | + +------+ + | Alea Devine | PCP | | + +------+ + Encounter Details +--------+ + + + + | Date | Type | Department | Care Team | Description | +--------+ + + + + | 05/03/ | Procedure | [facility] | | | | 2020 | Pass | [address] [facility] | | | | | | [facility] | | | | | | [place] [address] | | | +--------+ + + + [...]
[~2019-07-24 16:51] MED LIST: CYCLOBENZAPRINE10 MG PO; DILTIAZEM 24HR240 M1 PO; METHIMAZOLE10 MG PO; NORCO 5-325 TA1 EACH PO; OMEPRAZOLE20 MG PO; PREDNISONE10 MG PO; XARELTO20 MG PO
--- NOTE | 2019-07-24 22:14 | EKG ---
[facility] [address] [facility] [place] [address] Signed Atrial fibrillation Nonspecific ST abnormality Abnormal ECG When compared with ECG of 07-JUL-2018 11:50, Vent. rate has decreased BY 44 BPM Confirmed by VALERIE SANFORD MD ([id number]) on 07/24/2019 10:14:13 PM Electronically Signed By: VALERIE SANFORD MD 07/24/19 2214 PATIENT NAME: LISANDRALISANAVYA VORAE Electrocardiogram DATE OF : 52 PHYSICIAN: VALERIE SANFORD MD REPORT #: [id number] REPORT IS CONFIDENTIAL AND NOT TO BE RELEASED WITHOUT AUTHORIZATION
[2019-07-25] MEDS ORDERED: METOPROLOL SUCC50 MG PO (10:49)
== END 2019-07-25 12:45 | disposition home or self-care (01) ==
LOC: ED 16:51 → CCU 16:53
PROVIDERS: ADMIT Internal Medicine
DX: I48.11 Longstanding persistent atrial fibrillation (principal); E05.00 Thyrotoxicosis with diffuse goiter without thyrotoxic crisis or storm; Z87.891 Personal history of nicotine dependence; Z79.899 Other long term (current) drug therapy
CPT/HCPCS: 71045; 71260; 80053; 81001; 83735; 84439; 84443; 84484; 85025; 93005; 93010; 96361; 96365; 99285-25; G0378; J3475; J7030; Q9967

== ENCOUNTER 2024-04-14 17:51 | Emergency (ER) | payer MEDICARE, OTHER ==
[~2024-04-14] VITALS: Ht 170.2 cm; Wt 74.8 kg
[~2024-04-14 17:51] MED LIST changes: +ALENDRONATE SOD70 MG PO; +DIGOXIN125 MCG PO; +DOFETILIDE125 MCG PO; +ELIQUIS5 MG PO; +LEVOTHYROXINE75 MCG PO; +LOSARTAN POTASS25 MG PO; +MECLIZINE HCL25 MG PO; +METOPROLOL SUC100 MG PO; +METOPROLOL SUCC50 MG PO
[2024-04-14] MEDS ORDERED: METOPROLOL TAR100 MG PO (18:11)
[2024-04-14] MEDS ORDERED: CYTOMEL5 MCG PO (18:13)
[2024-04-14] MEDS ORDERED: LIPITOR20 MG PO (18:14)
[2024-04-14 18:24] LABS: BASOPHILS 0.7 % (0-2); EOSINOPHILS 9.4 % (0-6); HEMATOCRIT 45.8 % (35.0-50.0); HEMOGLOBIN 15.1 g/dL (12.0-18.0); LYMPHOCYTES 37.4 % (24-44); MCH 29.2 (27-36); MCV 88.3 fl (81-99); MONOCYTES 7.5 % (0-12); PLATELET COUNT 213 K/uL (140-440); RBC 5.19 M/ul (4.3-5.7); RDW 13.9 (10.5-15.0)
[2024-04-14 18:52] LABS: ALBUMIN 3.5 g/dL (3.4-5.0); ALBUMIN/GLOBULIN RATIO 0.92 (1.1-2.4); ANION GAP 12.4 (7-21); BILIRUBIN, TOTAL 0.3 ng/dL (0.2-1.0); BUN/CREATININE RATIO 29.67 (6.0-28.6); CALCIUM 8.9 mg/dL (8.5-10.1); CREATININE, SERUM 0.91 mg/dL (0.55-1.02); MAGNESIUM 1.8 mg/dL (1.8-2.4); POTASSIUM 4.4 mmol/L (3.5-5.1); PROTEIN, TOTAL 7.3 g/dL (6.4-8.2); TSH, 3RD GENERATION 0.048 uIU/mL (0.358-3.740)
[2024-04-14] MEDS ORDERED: propofoL 200 MG/20 ML VIAL IV ONE (19:00)
[2024-04-14 20:17] VITALS: BP 125/70
--- NOTE | 2024-04-16 10:16 | EKG ---
[facility] [address] [place] [address] Signed Atrial fibrillation with rapid ventricular response Abnormal ECG When compared with ECG of 05-AUG-2022 06:27, Atrial fibrillation has replaced Electronic atrial pacemaker Vent. rate has increased BY 36 BPM Confirmed by Jomar Diego DO ([id number]) on 04/16/2024 10:16:39 AM Electronically Signed By: JOMAR DIEGO DO 04/16/24 1016 PATIENT NAME: LISA FRY Electrocardiogram DATE OF : 52 PHYSICIAN: JOMAR DIEGO DO REPORT #: [id number] REPORT IS CONFIDENTIAL AND NOT TO BE RELEASED WITHOUT AUTHORIZATION
== END 2024-04-14 20:17 | disposition home or self-care (01) ==
LOC: ED 17:51
PROVIDERS: Emergency Medicine
DX: I48.91 Unspecified atrial fibrillation (principal); Z85.3 Personal history of malignant neoplasm of breast; Z79.890 Hormone replacement therapy; Z79.01 Long term (current) use of anticoagulants; Z79.899 Other long term (current) drug therapy
CPT/HCPCS: 36415; 80053; 83735; 84443; 84484; 85025; 92960; 93005; 93010; 94799; 99285-25; J2704